=== PATIENT | female | born 1980 | race Caucasian/White ===

== ENCOUNTER → 2018-09-16 09:20 | Outpatient (CLI) | payer OTHER, SELFPAY ==
--- NOTE | 2018-09-16 | DI.US.S_ITS ---
PROCEDURE: US PELVIC COMPLETE INDICATIONS: PAIN TECHNIQUE: Real-time scanning was performed of the pelvic organs, with image documentation. Additional endovaginal scanning was necessary due to incomplete visualization of the adnexal and endometrial structures by transabdominal scanning. COMPARISON: [facility], , PELVIC COMPLETE, 08/16/2014, 8:38. [facility], , PELVIC COMPLETE, 04/22/2012, 13:14. FINDINGS: Transabdominal scanning: Limited scanning through the kidneys shows no hydronephrosis. No pathologic free abdominal or pelvic fluid. Endovaginal scanning: Uterus: Uterus is normal in size at 5.4 x 7.6 x 9.1 cm, anteverted. The endometrium measures 7.9 mm in combined thickness. Ovaries: Normal in size and free of evidence of torsion. A minimally complex 1.7 cm cyst is incidentally noted at the left ovary, likely with proteinaceous or hemorrhagic internal content IMPRESSION: Normal-appearing endometrial lining and myometrium, the uterus is anteverted. No evidence of ovarian torsion or inflammation. Minimally complex left ovarian cyst measuring up to 1.1 x 1.3 x 1.7 cm. Dictated by: Lawrence Cristina M.D. on 09/16/2018 at 11:50 Approved by: Lawrence Cristina M.D. on 09/16/2018 at 11:52
== END ==
PROVIDERS: Family Provider Nurse Practitioner; PCP Nurse Practitioner; Visit Provider Registered Nurse
DX: R10.2 Pelvic and perineal pain (principal); N83.202 Unspecified ovarian cyst, left side; N85.4 Malposition of uterus
CPT/HCPCS: 76830; 76856

== ENCOUNTER → 2019-03-16 18:26 | Outpatient (CLI) | payer OTHER, SELFPAY | PROVIDERS: PCP Nurse Practitioner; Visit Provider Physician Assistant | DX: N30.01 Acute cystitis with hematuria (principal) | CPT/HCPCS: 87077; 87086; 87186 ==

== ENCOUNTER 2019-04-05 13:00 | Outpatient (RCR) | payer OTHER, SELFPAY ==
--- NOTE | 2019-02-01 15:15 | PT.OIE ---
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 Specialty: Family Practice Address: [address] [place] [address], [id number] Email: [email or web address] Attending Provider Specialty: Address: Phone: Fax: Email: Physical Therapy Initial Evaluation PT-OP-A Visit Information Start: 02/01/19 13:13 Freq: Status: Active Protocol: Document 02/01/19 15:15 [facility] (Rec: 02/06/19 14:09 [facility] [email or web address]) Out-Patient Physical Therapy Visit Information Visit Information Visit Type Initial Evaluation Visit Note 38 year old female with abdominal pain, pelvic pain, weakness of her pelvic floor Visit Start Time 15:15 Visit Stop Time 16:00 Total Visit Minutes 45 Visit Number 1 Evaluation Information Evaluation Date 02/01/19 PT-OP-B Current Condition Start: 02/01/19 13:13 Freq: Status: Active Protocol: Document 02/01/19 15:23 [facility] (Rec: 02/01/19 15:36 [facility] [id number]) Current Condition History of Current Condition Onset Date with child births Current Complaints pelvic pressure and abdominal pain, frequency of voiding History of Current Condition history of a retroverted uterus, Will be having a partial hysterectomy and and bladder sling surgery is scheduled April 12. With the pain it is hard to exercise. Notes all over pelvic and abdominal pain pain is worse in the am. She does not like having urine in her bladder. Always had a little problem with the stream of urine. Uses a squatty potty and splints her perineum. Always feels pain when she is ovulating and hard to have a good bowel movement during this time. Can only do light exercise at this time. Would like to be able to do a cardio workout without having pain following. Future Testing and Treatments Planned Pt is undergoing a partial hysterectomy, exploritory surgery, and anterior posterior repair in March Treatment Goals Patient/Caregiver Goals The patients goals include strengthening of her pelvic floor prior to surgery for best surgical outcome PT-OP-I Pelvic Floor Start: 02/01/19 13:13 Freq: Status: Active Protocol: Document 02/01/19 15:15 [facility] (Rec: 02/06/19 14:09 [facility] [email or web address]) Pelvic Floor Assessment Urine Pelvic Floor Surgery No Urinary Symptoms Urge Sensation,Prolapse, Hesitancy,Dribbling After Urination,Incomplete Emptying, Pain Leakage Size Medium Leakage Cause Cough,Exercise,Lifting,Sneeze, Urge Leaks Per Day 2 Nocturia yes Pelvic Clock Pelvic Clock 12-3 Atrophy Pelvic Clock 3-6 Atrophy Pelvic Clock 6-9 Atrophy Pelvic Clock 9-12 Atrophy Prolapse Uterine Prolapse Grade 2 Cystocele Grade 2 Prolapse Comments pt does better with a wedge for pelvic floor contractions SEMG (uV) Baseline 2.0 10 Second Contraction 11.9 Recruitment Pattern Fair Relaxation Fair Holding Fair Stability of Hold Fair SEMG Stability of Rest Fair Contraction Ability Voluntary Contraction Weak Voluntary Relaxation Weak Manual Muscle Testing Left 3 Manual Muscle Testing Right 3 Manual Muscle Testing Anterior 3 Manual Muscle Testing Posterior 3 Muscle Endurance (Seconds) 5 Comments Pelvic Floor Comments max on EMG biofeedback is 20.8 , elevated resting tone PT-OP-M Strength Start: 02/01/19 13:13 Freq: Status: Active Protocol: Document 02/01/19 15:15 [facility] (Rec: 02/06/19 14:09 [facility] [email or web address]) Trunk Strength Trunk Manual Muscle Testing Core Stabilization decreased activation of the transverse abdominal musculature R SI joint pain with TA contractions PT-OP-T Assessment and Plan Start: 02/01/19 13:13 Freq: Status: Active Protocol: Document 02/01/19 15:15 [facility] (Rec: 02/06/19 14:09 [facility] [email or web address]) Physical Therapy Assessment Rehab Potential Rehabilitation Potential Good Evaluation Complexity Number of Personal Factors/Comorbidities 0 Number of Body Systems Impaired 1-2 Clinical Presentation at Evaluation Stable Impairments Impairments Activity Tolerance,Functional Activities,Pain,Strength Goals Three Impairment Decreased endurance of the pelvic floor Nursing Home Goal (LTG) Giovanni is able to sustain a pelvic floor contraction for 10 seconds in supine and 5 seconds in standing LTG Duration 8 weeks Two Impairment Decreased strength of the levator ani musculature Head Of [employer] Goal (LTG) Remedios is able to increase her strength of the pelvic floor to 3+/5 or greater prior to surgery LTG Duration 8 weeks One Impairment Decreased strength of the transverse abdominal muscle Short Term Goal (STG) Remedios is able to sustain a contraction of the TA in quadruped for 10 seconds STG Duration 5 weeks Assessment Summary Assessment Giovanni presents to physical therapy today for pelvic floor strengthening pre hysterectomy, exploritory surgery, and anterior/ posterior pelvic wall repair. She has a past history of 1 vaginal delivery and 2 c- section deliveries. Her youngest child is 3 years old. She is scheduled for surgery in March 2019 and wants to be as strong as possible prior to surgery. She reports both abdominal and pelvic floor pain. She feels very weak in her core and pelvic floor and reports she has no stamina for regular exercise or normal activities. She reports bladder leakage approximatley 2 xms per day with both exercise and strong urge to void. She reports emptying her bladder frequently due to a irritation and urgency when her bladder is filling. She reports feeling as if she always needs to void. Remedios has had previous PT and is educated on avoiding straining, using a squatty potty, and splinting with her fingers to avoid increased strain to her pelvic organs. She has had PT for pelvic floor strengthening in the past. With her examination today Remedios presents with pelvic floor weakness greater in the anterior wall of her pelvic floor, decreased endurance and pelvic organ prolapse. We did start EMG biofeedback today for her pelvic floor facilitation. She does better in a elevated position for her pelvic floor. Treatment will include endurance training for the pelvic floor and overall strengthening of the core prior to surgery. Physical Therapy Plan Frequency and Duration Frequency of Treatment 1x/Week Duration of Treatment 8 Plan of Care Start Date 02/01/19 Plan of Care End Date 03/29/19 Therapeutic Interventions Therapeutic Interventions Home Exercise Program, Neuromuscular Re-education, Patient/Caregiver Education, Self-Care/Home Management, Therapeutic Exercises Modalities Biofeedback Next Visit Focus/Plan Next Note Type Treatment Note Next Visit Plan EMG biofeedback for pelvic floor strengthening and endurance traning. Core stabilization exercises and TA muscle facilitation.
--- NOTE | 2019-03-01 12:18 | PT.OTN ---
Current Diagnoses Female genital prolapse, unspecified (03/01/19) Physical Therapy Treatment Note PT-OP-A Visit Information Start: 02/01/19 13:13 Freq: Status: Active Protocol: Document 03/01/19 12:12 [facility] (Rec: 03/01/19 12:15 [facility] [email or web address]) Out-Patient Physical Therapy Visit Information Visit Information Visit Type Treatment Note Visit Start Time 11:15 Visit Stop Time 12:00 Total Visit Minutes 45 Visit Number 2 PT-OP-B Current Condition Start: 02/01/19 13:13 Freq: Status: Active Protocol: Document 02/01/19 15:23 [facility] (Rec: 02/01/19 15:36 [facility] [id number]) Current Condition History of Current Condition Onset Date with child births Current Complaints pelvic pressure and abdominal pain, frequency of voiding History of Current Condition history of a retroverted uterus, Will be having a partial hysterectomy and and bladder sling surgery is scheduled April 12. With the pain it is hard to exercise. Notes all over pelvic and abdominal pain pain is worse in the am. She does not like having urine in her bladder. Always had a little problem with the stream of urine. Uses a squatty potty and splints her perineum. Always feels pain when she is ovulating and hard to have a good bowel movement during this time. Can only do light exercise at this time. Would like to be able to do a cardio workout without having pain following. Future Testing and Treatments Planned Pt is undergoing a partial hysterectomy, exploritory surgery, and anterior posterior repair in March Treatment Goals Patient/Caregiver Goals The patients goals include strengthening of her pelvic floor prior to surgery for best surgical outcome PT-OP-C Subjective Start: 02/01/19 13:13 Freq: Status: Active Protocol: Document 03/01/19 11:18 [facility] (Rec: 03/01/19 11:20 [facility] [id number]) OP-PT Subjective Patient Comments Patient Comments Somedays are better than others Still scheduled for surgery in March Patient Reported Progress Same PT-OP-I Pelvic Floor Start: 02/01/19 13:13 Freq: Status: Active Protocol: Document 02/01/19 15:15 [facility] (Rec: 02/06/19 14:09 [facility] [email or web address]) Pelvic Floor Assessment Urine Pelvic Floor Surgery No Urinary Symptoms Urge Sensation,Prolapse, Hesitancy,Dribbling After Urination,Incomplete Emptying, Pain Leakage Size Medium Leakage Cause Cough,Exercise,Lifting,Sneeze, Urge Leaks Per Day 2 Nocturia yes Pelvic Clock Pelvic Clock 12-3 Atrophy Pelvic Clock 3-6 Atrophy Pelvic Clock 6-9 Atrophy Pelvic Clock 9-12 Atrophy Prolapse Uterine Prolapse Grade 2 Cystocele Grade 2 Prolapse Comments pt does better with a wedge for pelvic floor contractions SEMG (uV) Baseline 2.0 10 Second Contraction 11.9 Recruitment Pattern Fair Relaxation Fair Holding Fair Stability of Hold Fair SEMG Stability of Rest Fair Contraction Ability Voluntary Contraction Weak Voluntary Relaxation Weak Manual Muscle Testing Left 3 Manual Muscle Testing Right 3 Manual Muscle Testing Anterior 3 Manual Muscle Testing Posterior 3 Muscle Endurance (Seconds) 5 Comments Pelvic Floor Comments max on EMG biofeedback is 20.8 , elevated resting tone PT-OP-M Strength Start: 02/01/19 13:13 Freq: Status: Active Protocol: Document 02/01/19 15:15 [facility] (Rec: 02/06/19 14:09 [facility] [email or web address]) Trunk Strength Trunk Manual Muscle Testing Core Stabilization decreased activation of the transverse abdominal musculature R SI joint pain with TA contractions PT-OP-Q Treatments Start: 03/01/19 12:12 Freq: Status: Active Protocol: Document 03/01/19 12:16 [facility] (Rec: 03/01/19 12:18 [facility] [email or web address]) Therapeutic Exercises Supine Exercises 6 Supine Exercise Name quick flicks x 10 reps 5 Supine Exercise Name Pelvic floor activation with EMG biofeedback Reps/Minutes 10 second hold x 10 reps 4 Supine Exercise Name ball squeeze with pelvic floor squeeze Reps/Minutes x 10 3 Supine Exercise Name Roll outs with theraband Reps/Minutes 3 x 10 reps 2 Supine Exercise Name TA with marches Reps/Minutes x 10 1 Supine Exercise Name TA facilitation in supine Reps/Minutes x 5 PT-OP-T Assessment and Plan Start: 02/01/19 13:13 Freq: Status: Active Protocol: Document 03/01/19 12:12 [facility] (Rec: 03/01/19 12:15 [facility] [email or web address]) Physical Therapy Assessment Assessment Summary Assessment Average contraction today was 16.1 with max of 24.7. Remedios did not require a bolster today for her pelvic floor. Added in quadruped TA and hip stabilization exercises. Good tolerance. Physical Therapy Plan Frequency and Duration Frequency of Treatment 1x/Week Duration of Treatment 8 Plan of Care Start Date 02/01/19 Plan of Care End Date 03/29/19 Next Visit Focus/Plan Next Note Type Treatment Note Next Visit Plan Review all exercises from today and continue to progress stabilization until surgery
--- NOTE | 2019-03-09 09:26 | PT.OTN ---
Current Diagnoses Female genital prolapse, unspecified (03/08/19) Physical Therapy Treatment Note PT-OP-A Visit Information Start: 02/01/19 13:13 Freq: Status: Active Protocol: Document 03/08/19 13:01 [facility] (Rec: 03/08/19 13:45 [facility] [id number]) Out-Patient Physical Therapy Visit Information Visit Information Visit Type Treatment Note Visit Start Time 13:00 Visit Stop Time 13:45 Total Visit Minutes 45 Visit Number 3 PT-OP-B Current Condition Start: 02/01/19 13:13 Freq: Status: Active Protocol: Document 02/01/19 15:23 [facility] (Rec: 02/01/19 15:36 [facility] [id number]) Current Condition History of Current Condition Onset Date with child births Current Complaints pelvic pressure and abdominal pain, frequency of voiding History of Current Condition history of a retroverted uterus, Will be having a partial hysterectomy and and bladder sling surgery is scheduled April 12. With the pain it is hard to exercise. Notes all over pelvic and abdominal pain pain is worse in the am. She does not like having urine in her bladder. Always had a little problem with the stream of urine. Uses a squatty potty and splints her perineum. Always feels pain when she is ovulating and hard to have a good bowel movement during this time. Can only do light exercise at this time. Would like to be able to do a cardio workout without having pain following. Future Testing and Treatments Planned Pt is undergoing a partial hysterectomy, exploritory surgery, and anterior posterior repair in March Treatment Goals Patient/Caregiver Goals The patients goals include strengthening of her pelvic floor prior to surgery for best surgical outcome PT-OP-C Subjective Start: 02/01/19 13:13 Freq: Status: Active Protocol: Document 03/08/19 13:01 [facility] (Rec: 03/08/19 13:45 [facility] [id number]) OP-PT Subjective Patient Comments Patient Comments Pt reports she was really sore after last week. Muscular pain, she was suprised at how much she was sore from using her pelvic floor muscles PT-OP-I Pelvic Floor Start: 02/01/19 13:13 Freq: Status: Active Protocol: Document 02/01/19 15:15 [facility] (Rec: 02/06/19 14:09 [facility] [email or web address]) Pelvic Floor Assessment Urine Pelvic Floor Surgery No Urinary Symptoms Urge Sensation,Prolapse, Hesitancy,Dribbling After Urination,Incomplete Emptying, Pain Leakage Size Medium Leakage Cause Cough,Exercise,Lifting,Sneeze, Urge Leaks Per Day 2 Nocturia yes Pelvic Clock Pelvic Clock 12-3 Atrophy Pelvic Clock 3-6 Atrophy Pelvic Clock 6-9 Atrophy Pelvic Clock 9-12 Atrophy Prolapse Uterine Prolapse Grade 2 Cystocele Grade 2 Prolapse Comments pt does better with a wedge for pelvic floor contractions SEMG (uV) Baseline 2.0 10 Second Contraction 11.9 Recruitment Pattern Fair Relaxation Fair Holding Fair Stability of Hold Fair SEMG Stability of Rest Fair Contraction Ability Voluntary Contraction Weak Voluntary Relaxation Weak Manual Muscle Testing Left 3 Manual Muscle Testing Right 3 Manual Muscle Testing Anterior 3 Manual Muscle Testing Posterior 3 Muscle Endurance (Seconds) 5 Comments Pelvic Floor Comments max on EMG biofeedback is 20.8 , elevated resting tone PT-OP-M Strength Start: 02/01/19 13:13 Freq: Status: Active Protocol: Document 02/01/19 15:15 [facility] (Rec: 02/06/19 14:09 [facility] [email or web address]) Trunk Strength Trunk Manual Muscle Testing Core Stabilization decreased activation of the transverse abdominal musculature R SI joint pain with TA contractions PT-OP-Q Treatments Start: 03/01/19 12:12 Freq: Status: Active Protocol: Document 03/08/19 13:01 [facility] (Rec: 03/08/19 13:45 [facility] [id number]) Therapeutic Exercises Supine Exercises 8 Supine Exercise Name templates for coordination and eccentric control Comments with EMG biofeedback x 5 minutes 7 Supine Exercise Name Pelvic floor with ball squeeze and bridges Reps/Minutes 10 6 Supine Exercise Name quick flicks x 10 reps 5 Supine Exercise Name Pelvic floor activation with EMG biofeedback Reps/Minutes 10 second hold x 10 reps 4 Supine Exercise Name ball squeeze with pelvic floor squeeze Reps/Minutes x 10 3 Supine Exercise Name Roll outs with theraband Reps/Minutes 3 x 10 reps 2 Supine Exercise Name TA with marches Reps/Minutes x 10 1 Supine Exercise Name TA facilitation in supine Reps/Minutes x 5 Other Exercises 2 Other Exercise Name quadruped TA facilitation Reps/Minutes hold x 5 seconds x 5 reps 1 Other Exercise Name quadruped cat cow Reps/Minutes x 10 reps PT-OP-T Assessment and Plan Start: 12/17/19 13:13 Freq: Status: Active Protocol: Document 03/08/19 13:01 [facility] (Rec: 03/09/19 09:26 [facility] [email or web address]) Physical Therapy Assessment Assessment Summary Assessment Good tolerance today for ther ex. Was sore following last visit but sore from using her muscles. Today she was able to complete all of her exercises. Continue working the pelvic floor and core musculature prior to surgery next month. Physical Therapy Plan Frequency and Duration Frequency of Treatment 1x/Week Duration of Treatment 8 Plan of Care Start Date 02/01/19 Plan of Care End Date 03/29/19 Therapeutic Interventions Therapeutic Interventions Home Exercise Program, Neuromuscular Re-education, Patient/Caregiver Education, Self-Care/Home Management, Therapeutic Exercises Modalities Biofeedback Next Visit Focus/Plan Next Note Type Treatment Note Next Visit Plan Continue to work on pelvic floor stabilization 1 xm per week until surgery.
--- NOTE | 2019-03-15 16:49 | PT.OTN ---
Current Diagnoses Female genital prolapse, unspecified (03/15/19) Physical Therapy Treatment Note PT-OP-A Visit Information Start: 02/01/19 13:13 Freq: Status: Active Protocol: Document 03/15/19 16:44 [facility] (Rec: 03/15/19 16:49 [facility] [email or web address]) Out-Patient Physical Therapy Visit Information Visit Information Visit Type Treatment Note Visit Start Time 13:00 Visit Stop Time 13:45 Total Visit Minutes 45 Visit Number 4 PT-OP-B Current Condition Start: 02/01/19 13:13 Freq: Status: Active Protocol: Document 02/01/19 15:23 [facility] (Rec: 02/01/19 15:36 [facility] [id number]) Current Condition History of Current Condition Onset Date with child births Current Complaints pelvic pressure and abdominal pain, frequency of voiding History of Current Condition history of a retroverted uterus, Will be having a partial hysterectomy and and bladder sling surgery is scheduled April 12. With the pain it is hard to exercise. Notes all over pelvic and abdominal pain pain is worse in the am. She does not like having urine in her bladder. Always had a little problem with the stream of urine. Uses a squatty potty and splints her perineum. Always feels pain when she is ovulating and hard to have a good bowel movement during this time. Can only do light exercise at this time. Would like to be able to do a cardio workout without having pain following. Future Testing and Treatments Planned Pt is undergoing a partial hysterectomy, exploritory surgery, and anterior posterior repair in March Treatment Goals Patient/Caregiver Goals The patients goals include strengthening of her pelvic floor prior to surgery for best surgical outcome PT-OP-C Subjective Start: 02/01/19 13:13 Freq: Status: Active Protocol: Document 03/15/19 16:44 [facility] (Rec: 03/15/19 16:49 [facility] [email or web address]) OP-PT Subjective Patient Comments Patient Comments pt reports it is the week before her menstruation and she feels alot more pressure and fatigue PT-OP-I Pelvic Floor Start: 02/01/19 13:13 Freq: Status: Active Protocol: Document 02/01/19 15:15 [facility] (Rec: 02/06/19 14:09 [facility] [email or web address]) Pelvic Floor Assessment Urine Pelvic Floor Surgery No Urinary Symptoms Urge Sensation,Prolapse, Hesitancy,Dribbling After Urination,Incomplete Emptying, Pain Leakage Size Medium Leakage Cause Cough,Exercise,Lifting,Sneeze, Urge Leaks Per Day 2 Nocturia yes Pelvic Clock Pelvic Clock 12-3 Atrophy Pelvic Clock 3-6 Atrophy Pelvic Clock 6-9 Atrophy Pelvic Clock 9-12 Atrophy Prolapse Uterine Prolapse Grade 2 Cystocele Grade 2 Prolapse Comments pt does better with a wedge for pelvic floor contractions SEMG (uV) Baseline 2.0 10 Second Contraction 11.9 Recruitment Pattern Fair Relaxation Fair Holding Fair Stability of Hold Fair SEMG Stability of Rest Fair Contraction Ability Voluntary Contraction Weak Voluntary Relaxation Weak Manual Muscle Testing Left 3 Manual Muscle Testing Right 3 Manual Muscle Testing Anterior 3 Manual Muscle Testing Posterior 3 Muscle Endurance (Seconds) 5 Comments Pelvic Floor Comments max on EMG biofeedback is 20.8 , elevated resting tone PT-OP-M Strength Start: 02/01/19 13:13 Freq: Status: Active Protocol: Document 02/01/19 15:15 [facility] (Rec: 02/06/19 14:09 [facility] [email or web address]) Trunk Strength Trunk Manual Muscle Testing Core Stabilization decreased activation of the transverse abdominal musculature R SI joint pain with TA contractions PT-OP-Q Treatments Start: 03/01/19 12:12 Freq: Status: Active Protocol: Document 03/15/19 16:44 [facility] (Rec: 03/15/19 16:49 [facility] [email or web address]) Therapeutic Exercises Supine Exercises 8 Supine Exercise Name templates for coordination and eccentric control Comments with EMG biofeedback x 5 minutes 7 Supine Exercise Name ball bridges Reps/Minutes 10 6 Supine Exercise Name quick flicks x 10 reps 5 Supine Exercise Name Pelvic floor activation with EMG biofeedback Reps/Minutes 10 second hold x 10 reps 4 Supine Exercise Name ball squeeze with pelvic floor squeeze Reps/Minutes x 10 3 Supine Exercise Name Roll outs with theraband Reps/Minutes 3 x 10 reps 2 Supine Exercise Name TA with marches Reps/Minutes x 10 1 Supine Exercise Name TA facilitation in supine Reps/Minutes x 5 each side Comments with ASLR Other Exercises 3 Other Exercise Name TA with opp arm lifts Reps/Minutes x 10 reps 2 Other Exercise Name quadruped TA facilitation Reps/Minutes hold x 5 seconds x 5 reps 1 Other Exercise Name quadruped cat cow Reps/Minutes x 10 reps PT-OP-T Assessment and Plan Start: 02/01/19 13:13 Freq: Status: Active Protocol: Document 03/15/19 16:44 [facility] (Rec: 03/15/19 16:49 [facility] [email or web address]) Physical Therapy Assessment Assessment Summary Assessment average today on EMG biofeedback is 17.4 uv with max of 28.5 uv. Needed the wedge today to elevate her pelvis due to pressure. Physical Therapy Plan Frequency and Duration Frequency of Treatment 1x/Week Duration of Treatment 8 Plan of Care Start Date 02/01/19 Plan of Care End Date 03/29/19 Therapeutic Interventions Therapeutic Interventions Home Exercise Program, Neuromuscular Re-education, Patient/Caregiver Education, Self-Care/Home Management, Therapeutic Exercises Next Visit Focus/Plan Next Note Type Treatment Note Next Visit Plan Continue to work on pelvic floor stabilization prior to surgery the end of March
--- NOTE | 2019-03-29 12:22 | PT.OTN ---
Current Diagnoses Female genital prolapse, unspecified (03/29/19) Physical Therapy Treatment Note PT-OP-A Visit Information Start: 02/01/19 13:13 Freq: Status: Active Protocol: Document 03/29/19 11:24 [facility] (Rec: 03/29/19 11:25 [facility] [id number]) Out-Patient Physical Therapy Visit Information Visit Information Visit Type Treatment Note Visit Start Time 11:15 Visit Stop Time 12:00 Total Visit Minutes 45 Visit Number 5 PT-OP-B Current Condition Start: 02/01/19 13:13 Freq: Status: Active Protocol: Document 02/01/19 15:23 [facility] (Rec: 02/01/19 15:36 [facility] [id number]) Current Condition History of Current Condition Onset Date with child births Current Complaints pelvic pressure and abdominal pain, frequency of voiding History of Current Condition history of a retroverted uterus, Will be having a partial hysterectomy and and bladder sling surgery is scheduled April 12. With the pain it is hard to exercise. Notes all over pelvic and abdominal pain pain is worse in the am. She does not like having urine in her bladder. Always had a little problem with the stream of urine. Uses a squatty potty and splints her perineum. Always feels pain when she is ovulating and hard to have a good bowel movement during this time. Can only do light exercise at this time. Would like to be able to do a cardio workout without having pain following. Future Testing and Treatments Planned Pt is undergoing a partial hysterectomy, exploritory surgery, and anterior posterior repair in March Treatment Goals Patient/Caregiver Goals The patients goals include strengthening of her pelvic floor prior to surgery for best surgical outcome PT-OP-C Subjective Start: 02/01/19 13:13 Freq: Status: Active Protocol: Document 03/29/19 11:24 [facility] (Rec: 03/29/19 11:25 [facility] [id number]) OP-PT Subjective Patient Comments Patient Comments pt had a UTI following last visit PT-OP-I Pelvic Floor Start: 02/01/19 13:13 Freq: Status: Active Protocol: Document 02/01/19 15:15 [facility] (Rec: 02/06/19 14:09 [facility] [email or web address]) Pelvic Floor Assessment Urine Pelvic Floor Surgery No Urinary Symptoms Urge Sensation,Prolapse, Hesitancy,Dribbling After Urination,Incomplete Emptying, Pain Leakage Size Medium Leakage Cause Cough,Exercise,Lifting,Sneeze, Urge Leaks Per Day 2 Nocturia yes Pelvic Clock Pelvic Clock 12-3 Atrophy Pelvic Clock 3-6 Atrophy Pelvic Clock 6-9 Atrophy Pelvic Clock 9-12 Atrophy Prolapse Uterine Prolapse Grade 2 Cystocele Grade 2 Prolapse Comments pt does better with a wedge for pelvic floor contractions SEMG (uV) Baseline 2.0 10 Second Contraction 11.9 Recruitment Pattern Fair Relaxation Fair Holding Fair Stability of Hold Fair SEMG Stability of Rest Fair Contraction Ability Voluntary Contraction Weak Voluntary Relaxation Weak Manual Muscle Testing Left 3 Manual Muscle Testing Right 3 Manual Muscle Testing Anterior 3 Manual Muscle Testing Posterior 3 Muscle Endurance (Seconds) 5 Comments Pelvic Floor Comments max on EMG biofeedback is 20.8 , elevated resting tone PT-OP-M Strength Start: 02/01/19 13:13 Freq: Status: Active Protocol: Document 02/01/19 15:15 [facility] (Rec: 02/06/19 14:09 [facility] [email or web address]) Trunk Strength Trunk Manual Muscle Testing Core Stabilization decreased activation of the transverse abdominal musculature R SI joint pain with TA contractions PT-OP-Q Treatments Start: 03/01/19 12:12 Freq: Status: Active Protocol: Document 03/29/19 12:10 [facility] (Rec: 03/29/19 12:22 [facility] [email or web address]) Therapeutic Exercises Supine Exercises 8 Supine Exercise Name templates for coordination and eccentric control Comments with EMG biofeedback x 5 minutes 7 Supine Exercise Name ball bridges Reps/Minutes 10 6 Supine Exercise Name quick flicks x 10 reps 5 Supine Exercise Name NO EMG today as Remedios didn't have her electrode with her 4 Supine Exercise Name ball squeeze with pelvic floor squeeze Reps/Minutes x 10 3 Supine Exercise Name Roll outs with theraband Reps/Minutes 3 x 10 reps 2 Supine Exercise Name TA with marches Reps/Minutes x 10 1 Supine Exercise Name TA facilitation in supine Reps/Minutes x 5 each side Comments with ASLR Sidelying Exercises 3 Sidelying Exercise Name sidelying small hip circles Reps/Minutes 2 x 10 each 2 Sidelying Exercise Name sidelying hip lifts Reps/Minutes 2 x 10 1 Sidelying Exercise Name sidelying clam shells Reps/Minutes 2 x 10 reps Other Exercises 2 Other Exercise Name quadruped TA facilitation Reps/Minutes hold x 5 seconds x 5 reps 1 Other Exercise Name quadruped cat cow Reps/Minutes x 10 reps PT-OP-T Assessment and Plan Start: 02/01/19 13:13 Freq: Status: Active Protocol: Document 03/29/19 12:10 [facility] (Rec: 03/29/19 12:22 [facility] [email or web address]) Physical Therapy Assessment Goals Three Impairment Decreased endurance of the pelvic floor Second Language Tutor Goal (LTG) Remedios is able to sustain a pelvic floor contraction for 10 seconds in supine and 5 seconds in standing As of 03/29/19 GOOD progress, able to sustain x 10 seconds in supine LTG Duration 8 weeks Two Impairment Decreased strength of the levator ani musculature Nursing Home Goal (LTG) Remedios is able to increase her strength of the pelvic floor to 3+/5 or greater prior to surgery GOOD Progress LTG Duration 8 weeks One Impairment Decreased strength of the transverse abdominal muscle Short Term Goal (STG) Remedios is able to sustain a contraction of the TA in quadruped for 10 seconds GOAL MET STG Duration 5 weeks Assessment Summary Assessment Remedios has been tolerating PT well and showing good endurance strengthening. She has her surgery in 2 weeks so has one visit left prior to surgery. At that time we will hold off PT until she is cleared to return to therapy. Today we held off on biofeedback as Remedios had left her electrode in the car and she suffered a UTI last week. Physical Therapy Plan Frequency and Duration Frequency of Treatment 1x/Week Duration of Treatment 8 Plan of Care Start Date 03/29/19 Plan of Care End Date 05/31/19 Therapeutic Interventions Therapeutic Interventions Home Exercise Program, Neuromuscular Re-education, Patient/Caregiver Education, Self-Care/Home Management, Therapeutic Exercises Next Visit Focus/Plan Next Note Type Treatment Note Next Visit Plan Continue to work on pelvic floor stabilization prior to surgery the end of march Resume PT once cleared by her MD after surgery.
--- NOTE | 2019-03-29 12:35 | PT.OPPN ---
Current Diagnoses Female genital prolapse, unspecified (03/29/19) Physical Therapy Progress Note PT-OP-A Visit Information Start: 02/01/19 13:13 Freq: Status: Active Protocol: Document 03/29/19 11:24 [facility] (Rec: 03/29/19 11:25 [facility] [id number]) Out-Patient Physical Therapy Visit Information Visit Information Visit Type Treatment Note Visit Start Time 11:15 Visit Stop Time 12:00 Total Visit Minutes 45 Visit Number 5 PT-OP-B Current Condition Start: 02/01/19 13:13 Freq: Status: Active Protocol: Document 02/01/19 15:23 [facility] (Rec: 02/01/19 15:36 [facility] [id number]) Current Condition History of Current Condition Onset Date with child births Current Complaints pelvic pressure and abdominal pain, frequency of voiding History of Current Condition history of a retroverted uterus, Will be having a partial hysterectomy and and bladder sling surgery is scheduled April 12. With the pain it is hard to exercise. Notes all over pelvic and abdominal pain pain is worse in the am. She does not like having urine in her bladder. Always had a little problem with the stream of urine. Uses a squatty potty and splints her perineum. Always feels pain when she is ovulating and hard to have a good bowel movement during this time. Can only do light exercise at this time. Would like to be able to do a cardio workout without having pain following. Future Testing and Treatments Planned Pt is undergoing a partial hysterectomy, exploritory surgery, and anterior posterior repair in March Treatment Goals Patient/Caregiver Goals The patients goals include strengthening of her pelvic floor prior to surgery for best surgical outcome PT-OP-C Subjective Start: 02/01/19 13:13 Freq: Status: Active Protocol: Document 03/29/19 11:24 [facility] (Rec: 03/29/19 11:25 [facility] [id number]) OP-PT Subjective Patient Comments Patient Comments pt had a UTI following last visit PT-OP-I Pelvic Floor Start: 02/01/19 13:13 Freq: Status: Active Protocol: Document 02/01/19 15:15 [facility] (Rec: 02/06/19 14:09 [facility] [id number]) Pelvic Floor Assessment Urine Pelvic Floor Surgery No Urinary Symptoms Urge Sensation,Prolapse, Hesitancy,Dribbling After Urination,Incomplete Emptying, Pain Leakage Size Medium Leakage Cause Cough,Exercise,Lifting,Sneeze, Urge Leaks Per Day 2 Nocturia yes Pelvic Clock Pelvic Clock 12-3 Atrophy Pelvic Clock 3-6 Atrophy Pelvic Clock 6-9 Atrophy Pelvic Clock 9-12 Atrophy Prolapse Uterine Prolapse Grade 2 Cystocele Grade 2 Prolapse Comments pt does better with a wedge for pelvic floor contractions SEMG (uV) Baseline 2.0 10 Second Contraction 11.9 Recruitment Pattern Fair Relaxation Fair Holding Fair Stability of Hold Fair SEMG Stability of Rest Fair Contraction Ability Voluntary Contraction Weak Voluntary Relaxation Weak Manual Muscle Testing Left 3 Manual Muscle Testing Right 3 Manual Muscle Testing Anterior 3 Manual Muscle Testing Posterior 3 Muscle Endurance (Seconds) 5 Comments Pelvic Floor Comments max on EMG biofeedback is 20.8 , elevated resting tone PT-OP-M Strength Start: 02/01/19 13:13 Freq: Status: Active Protocol: Document 02/01/19 15:15 [facility] (Rec: 02/06/19 14:09 [facility] [email or web address]) Trunk Strength Trunk Manual Muscle Testing Core Stabilization decreased activation of the transverse abdominal musculature R SI joint pain with TA contractions PT-OP-T Assessment and Plan Start: 02/01/19 13:13 Freq: Status: Active Protocol: Document 03/29/19 12:10 [facility] (Rec: 03/29/19 12:22 [facility] [email or web address]) Physical Therapy Assessment Goals Three Impairment Decreased endurance of the pelvic floor Power Shovel Operator Helper Goal (LTG) Giovanni is able to sustain a pelvic floor contraction for 10 seconds in supine and 5 seconds in standing As of 03/29/19 GOOD progress, able to sustain x 10 seconds in supine LTG Duration 8 weeks Two Impairment Decreased strength of the levator ani musculature Power Shovel Operator Helper Goal (LTG) Remedios is able to increase her strength of the pelvic floor to 3+/5 or greater prior to surgery GOOD PRogress LTG Duration 8 weeks One Impairment Decreased strength of the transverse abdominal muscle Short Term Goal (STG) Remedios is able to sustain a contraction of the TA in quadruped for 10 seconds GOAL MET STG Duration 5 weeks Assessment Summary Assessment Remedios has been tolerating PT well and showing good endurance strengthening. She has her surgery in 2 weeks so has one visit left prior to surgery. At that time we will hold off PT until she is cleared to return to therapy. Today we held off on biofeedback as Remedios had left her electrode in the car and she suffered a UTI last week. Physical Therapy Plan Frequency and Duration Frequency of Treatment 1x/Week Duration of Treatment 8 Plan of Care Start Date 03/29/19 Plan of Care End Date 05/31/19 Therapeutic Interventions Therapeutic Interventions Home Exercise Program, Neuromuscular Re-education, Patient/Caregiver Education, Self-Care/Home Management, Therapeutic Exercises Next Visit Focus/Plan Next Note Type Treatment Note Next Visit Plan Continue to work on pelvic floor stabilization prior to surgery the end of march. Resume PT once cleared by her MD after surgery.
--- NOTE | 2019-03-29 12:36 | PT.OPPOC ---
Physical, Occupational & Speech Therapy At [facility] Current Diagnoses Female genital prolapse, unspecified (03/29/19) Visit Care Team Role Provider Type KVNG Cooper Primary Care Provider Advanced Liquefied Natural Gas Operator Specialty: Family Practice Address: [address] [place] [address], [id number] Email: [email or web address] Attending Provider Specialty: Address: Phone: Fax: Email: Plan Of Care PT-OP-T Assessment and Plan Start: 02/01/19 13:13 Freq: Status: Active Protocol: Document 03/29/19 12:10 [facility] (Rec: 03/29/19 12:22 [facility] [email or web address]) Physical Therapy Assessment Goals Three Impairment Decreased endurance of the pelvic floor Alf Goal (LTG) Giovanni is able to sustain a pelvic floor contraction for 10 seconds in supine and 5 seconds in standing As of 03/29/19 GOOD progress, able to sustain x 10 seconds in supine LTG Duration 8 weeks Two Impairment Decreased strength of the levator ani musculature Alf Goal (LTG) Remedios is able to increase her strength of the pelvic floor to 3+/5 or greater prior to surgery GOOD PRogress LTG Duration 8 weeks One Impairment Decreased strength of the transverse abdominal muscle Short Term Goal (STG) Remedios is able to sustain a contraction of the TA in quadruped for 10 seconds GOAL MET STG Duration 5 weeks Assessment Summary Assessment Remedios has been tolerating PT well and showing good endurance strengthening. She has her surgery in 2 weeks so has one visit left prior to surgery. At that time we will hold off PT until she is cleared to return to therapy. Today we held off on biofeedback as Remedios had left her electrode in the car and she suffered a UTI last week. Physical Therapy Plan Frequency and Duration Frequency of Treatment 1x/Week Duration of Treatment 8 Plan of Care Start Date 03/29/19 Plan of Care End Date 05/31/19 Therapeutic Interventions Therapeutic Interventions Home Exercise Program, Neuromuscular Re-education, Patient/Caregiver Education, Self-Care/Home Management, Therapeutic Exercises Next Visit Focus/Plan Next Note Type Treatment Note Next Visit Plan Continue to work on pelvic floor stabilization prior to surgery the end of march. Resume PT once cleared by her MD after surgery. Plan of Care Dates Plan of Care Start Date 03/29/19 Plan of Care End Date 05/31/19 Electronically Signed by: Martha Perry PT 03/29/19 [id number] Please Sign and Return: I have reviewed this Plan of Care and certify that the skilled therapy services above are required to meet the patient?s needs. Physician Signature Date Printed Name and Credentials Clinical Instructor Signature Printed Name and Credentials
--- NOTE | 2019-04-05 16:32 | PT.OTN ---
Current Diagnoses Female genital prolapse, unspecified (04/05/19) Physical Therapy Treatment Note PT-OP-A Visit Information Start: 02/01/19 13:13 Freq: Status: Active Protocol: Document 03/29/19 11:24 [facility] (Rec: 03/29/19 11:25 [facility] [id number]) Out-Patient Physical Therapy Visit Information Visit Information Visit Type Treatment Note Visit Start Time 11:15 Visit Stop Time 12:00 Total Visit Minutes 45 Visit Number 5 PT-OP-B Current Condition Start: 02/01/19 13:13 Freq: Status: Active Protocol: Document 02/01/19 15:23 [facility] (Rec: 02/01/19 15:36 [facility] [id number]) Current Condition History of Current Condition Onset Date with child births Current Complaints pelvic pressure and abdominal pain, frequency of voiding History of Current Condition history of a retroverted uterus, Will be having a partial hysterectomy and and bladder sling surgery is scheduled April 12. With the pain it is hard to exercise. Notes all over pelvic and abdominal pain pain is worse in the am. She does not like having urine in her bladder. Always had a little problem with the stream of urine. Uses a squatty potty and splints her perineum. Always feels pain when she is ovulating and hard to have a good bowel movement during this time. Can only do light exercise at this time. Would like to be able to do a cardio workout without having pain following. Future Testing and Treatments Planned Pt is undergoing a partial hysterectomy, exploritory surgery, and anterior posterior repair in March Treatment Goals Patient/Caregiver Goals The patients goals include strengthening of her pelvic floor prior to surgery for best surgical outcome PT-OP-C Subjective Start: 02/01/19 13:13 Freq: Status: Active Protocol: Document 04/05/19 13:02 [facility] (Rec: 04/05/19 16:32 [facility] [id number]) OP-PT Subjective Patient Comments Patient Comments Did a urodynmaics test to determine if she needs to use a sling. Pt is undergoing surgery next thursdayApr 12. PT-OP-I Pelvic Floor Start: 02/01/19 13:13 Freq: Status: Active Protocol: Document 02/01/19 15:15 [facility] (Rec: 02/06/19 14:09 [facility] [email or web address]) Pelvic Floor Assessment Urine Pelvic Floor Surgery No Urinary Symptoms Urge Sensation,Prolapse, Hesitancy,Dribbling After Urination,Incomplete Emptying, Pain Leakage Size Medium Leakage Cause Cough,Exercise,Lifting,Sneeze, Urge Leaks Per Day 2 Nocturia yes Pelvic Clock Pelvic Clock 12-3 Atrophy Pelvic Clock 3-6 Atrophy Pelvic Clock 6-9 Atrophy Pelvic Clock 9-12 Atrophy Prolapse Uterine Prolapse Grade 2 Cystocele Grade 2 Prolapse Comments pt does better with a wedge for pelvic floor contractions SEMG (uV) Baseline 2.0 10 Second Contraction 11.9 Recruitment Pattern Fair Relaxation Fair Holding Fair Stability of Hold Fair SEMG Stability of Rest Fair Contraction Ability Voluntary Contraction Weak Voluntary Relaxation Weak Manual Muscle Testing Left 3 Manual Muscle Testing Right 3 Manual Muscle Testing Anterior 3 Manual Muscle Testing Posterior 3 Muscle Endurance (Seconds) 5 Comments Pelvic Floor Comments max on EMG biofeedback is 20.8 , elevated resting tone PT-OP-M Strength Start: 02/01/19 13:13 Freq: Status: Active Protocol: Document 02/01/19 15:15 [facility] (Rec: 02/06/19 14:09 [facility] [email or web address]) Trunk Strength Trunk Manual Muscle Testing Core Stabilization decreased activation of the transverse abdominal musculature R SI joint pain with TA contractions PT-OP-Q Treatments Start: 03/01/19 12:12 Freq: Status: Active Protocol: Document 04/05/19 13:02 [facility] (Rec: 04/05/19 16:32 [facility] [id number]) Therapeutic Exercises Supine Exercises 8 Supine Exercise Name templates for coordination and eccentric control Comments with EMG biofeedback x 5 minutes 6 Supine Exercise Name quick flicks x 10 reps 5 Supine Exercise Name pelvic floor long holds x 10 second Reps/Minutes 10 second hold, 10 second relax 2 Supine Exercise Name TA with marches Reps/Minutes x 10 Sidelying Exercises 3 Sidelying Exercise Name sidelying small hip circles Reps/Minutes 2 x 10 each 2 Sidelying Exercise Name sidelying hip lifts Reps/Minutes 2 x 10 1 Sidelying Exercise Name sidelying clam shells Reps/Minutes 2 x 10 reps Other Exercises 3 Other Exercise Name TA with opp arm lifts Reps/Minutes x 10 reps 2 Other Exercise Name quadruped TA facilitation Reps/Minutes hold x 5 seconds x 5 reps 1 Other Exercise Name quadruped cat cow Reps/Minutes x 10 reps PT-OP-T Assessment and Plan Start: 02/01/19 13:13 Freq: Status: Active Protocol: Document 04/05/19 13:02 [facility] (Rec: 04/05/19 16:32 [facility] [id number]) Physical Therapy Assessment Assessment Summary Assessment Remedios has done really well with her prehab program prior to her hysterectomy and bladder sling surgery. She will be DC at this time from PT until she is cleared to resume PT following surgery. Physical Therapy Plan Discharge Physical Therapy Discharge Comments PT is undergoing bladder sling and hysterectomy. She will bring in a new referral to resume PT when she is cleared by her doctor following her surgery
--- NOTE | 2019-04-05 16:36 | PT.OPDS ---
Current Diagnoses Female genital prolapse, unspecified (04/05/19) Visit Care Team Role Provider Type KVNG Cooper Primary Care Provider Advanced Forensic Photographer Specialty: Family Practice Address: [address] [place] [address], [facility] Email: [email or web address] Attending Provider Specialty: Address: Phone: Fax: Email: Visit Number Visit Number 5 Discharge Summary PT-OP-B Current Condition Start: 02/01/19 13:13 Freq: Status: Active Protocol: Document 02/01/19 15:23 [facility] (Rec: 02/01/19 15:36 [facility] [id number]) Current Condition History of Current Condition Onset Date with child births Current Complaints pelvic pressure and abdominal pain, frequency of voiding History of Current Condition history of a retroverted uterus, Will be having a partial hysterectomy and and bladder sling surgery is scheduled April 12. With the pain it is hard to exercise. Notes all over pelvic and abdominal pain pain is worse in the am. She does not like having urine in her bladder. Always had a little problem with the stream of urine. Uses a squatty potty and splints her perineum. Always feels pain when she is ovulating and hard to have a good bowel movement during this time. Can only do light exercise at this time. Would like to be able to do a cardio workout without having pain following. Future Testing and Treatments Planned Pt is undergoing a partial hysterectomy, exploritory surgery, and anterior posterior repair in March Treatment Goals Patient/Caregiver Goals The patients goals include strengthening of her pelvic floor prior to surgery for best surgical outcome PT-OP-C Subjective Start: 02/01/19 13:13 Freq: Status: Active Protocol: Document 04/05/19 13:02 [facility] (Rec: 04/05/19 16:32 [facility] [id number]) OP-PT Subjective Patient Comments Patient Comments Did a urodynmaics test to determine if she needs to use a sling. Pt is undergoing surgery next thursdayApr 12. PT-OP-I Pelvic Floor Start: 02/01/19 13:13 Freq: Status: Active Protocol: Document 04/05/19 16:33 [facility] (Rec: 04/05/19 16:35 [facility] [id number]) Pelvic Floor Assessment SEMG (uV) Baseline 1.0 10 Second Contraction 20.1 Recruitment Pattern Good Relaxation Good Holding Good Stability of Hold Good SEMG Stability of Rest Good PT-OP-M Strength Start: 02/01/19 13:13 Freq: Status: Active Protocol: Document 02/01/19 15:15 [facility] (Rec: 02/06/19 14:09 [facility] [email or web address]) Trunk Strength Trunk Manual Muscle Testing Core Stabilization decreased activation of the transverse abdominal musculature R SI joint pain with TA contractions PT-OP-T Assessment and Plan Start: 02/01/19 13:13 Freq: Status: Active Protocol: Document 04/05/19 13:02 [facility] (Rec: 04/05/19 16:32 [facility] [id number]) Physical Therapy Assessment Assessment Summary Assessment Remedios has done really well with her prehab program prior to her hysterectomy and bladder sling surgery. She will be DC at this time from PT until she is cleared to resume PT following surgery. Physical Therapy Plan Discharge Physical Therapy Discharge Comments PT is undergoing bladder sling and hysterectomy. She will bring in a new referral to resume PT when she is cleared by her doctor following her surgery
== END 2019-04-05 17:40 | disposition home or self-care (01) ==
LOC: PHYS 13:00
PROVIDERS: PCP Nurse Practitioner
DX: N81.9 Female genital prolapse, unspecified (principal)
CPT/HCPCS: 97110; 97161

== ENCOUNTER 2019-04-14 19:36 | Emergency (ER) | payer OTHER, SELFPAY ==
[2019-04-14 19:40] VITALS: BP 124/64; PULSE 90; RESP 18; TEMP 36.6; O2SAT 98
--- NOTE | 2019-04-14 19:59 | ED_ITS ---
HPI - General Adult General Chief complaint: Fever Stated complaint: s/p surgery, fever Time Seen by Provider: 04/14/19 19:55 History of Present Illness HPI narrative: 38-year-old woman who is 48 hours postop from pelvic floor reconstruction as well as partial hysterectomy. She currently has a bupivacaine pump in place for pain control. She developed fever to 102.7 in her director content marketing requested that she come to the emergency room for further evaluation. She is not experiencing significant pain, no obvious cellulitis in her postoperative wounds are healing nicely. She is not having any uremic urinary symptoms nor is she having flank pain. Minor nonproductive cough only. No headaches and no other rashes. Related Data Home Medications Medication Instructions Recorded Confirmed albuterol sulfate 90 mcg/actuation 1 puff INHALATION Q6H PRN 09/16/18 10/30/18 aerosol inhaler fluticasone propionate 44 1 inhalation INHALATION BID 09/16/18 10/30/18 mcg/actuation HFA aerosol inhaler ketorolac 15.75 mg/spray nasal 15.75 mg NASAL Q6-8H PRN 09/16/18 10/30/18 spray Previous Rx's Medication Instructions Recorded ibuprofen 600 mg PO Q6HP PRN #20 tab 04/13/16 prednisone 20 mg tablet 20 mg PO DAILY #14 tab 10/30/18 phenazopyridine 100 mg tablet 100 mg PO TID PRN 0 Days #6 tab 03/16/19 cephalexin [Keflex] 500 mg PO Q8H #21 cap 04/14/19 Allergies Allergy/AdvReac Type Severity Reaction Status Date / Time No Known Drug Allergies Allergy Verified 04/14/19 19:43 Review of Systems Review of Systems Narrative: All systems reviewed and are unremarkable except as noted in HPI and below Patient History Medical History UTI (urinary tract infection) (Acute) Surgical History History of third molar tooth extraction Status post delivery (10/15/13) Status post delivery (04/10/16) Social History Smoking Status: Never smoker Smoking Status: Never smoker alcohol intake frequency: 0-2 drinks per day Substance Use Type: marijuana Exam Narrative Exam Narrative: General: Healthy appearing, in no acute distress. Able to give a complete and coherent history. Well-nourished well-developed HEENT: Moist mucous membranes, normal sclera with reactive pupils, Neck: No JVD, supple Respiratory: Lungs are clear to auscultation, no wheezing no rales no rhonchi. Full and symmetrical air movement Cardiac: Regular rate and rhythm no murmurs no bruits Abdomen: Soft nontender good bowel tones, postoperative trocar sites are healing appropriately. There is mild bruising over the mons pubis consistent with postoperative findings no flank pain Skin: Warm and dry, no rashes Neurologic: Grossly neurologically intact with no obvious asymmetries or abnormalities Extremities: No trauma, well perfused Psych: Cooperative, appropriate insight and affect Initial Vital Signs Initial Vital Signs: Vital Signs Temperature 97.8 F 04/14/19 19:40 Pulse Rate 90 04/14/19 19:40 Respiratory Rate 18 04/14/19 19:40 Blood Pressure 124/64 04/14/19 19:40 Pulse Oximetry 98 04/14/19 19:40 Course Orders Ordered: ED Orders 04/14/19 19:51 Urine Culture Stat Urine Microscopic Stat 04/14/19 20:00 Complete Blood Count AUTO DIFF Stat Comprehensive Metabolic Panel Stat 04/14/19 20:18 Influenza A & B (PCR) Stat Vital Signs Vital signs: Vital Signs - 8 hr 04/14/19 19:40 04/14/19 21:00 04/14/19 21:34 Temperature 97.8 F Pulse Rate 90 89 73 Respiratory Rate 18 18 16 Blood Pressure 124/64 Blood Pressure [Right Arm] 112/57 L 105/63 Pulse Oximetry 98 97 98 Medical Decision Making Medical Records Medical records reviewed: Yes I reviewed the patient's medical records. Lab Data Lab results reviewed: Yes I reviewed the patient's lab results. Lab results narrative: recent UTI: Urine Culture Final 03/18/19 Organism 1 Escherichia coli Kimmell Count >100,000 CFU/ml 1. Escherichia coli M.I.C. RX --------- --- * Amoxicillin/Clavulanate S * Ampicillin S * Ampicillin/Sulbactam S * Cefazolin S * Cefepime S * Ceftriaxone S * Ciprofloxacin S * Ertapenem S * Gentamicin S * Imipenem S * Levofloxacin S * Nitrofurantoin S * Tobramycin S * Trimethoprim/Sulfamethoxazole S * Piperacillin/Tazobactam S Result diagrams: 04/14/19 20:00 04/14/19 20:00 Labs: Lab Results 04/14/19 04/14/19 04/14/19 Range/Units 19:51 20:00 20:00 WBC 9.3 (4.5-11.0) X10^3/uL RBC 3.41 L (4.0-5.2) X10^6/uL Hgb 10.6 L (12.0-16.0) g/dL Hct 31.2 L (36-46) % MCV 91.6 (80-100) fL MCH 31.2 (26-34) PG MCHC 34.1 (30-36) % RDW 13.0 (11.6-14.8) % Plt Count 186 (150-400) X10^3/uL Neut % (Auto) 60.3 (50-75) % Lymph % (Auto) 28.4 (25-40) % [place] % (Auto) 8.9 (3-14) % Eos % (Auto) 1.9 L (2-4) % Baso % (Auto) 0.5 (0-2) % Neut # (Auto) 5600 (3365-9111) /uL Lymph # (Auto) 2600 (0227-1614) /uL [place] # (Auto) 800 (0-900) /uL Eos # (Auto) 200 (0-450) /uL Baso # (Auto) 0 (0-100) /uL Sodium 138 (137-145) mmol/L Potassium 3.6 (3.4-5.1) mmol/L Chloride 103 (98-107) mmol/L Carbon Dioxide 26 (22-32) mmol/L BUN 8 (7-17) mg/dL Creatinine 0.90 (0.52-1.04) mg/dL Estimated GFR > 60.0 (>60) mL/min BUN/Creatinine Ratio 8.9 (6-22) Glucose 105 H (70-100) mg/dL Calcium 8.3 L (8.4-10.2) mg/dL Total Bilirubin 0.3 (0.2-1.3) mg/dL AST 25 (14-36) IU/L ALT 11 (<35) IU/L Alkaline Phosphatase 62 (38-126) U/L Total Protein 6.4 (6.3-8.2) g/dL Albumin 3.5 (3.5-5.0) g/dL Globulin 2.9 (1.7-4.1) g/dL Albumin/Globulin Ratio 1.2 (1.0-2.8) Urine RBC 1-5/hpf (0-5/HPF) Urine WBC 1-5/hpf (0-5/HPF) Ur Squamous Epith Cells 1-5 /hpf (0-5/HPF) Urine Bacteria Occasional (0-1) (None) Ur Culture Indicated? Specimen cultured Micro UA Comment Bonnie esterase + Influenza A (RT-PCR) (NEGATIVE) Influenza B (RT-PCR) (NEGATIVE) 04/14/19 Range/Units 20:18 WBC (4.5-11.0) X10^3/uL RBC (4.0-5.2) X10^6/uL Hgb (12.0-16.0) g/dL Hct (36-46) % MCV (80-100) fL MCH (26-34) PG MCHC (30-36) % RDW (11.6-14.8) % Plt Count (150-400) X10^3/uL Neut % (Auto) (50-75) % Lymph % (Auto) (25-40) % [place] % (Auto) (3-14) % Eos % (Auto) (2-4) % Baso % (Auto) (0-2) % Neut # (Auto) (1932-3238) /uL Lymph # (Auto) (6030-4008) /uL [place] # (Auto) (0-900) /uL Eos # (Auto) (0-450) /uL Baso # (Auto) (0-100) /uL Sodium (137-145) mmol/L Potassium (3.4-5.1) mmol/L Chloride (98-107) mmol/L Carbon Dioxide (22-32) mmol/L BUN (7-17) mg/dL Creatinine (0.52-1.04) mg/dL Estimated GFR (>60) mL/min BUN/Creatinine Ratio (6-22) Glucose (70-100) mg/dL Calcium (8.4-10.2) mg/dL Total Bilirubin (0.2-1.3) mg/dL AST (14-36) IU/L ALT (<35) IU/L Alkaline Phosphatase (38-126) U/L Total Protein (6.3-8.2) g/dL Albumin (3.5-5.0) g/dL Globulin (1.7-4.1) g/dL Albumin/Globulin Ratio (1.0-2.8) Urine RBC (0-5/HPF) Urine WBC (0-5/HPF) Ur Squamous Epith Cells (0-5/HPF) Urine Bacteria (None) Ur Culture Indicated? Micro UA Comment Influenza A (RT-PCR) Flu a negative (NEGATIVE) Influenza B (RT-PCR) Flu b negative (NEGATIVE) Point of Care Testing Test Results Negative Urine Dip Bedside Urine Glucose Negative Bedside Urine Bilirubin - Negative Bedside Urine Ketone - Negative Urine Specific Herrick 1.010 Bedside Urine Occult Blood +++ Bedside Urine pH 6.0 Bedside Urine Protein - Negative Bedside Urine Urobilinogen - Negative Bedside Urine Nitrite - Negative Bedside Urine Leukocytes + 70 Esterase Point of care testing: Point of Care Testing Test Results Negative Urine Dip Bedside Urine Glucose Negative Bedside Urine Bilirubin - Negative Bedside Urine Ketone - Negative Urine Specific Herrick 1.010 Bedside Urine Occult Blood +++ Bedside Urine pH 6.0 Bedside Urine Protein - Negative Bedside Urine Urobilinogen - Negative Bedside Urine Nitrite - Negative Bedside Urine Leukocytes + 70 Esterase MDM Narrative Medical decision making narrative: 48 hours postop after significant laparoscopic pelvic floor surgery repair and partial hysterectomy. Currently has a lidocaine pump in place for pain control. Not specifically complaining of urine symptoms. Labs are reassuring. Giving the 48 hours postop timing of her fever this is likely due to atelectasis without evidence of pneumonia or viral pulmonary infection. She did have some mild leukocyte esterase and blood in her urine that likely is more related to her surgical procedures well as catheter. She had a UTI diagnosed at the end of February that was a mendez sensitive E coli and treated with Septra at the time. She is not particularly like this Septra so will opt to send her home with a prescription for Keflex to begin only if her symptoms worsen and fever continues after the next 12-24 hours. She will also follow-up with her surgeon Discharge Plan Departure Patient Disposition: Home Clinical Impression: Fever Qualifiers: Fever type: unspecified Qualified Code(s): R50.9 - Fever, unspecified Instructions: DI for Fever (Symptom) -- Adult Activity Restrictions/Additional Instructions: Thank you for coming in today You do not have influenza. Your blood work was very reassuring with no evidence of overwhelming infection. Looks like her body is healing nicely after your recent surgery. The most likely causes of fevers after surgery in this time frame are usually atelectasis, meaning need to work on deep breathing and normal movement to get her lungs fully inflated and working well. Your urine did show some white blood cells as well as red blood cells however this could easily be related to recent surgery and the catheter that was placed during surgery. At the end of February you did have an E coli urinary tract infection that was sensitive to all the antibiotics that we have. You stated that Septra did not go well with you so I will send you with a prescription for Keflex. If you are feeling better, your fever comes down in not having urinary symptoms you do not need to fill this. Please follow-up with your director content marketing. If you feel that you are getting worse I am happy to re-evaluate and you are welcome to come back to the emergency department. I hope you heal quickly Prescriptions: New cephalexin [Keflex] 500 mg capsule 500 mg PO Q8H Qty: 21 RF: 0 No Action prednisone 20 mg tablet 20 mg PO DAILY Qty: 14 RF: 0 phenazopyridine [Pyridium] 100 mg tablet 100 mg PO TID PRN (Reason: pain) 0 Days Qty: 6 RF: 0 ibuprofen 600 MG tablet 600 mg PO Q6HP PRNQty: 20 RF: 0 fluticasone propionate 44 mcg/actuation HFA aerosol inhaler 1 inhalation INHALATION BID RF: 0 albuterol sulfate [ProAir HFA] 90 mcg/actuation HFA aerosol inhaler 1 puff INHALATION Q6H PRNRF: 0 ketorolac 15.75 mg/spray spray,non-aerosol 15.75 mg NASAL Q6-8H PRNRF: 0 Referrals: Lucero Fortune ARNP [Primary Care Provider] -
[2019-04-14 20:25] LABS: Add Manual Diff / Slide Review NO; Basophils Absolute Auto 0 /uL (0-100); Basophils Percent Auto 0.5 % (0-2); Eosinophils Absolute Auto 200 /uL (0-450); Eosinophils Percent Auto 1.9 % (2-4); Hematocrit 31.2 % (36-46); Hemoglobin 10.6 g/dL (12.0-16.0); Lymphocytes Absolute Auto 2600 /uL (1100-4500); Lymphocytes Percent Auto 28.4 % (25-40); Mean Corpuscular HGB Conc 34.1 % (30-36); Mean Corpuscular Hemoglobin 31.2 PG (26-34); Mean Corpuscular Volume 91.6 fL (80-100); Monocytes Absolute Auto 800 /uL (0-900); Monocytes Percent Auto 8.9 % (3-14); Neutrophils Absolute Auto 5600 /uL (1500-7000); Neutrophils Percent Auto 60.3 % (50-75); Platelet Count 186 X10^3/uL (150-400); Red Blood Cell Count 3.41 X10^6/uL (4.0-5.2); White Blood Cell Count 9.3 X10^3/uL (4.5-11.0)
[2019-04-14 20:32] LABS: Alanine Aminotransferase 11 IU/L (<35); Albumin 3.5 g/dL (3.5-5.0); Albumin Globulin Ratio 1.2 (1.0-2.8); Alkaline Phosphatase 62 U/L (38-126); Aspartate Aminotransferase 25 IU/L (14-36); BUN Creatinine Ratio 8.9 (6-22); Bilirubin Total 0.3 mg/dL (0.2-1.3); Blood Urea Nitrogen 8 mg/dL (7-17); Calcium 8.3 mg/dL (8.4-10.2); Carbon Dioxide 26 mmol/L (22-32); Chloride 103 mmol/L (98-107); Estimated Glomerular Filt Rate > 60.0 mL/min (>60); Globulin 2.9 g/dL (1.7-4.1); Glucose 105 mg/dL (70-100); HEMOLYSIS < 15 (0-50); Potassium 3.6 mmol/L (3.4-5.1); Sodium 138 mmol/L (137-145); Total Protein 6.4 g/dL (6.3-8.2)
[2019-04-14 20:48] LABS: Bacteria Urine Occasional (0-1); Culture Indicated Urine Specimen Cultured; RBC Urine 1-5/HPF (0-5/HPF); Squamous Epithelial Cell Urine 1-5 /HPF (0-5/HPF); Urine Comments LEU ESTERASE +; WBC Urine 1-5/HPF (0-5/HPF)
[2019-04-14 20:55] LABS: Influenza A - CEPHEID Flu A NEGATIVE (NEGATIVE); Influenza B - CEPHEID Flu B NEGATIVE (NEGATIVE)
[2019-04-14 21:00] VITALS: BP 112/57; PULSE 89; RESP 18; O2SAT 97
[2019-04-14 21:34] VITALS: BP 105/63; PULSE 73; RESP 16; O2SAT 98
[2019-04-14 22:37] VITALS: BP 97/56; PULSE 76; RESP 12; O2SAT 95
== END 2019-04-14 22:39 | disposition home or self-care (01) ==
PROVIDERS: Emergency Provider Emergency Medicine; PCP Nurse Practitioner
DX: R50.9 Fever, unspecified (principal); Z98.890 Other specified postprocedural states
CPT/HCPCS: 36415; 80053; 81003; 81015; 81025; 85025; 87086; 87502; 99283; 99284

== ENCOUNTER → 2019-08-03 09:12 | Outpatient (CLI) | payer OTHER, SELFPAY ==
[2019-08-03 10:04] LABS: Add Manual Diff / Slide Review NO; Basophils Absolute Auto 0 /uL (0-100); Basophils Percent Auto 0.6 % (0-2); Eosinophils Absolute Auto 100 /uL (0-450); Eosinophils Percent Auto 1.7 % (2-4); Hematocrit 39.4 % (36-46); Hemoglobin 13.6 g/dL (12.0-16.0); Lymphocytes Absolute Auto 1600 /uL (1100-4500); Lymphocytes Percent Auto 30.4 % (25-40); Mean Corpuscular HGB Conc 34.6 % (30-36); Mean Corpuscular Hemoglobin 31.4 PG (26-34); Mean Corpuscular Volume 90.8 fL (80-100); Monocytes Absolute Auto 400 /uL (0-900); Monocytes Percent Auto 7.9 % (3-14); Neutrophils Absolute Auto 3100 /uL (1500-7000); Neutrophils Percent Auto 59.4 % (50-75); Platelet Count 204 X10^3/uL (150-400); Red Blood Cell Count 4.34 X10^6/uL (4.0-5.2); White Blood Cell Count 5.2 X10^3/uL (4.5-11.0)
[2019-08-03 10:24] LABS: Hemoglobin A1C% w Est Avg Glu 5.5 % (4.0-6.0)
[2019-08-03 10:46] LABS: Alanine Aminotransferase 11 IU/L (<35); Albumin 4.4 g/dL (3.5-5.0); Albumin Globulin Ratio 1.5 (1.0-2.8); Alkaline Phosphatase 71 U/L (38-126); Aspartate Aminotransferase 19 IU/L (14-36); BUN Creatinine Ratio 13.2 (6-22); Bilirubin Total 0.6 mg/dL (0.2-1.3); Blood Urea Nitrogen 12 mg/dL (7-17); Calcium 9.3 mg/dL (8.4-10.2); Carbon Dioxide 27 mmol/L (22-32); Chloride 104 mmol/L (98-107); Cholesterol 169 mg/dL (140-199); Estimated Glomerular Filt Rate > 60.0 mL/min (>60); Globulin 2.9 g/dL (1.7-4.1); Glucose 102 mg/dL (70-100); HDL Cholesterol 53 mg/dL (40-60); HEMOLYSIS < 15 (0-50); LDL Cholesterol Calculated 94 mg/dL (<100); Potassium 4.7 mmol/L (3.4-5.1); Sodium 137 mmol/L (137-145); Total Protein 7.3 g/dL (6.3-8.2); Triglycerides 109 mg/dL (35-150)
[2019-08-03 10:59] LABS: Free T3, Triiodothyronine Free 3.35 pg/mL (2.77-5.27); Free T4, Direct Thyroxine 0.89 ng/dL (0.78-2.19)
[2019-08-03 11:13] LABS: Thyroid Stimulating Hormone 0.87 uIU/mL (0.47-4.68)
[2019-08-03 12:05] LABS: Appearance Urine UA CLEAR; Bilirubin Urine UA NEGATIVE (NEGATIVE); Color Urine UA YELLOW; Glucose Urine UA NEGATIVE (Negative); Ketones Urine UA NEGATIVE (NEGATIVE); Leukocyte Esterase Urine UA 1+ (NEGATIVE); Nitrite Urine UA NEGATIVE (Negative); Occult Blood Urine UA NEGATIVE (Negative); Protein Urine UA NEGATIVE (Negative); Urobilinogen Urine UA 0.2 E.U./dL (0.2)
[2019-08-03 12:16] LABS: Bacteria Urine Many (>30); Culture Indicated Urine Specimen Cultured; RBC Urine 0-1/HPF (0-5/HPF); Squamous Epithelial Cell Urine 1-5 /HPF (0-5/HPF); WBC Urine 5-10/HPF (0-5/HPF); pH Urine UA 6.5 (4.5-8.0)
== END ==
PROVIDERS: PCP Nurse Practitioner; Referring Provider Nurse Practitioner; Visit Provider Nurse Practitioner
DX: Z00.00 Encounter for general adult medical examination without abnormal findings (principal); N30.01 Acute cystitis with hematuria; R63.5 Abnormal weight gain
CPT/HCPCS: 36415; 80053; 80061; 81001; 83036; 84439; 84443; 84481; 85025; 87077; 87086; 87186

== ENCOUNTER → 2019-09-16 17:31 | Outpatient (CLI) | payer OTHER, SELFPAY ==
[2019-09-16 17:44] LABS: RBC Urine None Seen (0-5/HPF)
[2019-09-16 18:20] LABS: Appearance Urine UA SL CLOUDY; Bilirubin Urine UA NEGATIVE (NEGATIVE); Color Urine UA YELLOW; Glucose Urine UA NEGATIVE (Negative); Ketones Urine UA NEGATIVE (NEGATIVE); Leukocyte Esterase Urine UA NEGATIVE (NEGATIVE); Nitrite Urine UA POSITIVE (Negative); Occult Blood Urine UA NEGATIVE (Negative); Protein Urine UA NEGATIVE (Negative); Specific Gravity Urine UA 1.025 (1.000-1.035); Urobilinogen Urine UA 0.2 E.U./dL (0.2)
[2019-09-16 18:28] LABS: Amorphous Sediment Urine 1+; Bacteria Urine Many (>30); Squamous Epithelial Cell Urine 1-5 /HPF (0-5/HPF); WBC Urine 5-10/HPF (0-5/HPF)
[2019-09-16 18:29] LABS: Culture Indicated Urine Specimen Cultured
== END ==
PROVIDERS: PCP Nurse Practitioner; Referring Provider Nurse Practitioner; Visit Provider Nurse Practitioner
DX: R39.9 Unspecified symptoms and signs involving the genitourinary system (principal)
CPT/HCPCS: 81001; 87077; 87086; 87186

== ENCOUNTER 2019-10-26 11:15 | Outpatient (RCR) | payer OTHER, SELFPAY ==
--- NOTE | 2019-07-04 18:43 | PT.OIE ---
Current Diagnoses Constipation, unspecified (07/04/19) Past Medical History (Last Reviewed 04/14/19 @ 22:12 by Enedelia Mix MD) UTI (urinary tract infection) (Acute) Past Surgical History (Last Reviewed 04/14/19 @ 22:12 by Enedelia Mix MD) History of third molar tooth extraction Status post delivery (10/15/13) Status post delivery (04/10/16) Visit Care Team Role Provider Type KVNG Cooper Primary Care Provider Advanced Employee Welfare Manager Specialty: Family Practice Address: [address] [place] [address], [id number] Email: [email or web address] Portillo Attending Provider Non-Staff Referring Provider Specialty: Nursing Address: [address] [place] [address], [id number] Email: Physical Therapy Initial Evaluation PT-OP-A Visit Information Start: 07/04/19 15:24 Freq: Status: Active Protocol: Document 07/04/19 15:25 [facility] (Rec: 07/04/19 15:42 [facility] [id number]) Out-Patient Physical Therapy Visit Information Visit Information Visit Type Initial Evaluation Visit Start Time 15:25 Visit Stop Time 16:10 Total Visit Minutes 45 Visit Number 1 Evaluation Information Evaluation Date 07/04/19 PT-OP-B Current Condition Start: 07/04/19 15:24 Freq: Status: Active Protocol: Document 07/04/19 15:25 [facility] (Rec: 07/04/19 15:42 [facility] [id number]) Current Condition History of Current Condition Onset Date 04/12/19 Current Complaints post op muscle spasm and weakness History of Current Condition Remedios underwent a pelvic reconstruction 04/12/19 and is here in PT today for core strengthening and stabilization. Overall she reports has had a big improvement. She does report she had post op infections and had a area where the stitches were not out yet. Had some discharge and was treated with antibiotics. She reports she was treated for a bacterial vaginosis infection. She also reports she Might have some of the mesh eroding center of the anterior wall. Remedios saw doctor today and her doctor could feel the mesh but couldn't see it. Will be treated with estrogen to see if the skin can thicken. Also has been given a muscle relaxer to help with pain. This has also helped with bowel movements. Immediately after surgery her lower back pain was gone and the pelvic pressure decreased. Her ovaries were left and uterus and cervix were removed. Treatment Goals Patient/Caregiver Goals Strengthening the core and pelvic muscles, as she is becomming more active she is having more back pain. Gets tired very easily now. Able to walk a couple of miles a normal pace. Running a mile would make her tired at this point so she would like to build up strength to be able to be more active Prior Functional Status Baseline Function- ADL's Independent Current Functional Impairments (Reported) Functional Limitations- Recreation/ due to decreased core strength Hobbies and 3 months post op surgical repair of the pelvic floor and hysterectomy Giovanni is limited in recreational activites at this time PT-OP-C Subjective Start: 07/04/19 15:24 Freq: Status: Active Protocol: Document 07/04/19 15:15 [facility] (Rec: 07/11/19 18:43 [facility] [id number]) Patient Questionnaires Pelvic Pain and Urgency/Frequency Patient Symptom Scale Pelvic Pain Score 8 OP-PT Pain Assessment Location Right SI joint Pain Location Details c/o right SI joint twinges Intensity 2 Scale Used Numeric (1 - 10) Description With Movement Variations/Patterns patient reports as she is becoming more active her R SI twinges PT-OP-F Manual Assessment Start: 07/04/19 15:24 Freq: Status: Active Protocol: Document 07/04/19 15:15 [facility] (Rec: 07/11/19 18:43 [facility] [id number]) Manual Assessments Soft Tissue Assessment Soft Tissue Mobility Assessment With internal assessment of the levator ani today there is some post op muscle tightness however Remedios is able to relax following a contraction without increase in muscle spasm. She is on muscle relaxors and notes this has really helped with relaxing her spasms PT-OP-I Pelvic Floor Start: 07/04/19 15:24 Freq: Status: Active Protocol: Document 07/04/19 15:15 [facility] (Rec: 07/11/19 18:43 [facility] [id number]) Pelvic Floor Assessment Urine Pelvic Floor Surgery Yes Urinary Symptoms Falling Out Feeling/Heavy Other Urinary Symptoms Remedios reports overall her symptoms of pelvic pressure are much better since surgery. She reports heaviness at the end of the day and with straining. She still notes she has to strain at times to pass urine. She has had difficulty with bowel movements however this has improved since surgery. Voiding Frequency 5-6 times per day Nocturia 0 Pelvic Clock Pelvic Clock 6-9 Atrophy Pelvic Clock 9-12 Atrophy Pelvic Clock Other some tone initially in the levator ani with palpation, pt was able to relax better following a contraction but will benefit from gentle pelvic floor stretches as well as strengthening SEMG (uV) Baseline 5.0 10 Second Contraction 14.5 Recruitment Pattern Good Relaxation Poor/Slow Holding Fair Stability of Hold Fair SEMG Stability of Rest Fair Contraction Ability Voluntary Contraction Weak Voluntary Relaxation Weak Manual Muscle Testing Left 3 Manual Muscle Testing Right 4 Manual Muscle Testing Anterior 3 Manual Muscle Testing Posterior 4 Muscle Endurance (Seconds) 6 Comments Pelvic Floor Comments pt starts out holding longer and shows more fatigue with further reps PT-OP-J Posture/Palpation/Skin Start: 07/04/19 15:24 Freq: Status: Active Protocol: Document 07/04/19 15:15 [facility] (Rec: 07/11/19 18:43 [facility] [id number]) Palpation Assessment Location Right SI joint Palpation Location Right SI joint Palpation Findings Tenderness PT-OP-Q Treatments Start: 07/04/19 15:24 Freq: Status: Active Protocol: Document 07/04/19 15:15 [facility] (Rec: 07/11/19 18:43 [facility] [id number]) Therapeutic Exercises Supine Exercises 2 Supine Exercise Name Pelvic floor long holds Side bilateral Reps/Minutes 10 reps holding 10 seconds and relaxing 10 seconds Comments 3 times per day Neuro Re-Education Treatment Other Activities NMES Details NMES for the pelvic floor Comments We began NMES today for the pelvic floor to help with improved awareness of pelvic floor contraction. Remedios may benefit from using a NMES unit at home for improving her pelvic floor strength and recruitment PT-OP-T Assessment and Plan Start: 07/04/19 15:24 Freq: Status: Active Protocol: Document 07/04/19 15:15 [facility] (Rec: 07/11/19 18:43 [facility] [id number]) Physical Therapy Assessment Goals Five Impairment Limited walking endurance due to s/p hysterectomy and healing Snf Goal (LTG) Remedios is able to improve her walking endurance to 3 miles without complaints of pelvic heaviness or pressure LTG Duration 8 weeks Four Impairment Elevated resting tone of the levator ani on EMG biofeedback Short Term Goal (STG) Remedios is able to reduce her resting ton to base line improving her ability to void without straining. STG Duration 4 weeks Three Impairment Decreased endurance of the pelvic floor Snf Goal (LTG) Giovanni is able to sustain a pelvic floor contraction for 10 seconds in a standing position and is able to demonstrate pelvic floor contraction with activities such as sit-stand and standing squats LTG Duration 8 weeks Two Impairment Decreased strength of the levator ani musculature s/o surgery [employer] Goal (LTG) Remedios is able to increase her strength of the pelvic floor to 4/5 or greater LTG Duration 8 weeks One Impairment Decreased strength of the transverse abdominal muscle Short Term Goal (STG) Remedios is able to sustain a contraction of the TA in quadruped for 10 seconds STG Duration 5 weeks [employer] Goal (LTG) Remedios is able to sustain a plank with core contraction LTG Duration 8 weeks Assessment Summary Assessment Remedios presents to physical therapy today at 3 months s/o hysterectomy and pelvic floor repair. She is very happy with her surgery and feels overall she is doing much better with significantly reduced c/o pelvic pressure. She feels very weak at this point and did have a issues with pelvic floor muscle spasm after surgery. She reports the muscle relaxers really seem to be helping and her ability to have a bowel movement has improved. She does still find that she is straining to void at times. She also reports that as she is doing more she is experiencing right sided SI joint pain. Her goals in PT are to strengthen her core to increase her activity level. She was very limited for a long duration due to her uterine prolapse. Remedios was seen in our clinic prior to her surgery and worked hard on her pre-op pelvic floor strengthening. With examination today she is able to contract all parts of her levator ani. She does have more weakness on the left side of her pelvic clock. I did note some muscle spasm initially and her resting tone on EMG biofeedback started at 5 uv. This decreased to 4 uv once she started working on contract relax of her pelvic floor. I did start her today with NMES for improved recruitment of her pelvic floor muscles and Remedios may benefit from renting a home unit for a month or two. She responded well to the NMES. Remedios is a good candidate for pelvic floor strengthening to work towards improving her fitness goals and her activity level. Physical Therapy Plan Frequency and Duration Frequency of Treatment 1x/Week Duration of Treatment 8 Plan of Care Start Date 07/04/19 Plan of Care End Date 08/29/19 Therapeutic Interventions Therapeutic Interventions Home Exercise Program,Manual Therapy,Neuromuscular Re- education,Patient/Caregiver Education,Self-Care/Home Management,Soft Tissue Mobilization,Therapeutic Exercises Modalities Biofeedback Other Therapeutic Interventions NMES Next Visit Focus/Plan Next Note Type Treatment Note Next Visit Plan Begin working on gentle stretches for the pelvic floor , progress core stabilization, NMES
--- NOTE | 2019-07-04 18:44 | PT.OPPOC ---
Physical, Occupational & Speech Therapy At [facility] Current Diagnoses Constipation, unspecified (07/04/19) Visit Care Team Role Provider Type KVNG Cooper Primary Care Provider Advanced Account Receivable Clerk Specialty: Family Practice Address: [address] [place] [address], [id number] Email: [email or web address] Portillo Attending Provider Non-Staff Referring Provider Specialty: Nursing Address: [address] [place] [address], [id number] Email: Plan Of Care PT-OP-T Assessment and Plan Start: 07/04/19 15:24 Freq: Status: Active Protocol: Document 07/04/19 15:15 [facility] (Rec: 07/11/19 18:43 [facility] [id number]) Physical Therapy Assessment Goals Five Impairment Limited walking endurance due to s/p hysterectomy and healing Nursing Home Goal (LTG) Remedios is able to improve her walking endurance to 3 miles without complaints of pelvic heaviness or pressure LTG Duration 8 weeks Four Impairment Elevated resting tone of the levator ani on EMG biofeedback Short Term Goal (STG) Remedios is able to reduce her resting ton to base line improving her ability to void without straining. STG Duration 4 weeks Three Impairment Decreased endurance of the pelvic floor Nursing Home Goal (LTG) Remedios is able to sustain a pelvic floor contraction for 10 seconds in a standing position and is able to demonstrate pelvic floor contraction with activities such as sit-stand and standing squats LTG Duration 8 weeks Two Impairment Decreased strength of the levator ani musculature s/o surgery Gas Torch [place]razier Goal (LTG) Remedios is able to increase her strength of the pelvic floor to 4/5 or greater LTG Duration 8 weeks One Impairment Decreased strength of the transverse abdominal muscle Short Term Goal (STG) Remedios is able to sustain a contraction of the TA in quadruped for 10 seconds STG Duration 5 weeks Gas Torch [place] Goal (LTG) Remedios is able to sustain a plank with core contraction LTG Duration 8 weeks Assessment Summary Assessment Remedios presents to physical therapy today at 3 months s/o hysterectomy and pelvic floor repair. She is very happy with her surgery and feels overall she is doing much better with significantly reduced c/o pelvic pressure. She feels very weak at this point and did have a issues with pelvic floor muscle spasm after surgery. She reports the muscle relaxers really seem to be helping and her ability to have a bowel movement has improved. She does still find that she is straining to void at times. She also reports that as she is doing more she is experiencing right sided SI joint pain. Her goals in PT are to strengthen her core to increase her activity level. She was very limited for a long duration due to her uterine prolapse. Remedios was seen in our clinic prior to her surgery and worked hard on her pre-op pelvic floor strengthening. With examination today she is able to contract all parts of her levator ani. She does have more weakness on the left side of her pelvic clock. I did note some muscle spasm initially and her resting tone on EMG biofeedback started at 5 uv. This decreased to 4 uv once she started working on contract relax of her pelvic floor. I did start her today with NMES for improved recruitment of her pelvic floor muscles and Remedios may benefit from renting a home unit for a month or two. She responded well to the NMES. Remedios is a good candidate for pelvic floor strengthening to work towards improving her fitness goals and her activity level. Physical Therapy Plan Frequency and Duration Frequency of Treatment 1x/Week Duration of Treatment 8 Plan of Care Start Date 07/04/19 Plan of Care End Date 08/29/19 Therapeutic Interventions Therapeutic Interventions Home Exercise Program,Manual Therapy,Neuromuscular Re- education,Patient/Caregiver Education,Self-Care/Home Management,Soft Tissue Mobilization,Therapeutic Exercises Modalities Biofeedback Other Therapeutic Interventions NMES Next Visit Focus/Plan Next Note Type Treatment Note Next Visit Plan Begin working on gentle stretches for the pelvic floor , progress core stabilization, NMES Plan of Care Dates Plan of Care Start Date 07/04/19 Plan of Care End Date 08/29/19 Electronically Signed by: Martha Perry, PT 07/11/19 [id number] Please Sign and Return: I have reviewed this Plan of Care and certify that the skilled therapy services above are required to meet the patient?s needs. Physician Signature Date Printed Name and Credentials Clinical Instructor Signature Printed Name and Credentials
--- NOTE | 2019-07-13 13:00 | PT.OTN ---
Current Diagnoses Constipation, unspecified (07/20/19) Physical Therapy Treatment Note PT-OP-A Visit Information Start: 07/04/19 15:24 Freq: Status: Active Protocol: Document 07/13/19 16:31 [facility] (Rec: 07/13/19 16:31 [facility] [id number]) Out-Patient Physical Therapy Visit Information Visit Information Visit Type Treatment Note Visit Start Time 13:00 Visit Stop Time 13:45 Total Visit Minutes 45 Visit Number 2 PT-OP-B Current Condition Start: 07/04/19 15:24 Freq: Status: Active Protocol: Document 07/04/19 15:25 [facility] (Rec: 07/04/19 15:42 [facility] [id number]) Current Condition History of Current Condition Onset Date 04/12/19 Current Complaints post op muscle spasm and weakness History of Current Condition Remedios underwent a pelvic reconstruction 04/12/19 and is here in PT today for core strengthening and stabilization. Overall she reports has had a big improvement. She does report she had post op infections and had a area where the stitches were not out yet. Had some discharge and was treated with antibiotics. She reports she wasd treated for a bacterial vaginosis infection. She also reports she Might have some of the mesh eroding center of the anterior wall. Remedios saw doctor today and her doctor could feel the mesh but couldn 't see it. Will be treated with estrogen to see if the skin can thicken. Also has been given a muscle relaxor to help with pain. This has also helped with bowel movements. Immediately after surgery her lower back pain was gone and the pelvic pressure decreased. Her ovaries were left and uterus and cervix were removed. Treatment Goals Patient/Caregiver Goals Strengthening the core and pelvic muscles, as she is becomming more active she is having more back pain. Gets tired very easily now. Able to walk a couple of miles a normal pace. Running a mile would make her tired at this point so she would like to build up strength to be able to be more active Prior Functional Status Baseline Function- ADL's Independent Current Functional Impairments (Reported) Functional Limitations- Recreation/ due to decreased core strength Hobbies and 3 months post op surgical repair of the pelvic floor and hysterectomy Giovanni is limited in recreational activites at this time PT-OP-C Subjective Start: 07/04/19 15:24 Freq: Status: Active Protocol: Document 07/13/19 13:00 [facility] (Rec: 07/20/19 08:18 [facility] [email or web address]) OP-PT Subjective Patient Comments Patient Comments pt reports she is doing well, she is still having the small spot of mesh protruding, seeing her MD regarding this PT-OP-F Manual Assessment Start: 07/04/19 15:24 Freq: Status: Active Protocol: Document 07/04/19 15:15 [facility] (Rec: 07/11/19 18:43 [facility] [id number]) Manual Assessments Soft Tissue Assessment Soft Tissue Mobility Assessment With internal assessment of the levator ani today there is some post op muscle tightness however Remedios is able to relax following a contraction without increase in muscle spasm. She is on muscle relaxors and notes this has really helped with relaxing her spasms PT-OP-I Pelvic Floor Start: 07/04/19 15:24 Freq: Status: Active Protocol: Document 07/04/19 15:15 [facility] (Rec: 07/11/19 18:43 [facility] [id number]) Pelvic Floor Assessment Urine Pelvic Floor Surgery Yes Urinary Symptoms Falling Out Feeling/Heavy Other Urinary Symptoms Remedios reports overall her symptoms of pelvic pressure are much better since surgery. She reports heaviness at the end of the day and with straining. She still notes she has to strain at times to pass urine. She has had difficulty with bowel movements however this has improved since surgery. Voiding Frequency 5-6 times per day Nocturia 0 Pelvic Clock Pelvic Clock 6-9 Atrophy Pelvic Clock 9-12 Atrophy Pelvic Clock Other some tone initially in the levator ani with palpation, pt was able to relax better following a contraction but will benefit from gentle pelvic floor stretches as well as strengthening SEMG (uV) Baseline 5.0 10 Second Contraction 14.5 Recruitment Pattern Good Relaxation Poor/Slow Holding Fair Stability of Hold Fair SEMG Stability of Rest Fair Contraction Ability Voluntary Contraction Weak Voluntary Relaxation Weak Manual Muscle Testing Left 3 Manual Muscle Testing Right 4 Manual Muscle Testing Anterior 3 Manual Muscle Testing Posterior 4 Muscle Endurance (Seconds) 6 Comments Pelvic Floor Comments pt starts out holding longer and shows more fatigue with further reps PT-OP-J Posture/Palpation/Skin Start: 07/04/19 15:24 Freq: Status: Active Protocol: Document 07/04/19 15:15 [facility] (Rec: 07/11/19 18:43 [facility] [id number]) Palpation Assessment Location Right SI joint Palpation Location Right SI joint Palpation Findings Tenderness PT-OP-Q Treatments Start: 07/04/19 15:24 Freq: Status: Active Protocol: Document 07/13/19 13:00 [facility] (Rec: 07/20/19 08:18 [facility] [id number]) Therapeutic Exercises Supine Exercises 4 Supine Exercise Name quadraped hip extension toe taps Reps/Minutes x 10 3 Supine Exercise Name quadraped hip extension Reps/Minutes x 10 2 Supine Exercise Name Pelvic floor long holds Side bilateral Reps/Minutes 10 reps holding 10 seconds and relaxing 10 seconds Comments 3 times per day Sidelying Exercises 3 Sidelying Exercise Name sidelying small hip circles Reps/Minutes 2 x 10 each 2 Sidelying Exercise Name sidelying hip lifts Reps/Minutes 2 x 10 1 Sidelying Exercise Name sidelying clam shells Reps/Minutes 2 x 10 reps Other Exercises 3 Other Exercise Name TA with opp arm lifts Reps/Minutes x 10 reps 2 Other Exercise Name quadruped TA facilitation Reps/Minutes hold x 5 seconds x 5 reps 1 Other Exercise Name quadruped cat cow Reps/Minutes x 10 reps Neuro Re-Education Treatment Other Activities NMES Details NMES for the pelvic floor Comments Performed NMES today for the pelvic floor to help with improved awarenss of pelvic floor contraction. Remedios may benefit from using a NMES unit at home for improving her pelvic floor strength and recruitment PT-OP-T Assessment and Plan Start: 07/04/19 15:24 Freq: Status: Active Protocol: Document 07/13/19 13:00 [facility] (Rec: 07/20/19 08:18 [facility] [id number]) Physical Therapy Assessment Assessment Summary Assessment good tolerance today for addition of exercises, pt did have a elevated resting tone today following exercises. Worked with NMES following treatment Physical Therapy Plan Frequency and Duration Frequency of Treatment 1x/Week Duration of Treatment 8 Plan of Care Start Date 07/04/19 Plan of Care End Date 08/29/19 Therapeutic Interventions Therapeutic Interventions Home Exercise Program,Manual Therapy,Neuromuscular Re- education,Patient/Caregiver Education,Self-Care/Home Management,Soft Tissue Mobilization,Therapeutic Exercises Modalities Biofeedback Other Therapeutic Interventions NMES Next Visit Focus/Plan Next Note Type Treatment Note Next Visit Plan Continue working on gentle stretches for the pelvic floor , progress core stabilization and NMES
--- NOTE | 2019-07-20 14:02 | PT.OTN ---
Current Diagnoses Constipation, unspecified (07/20/19) Physical Therapy Treatment Note PT-OP-A Visit Information Start: 07/04/19 15:24 Freq: Status: Active Protocol: Document 07/20/19 13:57 [facility] (Rec: 07/20/19 14:02 [facility] [id number]) Out-Patient Physical Therapy Visit Information Visit Information Visit Type Treatment Note Visit Start Time 08:15 Visit Stop Time 09:00 Total Visit Minutes 45 Visit Number 3 PT-OP-B Current Condition Start: 07/04/19 15:24 Freq: Status: Active Protocol: Document 07/04/19 15:25 [facility] (Rec: 07/04/19 15:42 [facility] [id number]) Current Condition History of Current Condition Onset Date 04/12/19 Current Complaints post op muscle spasm and weakness History of Current Condition Remedios underwent a pelvic reconstruction 04/12/19 and is here in PT today for core strengthening and stabilization. Overall she reports has had a big improvement. She does report she had post op infections and had a area where the stitches were not out yet. Had some discharge and was treated with antibiotics. She reports she wasd treated for a bacterial vaginosis infection. She also reports she Might have some of the mesh eroding center of the anterior wall. Remedios saw doctor today and her doctor could feel the mesh but couldn 't see it. Will be treated with estrogen to see if the skin can thicken. Also has been given a muscle relaxor to help with pain. This has also helped with bowel movements. Immediately after surgery her lower back pain was gone and the pelvic pressure decreased. Her ovaries were left and uterus and cervix were removed. Treatment Goals Patient/Caregiver Goals Strengthening the core and pelvic muscles, as she is becomming more active she is having more back pain. Gets tired very easily now. Able to walk a couple of miles a normal pace. Running a mile would make her tired at this point so she would like to build up strength to be able to be more active Prior Functional Status Baseline Function- ADL's Independent Current Functional Impairments (Reported) Functional Limitations- Recreation/ due to decreased core strength Hobbies and 3 months post op surgical repair of the pelvic floor and hysterectomy Giovanni is limited in recreational activites at this time PT-OP-C Subjective Start: 07/04/19 15:24 Freq: Status: Active Protocol: Document 07/20/19 13:57 [facility] (Rec: 07/20/19 14:02 [facility] [email or web address]) OP-PT Subjective Patient Comments Patient Comments pt reports she is still having some difficulty with guarding . Has a muscle relaxor suppository she is currently getting filled PT-OP-F Manual Assessment Start: 07/04/19 15:24 Freq: Status: Active Protocol: Document 07/04/19 15:15 [facility] (Rec: 07/11/19 18:43 [facility] [email or web address]) Manual Assessments Soft Tissue Assessment Soft Tissue Mobility Assessment With internal assessment of the levator ani today there is some post op muscle tightness however Remedios is able to relax following a contraction without increase in muscle spasm. She is on muscle relaxors and notes this has really helped with relaxing her spasms PT-OP-I Pelvic Floor Start: 07/04/19 15:24 Freq: Status: Active Protocol: Document 07/04/19 15:15 [facility] (Rec: 07/11/19 18:43 [facility] [id number]) Pelvic Floor Assessment Urine Pelvic Floor Surgery Yes Urinary Symptoms Falling Out Feeling/Heavy Other Urinary Symptoms Remedios reports overall her symptoms of pelvic pressure are much better since surgery. She reports heaviness at the end of the day and with straining. She still notes she has to strain at times to pass urine. She has had difficulty with bowel movements however this has improved since surgery. Voiding Frequency 5-6 times per day Nocturia 0 Pelvic Clock Pelvic Clock 6-9 Atrophy Pelvic Clock 9-12 Atrophy Pelvic Clock Other some tone initially in the levator ani with palpation, pt was able to relax better following a contraction but will benefit from gentle pelvic floor stretches as well as strengthening SEMG (uV) Baseline 5.0 10 Second Contraction 14.5 Recruitment Pattern Good Relaxation Poor/Slow Holding Fair Stability of Hold Fair SEMG Stability of Rest Fair Contraction Ability Voluntary Contraction Weak Voluntary Relaxation Weak Manual Muscle Testing Left 3 Manual Muscle Testing Right 4 Manual Muscle Testing Anterior 3 Manual Muscle Testing Posterior 4 Muscle Endurance (Seconds) 6 Comments Pelvic Floor Comments pt starts out holding longer and shows more fatigue with further reps PT-OP-J Posture/Palpation/Skin Start: 07/04/19 15:24 Freq: Status: Active Protocol: Document 07/04/19 15:15 [facility] (Rec: 07/11/19 18:43 [facility] [id number]) Palpation Assessment Location Right SI joint Palpation Location Right SI joint Palpation Findings Tenderness PT-OP-Q Treatments Start: 07/04/19 15:24 Freq: Status: Active Protocol: Document 07/20/19 13:57 [facility] (Rec: 07/20/19 14:02 [facility] [id number]) Therapeutic Exercises Supine Exercises 4 Supine Exercise Name quadraped hip extension with toe taps Reps/Minutes x 10 3 Supine Exercise Name quadraped hip extension Reps/Minutes x 10 2 Supine Exercise Name Pelvic floor long holds Side bilateral Reps/Minutes 10 reps holding 10 seconds and relaxing 10 seconds Comments 3 times per day Sidelying Exercises 3 Sidelying Exercise Name sidelying small hip circles Reps/Minutes 2 x 10 each 2 Sidelying Exercise Name sidelying hip lifts Reps/Minutes 2 x 10 1 Sidelying Exercise Name sidelying clam shells Reps/Minutes 2 x 10 reps Other Exercises 3 Other Exercise Name TA with opp arm lifts Reps/Minutes x 10 reps 2 Other Exercise Name quadruped TA facilitation Reps/Minutes hold x 5 seconds x 5 reps 1 Other Exercise Name quadruped cat cow Reps/Minutes x 10 reps Manual Therapy Treatment Soft Tissue Mobilization 1 Body Location manual release of the lower lumbar paraspinals and quadratus lumborum Body Position Prone PT-OP-T Assessment and Plan Start: 07/04/19 15:24 Freq: Status: Active Protocol: Document 07/20/19 13:57 [facility] (Rec: 07/20/19 14:02 [facility] [id number]) Physical Therapy Assessment Assessment Summary Assessment pt notes that regular massage helps her to be able to do her exercises. At this point she is so tight she feels it restricts her ability to exercise. I did work with some MFR today to start relaxing the lower back. Physical Therapy Plan Frequency and Duration Frequency of Treatment 1x/Week Duration of Treatment 8 Plan of Care Start Date 07/04/19 Plan of Care End Date 08/29/19 Next Visit Focus/Plan Next Note Type Treatment Note Next Visit Plan Continue working on gentle stretches for the pelvic floor , progress core stabilization and NMES. Reassess tissue tightness in the lumbar spine next visit
--- NOTE | 2019-07-27 18:10 | PT.OTN ---
Current Diagnoses Constipation, unspecified (07/27/19) Physical Therapy Treatment Note PT-OP-A Visit Information Start: 07/04/19 15:24 Freq: Status: Active Protocol: Document 07/27/19 08:08 [facility] (Rec: 07/27/19 08:18 [facility] [id number]) Out-Patient Physical Therapy Visit Information Visit Information Visit Type Treatment Note Visit Start Time 08:15 Visit Stop Time 09:00 Total Visit Minutes 45 Visit Number 4 PT-OP-B Current Condition Start: 07/04/19 15:24 Freq: Status: Active Protocol: Document 07/04/19 15:25 [facility] (Rec: 07/04/19 15:42 [facility] [id number]) Current Condition History of Current Condition Onset Date 04/12/19 Current Complaints post op muscle spasm and weakness History of Current Condition Remedios underwent a pelvic reconstruction 04/12/19 and is here in PT today for core strengthening and stabilization. Overall she reports has had a big improvement. She does report she had post op infections and had a area where the stitches were not out yet. Had some discharge and was treated with antibiotics. She reports she wasd treated for a bacterial vaginosis infection. She also reports she Might have some of the mesh eroding center of the anterior wall. Remedios saw doctor today and her doctor could feel the mesh but couldn 't see it. Will be treated with estrogen to see if the skin can thicken. Also has been given a muscle relaxor to help with pain. This has also helped with bowel movements. Immediately after surgery her lower back pain was gone and the pelvic pressure decreased. Her ovaries were left and uterus and cervix were removed. Treatment Goals Patient/Caregiver Goals Strengthening the core and pelvic muscles, as she is becomming more active she is having more back pain. Gets tired very easily now. Able to walk a couple of miles a normal pace. Running a mile would make her tired at this point so she would like to build up strength to be able to be more active Prior Functional Status Baseline Function- ADL's Independent Current Functional Impairments (Reported) Functional Limitations- Recreation/ due to decreased core strength Hobbies and 3 months post op surgical repair of the pelvic floor and hysterectomy Giovanni is limited in recreational activites at this time PT-OP-C Subjective Start: 07/04/19 15:24 Freq: Status: Active Protocol: Document 07/27/19 08:08 [facility] (Rec: 07/27/19 08:18 [facility] [id number]) OP-PT Subjective Patient Comments Patient Comments Has been able to ride her bike at home, she wasn't too sore PT-OP-F Manual Assessment Start: 07/04/19 15:24 Freq: Status: Active Protocol: Document 07/04/19 15:15 [facility] (Rec: 07/11/19 18:43 [facility] [id number]) Manual Assessments Soft Tissue Assessment Soft Tissue Mobility Assessment With internal assessment of the levator ani today there is some post op muscle tightness however Remedios is able to relax following a contraction without increase in muscle spasm. She is on muscle relaxors and notes this has really helped with relaxing her spasms PT-OP-I Pelvic Floor Start: 07/04/19 15:24 Freq: Status: Active Protocol: Document 07/04/19 15:15 [facility] (Rec: 07/11/19 18:43 [facility] [id number]) Pelvic Floor Assessment Urine Pelvic Floor Surgery Yes Urinary Symptoms Falling Out Feeling/Heavy Other Urinary Symptoms Remedios reports overall her symptoms of pelvic pressure are much better since surgery. She reports heaviness at the end of the day and with straining. She still notes she has to strain at times to pass urine. She has had difficulty with bowel movements however this has improved since surgery. Voiding Frequency 5-6 times per day Nocturia 0 Pelvic Clock Pelvic Clock 6-9 Atrophy Pelvic Clock 9-12 Atrophy Pelvic Clock Other some tone initially in the levator ani with palpation, pt was able to relax better following a contraction but will benefit from gentle pelvic floor stretches as well as strengthening SEMG (uV) Baseline 5.0 10 Second Contraction 14.5 Recruitment Pattern Good Relaxation Poor/Slow Holding Fair Stability of Hold Fair SEMG Stability of Rest Fair Contraction Ability Voluntary Contraction Weak Voluntary Relaxation Weak Manual Muscle Testing Left 3 Manual Muscle Testing Right 4 Manual Muscle Testing Anterior 3 Manual Muscle Testing Posterior 4 Muscle Endurance (Seconds) 6 Comments Pelvic Floor Comments pt starts out holding longer and shows more fatigue with further reps PT-OP-J Posture/Palpation/Skin Start: 07/04/19 15:24 Freq: Status: Active Protocol: Document 07/04/19 15:15 [facility] (Rec: 07/11/19 18:43 [facility] [id number]) Palpation Assessment Location Right SI joint Palpation Location Right SI joint Palpation Findings Tenderness PT-OP-Q Treatments Start: 07/04/19 15:24 Freq: Status: Active Protocol: Document 07/27/19 18:06 [facility] (Rec: 07/27/19 18:10 [facility] [id number]) Therapeutic Exercises Supine Exercises 5 Supine Exercise Name lower abdominal progression Reps/Minutes level 1 x 10 reps 4 Supine Exercise Name quadraped hip extension with toe taps Reps/Minutes x 10 3 Supine Exercise Name quadraped hip extension Reps/Minutes x 10 2 Supine Exercise Name Pelvic floor long holds Side bilateral Reps/Minutes 10 reps holding 10 seconds and relaxing 10 seconds Comments 3 times per day Other Exercises 3 Other Exercise Name TA with opp arm lifts Reps/Minutes x 10 reps 2 Other Exercise Name quadruped TA facilitation Reps/Minutes hold x 5 seconds x 5 reps 1 Other Exercise Name quadruped cat cow Reps/Minutes x 10 reps Manual Therapy Treatment Soft Tissue Mobilization 1 Body Location manual release of the lower lumbar paraspinals and quadratus lumborum Body Position Prone PT-OP-T Assessment and Plan Start: 07/04/19 15:24 Freq: Status: Active Protocol: Document 07/27/19 18:06 [facility] (Rec: 07/27/19 18:10 [facility] [id number]) Physical Therapy Assessment Assessment Summary Assessment Remedios did not have as much tightness today in her lower back and Quadratus lumborum. She had more success with her stabilization exercises today. She has been able to do cobra pose at home Physical Therapy Plan Frequency and Duration Frequency of Treatment 1x/Week Duration of Treatment 8 Plan of Care Start Date 07/04/19 Plan of Care End Date 08/29/19
--- NOTE | 2019-08-25 19:00 | PT.OTN ---
Current Diagnoses Constipation, unspecified (08/25/19) Physical Therapy Treatment Note PT-OP-A Visit Information Start: 07/04/19 15:24 Freq: Status: Active Protocol: Document 08/25/19 15:17 [facility] (Rec: 08/25/19 15:27 [facility] [id number]) Out-Patient Physical Therapy Visit Information Visit Information Visit Type Treatment Note Visit Start Time 15:15 Visit Stop Time 16:00 Total Visit Minutes 45 Visit Number 5 PT-OP-B Current Condition Start: 07/04/19 15:24 Freq: Status: Active Protocol: Document 07/04/19 15:25 [facility] (Rec: 07/04/19 15:42 [facility] [id number]) Current Condition History of Current Condition Onset Date 04/12/19 Current Complaints post op muscle spasm and weakness History of Current Condition Remedios underwent a pelvic reconstruction 04/12/19 and is here in PT today for core strengthening and stabilization. Overall she reports has had a big improvement. She does report she had post op infections and had a area where the stitches were not out yet. Had some discharge and was treated with antibiotics. She reports she wasd treated for a bacterial vaginosis infection. She also reports she Might have some of the mesh eroding center of the anterior wall. Remedios saw doctor today and her doctor could feel the mesh but couldn 't see it. Will be treated with estrogen to see if the skin can thicken. Also has been given a muscle relaxor to help with pain. This has also helped with bowel movements. Immediately after surgery her lower back pain was gone and the pelvic pressure decreased. Her ovaries were left and uterus and cervix were removed. Treatment Goals Patient/Caregiver Goals Strengthening the core and pelvic muscles, as she is becomming more active she is having more back pain. Gets tired very easily now. Able to walk a couple of miles a normal pace. Running a mile would make her tired at this point so she would like to build up strength to be able to be more active Prior Functional Status Baseline Function- ADL's Independent Current Functional Impairments (Reported) Functional Limitations- Recreation/ due to decreased core strength Hobbies and 3 months post op surgical repair of the pelvic floor and hysterectomy Giovanni is limited in recreational activites at this time PT-OP-C Subjective Start: 07/04/19 15:24 Freq: Status: Active Protocol: Document 08/25/19 15:17 [facility] (Rec: 08/25/19 15:27 [facility] [id number]) OP-PT Subjective Patient Comments Patient Comments Had colonoscopy and it was clean. Had the piece of mesh trimmed. Had another UTI . She thinks it is better. 2 -3 weeks ago. R SI is bothering her. PT-OP-F Manual Assessment Start: 07/04/19 15:24 Freq: Status: Active Protocol: Document 07/04/19 15:15 [facility] (Rec: 07/11/19 18:43 [facility] [id number]) Manual Assessments Soft Tissue Assessment Soft Tissue Mobility Assessment With internal assessment of the levator ani today there is some post op muscle tightness however Remedios is able to relax following a contraction without increase in muscle spasm. She is on muscle relaxors and notes this has really helped with relaxing her spasms PT-OP-I Pelvic Floor Start: 07/04/19 15:24 Freq: Status: Active Protocol: Document 07/04/19 15:15 [facility] (Rec: 07/11/19 18:43 [facility] [id number]) Pelvic Floor Assessment Urine Pelvic Floor Surgery Yes Urinary Symptoms Falling Out Feeling/Heavy Other Urinary Symptoms Remedios reports overall her symptoms of pelvic pressure are much better since surgery. She reports heaviness at the end of the day and with straining. She still notes she has to strain at times to pass urine. She has had difficulty with bowel movements however this has improved since surgery. Voiding Frequency 5-6 times per day Nocturia 0 Pelvic Clock Pelvic Clock 6-9 Atrophy Pelvic Clock 9-12 Atrophy Pelvic Clock Other some tone initially in the levator ani with palpation, pt was able to relax better following a contraction but will benefit from gentle pelvic floor stretches as well as strengthening SEMG (uV) Baseline 5.0 10 Second Contraction 14.5 Recruitment Pattern Good Relaxation Poor/Slow Holding Fair Stability of Hold Fair SEMG Stability of Rest Fair Contraction Ability Voluntary Contraction Weak Voluntary Relaxation Weak Manual Muscle Testing Left 3 Manual Muscle Testing Right 4 Manual Muscle Testing Anterior 3 Manual Muscle Testing Posterior 4 Muscle Endurance (Seconds) 6 Comments Pelvic Floor Comments pt starts out holding longer and shows more fatigue with further reps PT-OP-J Posture/Palpation/Skin Start: 07/04/19 15:24 Freq: Status: Active Protocol: Document 07/04/19 15:15 [facility] (Rec: 07/11/19 18:43 [facility] [id number]) Palpation Assessment Location Right SI joint Palpation Location Right SI joint Palpation Findings Tenderness PT-OP-Q Treatments Start: 07/04/19 15:24 Freq: Status: Active Protocol: Document 07/27/19 18:06 [facility] (Rec: 07/27/19 18:10 [facility] [id number]) Therapeutic Exercises Supine Exercises 5 Supine Exercise Name lower abdominal progression Reps/Minutes level 1 x 10 reps 4 Supine Exercise Name quadraped hip extension with toe taps Reps/Minutes x 10 3 Supine Exercise Name quadraped hip extension Reps/Minutes x 10 2 Supine Exercise Name Pelvic floor long holds Side bilateral Reps/Minutes 10 reps holding 10 seconds and relaxing 10 seconds Comments 3 times per day Other Exercises 3 Other Exercise Name TA with opp arm lifts Reps/Minutes x 10 reps 2 Other Exercise Name quadruped TA facilitation Reps/Minutes hold x 5 seconds x 5 reps 1 Other Exercise Name quadruped cat cow Reps/Minutes x 10 reps Manual Therapy Treatment Soft Tissue Mobilization 1 Body Location manual release of the lower lumbar paraspinals and quadratus lumborum Body Position Prone PT-OP-T Assessment and Plan Start: 07/04/19 15:24 Freq: Status: Active Protocol: Document 08/25/19 16:08 [facility] (Rec: 08/25/19 16:14 [facility] [id number]) Physical Therapy Assessment Assessment Summary Assessment Remedios did well with pelvic floor contractions today and she did relax better following contractions. She feels like she still has a zone in the area of the perineum. Will check next visit for any residual scar tissue in that area that may be contributing to the decreased sensation. It is still a bit difficult with bowel movements as well Physical Therapy Plan Frequency and Duration Frequency of Treatment 1x/Week Duration of Treatment 8 Plan of Care Start Date 07/04/19 Plan of Care End Date 08/29/19 Therapeutic Interventions Therapeutic Interventions Home Exercise Program,Manual Therapy,Neuromuscular Re- education,Patient/Caregiver Education,Self-Care/Home Management,Soft Tissue Mobilization,Therapeutic Exercises Modalities Biofeedback Other Therapeutic Interventions NMES Next Visit Focus/Plan Next Note Type Treatment Note Next Visit Plan check perineum next visit for any residual scar tissue that could be affecting the lift of the perineum
--- NOTE | 2019-09-01 18:00 | PT.OTN ---
Current Diagnoses Constipation, unspecified (09/01/19) Physical Therapy Treatment Note PT-OP-A Visit Information Start: 07/04/19 15:24 Freq: Status: Active Protocol: Document 09/01/19 17:47 [facility] (Rec: 09/01/19 17:53 [facility] [id number]) Out-Patient Physical Therapy Visit Information Visit Information Visit Type Treatment Note Visit Start Time 15:15 Visit Stop Time 16:00 Total Visit Minutes 45 Visit Number 6 PT-OP-B Current Condition Start: 07/04/19 15:24 Freq: Status: Active Protocol: Document 07/04/19 15:25 [facility] (Rec: 07/04/19 15:42 [facility] [id number]) Current Condition History of Current Condition Onset Date 04/12/19 Current Complaints post op muscle spasm and weakness History of Current Condition Remedios underwent a pelvic reconstruction 04/12/19 and is here in PT today for core strengthening and stabilization. Overall she reports has had a big improvement. She does report she had post op infections and had a area where the stitches were not out yet. Had some discharge and was treated with antibiotics. She reports she wasd treated for a bacterial vaginosis infection. She also reports she Might have some of the mesh eroding center of the anterior wall. Remedios saw doctor today and her doctor could feel the mesh but couldn 't see it. Will be treated with estrogen to see if the skin can thicken. Also has been given a muscle relaxor to help with pain. This has also helped with bowel movements. Immediately after surgery her lower back pain was gone and the pelvic pressure decreased. Her ovaries were left and uterus and cervix were removed. Treatment Goals Patient/Caregiver Goals Strengthening the core and pelvic muscles, as she is becomming more active she is having more back pain. Gets tired very easily now. Able to walk a couple of miles a normal pace. Running a mile would make her tired at this point so she would like to build up strength to be able to be more active Prior Functional Status Baseline Function- ADL's Independent Current Functional Impairments (Reported) Functional Limitations- Recreation/ due to decreased core strength Hobbies and 3 months post op surgical repair of the pelvic floor and hysterectomy Giovanni is limited in recreational activites at this time PT-OP-C Subjective Start: 07/04/19 15:24 Freq: Status: Active Protocol: Document 09/01/19 17:47 [facility] (Rec: 09/01/19 17:53 [facility] [id number]) OP-PT Subjective Patient Comments Patient Comments pt is still noting some residual pelvic floor tightness and felt irritation at the urethra this past week. PT-OP-F Manual Assessment Start: 07/04/19 15:24 Freq: Status: Active Protocol: Document 07/04/19 15:15 [facility] (Rec: 07/11/19 18:43 [facility] [email or web address]) Manual Assessments Soft Tissue Assessment Soft Tissue Mobility Assessment With internal assessment of the levator ani today there is some post op muscle tightness however Remedios is able to relax following a contraction without increase in muscle spasm. She is on muscle relaxors and notes this has really helped with relaxing her spasms PT-OP-I Pelvic Floor Start: 07/04/19 15:24 Freq: Status: Active Protocol: Document 07/04/19 15:15 [facility] (Rec: 07/11/19 18:43 [facility] [id number]) Pelvic Floor Assessment Urine Pelvic Floor Surgery Yes Urinary Symptoms Falling Out Feeling/Heavy Other Urinary Symptoms Remedios reports overall her symptoms of pelvic pressure are much better since surgery. She reports heaviness at the end of the day and with straining. She still notes she has to strain at times to pass urine. She has had difficulty with bowel movements however this has improved since surgery. Voiding Frequency 5-6 times per day Nocturia 0 Pelvic Clock Pelvic Clock 6-9 Atrophy Pelvic Clock 9-12 Atrophy Pelvic Clock Other some tone initially in the levator ani with palpation, pt was able to relax better following a contraction but will benefit from gentle pelvic floor stretches as well as strengthening SEMG (uV) Baseline 5.0 10 Second Contraction 14.5 Recruitment Pattern Good Relaxation Poor/Slow Holding Fair Stability of Hold Fair SEMG Stability of Rest Fair Contraction Ability Voluntary Contraction Weak Voluntary Relaxation Weak Manual Muscle Testing Left 3 Manual Muscle Testing Right 4 Manual Muscle Testing Anterior 3 Manual Muscle Testing Posterior 4 Muscle Endurance (Seconds) 6 Comments Pelvic Floor Comments pt starts out holding longer and shows more fatigue with further reps PT-OP-J Posture/Palpation/Skin Start: 07/04/19 15:24 Freq: Status: Active Protocol: Document 07/04/19 15:15 [facility] (Rec: 07/11/19 18:43 [facility] [id number]) Palpation Assessment Location Right SI joint Palpation Location Right SI joint Palpation Findings Tenderness PT-OP-Q Treatments Start: 07/04/19 15:24 Freq: Status: Active Protocol: Document 09/01/19 17:47 [facility] (Rec: 09/01/19 17:53 [facility] [id number]) Therapeutic Exercises Supine Exercises 2 Supine Exercise Name Pelvic floor long holds Side bilateral Reps/Minutes 10 reps holding 10 seconds and relaxing 10 seconds Comments resting tone at 1.0 uv today Manual Therapy Treatment Soft Tissue Mobilization 3 Body Location obturator internus release sidelying Comments manual sidelying obturatur internus release, right >left sided 2 Body Location MFR transverse perinal musculature Comments tightness B noted today PT-OP-T Assessment and Plan Start: 07/04/19 15:24 Freq: Status: Active Protocol: Document 09/01/19 15:25 [facility] (Rec: 09/01/19 15:29 [facility] [id number]) Physical Therapy Assessment Goals Five Impairment Limited walking endurance due to s/p hysterectomy and healing Data Collection Specialist Goal (LTG) Remedios is able to improve her walking endurance to 3 miles without complaints of pelvic heaviness or pressure GOOD PROGRESS LTG Duration 8 weeks Four Impairment Elevated resting tone of the levator ani on EMG biofeedback Short Term Goal (STG) Giovanni is able to reduce her resting ton to base line improving her ablility to void without straining. GOAL MET STG Duration 4 weeks Three Impairment Decreased endurance of the pelvic floor Fdc Goal (LTG) Giovanni is able to sustain a pelvic floor contraction for 10 seconds in a standing position and is able to demonstrate pelvic floor contraction with activities such as sit-stand and standing squats EXCELLENT PROGRESS , able to hold 10 seconds in supine now LTG Duration 8 weeks Two Impairment Decreased strength of the levator ani musculature s/o surgery Data Collection Specialist Goal (LTG) Remedios is able to increase her strength of the pelvic floor to 4/5 or greater Good progress LTG Duration 8 weeks One Impairment Decreased strength of the transverse abdominal muscle Short Term Goal (STG) Remedios is able to sustain a contraction of the TA in quadruped for 10 seconds Excellent progress STG Duration 5 weeks Data Collection Specialist Goal (LTG) Remedios is able to sustain a plank with core contraction GOAL NOT YET MET LTG Duration 8 weeks Assessment Summary Assessment Remedios is making good progress following her surgery. She still c/o some irritation at the urethra as well as residual tightness in the pelvic floor. Tightness noted in the transverse perneal musculatrue and obturator internus R, great baseline of the pelvic floor today. This was the lowest I have seen so far with Remedios at 1.0 uv. Physical Therapy Plan Frequency and Duration Frequency of Treatment 1x/Week Duration of Treatment 8 Plan of Care Start Date 09/01/19 Plan of Care End Date 10/27/19 Next Visit Focus/Plan Next Note Type Treatment Note Next Visit Plan recheck transverse perineal muscualtre next visit and Obturatur internus
--- NOTE | 2019-09-01 18:01 | PT.OPPOC ---
Physical, Occupational & Speech Therapy At [facility] Current Diagnoses Constipation, unspecified (09/01/19) Visit Care Team Role Provider Type KVNG Cooper Primary Care Provider Advanced Loom Winder Tender Specialty: Family Practice Address: [address] [place] [address], [id number] Email: [email or web address] Portillo Attending Provider Non-Staff Referring Provider Specialty: Nursing Address: [address] [place] [address], [id number] Email: Plan Of Care PT-OP-T Assessment and Plan Start: 07/04/19 15:24 Freq: Status: Active Protocol: Document 09/01/19 15:25 [facility] (Rec: 09/01/19 15:29 [facility] [id number]) Physical Therapy Assessment Goals Five Impairment Limited walking endurance due to s/p hysterectomy and healing Senior Care Goal (LTG) Remedios is able to improve her walking endurance to 3 miles without complaints of pelvic heaviness or pressure GOOD PROGRESS LTG Duration 8 weeks Four Impairment Elevated resting tone of the levator ani on EMG biofeedback Short Term Goal (STG) Giovanni is able to reduce her resting ton to base line improving her ablility to void without straining. GOAL MET STG Duration 4 weeks Three Impairment Decreased endurance of the pelvic floor Cane Burner Goal (LTG) Giovanni is able to sustain a pelvic floor contraction for 10 seconds in a standing position and is able to demonstrate pelvic floor contraction with activities such as sit-stand and standing squats EXCELLENT PROGRESS , able to hold 10 seconds in supine now LTG Duration 8 weeks Two Impairment Decreased strength of the levator ani musculature s/o surgery Cane Burner Goal (LTG) Remedios is able to increase her strength of the pelvic floor to 4/5 or greater Good progress LTG Duration 8 weeks One Impairment Decreased strength of the transverse abdominal muscle Short Term Goal (STG) Remedios is able to sustain a contraction of the TA in quadruped for 10 seconds Excellent progress STG Duration 5 weeks Senior Care Goal (LTG) Remedios is able to sustain a plank with core contraction GOAL NOT YET MET LTG Duration 8 weeks Assessment Summary Assessment Remedios is making good progress following her surgery. She still c/o some irritation at the urethra as well as residual tightness in the pelvic floor. Tightness noted in the transverse perineal musculature and obturator internus R, great baseline of the pelvic floor today. This was the lowest I have seen so far with Remedios at 1.0 uv. Physical Therapy Plan Frequency and Duration Frequency of Treatment 1x/Week Duration of Treatment 8 Plan of Care Start Date 09/01/19 Plan of Care End Date 10/27/19 Next Visit Focus/Plan Next Note Type Treatment Note Next Visit Plan recheck transverse perineal musculature next visit and Obturatur internus Plan of Care Dates Plan of Care Start Date 09/01/19 Plan of Care End Date 10/27/19 Electronically Signed by: Martha Perry, PT 09/01/19 [id number] Please Sign and Return: I have reviewed this Plan of Care and certify that the skilled therapy services above are required to meet the patient?s needs. Physician Signature Date Printed Name and Credentials Clinical Instructor Signature Printed Name and Credentials
--- NOTE | 2019-10-06 13:58 | PT.OTN ---
Current Diagnoses Constipation, unspecified (10/05/19) Physical Therapy Treatment Note PT-OP-A Visit Information Start: 07/04/19 15:24 Freq: Status: Active Protocol: Document 10/05/19 11:12 [facility] (Rec: 10/05/19 11:20 [facility] [id number]) Out-Patient Physical Therapy Visit Information Visit Information Visit Type Treatment Note Visit Start Time 11:15 Visit Stop Time 12:00 Total Visit Minutes 45 Visit Number 7 PT-OP-B Current Condition Start: 07/04/19 15:24 Freq: Status: Active Protocol: Document 07/04/19 15:25 [facility] (Rec: 07/04/19 15:42 [facility] [id number]) Current Condition History of Current Condition Onset Date 04/12/19 Current Complaints post op muscle spasm and weakness History of Current Condition Remedios underwent a pelvic reconstruction 04/12/19 and is here in PT today for core strengthening and stabilization. Overall she reports has had a big improvement. She does report she had post op infections and had a area where the stitches were not out yet. Had some discharge and was treated with antibiotics. She reports she was treated for a bacterial vaginosis infection. She also reports she Might have some of the mesh eroding center of the anterior wall. Remedios saw doctor today and her doctor could feel the mesh but couldn't 't see it. Will be treated with estrogen to see if the skin can thicken. Also has been given a muscle relaxor to help with pain. This has also helped with bowel movements. Immediately after surgery her lower back pain was gone and the pelvic pressure decreased. Her ovaries were left and uterus and cervix were removed. Treatment Goals Patient/Caregiver Goals Strengthening the core and pelvic muscles, as she is becomming more active she is having more back pain. Gets tired very easily now. Able to walk a couple of miles a normal pace. Running a mile would make her tired at this point so she would like to build up strength to be able to be more active Prior Functional Status Baseline Function- ADL's Independent Current Functional Impairments (Reported) Functional Limitations- Recreation/ due to decreased core strength Hobbies and 3 months post op surgical repair of the pelvic floor and hysterectomy Remedios is limited in recreational activities at this time PT-OP-C Subjective Start: 07/04/19 15:24 Freq: Status: Active Protocol: Document 10/05/19 11:12 [facility] (Rec: 10/05/19 11:20 [facility] [id number]) OP-PT Subjective Patient Comments Patient Comments has had a recurrent UTI, has been on antibiotics for the past month. Still has some mesh poking her. She is also having kidney pain today. PT-OP-F Manual Assessment Start: 07/04/19 15:24 Freq: Status: Active Protocol: Document 07/04/19 15:15 [facility] (Rec: 07/11/19 18:43 [facility] [id number]) Manual Assessments Soft Tissue Assessment Soft Tissue Mobility Assessment With internal assessment of the levator ani today there is some post op muscle tightness however Remedios is able to relax following a contraction without increase in muscle spasm. She is on muscle relaxors and notes this has really helped with relaxing her spasms PT-OP-I Pelvic Floor Start: 07/04/19 15:24 Freq: Status: Active Protocol: Document 07/04/19 15:15 [facility] (Rec: 07/11/19 18:43 [facility] [id number]) Pelvic Floor Assessment Urine Pelvic Floor Surgery Yes Urinary Symptoms Falling Out Feeling/Heavy Other Urinary Symptoms Remedios reports overall her symptoms of pelvic pressure are much better since surgery. She reports heaviness at the end of the day and with straining. She still notes she has to strain at times to pass urine. She has had difficulty with bowel movements however this has improved since surgery. Voiding Frequency 5-6 times per day Nocturia 0 Pelvic Clock Pelvic Clock 6-9 Atrophy Pelvic Clock 9-12 Atrophy Pelvic Clock Other some tone initially in the levator ani with palpation, pt was able to relax better following a contraction but will benefit from gentle pelvic floor stretches as well as strengthening SEMG (uV) Baseline 5.0 10 Second Contraction 14.5 Recruitment Pattern Good Relaxation Poor/Slow Holding Fair Stability of Hold Fair SEMG Stability of Rest Fair Contraction Ability Voluntary Contraction Weak Voluntary Relaxation Weak Manual Muscle Testing Left 3 Manual Muscle Testing Right 4 Manual Muscle Testing Anterior 3 Manual Muscle Testing Posterior 4 Muscle Endurance (Seconds) 6 Comments Pelvic Floor Comments pt starts out holding longer and shows more fatigue with further reps PT-OP-J Posture/Palpation/Skin Start: 07/04/19 15:24 Freq: Status: Active Protocol: Document 07/04/19 15:15 [facility] (Rec: 07/11/19 18:43 [facility] [id number]) Palpation Assessment Location Right SI joint Palpation Location Right SI joint Palpation Findings Tenderness PT-OP-Q Treatments Start: 07/04/19 15:24 Freq: Status: Active Protocol: Document 10/06/19 13:53 [facility] (Rec: 10/06/19 13:58 [facility] [id number]) Therapeutic Exercises Supine Exercises 2 Supine Exercise Name Pelvic floor long holds Side bilateral Reps/Minutes 10 reps holding 10 seconds and relaxing 10 seconds Comments resting tone at 1.0 uv today Manual Therapy Treatment Soft Tissue Mobilization 4 Body Location external release of the posterior levator ani 2 Body Location MFR transverse perineal musculature Comments tightness B noted today 1 Body Location bladder visceral mobilizations Comments mobilization of the bladder in a superior direction PT-OP-T Assessment and Plan Start: 07/04/19 15:24 Freq: Status: Active Protocol: Document 10/06/19 13:53 [facility] (Rec: 10/06/19 13:58 [facility] [id number]) Physical Therapy Assessment Assessment Summary Assessment pt still dealing with UTI symptoms, having a urod[facility] test [facility] next week. Will review results from this. Pt felt good relief from visceral mobilization of the bladder in a superior direction today. She did have trigger points in the transverse perineal musculature today. Physical Therapy Plan Frequency and Duration Frequency of Treatment 1x/Week Duration of Treatment 8 Plan of Care Start Date 09/01/19 Plan of Care End Date 10/27/19 Therapeutic Interventions Therapeutic Interventions Home Exercise Program,Manual Therapy,Neuromuscular Re- education,Patient/Caregiver Education,Self-Care/Home Management,Soft Tissue Mobilization,Therapeutic Exercises Modalities Biofeedback Other Therapeutic Interventions NMES Next Visit Focus/Plan Next Note Type Treatment Note Next Visit Plan review urodynamics next visit, continue to work on strengthening as patient is able and MFR techniques.
--- NOTE | 2019-10-12 12:11 | PT.OTN ---
Current Diagnoses Constipation, unspecified (10/12/19) Physical Therapy Treatment Note PT-OP-A Visit Information Start: 07/04/19 15:24 Freq: Status: Active Protocol: Document 10/12/19 11:21 [facility] (Rec: 10/12/19 11:23 [facility] [id number]) Out-Patient Physical Therapy Visit Information Visit Information Visit Type Treatment Note Visit Start Time 11:15 Visit Stop Time 12:00 Total Visit Minutes 45 Visit Number 8 PT-OP-B Current Condition Start: 07/04/19 15:24 Freq: Status: Active Protocol: Document 07/04/19 15:25 [facility] (Rec: 07/04/19 15:42 [facility] [id number]) Current Condition History of Current Condition Onset Date 04/12/19 Current Complaints post op muscle spasm and weakness History of Current Condition Remedios underwent a pelvic reconstruction 04/12/19 and is here in PT today for core strengthening and stabilization. Overall she reports has had a big improvement. She does report she had post op infections and had a area where the stitches were not out yet. Had some discharge and was treated with antibiotics. She reports she wasd treated for a bacterial vaginosis infection. She also reports she Might have some of the mesh eroding center of the anterior wall. Remedios saw doctor today and her doctor could feel the mesh but couldn 't see it. Will be treated with estrogen to see if the skin can thicken. Also has been given a muscle relaxor to help with pain. This has also helped with bowel movements. Immediately after surgery her lower back pain was gone and the pelvic pressure decreased. Her ovaries were left and uterus and cervix were removed. Treatment Goals Patient/Caregiver Goals Strengthening the core and pelvic muscles, as she is becomming more active she is having more back pain. Gets tired very easily now. Able to walk a couple of miles a normal pace. Running a mile would make her tired at this point so she would like to build up strength to be able to be more active Prior Functional Status Baseline Function- ADL's Independent Current Functional Impairments (Reported) Functional Limitations- Recreation/ due to decreased core strength Hobbies and 3 months post op surgical repair of the pelvic floor and hysterectomy Giovanni is limited in recreational activites at this time PT-OP-C Subjective Start: 07/04/19 15:24 Freq: Status: Active Protocol: Document 10/12/19 11:21 [facility] (Rec: 10/12/19 11:23 [facility] [id number]) OP-PT Subjective Patient Comments Patient Comments Still having the urgency feeling, super mild. The piece of mesh is till there. She has been using wand to help decrease muscle tightnes and she feels this was helping . Her cystoscopy has not happened it, it will be in the end of October. Patient Reported Progress Improving PT-OP-F Manual Assessment Start: 07/04/19 15:24 Freq: Status: Active Protocol: Document 07/04/19 15:15 [facility] (Rec: 07/11/19 18:43 [facility] [id number]) Manual Assessments Soft Tissue Assessment Soft Tissue Mobility Assessment With internal assessment of the levator ani today there is some post op muscle tightness however Remedios is able to relax following a contraction without increase in muscle spasm. She is on muscle relaxors and notes this has really helped with relaxing her spasms PT-OP-I Pelvic Floor Start: 07/04/19 15:24 Freq: Status: Active Protocol: Document 07/04/19 15:15 [facility] (Rec: 07/11/19 18:43 [facility] [email or web address]) Pelvic Floor Assessment Urine Pelvic Floor Surgery Yes Urinary Symptoms Falling Out Feeling/Heavy Other Urinary Symptoms Remedios reports overall her symptoms of pelvic pressure are much better since surgery. She reports heaviness at the end of the day and with straining. She still notes she has to strain at times to pass urine. She has had difficulty with bowel movements however this has improved since surgery. Voiding Frequency 5-6 times per day Nocturia 0 Pelvic Clock Pelvic Clock 6-9 Atrophy Pelvic Clock 9-12 Atrophy Pelvic Clock Other some tone initially in the levator ani with palpation, pt was able to relax better following a contraction but will benefit from gentle pelvic floor stretches as well as strengthening SEMG (uV) Baseline 5.0 10 Second Contraction 14.5 Recruitment Pattern Good Relaxation Poor/Slow Holding Fair Stability of Hold Fair SEMG Stability of Rest Fair Contraction Ability Voluntary Contraction Weak Voluntary Relaxation Weak Manual Muscle Testing Left 3 Manual Muscle Testing Right 4 Manual Muscle Testing Anterior 3 Manual Muscle Testing Posterior 4 Muscle Endurance (Seconds) 6 Comments Pelvic Floor Comments pt starts out holding longer and shows more fatigue with further reps PT-OP-J Posture/Palpation/Skin Start: 07/04/19 15:24 Freq: Status: Active Protocol: Document 07/04/19 15:15 [facility] (Rec: 07/11/19 18:43 [facility] [id number]) Palpation Assessment Location Right SI joint Palpation Location Right SI joint Palpation Findings Tenderness PT-OP-Q Treatments Start: 07/04/19 15:24 Freq: Status: Active Protocol: Document 10/12/19 12:07 [facility] (Rec: 10/12/19 12:11 [facility] [id number]) Manual Therapy Treatment Soft Tissue Mobilization 5 Body Location coccygeus release Bl Comments Right greater than left tightness, pt to use wand at home for self release as well as miracle balls placed externally over the sacrum 2 Body Location MFR transverse perinal musculature Comments pt notes decreased c/o tightness today on the right side 1 Body Location bladder visceral mobilizations Comments mobilization of the bladder in a superior direction PT-OP-T Assessment and Plan Start: 07/04/19 15:24 Freq: Status: Active Protocol: Document 10/12/19 12:07 [facility] (Rec: 10/12/19 12:11 [facility] [email or web address]) Physical Therapy Assessment Assessment Summary Assessment overall tissue tightness has improved. Still some trigger points in the coccygeus B, tightness in the suprapubic fascia. Remedios is working hard on her own with stretches and self release with wand. She has one visit left in PT and will then be DC to [facility] Physical Therapy Plan Frequency and Duration Frequency of Treatment 1x/Week Duration of Treatment 8 Plan of Care Start Date 09/01/19 Plan of Care End Date 10/27/19 Next Visit Focus/Plan Next Note Type Treatment Note Next Visit Plan this will be Remedios's last schedueld visit. recheck transverse perineal muscle and coccygeus next visit.
--- NOTE | 2019-10-26 14:48 | PT.OTN ---
Current Diagnoses Constipation, unspecified (10/26/19) Physical Therapy Treatment Note PT-OP-A Visit Information Start: 07/04/19 15:24 Freq: Status: Active Protocol: Document 10/26/19 11:25 [facility] (Rec: 10/26/19 11:30 [facility] [id number]) Out-Patient Physical Therapy Visit Information Visit Information Visit Type Treatment Note Visit Start Time 11:15 Visit Stop Time 12:00 Total Visit Minutes 45 Visit Number 9 PT-OP-B Current Condition Start: 07/04/19 15:24 Freq: Status: Active Protocol: Document 07/04/19 15:25 [facility] (Rec: 07/04/19 15:42 [facility] [id number]) Current Condition History of Current Condition Onset Date 04/12/19 Current Complaints post op muscle spasm and weakness History of Current Condition Remedios underwent a pelvic reconstruction 04/12/19 and is here in PT today for core strengthening and stabilization. Overall she reports has had a big improvement. She does report she had post op infections and had a area where the stitches were not out yet. Had some discharge and was treated with antibiotics. She reports she wasd treated for a bacterial vaginosis infection. She also reports she Might have some of the mesh eroding center of the anterior wall. Remedios saw doctor today and her doctor could feel the mesh but couldn 't see it. Will be treated with estrogen to see if the skin can thicken. Also has been given a muscle relaxor to help with pain. This has also helped with bowel movements. Immediately after surgery her lower back pain was gone and the pelvic pressure decreased. Her ovaries were left and uterus and cervix were removed. Treatment Goals Patient/Caregiver Goals Strengthening the core and pelvic muscles, as she is becomming more active she is having more back pain. Gets tired very easily now. Able to walk a couple of miles a normal pace. Running a mile would make her tired at this point so she would like to build up strength to be able to be more active Prior Functional Status Baseline Function- ADL's Independent Current Functional Impairments (Reported) Functional Limitations- Recreation/ due to decreased core strength Hobbies and 3 months post op surgical repair of the pelvic floor and hysterectomy Giovanni is limited in recreational activites at this time PT-OP-C Subjective Start: 07/04/19 15:24 Freq: Status: Active Protocol: Document 10/26/19 11:25 [facility] (Rec: 10/26/19 11:30 [facility] [id number]) OP-PT Subjective Patient Comments Patient Comments Feeling inflammation within her bowels, feels like she is having a cycle. Doing her stretches, exercisses. PT-OP-F Manual Assessment Start: 07/04/19 15:24 Freq: Status: Active Protocol: Document 07/04/19 15:15 [facility] (Rec: 07/11/19 18:43 [facility] [id number]) Manual Assessments Soft Tissue Assessment Soft Tissue Mobility Assessment With internal assessment of the levator ani today there is some post op muscle tightness however Remedios is able to relax following a contraction without increase in muscle spasm. She is on muscle relaxors and notes this has really helped with relaxing her spasms PT-OP-I Pelvic Floor Start: 07/04/19 15:24 Freq: Status: Active Protocol: Document 07/04/19 15:15 [facility] (Rec: 07/11/19 18:43 [facility] [email or web address]) Pelvic Floor Assessment Urine Pelvic Floor Surgery Yes Urinary Symptoms Falling Out Feeling/Heavy Other Urinary Symptoms Remedios reports overall her symptoms of pelvic pressure are much better since surgery. She reports heaviness at the end of the day and with straining. She still notes she has to strain at times to pass urine. She has had difficulty with bowel movements however this has improved since surgery. Voiding Frequency 5-6 times per day Nocturia 0 Pelvic Clock Pelvic Clock 6-9 Atrophy Pelvic Clock 9-12 Atrophy Pelvic Clock Other some tone initially in the levator ani with palpation, pt was able to relax better following a contraction but will benefit from gentle pelvic floor stretches as well as strengthening SEMG (uV) Baseline 5.0 10 Second Contraction 14.5 Recruitment Pattern Good Relaxation Poor/Slow Holding Fair Stability of Hold Fair SEMG Stability of Rest Fair Contraction Ability Voluntary Contraction Weak Voluntary Relaxation Weak Manual Muscle Testing Left 3 Manual Muscle Testing Right 4 Manual Muscle Testing Anterior 3 Manual Muscle Testing Posterior 4 Muscle Endurance (Seconds) 6 Comments Pelvic Floor Comments pt starts out holding longer and shows more fatigue with further reps PT-OP-J Posture/Palpation/Skin Start: 07/04/19 15:24 Freq: Status: Active Protocol: Document 07/04/19 15:15 [facility] (Rec: 07/11/19 18:43 [facility] [email or web address]) Palpation Assessment Location Right SI joint Palpation Location Right SI joint Palpation Findings Tenderness PT-OP-Q Treatments Start: 07/04/19 15:24 Freq: Status: Active Protocol: Document 10/26/19 14:44 [facility] (Rec: 10/26/19 14:48 [facility] [id number]) Manual Therapy Treatment Soft Tissue Mobilization MFR over the colon Comments tightness in the transverse colon and descending colon 5 Body Location iliococcygeus release on the left Comments decreased tension overall, i did do a little release ont he left side today as this is her tighter side 1 Body Location bladder visceral mobilizations Comments mobilization of the bladder in a superior direction PT-OP-T Assessment and Plan Start: 07/04/19 15:24 Freq: Status: Active Protocol: Document 10/26/19 14:44 [facility] (Rec: 10/26/19 14:48 [facility] [id number]) Physical Therapy Assessment Assessment Summary Assessment Today was Remedios's last visit in PT. She is doing overall much better with her pelvic floor tone and strength. She still has some residual issues and today felt swollen in her colon region. She was tight in her transverse colon and left side with the descending colon. At this point she has reached all her PT goals and will be discharged to a [facility] Physical Therapy Plan Discharge Physical Therapy Discharge Reasons Goals Met
--- NOTE | 2019-10-26 14:50 | PT.OPDS ---
Current Diagnoses Constipation, unspecified (10/26/19) Visit Care Team Role Provider Type KVNG Cooper Primary Care Provider Advanced Press Operator Heavy Duty Specialty: Family Practice Address: [address] [place] [address], [id number] Email: [email or web address] Portillo Attending Provider Non-Staff Referring Provider Specialty: Nursing Address: [address] [place] [address], [id number] Email: Visit Number Visit Number 9 Discharge Summary PT-OP-B Current Condition Start: 07/04/19 15:24 Freq: Status: Active Protocol: Document 07/04/19 15:25 [facility] (Rec: 07/04/19 15:42 [facility] [id number]) Current Condition History of Current Condition Onset Date 04/12/19 Current Complaints post op muscle spasm and weakness History of Current Condition Remedios underwent a pelvic reconstruction 04/12/19 and is here in PT today for core strengthening and stabilization. Overall she reports has had a big improvement. She does report she had post op infections and had a area where the stitches were not out yet. Had some discharge and was treated with antibiotics. She reports she wasd treated for a bacterial vaginosis infection. She also reports she Might have some of the mesh eroding center of the anterior wall. Remedios saw doctor today and her doctor could feel the mesh but couldn 't see it. Will be treated with estrogen to see if the skin can thicken. Also has been given a muscle relaxor to help with pain. This has also helped with bowel movements. Immediately after surgery her lower back pain was gone and the pelvic pressure decreased. Her ovaries were left and uterus and cervix were removed. Treatment Goals Patient/Caregiver Goals Strengthening the core and pelvic muscles, as she is becomming more active she is having more back pain. Gets tired very easily now. Able to walk a couple of miles a normal pace. Running a mile would make her tired at this point so she would like to build up strength to be able to be more active Prior Functional Status Baseline Function- ADL's Independent Current Functional Impairments (Reported) Functional Limitations- Recreation/ due to decreased core strength Hobbies and 3 months post op surgical repair of the pelvic floor and hysterectomy Giovanni is limited in recreational activites at this time PT-OP-C Subjective Start: 07/04/19 15:24 Freq: Status: Active Protocol: Document 10/26/19 11:25 [facility] (Rec: 10/26/19 11:30 [facility] [id number]) OP-PT Subjective Patient Comments Patient Comments Feeling inflammation within her bowels, feels like she is having a cycle. Doing her stretches, exercisses. PT-OP-F Manual Assessment Start: 07/04/19 15:24 Freq: Status: Active Protocol: Document 07/04/19 15:15 [facility] (Rec: 07/11/19 18:43 [facility] [email or web address]) Manual Assessments Soft Tissue Assessment Soft Tissue Mobility Assessment With internal assessment of the levator ani today there is some post op muscle tightness however Remedios is able to relax following a contraction without increase in muscle spasm. She is on muscle relaxors and notes this has really helped with relaxing her spasms PT-OP-I Pelvic Floor Start: 07/04/19 15:24 Freq: Status: Active Protocol: Document 10/26/19 14:49 [facility] (Rec: 10/26/19 14:50 [facility] [id number]) Pelvic Floor Assessment Urine Other Urinary Symptoms At this time Remedios reports overall symptoms of heaviness and the feeling that her pelvic organs are falling. She is also doing well keeping up with her HEP Pelvic Clock Pelvic Clock Other Pt doing much better overall with decreased guarding and good tone of her pelvic floor Contraction Ability Voluntary Contraction Moderate Voluntary Relaxation Moderate Manual Muscle Testing Right 4 Manual Muscle Testing Anterior 4 Manual Muscle Testing Posterior 4 Muscle Endurance (Seconds) 4 PT-OP-J Posture/Palpation/Skin Start: 07/04/19 15:24 Freq: Status: Active Protocol: Document 07/04/19 15:15 [facility] (Rec: 07/11/19 18:43 [facility] [email or web address]) Palpation Assessment Location Right SI joint Palpation Location Right SI joint Palpation Findings Tenderness PT-OP-T Assessment and Plan Start: 07/04/19 15:24 Freq: Status: Active Protocol: Document 10/26/19 14:44 [facility] (Rec: 10/26/19 14:48 [facility] [email or web address]) Physical Therapy Assessment Assessment Summary Assessment Today was Remedios's last visit in PT. She is doing overall much better with her pelvic floor tone and strength. She still has some residual issues and today felt swollen in her colon region. She was tight in her transverse colon and left side with the descending colon. At this point she has reached all her PT goals and will be discharged to a [facility] Physical Therapy Plan Discharge Physical Therapy Discharge Reasons Goals Met
== END 2020-03-28 14:59 ==
LOC: PHYS 11:15
PROVIDERS: PCP Nurse Practitioner; Referring Provider Registered Nurse; Visit Provider Registered Nurse
DX: K59.00 Constipation, unspecified (principal)
CPT/HCPCS: 97110; 97112; 97140; 97161

== ENCOUNTER 2019-11-04 17:37 | Emergency (ER) | payer OTHER, SELFPAY ==
[2019-11-04 17:41] VITALS: PULSE 93; RESP 16; TEMP 36.7; O2SAT 99; BMI 32.5
--- NOTE | 2019-11-04 17:47 | DI.RAD.S_ITS ---
PROCEDURE: XR CHEST 2V INDICATIONS: SOB/Dyspnea TECHNIQUE: 2 views of the chest were acquired. COMPARISON: None. FINDINGS: Surgical changes and devices: None. Lungs and pleura: Lungs are clear. No pleural effusions or pneumothorax. Mediastinum: Mediastinal contours are normal. Heart size is normal. Bones and chest wall: No suspicious bony abnormalities. Soft tissues appear unremarkable. IMPRESSION: No evidence acute pulmonary process. Dictated by: Randell Ferraro M.D. on 11/04/2019 at 17:10 Approved by: Randell Ferraro M.D. on 11/04/2019 at 17:10
--- NOTE | 2019-11-04 20:17 | ED_ITS ---
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 Does not not not want any blood work or EKG. She states this dry cough watery eyes itchy eyes runny nose and shortness of breath and chest tightness is exacerbation of her allergy/asthma. Patient states this is typical of her exacerbation for asthma and allergies. She knows chest tightness and shortness of breath today worsening, on going for the past 2 weeks. Short of breath with walking up steps. Patient states she usually gets a DuoNeb treatment and steroids and able to go home. Related Data Home Medications Medication Instructions Recorded Confirmed albuterol sulfate 90 mcg/actuation 1 puff INHALATION Q6H PRN 09/16/18 11/01/19 aerosol inhaler fluticasone propionate 44 1 inhalation INHALATION BID 09/16/18 11/01/19 mcg/actuation HFA aerosol inhaler ketorolac 15.75 mg/spray nasal 15.75 mg NASAL Q6-8H PRN 09/16/18 11/01/19 spray metaxalone 800 mg tablet 800 mg PO TID 08/02/19 11/01/19 Compounded vaginal suppository #1 ea 08/03/19 11/01/19 Previous Rx's Medication Instructions Recorded ibuprofen 600 mg PO Q6HP PRN #20 tab 04/13/16 amitriptyline 10 mg tablet 20 mg PO DAILY #60 tab 08/02/19 phenazopyridine 100 mg tablet 100 mg PO TID PRN #6 tab 09/19/19 methylprednisolone [Medrol (Robert)] See Rx Instructions .ROUTE 11/04/19 .COMPLEX #21 each Allergies Allergy/AdvReac Type Severity Reaction Status Date / Time No Known Drug Allergies Allergy Verified 11/04/19 17:44 Review of Systems Review of Systems Narrative: GENERAL: Denies chills, fatigue, malaise, fever, sweats. HEENT: Denies sinus pain, ear pain, sore throat, difficulty swallowing, dizziness. Complains of runny nose and watery itchy eyes RESPIRATORY: Complains dyspnea, cough, denies wheezing, hemoptysis, sputum. CARDIOVASCULAR: Denies chest pain, palpitations, orthopnea, edema, complains of chest tightness GASTROINTESTINAL: Denies nausea, vomiting, abdominal pain, diarrhea, constipation, melena. : Denies dysuria, frequency, incontinence, hematuria, urinary retention. MUSCULOSKELETAL: denies weakness, joint pain, or bony pain SKIN: Denies rash, skin lesions NEUROLOGIC: Denies weakness, headache, numbness, change in speech, confusion, seizures, incoordination. PSYCHIATRIC: No concerning psychosocial issues. ROS Unobtainable: All systems reviewed & are unremarkable except as noted in HPI and below Patient History Medical History Cervical somatic dysfunction (Acute) Chronic low back pain without sciatica (Acute) Chronic neck pain (Acute) Chronic thoracic back pain (Acute) Cranial somatic dysfunction (Acute) Depression with anxiety (Acute) Lumbar region somatic dysfunction (Acute) Obesity, Class I, BMI 30-34.9 (Acute) Pelvic somatic dysfunction (Acute) Sacral region somatic dysfunction (Acute) Sacroiliac joint stiffness (Acute) Segmental and somatic dysfunction of abdomen and other regions (Acute) Temporomandibular joint disorder (TMJ) (Acute) Thoracic region somatic dysfunction (Acute) 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 Well-nourished, well- developed patient, in no distress, not toxic HEAD: Atraumatic. Normocephalic. EYES: Pupils equal round and reactive. Extraocular motions intact. No scleral icterus. No injection or drainage. ENT: Nose without bleeding, purulent drainage. Throat without erythema, tonsillar hypertrophy or exudate. Airway patent. NECK: Trachea midline. CARDIOVASCULAR: Regular rate and rhythm without murmurs, gallops, or rubs. RESPIRATORY: Clear to auscultation. Breath sounds equal bilaterally. No wheezes, rales, or rhonchi. Slightly diminished lung sounds at the bases. Speaking full sentences BACK: Nontender without deformity or crepitance. No flank tenderness. NEURO: AOx4. SKIN: No rash or erythema of visible areas PSYCH: Not anxious, is cooperative Initial Vital Signs Initial Vital Signs: Vital Signs Temperature 98.1 F 11/04/19 17:41 Pulse Rate 93 H 11/04/19 17:41 Respiratory Rate 16 11/04/19 17:41 Pulse Oximetry 99 11/04/19 17:41 Course Orders Ordered: ED Orders 11/04/19 20:25 COVID19 -ED/INPAT/OR/L&D Stat Discontinued Medications Albuterol (Ventolin Hfa Prepack) 1 box MISC SEEINSTR ONE Stop: 11/04/19 20:20 Last Admin: 11/04/19 20:39 Dose: 1 box Documented by: ROGELIO Albuterol/Ipratropium (Duoneb) 3 ml INH NOW ONE Stop: 11/04/19 20:16 Last Admin: 11/04/19 20:20 Dose: Not Given Documented by: NANCI Albuterol/Ipratropium (Duoneb) 3 ml INH NOW ONE Stop: 11/04/19 20:32 Last Admin: 11/04/19 20:39 Dose: 3 ml Documented by: MARIA DEL CARMENALLAnderson Prednisone (Deltasone) 60 mg PO NOW ONE Stop: 11/04/19 20:16 Last Admin: 11/04/19 20:50 Dose: 60 mg Documented by: THAI Reevaluation(s) Reevaluation #1: Patient states feels much better after DuoNeb treatment. Desires discharge home. Full and equal lung sounds and patient states feels she can not expand her lungs and chest fully now. She desires discharge home. Time: 21:42 Vital Signs Vital signs: Vital Signs - 8 hr 11/04/19 22:02 Pulse Rate 72 Respiratory Rate 18 Blood Pressure 113/58 L Pulse Oximetry 99 MDM - SOB/Dyspnea Lab Data Labs: Lab Results 11/04/19 Range/Units 20:25 COVID-19 PCR Negative (Negative) Imaging Data Chest x-ray: Radiologist's Impression: [address] [address] XRay Report Signed Patient: Remedios Garcia KMR#: [id number] : 1980Acct:[id number] Age/Sex: 39 / FDate of Service: 11/04/19 Loc: ED Accession Number: [id number] Procedure: XR chest 2V Ordering Provider: Kenya Leigh D.O. PROCEDURE: XR CHEST 2V INDICATIONS: SOB/Dyspnea TECHNIQUE: 2 views of the chest were acquired. COMPARISON: None. FINDINGS: Surgical changes and devices: None. Lungs and pleura: Lungs are clear. No pleural effusions or pneumothorax. Mediastinum: Mediastinal contours are normal. Heart size is normal. Bones and chest wall: No suspicious bony abnormalities. Soft tissues appear unremarkable. IMPRESSION: No evidence acute pulmonary process. Dictated by: Randell Ferraro M.D. on 11/04/2019 at 17:10 Approved by: Randell Ferraro M.D. on 11/04/2019 at 17:[address] [facility] Narrative Medical decision making narrative: Appropriate for discharge home. Patient does not want laboratory studies EKG D-dimer. No prior history of blood clots in legs or lungs. No recent calf pain or calf swelling. Discharge Plan Departure Patient Disposition: Home Clinical Impression: Acute dyspnea Discharge Date/Time: 11/04/19 22:03 Instructions: Allergic Rhinitis, DI for Asthma -- Adult Activity Restrictions/Additional Instructions: Continue inhaler 2 puffs every 4-6 hours as needed for asthma/cough/dyspnea. See family doctor next week to change medications for asthma/inhalers/nebulizer. Continue steroid pack tomorrow. Return immediately if worse or if any questions or concerns. Prescriptions: New methylprednisolone [Medrol (Robert)] 4 mg tablets,dose pack See Rx Instructions .ROUTE .COMPLEX Qty: 21 RF: 0 No Action ibuprofen 600 MG tablet 600 mg PO Q6HP PRNQty: 20 RF: 0 (DME) Compounded vaginal suppository See Rx Instructions .Route .MEDSUPPLY Qty: 1 RF: 0 phenazopyridine [Pyridium] 100 mg tablet 100 mg PO TID PRN (Reason: pain) Qty: 6 RF: 1 fluticasone propionate 44 mcg/actuation HFA aerosol inhaler 1 inhalation INHALATION BID RF: 0 albuterol sulfate [ProAir HFA] 90 mcg/actuation HFA aerosol inhaler 1 puff INHALATION Q6H PRNRF: 0 ketorolac 15.75 mg/spray spray,non-aerosol 15.75 mg NASAL Q6-8H PRNRF: 0 metaxalone [Skelaxin] 800 mg tablet 800 mg PO TID RF: 0 amitriptyline 10 mg tablet 20 mg PO DAILY Qty: 60 RF: 11 Referrals: Lucero Fortune ARNP [Primary Care Provider] -
[2019-11-04 20:20] VITALS: PULSE 80; RESP 16; O2SAT 100
[2019-11-04 20:35] VITALS: PULSE 81; RESP 16; O2SAT 100
[2019-11-04] MEDS: ALBUTEROL/IPRATROPIUM 3 ML AMPUL INH (20:39)
[2019-11-04] MEDS: ALBUTEROL HFA PREPACK 1 BOX MISC (20:39)
[2019-11-04] MEDS: predniSONE 20 MG TABLET 60 MG PO (20:50)
[2019-11-04 21:15] LABS: COVID19 -Nasal RAPID Negative (Negative)
[2019-11-04 22:02] VITALS: BP 113/58; PULSE 72; RESP 18; O2SAT 99
== END 2019-11-04 22:03 | disposition home or self-care (01) ==
PROVIDERS: Emergency Provider Emergency Medicine; PCP Nurse Practitioner
DX: R06.00 Dyspnea, unspecified (principal); J45.909 Unspecified asthma, uncomplicated; R07.9 Chest pain, unspecified
CPT/HCPCS: 71046; 87635; 94640; 99284

== ENCOUNTER → 2019-11-14 14:43 | Outpatient (CLI) | payer OTHER, SELFPAY | PROVIDERS: PCP Nurse Practitioner; Visit Provider Obstetrics & Gynecology | DX: N39.0 Urinary tract infection, site not specified (principal) | CPT/HCPCS: 87086 ==

== ENCOUNTER → 2019-11-16 18:13 | Outpatient (CLI) | payer OTHER, SELFPAY | PROVIDERS: PCP Nurse Practitioner; Referring Provider Internal Medicine; Visit Provider Internal Medicine | DX: Z23 Encounter for immunization (principal) | CPT/HCPCS: 90471; 90686 ==

== ENCOUNTER 2019-11-22 00:13 | Emergency (ER) | payer OTHER, SELFPAY ==
[2019-11-22 00:20] VITALS: BP 137/90; PULSE 88; RESP 18; TEMP 36.6; O2SAT 98
--- NOTE | 2019-11-22 00:52 | ED_ITS ---
HPI - Eye Problem General Chief complaint: Eye Problems Stated complaint: left eye scratched by cat Time Seen by Provider: 11/22/19 00:17 Source: patient Mode of arrival: Ambulatory Limitations: no limitations History of Present Illness HPI Narrative: 39-year-old female nonsmoker with noncontributory medical history presents with a chief complaint of a laceration to the left side of her face from her cat which was suffered just prior to arrival. She had gone to sleep while cuddling her cat and was awoken by it scratching her face. She had significant bleeding from a laceration on her left upper eyelid and does not think that her vision is affected. Her tetanus is current, she wears no corrective lenses and is otherwise well and free of complaint MD chief complaint: other Onset (ago): minute(s) Onset description: sudden Location: left eye Mechanism: direct trauma Related Data Home Medications Medication Instructions Recorded Confirmed albuterol sulfate 90 mcg/actuation 1 puff INHALATION Q6H PRN 09/16/18 11/10/19 aerosol inhaler ketorolac 15.75 mg/spray nasal 15.75 mg NASAL Q6-8H PRN 09/16/18 11/10/19 spray metaxalone 800 mg tablet 800 mg PO TID 08/02/19 11/10/19 Compounded vaginal suppository #1 ea 08/03/19 11/10/19 Previous Rx's Medication Instructions Recorded ibuprofen 600 mg PO Q6HP PRN #20 tab 04/13/16 amitriptyline 10 mg tablet 20 mg PO DAILY #60 tab 08/02/19 phenazopyridine 100 mg tablet 100 mg PO TID PRN #6 tab 09/19/19 methylprednisolone [Medrol (Robert)] See Rx Instructions .ROUTE 11/04/19 .COMPLEX #21 each nebulizer that is covered by ins #1 ea 11/08/19 albuterol sulfate 0.63 mg/3 mL 0.63 mg INHALATION QID PRN #75 ml 11/09/19 solution for nebulization fluticasone propionate 44 1 inhalation INHALATION BID #10.6 11/09/19 mcg/actuation HFA aerosol inhaler gram amoxicillin-pot clavulanate 1 tab PO BID #20 tab 11/22/19 [Augmentin] Allergies Allergy/AdvReac Type Severity Reaction Status Date / Time No Known Drug Allergies Allergy Verified 11/10/19 07:52 Review of Systems Constitutional Constitutional: Denies chills, Denies fatigue, Denies fever(s), Denies frequent falls, Denies lethargy and Denies weakness Eyes Eyes: Denies change in vision, Denies eye discharge, Denies irritation and Denies loss of vision ENT Ears, Nose, Mouth, and Throat: Denies change in voice, Denies dizziness, Denies neck pain, Denies sore throat and Denies throat swelling Cardiovascular Cardiovascular: Denies chest pain, Denies irregular heart rhythm, Denies lightheadedness, Denies palpitations, Denies dyspnea, Denies dyspnea on exertion and Denies orthopnea Respiratory Respiratory: Denies cough, Denies dyspnea, Denies dyspnea on exertion and Denies wheezing Gastrointestinal Gastrointestinal: Denies abdominal pain, Denies change in bowel habits, Denies diarrhea, Denies nausea and Denies vomiting Musculoskeletal Musculoskeletal: Denies neck pain and Denies numbness Integumentary/Breasts Skin/Breast: Denies pruritus, Denies erythema, Denies rash and Reports wounds Neurologic Neurologic: Denies behavioral changes, Denies confusion, Denies dizziness, Denies frequent falls, Denies loss of vision, Denies numbness and Denies weakness Psychiatric Psychiatric: Denies anxiety, Denies behavioral changes, Denies confusion, Denies depression, Denies homicidal ideation and Denies suicidal ideation Endocrine Endocrine: Denies fatigue, Denies flushing and Denies palpitations Hematologic/Lymphatic Hematologic/Lymphatic: Denies easy bruising Allergic/Immunologic Allergic/Immunologic: Denies urticaria, Denies throat swelling and Denies wheezing Patient History Medical History Cervical somatic dysfunction (Acute) Chronic low back pain without sciatica (Acute) Chronic neck pain (Acute) Chronic thoracic back pain (Acute) Cranial somatic dysfunction (Acute) Depression with anxiety (Acute) Lumbar region somatic dysfunction (Acute) Obesity, Class I, BMI 30-34.9 (Acute) Pelvic somatic dysfunction (Acute) Sacral region somatic dysfunction (Acute) Sacroiliac joint stiffness (Acute) Segmental and somatic dysfunction of abdomen and other regions (Acute) Segmental and somatic dysfunction of rib cage (Acute) Temporomandibular joint disorder (TMJ) (Acute) Thoracic region somatic dysfunction (Acute) 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 Extraoccular muscles are intact bilaterally. There is no subconjunctival hemorrhage or exudate. No scleral injection. No FB, no dye uptake under UV light CHEST: Lungs are clear to auscultation bilaterally and free of wheezes, rales, or rhonchi. Heart rate is regular rhythm, there are no murmurs, clicks, rubs, or gallops. There is no chest wall tenderness. ABD: Abdomen is soft and nontender. There is no guarding or rebound. Bowel sounds are normal in all 4 quadrants. There is no mass or organomegaly. EXT: Full painless ROM of all extremities with no loss of sensation or strength. SKIN: Laceration of left upper lid with small flap near medial aspect of lid. It is NOT through and through and does not cross the lid margin. Lower lid and face has a vertically oriented superficial laceration that will not warrant repair. Otherwise warm, pink, and dry. No erythema or rash Initial Vital Signs Initial Vital Signs: Vital Signs Temperature 97.9 F 11/22/19 00:20 Pulse Rate 88 11/22/19 00:20 Respiratory Rate 18 11/22/19 00:20 Blood Pressure 137/90 11/22/19 00:20 Pulse Oximetry 98 11/22/19 00:20 Course Orders Ordered: Discontinued Medications Hydrocodone Bitart/Acetaminophen (Vicodin 5/325 Prepack) 1 bottle MISC SEEINSTR ONE Stop: 11/22/19 01:04 Last Admin: 11/22/19 01:10 Dose: 1 bottle Documented by: ALYCE Amoxicillin/Clavulanate Potassium (Augmentin 875-125 Mg) 1 tab PO NOW ONE Stop: 11/22/19 01:04 Last Admin: 11/22/19 01:09 Dose: 1 tab Documented by: ALYCE Fluorescein Sodium (Ful-Aylin) 1 mg EYE-LEFT NOW ONE Stop: 11/22/19 00:18 Last Admin: 11/22/19 01:40 Dose: 1 mg Documented by: ALYCE Proparacaine HCl (Parcaine 0.5% Ophth Lyn) 1 drops EYE-LEFT NOW ONE Stop: 11/22/19 00:18 Last Admin: 11/22/19 01:39 Dose: 2 drop Documented by: ALYCE Consultations Consultation #1: call to Dr. Fortune (ENT) to discuss laceration. We share the opinion that it will benefit from repeair, but is best served at the hands of ENT. He asks for her contact info and suggests that he will relay it to Dr. Ha to see her in the office for definitive management this morning. Vital Signs Vital signs: Vital Signs - 8 hr 11/22/19 00:20 11/22/19 01:42 Temperature 97.9 F Pulse Rate 88 65 Respiratory Rate 18 18 Blood Pressure 137/90 120/75 Pulse Oximetry 98 99 Discharge Plan Departure Patient Disposition: Home Clinical Impression: Complex laceration of face Qualifiers: Encounter type: initial encounter Qualified Code(s): S01.91XA - Laceration without foreign body of unspecified part of head, initial encounter Discharge Date/Time: 11/22/19 01:43 Instructions: DI for Laceration Repair, DI for Cat Scratch Disease/Fever Activity Restrictions/Additional Instructions: *You have been diagnosed with [ superficial, but complex laceration of left upper eye lid ] *What to do: *Take medications as directed *Follow up [facility] tomorrow morning. I spoke with Dr. Tong howard and he took down your info. He expects you to receive a call tomorrow morning with instructions for follow up at the [place] office tomorrow. Please call them if you don't receive a phone call by 0930. *Return to ER if you should have any new, worsening or concerning symptoms Prescriptions: New amoxicillin-pot clavulanate [Augmentin] 875-125 mg tablet 1 tab PO BID Qty: 20 RF: 0 No Action ibuprofen 600 MG tablet 600 mg PO Q6HP PRNQty: 20 RF: 0 (DME) Compounded vaginal suppository See Rx Instructions .Route .MEDSUPPLY Qty: 1 RF: 0 phenazopyridine [Pyridium] 100 mg tablet 100 mg PO TID PRN (Reason: pain) Qty: 6 RF: 1 (DME) nebulizer that is covered by ins Qty: 1 RF: 0 fluticasone propionate 44 mcg/actuation HFA aerosol inhaler 1 inhalation INHALATION BID Qty: 10.6 RF: 0 albuterol sulfate 0.63 mg/3 mL solution for nebulization 0.63 mg INHALATION QID PRN (Reason: shortness of breath or wheezing) Qty: 75 RF: 0 albuterol sulfate [ProAir HFA] 90 mcg/actuation HFA aerosol inhaler 1 puff INHALATION Q6H PRNRF: 0 ketorolac 15.75 mg/spray spray,non-aerosol 15.75 mg NASAL Q6-8H PRNRF: 0 metaxalone [Skelaxin] 800 mg tablet 800 mg PO TID RF: 0 amitriptyline 10 mg tablet 20 mg PO DAILY Qty: 60 RF: 11 methylprednisolone [Medrol (Robert)] 4 mg tablets,dose pack See Rx Instructions .ROUTE .COMPLEX Qty: 21 RF: 0 Referrals: Lucero Fortune ARNP [Primary Care Provider] - Kael Ha MD [Physician] -
[2019-11-22] MEDS: AMOXICILLIN/CLAV 875/125 MG 1 TAB PO (01:09)
[2019-11-22] MEDS: HYDROCODONE/ACET 5/325 PREPACK 1 BOTTLE MISC (01:10)
[2019-11-22] MEDS: PROPARACAINE 0.5% OPHTH SOL 1 DROPS EYE-LEFT (01:39)
[2019-11-22] MEDS: FLUORESCEIN 1 MG STRIP EYE-LEFT (01:40)
[2019-11-22 01:42] VITALS: BP 120/75; PULSE 65; RESP 18; O2SAT 99
== END 2019-11-22 01:43 | disposition home or self-care (01) ==
PROVIDERS: Emergency Provider Emergency Medicine; PCP Nurse Practitioner
DX: S01.112A Laceration without foreign body of left eyelid and periocular area, initial encounter (principal); W55.03XA Scratched by cat, initial encounter

== ENCOUNTER 2019-11-22 10:58 | Day surgery (SDC) | payer OTHER, SELFPAY ==
[2019-11-22 11:20] VITALS: BP 114/74; PULSE 77; RESP 16; TEMP 36.7; O2SAT 97
[2019-11-22 11:30] LABS: COVID19 -Nasal RAPID Negative (Negative)
[2019-11-22] MEDS: LACTATED RINGERS 1,000 ML 42 ML IV (12:08)
--- NOTE | 2019-11-22 12:16 | PM.PREOP ---
Pre-operative Note Interval Note History & Physical reviewed/Exam performed by Physician: Yes Changes to H&P: No
--- NOTE | 2019-11-22 12:16 | PM.OP.1 ---
Operative Date/Time/Diagnoses Date of procedure: 11/22/19 Pre-op diagnosis: Left eyelid laceration Procedure & Clinicians Procedure: Eyelid laceration repair Same procedure as scheduled: Yes Surgeon: Avtar Anglin Click Yes if Unassisted: Yes Anesthesia Type: MAC +/- Operative Notes Findings: The patient was brought to the operating suite. She underwent intravenous sedation. The lacerations were explored. There is a lower lid and face abrasions that are sealed. The left upper lid has a 1cm triangular flap. 0.2ml Lidocaine with epinephrine was injected in the left upper lid. The patient was prepped and draped in sterile fashion. The laceration was explored and cleaned. It was sutured closed with 3 interrupted 6-0 vicryl sutures. Maxitrol ointment was placed on the eyelid. The patient left the operating room in excelent condition. Estimated Blood Loss (mL): 0 Complications: none Post-operative Condition: stable
[2019-11-22] MEDS: LIDOCAINE 1% W/EPI 20 ML INJ (12:36)
[2019-11-22] MEDS: NEOMYCIN/POLY/DEX OPHTH OINT 1 APPLIC EYE-LEFT (12:37)
[2019-11-22 12:44] VITALS: BP 111/80; PULSE 72; RESP 16; TEMP 36.5; O2SAT 97
== END 2019-11-22 13:25 | disposition home or self-care (01) ==
PROVIDERS: PCP Nurse Practitioner; Visit Provider Ophthalmology
PROC: (CPT 12011; principal; 2019-11-22 11:15)
DX: S01.112A Laceration without foreign body of left eyelid and periocular area, initial encounter (principal); W55.03XA Scratched by cat, initial encounter; Z11.59 Encounter for screening for other viral diseases
CPT/HCPCS: 12011; 87635; 99283; J2250

== ENCOUNTER 2020-01-22 12:34 | Emergency (ER) | payer OTHER, SELFPAY ==
--- NOTE | 2020-01-22 12:50 | DI.RAD.S_ITS ---
PROCEDURE: XR ANKLE LT MIN 3V INDICATIONS: tripped TECHNIQUE: 3 views of the ankle were acquired. COMPARISON: None. FINDINGS: Bones: Along the distal fibula, there is a tiny avulsion fracture fragment seen measuring 1-2 mm. Along the anterior aspect of the distal tibia on the lateral view, there is a focal bony irregularity seen, which demonstrates a chronic appearance. Ankle mortise is normally aligned. No suspicious bony lesions. The talar dome demonstrates no enrike abnormality. Soft tissues: Soft tissue swelling is seen laterally. IMPRESSION: There is a tiny avulsion fracture seen involving the distal fibular tip, with associated soft tissue swelling. Apparent chronic fracture seen involving the anterior distal tibia. Dictated by: Atul Song M.D. on 01/22/2020 at 12:06 Approved by: Atul Song M.D. on 01/22/2020 at 12:09
[2020-01-22 12:53] VITALS: BP 127/78; PULSE 84; RESP 18; TEMP 36.2; O2SAT 98; BMI 32.6
--- NOTE | 2020-01-22 13:54 | ED.LOWEXIN ---
HPI - Extremity Injury (Lower) <KVNG John - Last Filed: 01/22/20 16:05> General Chief Complaint: Extremity Injury, Lower Stated Complaint: left ankle injury Time Seen by Provider: 01/22/20 12:49 Source: patient Mode of arrival: Family Vehicle Limitations: no limitations History of Present Illness HPI Narrative: This is a 39-year-old female, nonsmoker, who has past medical history of significant for hypermobility joint syndrome with multiple sprains presents to ED with chief complain of left lateral malleolar pain and swelling after she somehow inverted affected foot 2 hours before coming into ED today. Patient reports intact sensation and is able to move her toes. Reports pain radiating from left lateral malleolar up to lateral mid lower extremity. Patient states she is able to bear weight but this cause some discomfort. During the fall, patient landed on left upper body but denies other injuries. Patient denies knee pain, or foot pain. Related Data Home Medications Medication Instructions Recorded Confirmed metaxalone 800 mg tablet 800 mg PO TID 08/02/19 01/18/20 Previous Rx's Medication Instructions Recorded ibuprofen 600 mg PO Q6HP PRN #20 tab 04/13/16 amitriptyline 10 mg tablet 20 mg PO DAILY #60 tab 08/02/19 nebulizer that is covered by ins #1 ea 11/08/19 albuterol sulfate 0.63 mg/3 mL 0.63 mg INHALATION QID PRN #75 ml 11/09/19 solution for nebulization fluticasone propionate 44 1 inhalation INHALATION BID #10.6 11/09/19 mcg/actuation HFA aerosol inhaler gram fluconazole 150 mg tablet 150 mg PO Q3D #2 tab 01/04/20 Allergies Allergy/AdvReac Type Severity Reaction Status Date / Time No Known Drug Allergies Allergy Verified 01/22/20 12:57 Review of Systems <KVNG John - Last Filed: 01/22/20 16:05> Review of Systems Narrative: General: Denies fever, chills, fatigue, malaise, sweats. Respiratory: Denies dyspnea, cough, wheezing, hemoptysis, sputum. Cardiovascular: Denies chest pain, palpitations, orthopnea, edema. Musculoskeletal: See HPI Skin: Denies rash, skin lesions, or other. Patient History <KVNG John - Last Filed: 01/22/20 16:05> Medical History (Updated 01/22/20 @ 14:07 by KVNG John) Cervical somatic dysfunction Chronic low back pain without sciatica Chronic neck pain Chronic thoracic back pain Cranial somatic dysfunction Depression with anxiety Lumbar region somatic dysfunction Obesity, Class I, BMI 30-34.9 Pelvic somatic dysfunction Sacral region somatic dysfunction Sacroiliac joint stiffness Segmental and somatic dysfunction of abdomen and other regions Segmental and somatic dysfunction of rib cage Temporomandibular joint disorder (TMJ) Thoracic region somatic dysfunction TMJ disorder involving articular disc abnormality UTI (urinary tract infection) Weight gain Wellness examination Surgical History (Updated 01/22/20 @ 13:59 by KVNG John) History of partial hysterectomy History of third molar tooth extraction Status post delivery (10/15/13) Status post delivery (04/10/16) Social History household members: spouse and children Smoking Status: Never smoker alcohol intake: current Smoking Status: Never smoker alcohol intake frequency: holidays/special occasions only Substance Use Type: does not use Exam <KVNG John - Last Filed: 01/22/20 16:05> Narrative Exam Narrative: General appearance: well developed, well nourished, in no acute distress. Head: normocephalic, atraumatic, no scalp lesions, non-tender. ENT: Hearing grossly intact. Airway patent. Neck/Thyroid: neck supple, full range of motion, no visible masses or meningeal signs. No JVD, non-tender without lymphadenopathy. Skin: no suspicious rashes, lesions over visible areas. Warm and dry and appropriate color for ethnicity. Heart: no clubbing, no cyanosis, no edema. S1 and S2 normal. RRR w/o murmurs, clicks, or bruits. Lungs: Breathing even and unlabored. No stridor. No accessory muscles used. Able to speak in full sentences. Chest: normal shape and expansion. Abdomen: non-obese, non-distended. Neurologic: alert and oriented. Cognitive exam, PLASTERER APPRENTICE and PNS grossly intact on informal exam. Psych: good eye contact, normal affect. Initial Vital Signs Initial Vital Signs: Vital Signs Temperature 97.1 F L 01/22/20 12:53 Pulse Rate 84 01/22/20 12:53 Respiratory Rate 18 01/22/20 12:53 Blood Pressure 127/78 01/22/20 12:53 Pulse Oximetry 98 01/22/20 12:53 Extrem Left lower extremity: ankle (lateral malleolar) Details: abnormal to inspection, tenderness, swelling and abnormal ROM; no abrasions, no lacerations and no ecchymosis and foot Details: normal capillary refill, toes with normal ROM, no edema, tendon exam Details: active flexion normal and active extension normal and motor-sensory exam Details: light-touch normal; no tenderness, no unusual warmth and no lacerations <Monie Dwyer DO - Last Filed: 01/23/20 07:17> Initial Vital Signs Initial Vital Signs: Vital Signs Temperature 97.1 F L 01/22/20 12:53 Pulse Rate 84 01/22/20 12:53 Respiratory Rate 18 01/22/20 12:53 Blood Pressure 127/78 01/22/20 12:53 Pulse Oximetry 98 01/22/20 12:53 Procedures <KVNG John - Last Filed: 01/22/20 16:05> Orthopedic Splinting/Casting Injury #1: Side: left Lower Extremity Injury Location: ankle Lower Extremity Immobilizer: stirrup splint (Ortho glass) Other Orthopedic Equipment: crutches Post splinting neuro exam: intact Post splinting vascular exam: intact Placed by: Nursing Scores <KVNG John - Last Filed: 01/22/20 16:05> GCS Chaz coma scale eye opening: Spontaneous Chaz coma scale verbal response: Orientated [place] coma scale motor response: Obey commands [place] coma scale total score: 15 Course <KVNG John - Last Filed: 01/22/20 16:05> Orders Ordered: ED Orders 01/22/20 12:50 XR ankle LT min 3V Stat Vital Signs Vital signs: Vital Signs - 8 hr 01/22/20 12:53 01/22/20 14:10 Temperature 97.1 F L Pulse Rate 84 70 Respiratory Rate 18 18 Blood Pressure 127/78 119/72 Pulse Oximetry 98 100 <Monie Dwyer DO - Last Filed: 01/23/20 07:17> Orders Ordered: ED Orders 01/22/20 12:50 XR ankle LT min 3V Stat Vital Signs Vital signs: Vital Signs - 8 hr 01/22/20 12:53 01/22/20 14:10 Temperature 97.1 F L Pulse Rate 84 70 Respiratory Rate 18 18 Blood Pressure 127/78 119/72 Pulse Oximetry 98 100 MDM - Extremity Injury (Lower) <KVNG John - Last Filed: 01/22/20 16:05> Differential Diagnosis Differential diagnosis: Likely ankle sprain and strain and ankle fracture Medical Records Attestation: I reviewed the patient's medical records. ECG Data Interpretation: [address] [id number] ReportSigned Patient: Remedios Garcia KMR#: [id number]: [id number]:[id number]/Sex: 39 / FDate of Service: 01/22/20Loc: EDAccession Number: [id number] Procedure: XR ankle LT min 3V Ordering Provider: Piyush Rudd PROCEDURE: XR ANKLE LT MIN 3V INDICATIONS: tripped TECHNIQUE: 3 views of the ankle were acquired. COMPARISON: None. FINDINGS: Bones: Along the distal fibula, there is a tiny avulsion fracture fragment seen measuring 1-2 mm. Along the anterior aspect of the distal tibia on the lateral view, there is a focal bony irregularity seen, which demonstrates a chronic appearance. Ankle mortise is normally aligned. No suspicious bony lesions. The talar dome demonstrates no enrike abnormality. Soft tissues: Soft tissue swelling is seen laterally. IMPRESSION: There is a tiny avulsion fracture seen involving the distal fibular tip, with associated soft tissue swelling. Apparent chronic fracture seen involving the anterior distal tibia. Dictated by: Atul Song M.D. on 01/22/2020 at 12:06 Approved by: Atul Song M.D. on 01/22/2020 at 12:09 [facility] Narrative Medical decision making narrative: This is a 39-year-old female who presents to ED with isolated left lateral ankle Injury from inversion and patient has hyper mobility joint syndrome with multiple sprains and fractures in the past. Patient has intact sensation and mobility distally. Cap refill and distal posterior pedal pulses intact. There are moderate swelling in lateral left ankle which is tender to palpate. X-ray test shows a tiny avulsion fracture involving the distal fibula tip measuring 1-2 mm also with the parents chronic fractures involving the anterior distal fibula. Affected ankle was splinted by ortho glass stirrup splint and provided crutches for weight-bearing as needed. Advised to follow-up with orthopedist with return precautions. Advised RICE therapy and to take [id number] Tylenol Motrin as needed. Patient verbalized understanding and agreement with the treatment plan. Discharge Plan Departure Patient Disposition: Home Clinical Impression: Fracture of distal end of fibula Qualifiers: Encounter type: initial encounter Fracture type: closed Fracture morphology: unspecified fracture morphology Laterality: left Qualified Code(s): S82.832A - Other fracture of upper and lower end of left fibula, initial encounter for closed fracture Instructions: DI for Ankle Fracture Activity Restrictions/Additional Instructions: You have been diagnosed with [small distal fibula fracture measuring 1-2 mm on left lateral ankle from inversion. Please use splint and crutches for weight-bearing.]. What to do: *Take your medications as directed. You can take [id number] Tylenol and or Motrin as needed. Please use RICE therapy. *Follow up with your primary care provider/[facility] in 2-3 days, call for an appointment. Let them know you were seen in the ED and that we asked you to be seen in follow up. *Return to ED if you have any new, worsening, or concerning symptoms, such as [worsening pain, swelling, tingling/numbness/weakness on affected leg/foot, chest pain, breathing difficulty, unable to tolerate fluids, or any acute concerns]. Prescriptions: No Action ibuprofen 600 MG tablet 600 mg PO Q6HP PRNQty: 20 RF: 0 (DME) nebulizer that is covered by ins Qty: 1 RF: 0 fluticasone propionate 44 mcg/actuation HFA aerosol inhaler 1 inhalation INHALATION BID Qty: 10.6 RF: 0 albuterol sulfate 0.63 mg/3 mL solution for nebulization 0.63 mg INHALATION QID PRN (Reason: shortness of breath or wheezing) Qty: 75 RF: 0 fluconazole [Diflucan] 150 mg tablet 150 mg PO Q3D Qty: 2 RF: 1 metaxalone [Skelaxin] 800 mg tablet 800 mg PO TID RF: 0 amitriptyline 10 mg tablet 20 mg PO DAILY Qty: 60 RF: 11 Referrals: [facility] [Provider Group] Lucero Fortune ARNP [Primary Care Provider] - <Monie Dwyer DO - Last Filed: 01/23/20 07:17> Cosign ED Attending Cosignature Attestation: I was immediately available in the department for consultation. This documentation has been reviewed and I agree with assessment and plan. Supervised by Monie Dwyer DO
[2020-01-22 14:10] VITALS: BP 119/72; PULSE 70; RESP 18; O2SAT 100
== END 2020-01-22 14:15 | disposition home or self-care (01) ==
PROVIDERS: Emergency Provider Nurse Practitioner Family; PCP Nurse Practitioner
DX: S82.832A Other fracture of upper and lower end of left fibula, initial encounter for closed fracture (principal); W19.XXXA Unspecified fall, initial encounter; M35.7 Hypermobility syndrome
CPT/HCPCS: 29515; 73610; 99283

== ENCOUNTER → 2020-02-22 08:10 | Outpatient (CLI) | payer OTHER, SELFPAY ==
[2020-02-22] MEDS: COVID-19 VACC(MODERNA-1)/PF 100 MCG/0.5 ML VIAL IM (08:16)
== END ==
PROVIDERS: PCP Nurse Practitioner; Visit Provider Internal Medicine
DX: Z23 Encounter for immunization (principal)
CPT/HCPCS: 0011A; 91301

== ENCOUNTER → 2020-03-20 08:09 | Outpatient (CLI) | payer OTHER, SELFPAY ==
[2020-03-20] MEDS: COVID-19 VACC #2, MRNA(MOD) 100 MCG/0.5 ML VIAL IM (08:15)
== END ==
PROVIDERS: PCP Nurse Practitioner; Visit Provider Internal Medicine
DX: Z23 Encounter for immunization (principal)
CPT/HCPCS: 0012A; 91301

== ENCOUNTER 2020-03-23 12:15 | Outpatient (RCR) | payer OTHER, SELFPAY ==
--- NOTE | 2020-02-29 15:35 | PT.OIE ---
Current Diagnoses Sprain of other ligament of left ankle, initial encounter (02/29/20) Past Medical History (Last Updated 02/16/20 @ 14:02 by Roberto Parker DO) Cervical somatic dysfunction Chronic low back pain without sciatica Chronic neck pain Chronic thoracic back pain Cranial somatic dysfunction Depression with anxiety Lumbar region somatic dysfunction Obesity, Class I, BMI 30-34.9 Pelvic somatic dysfunction Sacral region somatic dysfunction Sacroiliac joint stiffness Segmental and somatic dysfunction of abdomen and other regions Segmental and somatic dysfunction of rib cage Temporomandibular joint disorder (TMJ) Tension type headache Thoracic region somatic dysfunction TMJ disorder involving articular disc abnormality UTI (urinary tract infection) Weight gain Wellness examination Past Surgical History (Last Updated 01/22/20 @ 13:59 by KVNG John) History of partial hysterectomy History of third molar tooth extraction Status post delivery (10/15/13) Status post delivery (04/10/16) Visit Care Team Role Provider Type KVNG Cooper Primary Care Provider Advanced Computer Systems Software Engineer Specialty: [facility] Practice Address: [address] [place] [address], [id number] Email: [email or web address] Carol Zamorano DPM Attending Provider Physician Referring Provider Specialty: Podiatry Address: [address] [place] [address], [id number] Email: [email or web address] Initial Evaluation PT-OP-A Visit Information Start: 02/28/20 13:46 Freq: Status: Active Protocol: Document 02/29/20 09:44 MB (Rec: 02/29/20 10:02 MB [id number]) Out-Patient Physical Therapy Visit Information Visit Information Visit Type Initial Evaluation Visit Note [facility] Visit Start Time 09:44 Visit Stop Time 10:29 Total Visit Minutes 45 Visit Number 1 Evaluation Information Evaluation Date 02/29/20 PT-OP-B Current Condition Start: 02/28/20 13:46 Freq: Status: Active Protocol: Document 02/29/20 09:44 MB (Rec: 02/29/20 10:02 MB [id number]) Current Condition History of Current Condition Onset Date 01/22/2020 Current Complaints Left great toe pain and tenderness on top of foot History of Current Condition Pt reports long history of hypermobility and ankle sprains. She has had at least three ankle sprains on the left and one right MCL sprain. She did cheer leading, gymnastics, track and soccer growing up. 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 She was found to have a tiny avulsion fracture on anterior distal tibia. She wore a walking boot for 4-5 weeks. She just got out of it on 02/22/20. She has an ASO and did not wear it today. She wears compression hose and flat shoes for work. PMH includes: cervical and lumbar dysfunction with instability of SI during pregnancies, B TMD, headaches, thoracic and rib dysfunction, recent pelvic floor reconstruction d/t endometriosis, 1997 right ankle fracture and ORIF, left patellar tendon tear. Pt works 4 8 hour shifts. She has three kids and has some Fantasy Buzzer help. Prior Treatments and Tests Many PT courses for knees, pelvic floor Treatment Goals Patient/Caregiver Goals To be able to walk without injury, get back to exercising , including stationary upright bike and get mobility back in the foot. PT-OP-C Subjective Start: 02/28/20 13:46 Freq: Status: Active Protocol: Document 02/29/20 09:44 MB (Rec: 02/29/20 10:02 MB [id number]) OP-PT Subjective Patient Comments Patient Comments Pt reports her biggest complaint is left great toe discomfort. Patient Questionnaires Lower Extremity Functional Scale LEFS Score 54 LEFS Impairment 20 to 39% Impaired (Score 48- 62) PT-OP-G Mobility & Gait Start: 02/28/20 13:46 Freq: Status: Active Protocol: Document 02/29/20 09:44 MB (Rec: 02/29/20 12:58 MB [id number]) OP Gait Assessment Gait Gait Assistance Required: Independent Distance (Feet) 60 Able to Maintain Weight Bearing Status Yes During Gait Assistive Devices Assistive Device None Orthotic/Prosthetic Devices or Brace: No Gait Deviations General Gait Pattern Within Normal Limits Comments Gait Comments Pt reports mild discomfort in her left great toe and she does present with decreased push off through the left great toe with gait, increased soft tissue approximation thighs, soft tissue medial ankles and mild overpronation right foot compared to the left with gait and static standing. PT-OP-J Posture/Palpation/Skin Start: 02/28/20 13:46 Freq: Status: Active Protocol: Document 02/29/20 09:44 MB (Rec: 02/29/20 12:58 MB [id number]) Posture Evaluation Comments Posture Comments Standing posture, pt barefoot: pt presents with Dowager's hump, decreased thoracic kyphosis, increased anterior tilt pelvis, right shoulder higher than the left and pt is left handed, increased soft tissue B medial ankles, right scapula protracted, right iliac crest higher than the left, right tibial position different from the left and mild pronation right foot. PT-OP-K Range of Motion Start: 02/28/20 13:46 Freq: Status: Active Protocol: Document 02/29/20 09:44 MB (Rec: 02/29/20 12:58 MB [id number]) Toe Range of Motion Toes ROM Limitations Comments B ankle ROM is grossly similar with decreased active eversion and left great toe does have minimally decreased flexion compared to the right PT-OP-M Strength Start: 02/28/20 13:46 Freq: Status: Active Protocol: Document 02/29/20 09:44 MB (Rec: 02/29/20 12:58 MB [id number]) Hip Strength Hip Manual Muscle Testing Left Flexion (L2) 5 Normal Abduction 4 Good Right Flexion (L2) 5 Normal Abduction 5 Normal Knee Strength Knee Manual Muscle Testing Left Flexion (S2) 4 Good Extension (L3) 5 Normal Right Flexion (S2) 5 Normal Extension (L3) 5 Normal Ankle/Foot Strength Ankle and Foot Manual Muscle Testing Left Dorsiflexion (L4) 5 Normal Inversion 5 Normal Eversion (S1) 4 Good Comments Decreased active ROM eversion and testing is 4/5 in available range Right Dorsiflexion (L4) 5 Normal Inversion 5 Normal Eversion (S1) 5 Normal Comments Decreased active ROM eversion and testing is 5/5 in available range Toe Strength Toe Manual Muscle Testing Left Great Toe Comments MMT deferred d/t pt with c/o discomfort in her left great toe Right Great Toe Flexion 5 Normal Extension 5 Normal PT-OP-Q Treatments Start: 02/28/20 13:46 Freq: Status: Active Protocol: Document 02/29/20 09:44 MB (Rec: 02/29/20 12:58 MB [id number]) Manual Therapy Treatment Taping 1 Type of Tape Kinesio Tape Comments Left foot: Long I strip from plantar foot up the back of the calf to decrease plantar fascia tension, figure 8 to support the ankle and then I strip from plantar fascia around medial and lateral malleoli to help support the ankle PT-OP-T Assessment and Plan Start: 02/28/20 13:46 Freq: Status: Active Protocol: Document 02/29/20 09:44 MB (Rec: 02/29/20 12:58 [id number]) Physical Therapy Assessment Rehab Potential Rehabilitation Potential Good Evaluation Complexity Number of Personal Factors/Comorbidities 1-2 Number of Body Systems Impaired 1-2 Clinical Presentation at Evaluation Evolving Impairments Impairments Balance,Edema,Gait,Pain, Posture,ROM,Soft Tissue Mobility,Strength Other Impairments Pt presents with B ankle edema and lines from 20-30 mmHg knee high compression hose around the anterior ankles Goals [facility] Goal (LTG) Pt will present with an improved LEF score to reflect no more than 20% impairment to prepare for return to walking for exercise by 04/28/2020. LTG Duration 8 weeks Four Supervisor Steno Pool Goal (LTG) Pt will gait train at least 1500 feet without AD in 6 minutes to prepare for walking for exercise by 04/28/2020. LTG Duration 8 weeks Three Supervisor Steno Pool Goal (LTG) Pt will report an overall 85% improvement in left foot pain to improve quality of life by 04/28/2020. LTG Duration 8 weeks Two Jail Goal (LTG) Pt will perform progressive HEP with I including flexibility, strengthening, balance and gait exercises to decrease pain and improve strength and stability by 04/28. LTG Duration 8 weeks One Supervisor Steno Pool Goal (LTG) Pt will perform WNLs on a standardized balance test to decrease fall risk by 2020. LTG Duration 8 weeks Assessment Summary Assessment Pt is a 39 y/o female presenting with long history of hypermobility (ligamentous laxity), ankle sprains, knee sprain, neck and back pain and recent distal left fibula fracture. She also had a pelvic floor reconstruction surgery in the last year. 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 Given history of ligamentous hypermobility, endometriosis and surgery, increased body mass and multiple areas of pain, pt may have an underlying inflammatory metabolic contributions to her symptoms and this may be a barrier to PT. Pt will benefit from PT for manual PT, flexibility, strengthening and balance exercises. Physical Therapy Plan Frequency and Duration Frequency of Treatment 2x/Week Duration of Treatment 8 weeks Plan of Care Start Date 02/29/20 Plan of Care End Date 04/30/20 Therapeutic Interventions Therapeutic Interventions Balance Training,Canalithic Repositioning,Coordination Training,Gait Training,Home Exercise Program,Joint Mobilizations,Manual Therapy, Neuromuscular Re-education, Patient/Caregiver Education, Self-Care/Home Management,Soft Tissue Mobilization,Taping, Therapeutic Activities, Therapeutic Exercises Modalities Cold Pack/Ice Massage,Electric Stimulation,Hot Packs, Ultrasound Next Visit Focus/Plan Next Note Type Treatment Note Next Visit Plan Initiate exercises and manual work, upright bike soon
--- NOTE | 2020-02-29 15:36 | PT.OPPOC ---
Physical, Occupational & Speech Therapy At [facility] Current Diagnoses Sprain of other ligament of left ankle, initial encounter (02/29/20) Visit Care Team Role Provider Type KVNG Cooper Primary Care Provider Advanced Stockkeeper Specialty: Family Practice Address: [address] [place] [address], [id number] Email: [email or web address] Carol Zamorano DPM Attending Provider Physician Referring Provider Specialty: Podiatry Address: [address] [place] [address], [id number] Email: [email or web address] Plan Of Care PT-OP-T Assessment and Plan Start: 02/28/20 13:46 Freq: Status: Active Protocol: Document 02/29/20 09:44 MB (Rec: 02/29/20 12:58 MB [id number]) Physical Therapy Assessment Rehab Potential Rehabilitation Potential Good Evaluation Complexity Number of Personal Factors/Comorbidities 1-2 Number of Body Systems Impaired 1-2 Clinical Presentation at Evaluation Evolving Impairments Impairments Balance,Edema,Gait,Pain, Posture,ROM,Soft Tissue Mobility,Strength Other Impairments Pt presents with B ankle edema and lines from 20-30 mmHg knee high compression hose around the anterior ankles Goals [facility] Home Goal (LTG) Pt will present with an improved LEF score to reflect no more than 20% impairment to prepare for return to walking for exercise by 04/28/2020. LTG Duration 8 weeks Four Nursing Home Goal (LTG) Pt will gait train at least 1500 feet without AD in 6 minutes to prepare for walking for exercise by 04/28/2020. LTG Duration 8 weeks Three Nursing Home Goal (LTG) Pt will report an overall 85% improvement in left foot pain to improve quality of life by 04/28/2020. LTG Duration 8 weeks Two Clinical Rehab Specialist Goal (LTG) Pt will perform progressive HEP with I including flexibility, strengthening, balance and gait exercises to decrease pain and improve strength and stability by 04/28. LTG Duration 8 weeks One Nursing Home Goal (LTG) Pt will perform WNLs on a standardized balance test to decrease fall risk by 2020. LTG Duration 8 weeks Assessment Summary Assessment Pt is a 39 y/o female presenting with long history of hypermobility (ligamentous laxity), ankle sprains, knee sprain, neck and back pain and recent distal left fibula fracture. She also had a pelvic floor reconstruction surgery in the last year. 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 Given history of ligamentous hypermobility, endometriosis and surgery, increased body mass and multiple areas of pain, pt may have an underlying inflammatory metabolic contributions to her symptoms and this may be a barrier to PT. Pt will benefit from PT for manual PT, flexibility, strengthening and balance exercises. Physical Therapy Plan Frequency and Duration Frequency of Treatment 2x/Week Duration of Treatment 8 weeks Plan of Care Start Date 02/29/20 Plan of Care End Date 04/30/20 Therapeutic Interventions Therapeutic Interventions Balance Training,Canalithic Repositioning,Coordination Training,Gait Training,Home Exercise Program,Joint Mobilizations,Manual Therapy, Neuromuscular Re-education, Patient/Caregiver Education, Self-Care/Home Management,Soft Tissue Mobilization,Taping, Therapeutic Activities, Therapeutic Exercises Modalities Cold Pack/Ice Massage,Electric Stimulation,Hot Packs, Ultrasound Next Visit Focus/Plan Next Note Type Treatment Note Next Visit Plan Initiate exercises and manual work, upright bike soon Plan of Care Dates Plan of Care Start Date 02/29/20 Plan of Care End Date 04/30/20 Electronically Signed by: Nica Mensah PT 02/29/20 [id number] Please Sign and Return: I have reviewed this Plan of Care and certify that the skilled therapy services above are required to meet the patient?s needs. Physician Signature Date Printed Name and Credentials Clinical Instructor Signature Printed Name and Credentials
--- NOTE | 2020-03-02 10:29 | PT.OTN ---
Current Diagnoses Sprain of other ligament of left ankle, initial encounter (03/02/20) Physical Therapy Treatment Note PT-OP-A Visit Information Start: 02/28/20 13:46 Freq: Status: Active Protocol: Document 03/02/20 09:54 MB (Rec: 03/02/20 10:00 MB [id number]) Out-Patient Physical Therapy Visit Information Visit Information Visit Type Treatment Note Visit Start Time 09:54 Visit Stop Time 10:30 Total Visit Minutes 36 Visit Number 2 PT-OP-B Current Condition Start: 02/28/20 13:46 Freq: Status: Active Protocol: Document 02/29/20 09:44 MB (Rec: 02/29/20 10:02 MB [id number]) Current Condition History of Current Condition Onset Date 01/22/2020 Current Complaints Left great toe pain and tenderness on top of foot History of Current Condition Pt reports long history of hypermobility and ankle sprains. She has had at least three ankle sprains on the left and one right MCL sprain. She did cheer leading, gymnastics, track and soccer growing up. 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 She was found to have a tiny avulsion fracture on anterior distal tibia. She wore a walking boot for 4-5 weeks. She just got out of it on 02/22/20. She has an ASO and did not wear it today. She wears compression hose and flat shoes for work. PMH includes: cervical and lumbar dysfunction with instability of SI during pregnancies, B TMD, headaches, thoracic and rib dysfunction, recent pelvic floor reconstruction d/t endometriosis, 1998 right ankle fracture and ORIF, left patellar tendon tear. Pt works 4 8 hour shifts. She has three kids and has some nanny help. Prior Treatments and Tests Many PT courses for knees, pelvic floor Treatment Goals Patient/Caregiver Goals To be able to walk without injury, get back to exercising , including stationary upright bike and get mobility back in the foot. PT-OP-C Subjective Start: 02/28/20 13:46 Freq: Status: Active Protocol: Document 03/02/20 09:54 MB (Rec: 03/02/20 10:00 MB [id number]) OP-PT Subjective Patient Comments Patient Comments Everything's the same. PT-OP-G Mobility & Gait Start: 02/28/20 13:46 Freq: Status: Active Protocol: Document 02/29/20 09:44 MB (Rec: 02/29/20 12:58 MB [id number]) OP Gait Assessment Gait Gait Assistance Required: Independent Distance (Feet) 60 Able to Maintain Weight Bearing Status Yes During Gait Assistive Devices Assistive Device None Orthotic/Prosthetic Devices or Brace: No Gait Deviations General Gait Pattern Within Normal Limits Comments Gait Comments Pt reports mild discomfort in her left great toe and she does present with decreased push off through the left great toe with gait, increased soft tissue approximation thighs, soft tissue medial ankles and mild overpronation right foot compared to the left with gait and static standing. PT-OP-J Posture/Palpation/Skin Start: 02/28/20 13:46 Freq: Status: Active Protocol: Document 02/29/20 09:44 MB (Rec: 02/29/20 12:58 MB [id number]) Posture Evaluation Comments Posture Comments Standing posture, pt barefoot: pt presents with Dowager's hump, decreased thoracic kyphosis, increased anterior tilt pelvis, right shoulder higher than the left and pt is left handed, increased soft tissue B medial ankles, right scapula protracted, right iliac crest higher than the left, right tibial position different from the left and mild pronation right foot. PT-OP-K Range of Motion Start: 02/28/20 13:46 Freq: Status: Active Protocol: Document 02/29/20 09:44 MB (Rec: 02/29/20 12:58 MB [id number]) Toe Range of Motion Toes ROM Limitations Comments B ankle ROM is grossly similar with decreased active eversion and left great toe does have minimally decreased flexion compared to the right PT-OP-M Strength Start: 02/28/20 13:46 Freq: Status: Active Protocol: Document 02/29/20 09:44 MB (Rec: 02/29/20 12:58 MB [id number]) Hip Strength Hip Manual Muscle Testing Left Flexion (L2) 5 Normal Abduction 4 Good Right Flexion (L2) 5 Normal Abduction 5 Normal Knee Strength Knee Manual Muscle Testing Left Flexion (S2) 4 Good Extension (L3) 5 Normal Right Flexion (S2) 5 Normal Extension (L3) 5 Normal Ankle/Foot Strength Ankle and Foot Manual Muscle Testing Left Dorsiflexion (L4) 5 Normal Inversion 5 Normal Eversion (S1) 4 Good Comments Decreased active ROM eversion and testing is 4/5 in available range Right Dorsiflexion (L4) 5 Normal Inversion 5 Normal Eversion (S1) 5 Normal Comments Decreased active ROM eversion and testing is 5/5 in available range Toe Strength Toe Manual Muscle Testing Left Great Toe Comments MMT deferred d/t pt with c/o discomfort in her left great toe Right Great Toe Flexion 5 Normal Extension 5 Normal PT-OP-Q Treatments Start: 02/28/20 13:46 Freq: Status: Active Protocol: Document 03/02/20 09:54 MB (Rec: 03/02/20 10:00 MB [id number]) Manual Therapy Treatment Other Other Manual Treatments LLE phalange mobs, gentle, talocrural mobs, gentle, metatarsal mobs, gentle, STM plantar fascia, fibularis longus and plantar flexors Self-Care/Home Management Treatment Education Other Education Ed in benefits and use of [place] sock PT-OP-T Assessment and Plan Start: 02/28/20 13:46 Freq: Status: Active Protocol: Document 03/02/20 09:54 MB (Rec: 03/02/20 10:00 MB [id number]) Physical Therapy Assessment Rehab Potential Rehabilitation Potential Good Evaluation Complexity Number of Personal Factors/Comorbidities 1-2 Number of Body Systems Impaired 1-2 Clinical Presentation at Evaluation Evolving Impairments Impairments Balance,Edema,Gait,Pain, Posture,ROM,Soft Tissue Mobility,Strength Other Impairments Pt presents with B ankle edema and lines from 20-30 mmHg knee high compression hose around the anterior ankles Goals [facility] Goal (LTG) Pt will present with an improved LEF score to reflect no more than 20% impairment to prepare for return to walking for exercise by 04/28/2020. LTG Duration 8 weeks Four [facility] Goal (LTG) Pt will gait train at least 1500 feet without AD in 6 minutes to prepare for walking for exercise by 04/28/2020. LTG Duration 8 weeks Three [facility] Goal (LTG) Pt will report an overall 85% improvement in left foot pain to improve quality of life by 04/28/2020. LTG Duration 8 weeks Two Hydroelectric Production Manager Goal (LTG) Pt will perform progressive HEP with I including flexibility, strengthening, balance and gait exercises to decrease pain and improve strength and stability by 04/28. LTG Duration 8 weeks One Hydroelectric Production Manager Goal (LTG) Pt will perform WNLs on a standardized balance test to decrease fall risk by 2020. LTG Duration 8 weeks Assessment Summary Assessment Pt late to appointment. Manual work today to further assess the left great toe, ankle and leg and pt responds well to work. Progress manual work and exercises. Physical Therapy Plan Frequency and Duration Frequency of Treatment 2x/Week Duration of Treatment 8 weeks Plan of Care Start Date 02/29/20 Plan of Care End Date 04/30/20 Therapeutic Interventions Therapeutic Interventions Balance Training,Canalithic Repositioning,Coordination Training,Gait Training,Home Exercise Program,Joint Mobilizations,Manual Therapy, Neuromuscular Re-education, Patient/Caregiver Education, Self-Care/Home Management,Soft Tissue Mobilization,Taping, Therapeutic Activities, Therapeutic Exercises Modalities Cold Pack/Ice Massage,Electric Stimulation,Hot Packs, Ultrasound Next Visit Focus/Plan Next Note Type Treatment Note Next Visit Plan Initiate exercises including stretching and manual work, upright bike soon
--- NOTE | 2020-03-06 12:59 | PT.OTN ---
Current Diagnoses Sprain of other ligament of left ankle, initial encounter (03/06/20) Physical Therapy Treatment Note PT-OP-A Visit Information Start: 02/28/20 13:46 Freq: Status: Active Protocol: Document 03/06/20 12:14 MB (Rec: 03/06/20 12:39 MB [id number]) Out-Patient Physical Therapy Visit Information Visit Information Visit Type Treatment Note Visit Start Time 12:14 Visit Stop Time 12:59 Total Visit Minutes 45 Visit Number 3 PT-OP-B Current Condition Start: 02/28/20 13:46 Freq: Status: Active Protocol: Document 02/29/20 09:44 MB (Rec: 02/29/20 10:02 MB [id number]) Current Condition History of Current Condition Onset Date 01/22/2020 Current Complaints Left great toe pain and tenderness on top of foot History of Current Condition Pt reports long history of hypermobility and ankle sprains. She has had at least three ankle sprains on the left and one right MCL sprain. She did cheer leading, gymnastics, track and soccer growing up. 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 She was found to have a tiny avulsion fracture on anterior distal tibia. She wore a walking boot for 4-5 weeks. She just got out of it on 02/22/20. She has an ASO and did not wear it today. She wears compression hose and flat shoes for work. PMH includes: cervical and lumbar dysfunction with instability of SI during pregnancies, B TMD, headaches, thoracic and rib dysfunction, recent pelvic floor reconstruction d/t endometriosis, 1998 right ankle fracture and ORIF, left patellar tendon tear. Pt works 4 8 hour shifts. She has three kids and has some nanny help. Prior Treatments and Tests Many PT courses for knees, pelvic floor Treatment Goals Patient/Caregiver Goals To be able to walk without injury, get back to exercising , including stationary upright bike and get mobility back in the foot. PT-OP-C Subjective Start: 02/28/20 13:46 Freq: Status: Active Protocol: Document 03/06/20 12:14 MB (Rec: 03/06/20 12:39 MB [id number]) OP-PT Subjective Patient Comments Patient Comments My toe is a little better. PT-OP-G Mobility & Gait Start: 02/28/20 13:46 Freq: Status: Active Protocol: Document 02/29/20 09:44 MB (Rec: 02/29/20 12:58 MB [id number]) OP Gait Assessment Gait Gait Assistance Required: Independent Distance (Feet) 60 Able to Maintain Weight Bearing Status Yes During Gait Assistive Devices Assistive Device None Orthotic/Prosthetic Devices or Brace: No Gait Deviations General Gait Pattern Within Normal Limits Comments Gait Comments Pt reports mild discomfort in her left great toe and she does present with decreased push off through the left great toe with gait, increased soft tissue approximation thighs, soft tissue medial ankles and mild overpronation right foot compared to the left with gait and static standing. PT-OP-J Posture/Palpation/Skin Start: 02/28/20 13:46 Freq: Status: Active Protocol: Document 02/29/20 09:44 MB (Rec: 02/29/20 12:58 MB [id number]) Posture Evaluation Comments Posture Comments Standing posture, pt barefoot: pt presents with Dowager's hump, decreased thoracic kyphosis, increased anterior tilt pelvis, right shoulder higher than the left and pt is left handed, increased soft tissue B medial ankles, right scapula protracted, right iliac crest higher than the left, right tibial position different from the left and mild pronation right foot. PT-OP-K Range of Motion Start: 02/28/20 13:46 Freq: Status: Active Protocol: Document 02/29/20 09:44 MB (Rec: 02/29/20 12:58 MB [id number]) Toe Range of Motion Toes ROM Limitations Comments B ankle ROM is grossly similar with decreased active eversion and left great toe does have minimally decreased flexion compared to the right PT-OP-M Strength Start: 02/28/20 13:46 Freq: Status: Active Protocol: Document 02/29/20 09:44 MB (Rec: 02/29/20 12:58 MB [id number]) Hip Strength Hip Manual Muscle Testing Left Flexion (L2) 5 Normal Abduction 4 Good Right Flexion (L2) 5 Normal Abduction 5 Normal Knee Strength Knee Manual Muscle Testing Left Flexion (S2) 4 Good Extension (L3) 5 Normal Right Flexion (S2) 5 Normal Extension (L3) 5 Normal Ankle/Foot Strength Ankle and Foot Manual Muscle Testing Left Dorsiflexion (L4) 5 Normal Inversion 5 Normal Eversion (S1) 4 Good Comments Decreased active ROM eversion and testing is 4/5 in available range Right Dorsiflexion (L4) 5 Normal Inversion 5 Normal Eversion (S1) 5 Normal Comments Decreased active ROM eversion and testing is 5/5 in available range Toe Strength Toe Manual Muscle Testing Left Great Toe Comments MMT deferred d/t pt with c/o discomfort in her left great toe Right Great Toe Flexion 5 Normal Extension 5 Normal PT-OP-Q Treatments Start: 02/28/20 13:46 Freq: Status: Active Protocol: Document 03/06/20 12:14 MB (Rec: 03/06/20 12:39 MB [id number]) Therapeutic Exercises Supine Exercises Hip rotator stretch Side bilateral Comments 20 sec hold each Hamstring stretch with AP Side bilateral Comments 30 sec hold with APs, also leg across Pelvic realigment exercises Side bilateral Comments 5 reps all, 3 sec hold Paulo stretch Side bilateral Comments Abdominal drawing in before, 30 sec hold, difficult on the left Sitting Exercises Foot hammock AP with level 2 band Comments 10 reps slowly, cues to stop if pain Manual Therapy Treatment Other Other Manual Treatments LLE phalange mobs, greatest great toe, STM plantar fascia, fibularis longus and plantar flexors PT-OP-T Assessment and Plan Start: 02/28/20 13:46 Freq: Status: Active Protocol: Document 03/06/20 12:14 MB (Rec: 03/06/20 12:39 MB [id number]) Physical Therapy Assessment Rehab Potential Rehabilitation Potential Good Evaluation Complexity Number of Personal Factors/Comorbidities 1-2 Number of Body Systems Impaired 1-2 Clinical Presentation at Evaluation Evolving Impairments Impairments Balance,Edema,Gait,Pain, Posture,ROM,Soft Tissue Mobility,Strength Other Impairments Pt presents with B ankle edema and lines from 20-30 mmHg knee high compression hose around the anterior ankles Goals [facility] Goal (LTG) Pt will present with an improved LEF score to reflect no more than 20% impairment to prepare for return to walking for exercise by 04/28/2020. LTG Duration 8 weeks Four Park Superintendent Goal (LTG) Pt will gait train at least 1500 feet without AD in 6 minutes to prepare for walking for exercise by 04/28/2020. LTG Duration 8 weeks Three Park Superintendent Goal (LTG) Pt will report an overall 85% improvement in left foot pain to improve quality of life by 04/28/2020. LTG Duration 8 weeks Two Shelter Goal (LTG) Pt will perform progressive HEP with I including flexibility, strengthening, balance and gait exercises to decrease pain and improve strength and stability by 04/28. LTG Duration 8 weeks One Shelter Goal (LTG) Pt will perform WNLs on a standardized balance test to decrease fall risk by 2020. LTG Duration 8 weeks Assessment Summary Assessment Initiated alignment and flexibility exercises and pt tolerates well today. Ongoing manual work assists with myofascial tension. Physical Therapy Plan Frequency and Duration Frequency of Treatment 2x/Week Duration of Treatment 8 weeks Plan of Care Start Date 02/29/20 Plan of Care End Date 04/30/20 Therapeutic Interventions Therapeutic Interventions Balance Training,Canalithic Repositioning,Coordination Training,Gait Training,Home Exercise Program,Joint Mobilizations,Manual Therapy, Neuromuscular Re-education, Patient/Caregiver Education, Self-Care/Home Management,Soft Tissue Mobilization,Taping, Therapeutic Activities, Therapeutic Exercises Modalities Cold Pack/Ice Massage,Electric Stimulation,Hot Packs, Ultrasound Next Visit Focus/Plan Next Note Type Treatment Note Next Visit Plan [place] breathing, try upright bike, progress flexibility, balance and strengthening exercises and manual work
--- NOTE | 2020-03-09 10:55 | PT-OP ANOTE ---
Pt no showed to appointment. When PT calls her, she states that she totally forgot the appointment as she has been drowning in work. Confirmed her next appointment on the at 1215.
--- NOTE | 2020-03-13 13:03 | PT.OTN ---
Current Diagnoses Sprain of other ligament of left ankle, initial encounter (03/13/20) Physical Therapy Treatment Note PT-OP-A Visit Information Start: 02/28/20 13:46 Freq: Status: Active Protocol: Document 03/13/20 12:18 MB (Rec: 03/13/20 12:45 MB [id number]) Out-Patient Physical Therapy Visit Information Visit Information Visit Type Treatment Note Visit Note Prime Select Visit Start Time 12:18 Visit Stop Time 13:00 Total Visit Minutes 42 Visit Number 4 PT-OP-B Current Condition Start: 02/28/20 13:46 Freq: Status: Active Protocol: Document 02/29/20 09:44 MB (Rec: 02/29/20 10:02 MB [id number]) Current Condition History of Current Condition Onset Date 01/22/2020 Current Complaints Left great toe pain and tenderness on top of foot History of Current Condition Pt reports long history of hypermobility and ankle sprains. She has had at least three ankle sprains on the left and one right MCL sprain. She did [employer], gymnastics, track and soccer growing up. 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 She was found to have a tiny avulsion fracture on anterior distal tibia. She wore a walking boot for 4-5 weeks. She just got out of it on 02/22/20. She has an ASO and did not wear it today. She wears compression hose and flat shoes for work. PMH includes: cervical and lumbar dysfunction with instability of SI during pregnancies, B TMD, headaches, thoracic and rib dysfunction, recent pelvic floor reconstruction d/t endometriosis, 1998 right ankle fracture and ORIF, left patellar tendon tear. Pt works 4 8 hour shifts. She has three kids and has some nanny help. Prior Treatments and Tests Many PT courses for knees, pelvic floor Treatment Goals Patient/Caregiver Goals To be able to walk without injury, get back to exercising , including stationary upright bike and get mobility back in the foot. PT-OP-C Subjective Start: 02/28/20 13:46 Freq: Status: Active Protocol: Document 03/13/20 12:18 MB (Rec: 03/13/20 12:45 MB [id number]) OP-PT Subjective Patient Comments Patient Comments I just don't recover like I used to. Pt reports some tightness on the outside of her left leg. PT-OP-G Mobility & Gait Start: 02/28/20 13:46 Freq: Status: Active Protocol: Document 02/29/20 09:44 MB (Rec: 02/29/20 12:58 MB [id number]) OP Gait Assessment Gait Gait Assistance Required: Independent Distance (Feet) 60 Able to Maintain Weight Bearing Status Yes During Gait Assistive Devices Assistive Device None Orthotic/Prosthetic Devices or Brace: No Gait Deviations General Gait Pattern Within Normal Limits Comments Gait Comments Pt reports mild discomfort in her left great toe and she does present with decreased push off through the left great toe with gait, increased soft tissue approximation thighs, soft tissue medial ankles and mild overpronation right foot compared to the left with gait and static standing. PT-OP-J Posture/Palpation/Skin Start: 02/28/20 13:46 Freq: Status: Active Protocol: Document 02/29/20 09:44 MB (Rec: 02/29/20 12:58 MB [id number]) Posture Evaluation Comments Posture Comments Standing posture, pt barefoot: pt presents with Dowager's hump, decreased thoracic kyphosis, increased anterior tilt pelvis, right shoulder higher than the left and pt is left handed, increased soft tissue B medial ankles, right scapula protracted, right iliac crest higher than the left, right tibial position different from the left and mild pronation right foot. PT-OP-K Range of Motion Start: 02/28/20 13:46 Freq: Status: Active Protocol: Document 02/29/20 09:44 MB (Rec: 02/29/20 12:58 MB [id number]) Toe Range of Motion Toes ROM Limitations Comments B ankle ROM is grossly similar with decreased active eversion and left great toe does have minimally decreased flexion compared to the right PT-OP-M Strength Start: 02/28/20 13:46 Freq: Status: Active Protocol: Document 02/29/20 09:44 MB (Rec: 02/29/20 12:58 MB [id number]) Hip Strength Hip Manual Muscle Testing Left Flexion (L2) 5 Normal Abduction 4 Good Right Flexion (L2) 5 Normal Abduction 5 Normal Knee Strength Knee Manual Muscle Testing Left Flexion (S2) 4 Good Extension (L3) 5 Normal Right Flexion (S2) 5 Normal Extension (L3) 5 Normal Ankle/Foot Strength Ankle and Foot Manual Muscle Testing Left Dorsiflexion (L4) 5 Normal Inversion 5 Normal Eversion (S1) 4 Good Comments Decreased active ROM eversion and testing is 4/5 in available range Right Dorsiflexion (L4) 5 Normal Inversion 5 Normal Eversion (S1) 5 Normal Comments Decreased active ROM eversion and testing is 5/5 in available range Toe Strength Toe Manual Muscle Testing Left Great Toe Comments MMT deferred d/t pt with c/o discomfort in her left great toe Right Great Toe Flexion 5 Normal Extension 5 Normal PT-OP-Q Treatments Start: 02/28/20 13:46 Freq: Status: Active Protocol: Document 03/13/20 12:18 MB (Rec: 03/13/20 12:45 MB [id number]) Cardio Equipment Bicycle (Upright) Duration (Minutes) 10 Resistance 8 Seat Position 7 Therapeutic Exercises Sitting Exercises Knee strengthening Side bilateral Comments Alternating, level 1 band LAQ Standing Exercises Crab walking and backwards walking Comments Level 1 band around ankles Calf stretches Comments Turn toes inward on the left, gastroc and soleus stretches x30 sec x2 Manual Therapy Treatment Other Other Manual Treatments Left phalange mobs, greatest great toe, STM plantar fascia, fibularis longus and plantar flexors PT-OP-T Assessment and Plan Start: 02/28/20 13:46 Freq: Status: Active Protocol: Document 03/13/20 12:18 MB (Rec: 03/13/20 12:45 MB [id number]) Physical Therapy Assessment Rehab Potential Rehabilitation Potential Good Evaluation Complexity Number of Personal Factors/Comorbidities 1-2 Number of Body Systems Impaired 1-2 Clinical Presentation at Evaluation Evolving Impairments Impairments Balance,Edema,Gait,Pain, Posture,ROM,Soft Tissue Mobility,Strength Other Impairments Pt presents with B ankle edema and lines from 20-30 mmHg knee high compression hose around the anterior ankles Goals Five Mcc Goal (LTG) Pt will present with an improved LEF score to reflect no more than 20% impairment to prepare for return to walking for exercise by 04/28/2020. LTG Duration 8 weeks Four Mcc Goal (LTG) Pt will gait train at least 1500 feet without AD in 6 minutes to prepare for walking for exercise by 04/28/2020. LTG Duration 8 weeks Three Architectural Examiner Goal (LTG) Pt will report an overall 85% improvement in left foot pain to improve quality of life by 04/28/2020. LTG Duration 8 weeks Two Architectural Examiner Goal (LTG) Pt will perform progressive HEP with I including flexibility, strengthening, balance and gait exercises to decrease pain and improve strength and stability by 04/28. 03/13/20: Foot hammock with level 3 band, hamstring stretch with AP and TFL stretch, Paulo stretch, pelvic realignment exercises, crab and backwards walking, knee extension strengthening in sitting (all level 1 band), calf stretches standing, turning toes inward LTG Duration 8 weeks One Mcc Goal (LTG) Pt will perform WNLs on a standardized balance test to decrease fall risk by 2020. LTG Duration 8 weeks Assessment Summary Assessment Progressed strengthening exercises today. Manual work assists with fascial changes. Consider Counterstrain in the future. Physical Therapy Plan Frequency and Duration Frequency of Treatment 2x/Week Duration of Treatment 8 weeks Plan of Care Start Date 02/29/20 Plan of Care End Date 04/30/20 Therapeutic Interventions Therapeutic Interventions Balance Training,Canalithic Repositioning,Coordination Training,Gait Training,Home Exercise Program,Joint Mobilizations,Manual Therapy, Neuromuscular Re-education, Patient/Caregiver Education, Self-Care/Home Management,Soft Tissue Mobilization,Taping, Therapeutic Activities, Therapeutic Exercises Modalities Cold Pack/Ice Massage,Electric Stimulation,Hot Packs, Ultrasound Next Visit Focus/Plan Next Note Type Treatment Note Next Visit Plan Justin breathing, progress flexibility, balance and strengthening exercises and manual work
--- NOTE | 2020-03-20 12:52 | PT.OTN ---
Current Diagnoses Sprain of other ligament of left ankle, initial encounter (03/20/20) Physical Therapy Treatment Note PT-OP-A Visit Information Start: 02/28/20 13:46 Freq: Status: Active Protocol: Document 03/20/20 12:20 MB (Rec: 03/20/20 12:52 MB [id number]) Out-Patient Physical Therapy Visit Information Visit Information Visit Type Treatment Note Visit Note Prime [facility] Visit Start Time 12:20 Visit Stop Time 12:50 Total Visit Minutes 30 Visit Number 5 PT-OP-B Current Condition Start: 02/28/20 13:46 Freq: Status: Active Protocol: Document 02/29/20 09:44 MB (Rec: 02/29/20 10:02 MB [id number]) Current Condition History of Current Condition Onset Date 01/22/2020 Current Complaints Left great toe pain and tenderness on top of foot History of Current Condition Pt reports long history of hypermobility and ankle sprains. She has had at least three ankle sprains on the left and one right MCL sprain. She did [employer] leading, gymnastics, track and soccer growing up. 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 She was found to have a tiny avulsion fracture on anterior distal tibia. She wore a walking boot for 4-5 weeks. She just got out of it on 02/22/20. She has an ASO and did not wear it today. She wears compression hose and flat shoes for work. PMH includes: cervical and lumbar dysfunction with instability of SI during pregnancies, B TMD, headaches, thoracic and rib dysfunction, recent pelvic floor reconstruction d/t endometriosis, 1998 right ankle fracture and ORIF, left patellar tendon tear. Pt works 4 8 hour shifts. She has three kids and has some nanny help. Prior Treatments and Tests Many PT courses for knees, pelvic floor Treatment Goals Patient/Caregiver Goals To be able to walk without injury, get back to exercising , including stationary upright bike and get mobility back in the foot. PT-OP-C Subjective Start: 02/28/20 13:46 Freq: Status: Active Protocol: Document 03/20/20 12:20 MB (Rec: 03/20/20 12:52 MB [id number]) OP-PT Subjective Patient Comments Patient Comments I had my second shot today and I'm a little achy and fuzzy. PT-OP-G Mobility & Gait Start: 02/28/20 13:46 Freq: Status: Active Protocol: Document 02/29/20 09:44 MB (Rec: 02/29/20 12:58 MB [id number]) OP Gait Assessment Gait Gait Assistance Required: Independent Distance (Feet) 60 Able to Maintain Weight Bearing Status Yes During Gait Assistive Devices Assistive Device None Orthotic/Prosthetic Devices or Brace: No Gait Deviations General Gait Pattern Within Normal Limits Comments Gait Comments Pt reports mild discomfort in her left great toe and she does present with decreased push off through the left great toe with gait, increased soft tissue approximation thighs, soft tissue medial ankles and mild overpronation right foot compared to the left with gait and static standing. PT-OP-J Posture/Palpation/Skin Start: 02/28/20 13:46 Freq: Status: Active Protocol: Document 02/29/20 09:44 MB (Rec: 02/29/20 12:58 MB [id number]) Posture Evaluation Comments Posture Comments Standing posture, pt barefoot: pt presents with Dowager's hump, decreased thoracic kyphosis, increased anterior tilt pelvis, right shoulder higher than the left and pt is left handed, increased soft tissue B medial ankles, right scapula protracted, right iliac crest higher than the left, right tibial position different from the left and mild pronation right foot. PT-OP-K Range of Motion Start: 02/28/20 13:46 Freq: Status: Active Protocol: Document 02/29/20 09:44 MB (Rec: 02/29/20 12:58 MB [id number]) Toe Range of Motion Toes ROM Limitations Comments B ankle ROM is grossly similar with decreased active eversion and left great toe does have minimally decreased flexion compared to the right PT-OP-M Strength Start: 02/28/20 13:46 Freq: Status: Active Protocol: Document 02/29/20 09:44 MB (Rec: 02/29/20 12:58 MB [id number]) Hip Strength Hip Manual Muscle Testing Left Flexion (L2) 5 Normal Abduction 4 Good Right Flexion (L2) 5 Normal Abduction 5 Normal Knee Strength Knee Manual Muscle Testing Left Flexion (S2) 4 Good Extension (L3) 5 Normal Right Flexion (S2) 5 Normal Extension (L3) 5 Normal Ankle/Foot Strength Ankle and Foot Manual Muscle Testing Left Dorsiflexion (L4) 5 Normal Inversion 5 Normal Eversion (S1) 4 Good Comments Decreased active ROM eversion and testing is 4/5 in available range Right Dorsiflexion (L4) 5 Normal Inversion 5 Normal Eversion (S1) 5 Normal Comments Decreased active ROM eversion and testing is 5/5 in available range Toe Strength Toe Manual Muscle Testing Left Great Toe Comments MMT deferred d/t pt with c/o discomfort in her left great toe Right Great Toe Flexion 5 Normal Extension 5 Normal PT-OP-Q Treatments Start: 02/28/20 13:46 Freq: Status: Active Protocol: Document 03/20/20 12:20 MB (Rec: 03/20/20 12:52 MB [id number]) Therapeutic Exercises Supine Exercises Hamstring stretch with AP Comments B performed today Pelvic realigment exercises Comments B performed today 7 Supine Exercise Name Buteyko breathing, relaxation exercise 1 and diaphragm Comments Theory, education, performance under assessment PT-OP-T Assessment and Plan Start: 02/28/20 13:46 Freq: Status: Active Protocol: Document 03/20/20 12:20 MB (Rec: 03/20/20 12:52 MB [id number]) Physical Therapy Assessment Rehab Potential Rehabilitation Potential Good Evaluation Complexity Number of Personal Factors/Comorbidities 1-2 Number of Body Systems Impaired 1-2 Clinical Presentation at Evaluation Evolving Impairments Impairments Balance,Edema,Gait,Pain, Posture,ROM,Soft Tissue Mobility,Strength Other Impairments Pt presents with B ankle edema and lines from 20-30 mmHg knee high compression hose around the anterior ankles Goals Five Custodial Goal (LTG) Pt will present with an improved LEF score to reflect no more than 20% impairment to prepare for return to walking for exercise by 04/28/2020. LTG Duration 8 weeks Four Custodial Goal (LTG) Pt will gait train at least 1500 feet without AD in 6 minutes to prepare for walking for exercise by 04/28/2020. LTG Duration 8 weeks Three Custodial Goal (LTG) Pt will report an overall 85% improvement in left foot pain to improve quality of life by 04/28/2020. LTG Duration 8 weeks Two Custodial Goal (LTG) Pt will perform progressive HEP with I including flexibility, strengthening, balance and gait exercises to decrease pain and improve strength and stability by 04/28. 03/13/20: Foot hammock with level 3 band, hamstring stretch with AP and TFL stretch, Paulo stretch, pelvic realignment exercises, crab and backwards walking, knee extension strengthening in sitting (all level 1 band), calf stretches standing, turning toes inward LTG Duration 8 weeks One Custodial Goal (LTG) Pt will perform WNLs on a standardized balance test to decrease fall risk by 2020. LTG Duration 8 weeks Assessment Summary Assessment Buteyko breathing today in supine. HR and O2 sats on RA right index finger at rest before treatment: 79-84 BPM, 97-99%. 1st rep: 28 sec; 2nd rep: 43 sec, 74 BPM, 99%; HR increases to 86 BPM with talking. 3rd rep: 60 sec: 73- 74 BPM, 99%. Pt's HRV is doing well with exercise. Diaphragm Buteyko: at rest: HR 80-82 BPM and O2 sats 99%; 1st rep: PT cannot count d/t no nostril holding (pt reports 60 sec) 78 BPM. Breathing exercises only today d/t soreness after COVID shot this morning. Physical Therapy Plan Frequency and Duration Frequency of Treatment 2x/Week Duration of Treatment 8 weeks Plan of Care Start Date 02/29/20 Plan of Care End Date 04/30/20 Therapeutic Interventions Therapeutic Interventions Balance Training,Canalithic Repositioning,Coordination Training,Gait Training,Home Exercise Program,Joint Mobilizations,Manual Therapy, Neuromuscular Re-education, Patient/Caregiver Education, Self-Care/Home Management,Soft Tissue Mobilization,Taping, Therapeutic Activities, Therapeutic Exercises Modalities Cold Pack/Ice Massage,Electric Stimulation,Hot Packs, Ultrasound Next Visit Focus/Plan Next Note Type Treatment Note Next Visit Plan Progress flexibility, balance and strengthening exercises and manual work
--- NOTE | 2020-03-23 13:41 | PT.OTN ---
Current Diagnoses Sprain of other ligament of left ankle, initial encounter (03/23/20) Physical Therapy Treatment Note PT-OP-A Visit Information Start: 02/28/20 13:46 Freq: Status: Active Protocol: Document 03/23/20 12:18 MB (Rec: 03/23/20 12:56 MB [id number]) Out-Patient Physical Therapy Visit Information Visit Information Visit Type Treatment Note Visit Note Prime Select Visit Start Time 12:18 Visit Stop Time 12:59 Total Visit Minutes 41 Visit Number 6 PT-OP-B Current Condition Start: 02/28/20 13:46 Freq: Status: Active Protocol: Document 02/29/20 09:44 MB (Rec: 02/29/20 10:02 MB [id number]) Current Condition History of Current Condition Onset Date 01/22/2020 Current Complaints Left great toe pain and tenderness on top of foot History of Current Condition Pt reports long history of hypermobility and ankle sprains. She has had at least three ankle sprains on the left and one right MCL sprain. She did [employer] leading, gymnastics, track and soccer growing up. 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 She was found to have a tiny avulsion fracture on anterior distal tibia. She wore a walking boot for 4-5 weeks. She just got out of it on 02/22/20. She has an ASO and did not wear it today. She wears compression hose and flat shoes for work. PMH includes: cervical and lumbar dysfunction with instability of SI during pregnancies, B TMD, headaches, thoracic and rib dysfunction, recent pelvic floor reconstruction d/t endometriosis, 1998 right ankle fracture and ORIF, left patellar tendon tear. Pt works 4 8 hour shifts. She has three kids and has some nanny help. Prior Treatments and Tests Many PT courses for knees, pelvic floor Treatment Goals Patient/Caregiver Goals To be able to walk without injury, get back to exercising , including stationary upright bike and get mobility back in the foot. PT-OP-C Subjective Start: 02/28/20 13:46 Freq: Status: Active Protocol: Document 03/23/20 12:18 MB (Rec: 03/23/20 12:56 MB [id number]) OP-PT Subjective Patient Comments Patient Comments Pt states that she feels puny after the COVID shot. The toe pain is gone and she is feeling a lot better. PT-OP-G Mobility & Gait Start: 02/28/20 13:46 Freq: Status: Active Protocol: Document 02/29/20 09:44 MB (Rec: 02/29/20 12:58 MB [id number]) OP Gait Assessment Gait Gait Assistance Required: Independent Distance (Feet) 60 Able to Maintain Weight Bearing Status Yes During Gait Assistive Devices Assistive Device None Orthotic/Prosthetic Devices or Brace: No Gait Deviations General Gait Pattern Within Normal Limits Comments Gait Comments Pt reports mild discomfort in her left great toe and she does present with decreased push off through the left great toe with gait, increased soft tissue approximation thighs, soft tissue medial ankles and mild overpronation right foot compared to the left with gait and static standing. PT-OP-J Posture/Palpation/Skin Start: 02/28/20 13:46 Freq: Status: Active Protocol: Document 02/29/20 09:44 MB (Rec: 02/29/20 12:58 MB [id number]) Posture Evaluation Comments Posture Comments Standing posture, pt barefoot: pt presents with Dowager's hump, decreased thoracic kyphosis, increased anterior tilt pelvis, right shoulder higher than the left and pt is left handed, increased soft tissue B medial ankles, right scapula protracted, right iliac crest higher than the left, right tibial position different from the left and mild pronation right foot. PT-OP-K Range of Motion Start: 02/28/20 13:46 Freq: Status: Active Protocol: Document 02/29/20 09:44 MB (Rec: 02/29/20 12:58 MB [id number]) Toe Range of Motion Toes ROM Limitations Comments B ankle ROM is grossly similar with decreased active eversion and left great toe does have minimally decreased flexion compared to the right PT-OP-M Strength Start: 02/28/20 13:46 Freq: Status: Active Protocol: Document 02/29/20 09:44 MB (Rec: 02/29/20 12:58 MB [id number]) Hip Strength Hip Manual Muscle Testing Left Flexion (L2) 5 Normal Abduction 4 Good Right Flexion (L2) 5 Normal Abduction 5 Normal Knee Strength Knee Manual Muscle Testing Left Flexion (S2) 4 Good Extension (L3) 5 Normal Right Flexion (S2) 5 Normal Extension (L3) 5 Normal Ankle/Foot Strength Ankle and Foot Manual Muscle Testing Left Dorsiflexion (L4) 5 Normal Inversion 5 Normal Eversion (S1) 4 Good Comments Decreased active ROM eversion and testing is 4/5 in available range Right Dorsiflexion (L4) 5 Normal Inversion 5 Normal Eversion (S1) 5 Normal Comments Decreased active ROM eversion and testing is 5/5 in available range Toe Strength Toe Manual Muscle Testing Left Great Toe Comments MMT deferred d/t pt with c/o discomfort in her left great toe Right Great Toe Flexion 5 Normal Extension 5 Normal PT-OP-Q Treatments Start: 02/28/20 13:46 Freq: Status: Active Protocol: Document 03/23/20 12:18 MB (Rec: 03/23/20 12:56 MB [id number]) Therapeutic Exercises Sitting Exercises Foot hammock AP with level 2 band Comments Progressed to level 3 and 4 for home Standing Exercises Tandem standing Comments More trouble with left foot behind. Ed in progress to closed eyes Other Exercises Reviewed all HEP at d/c Comments Performed this today in order to prepare for d/c Gait Training Gait Activity 6MWT Comments Performed this today and gait observation throughout treatment in clinic and gait is slow but pt does not present unstable in left ankle . See goals for gait distance for test Neuro Re-Education Treatment Balance Activities Tandem standing Comments Several reps for assessment and then provided exercise for HEP, documented above and reviewed with HEP PT-OP-T Assessment and Plan Start: 02/28/20 13:46 Freq: Status: Active Protocol: Document 03/23/20 12:18 MB (Rec: 03/23/20 12:56 MB [id number]) Physical Therapy Assessment Rehab Potential Rehabilitation Potential Good Evaluation Complexity Number of Personal Factors/Comorbidities 1-2 Number of Body Systems Impaired 1-2 Clinical Presentation at Evaluation Evolving Impairments Impairments Balance,Edema,Gait,Pain, Posture,ROM,Soft Tissue Mobility,Strength Other Impairments Pt presents with B ankle edema and lines from 20-30 mmHg knee high compression hose around the anterior ankles Goals Five Mcfp Goal (LTG) Pt will present with an improved LEF score to reflect no more than 20% impairment to prepare for return to walking for exercise by 04/28/2020. 03/23/20: LEF reflects 13.75% impairment LTG Duration Surpassed goal Four [place] Tanner Goal (LTG) Pt will gait train at least 1500 feet without AD in 6 minutes to prepare for walking for exercise by 04/28/2020. 03/23/20: Pt gait trains 1470 feet in 6 minutes today. She states she feels puny from the COVID shot. LTG Duration Partially met Three [place] Tanner Goal (LTG) Pt will report an overall 85% improvement in left foot pain to improve quality of life by 04/28/2020. 03/23/20: Pt reports at least an overall 85% improvement in left foot pain since starting PT 03/23/20: LTG Duration Met Two Mcfp Goal (LTG) Pt will perform progressive HEP with I including flexibility, strengthening, balance and gait exercises to decrease pain and improve strength and stability by 04/28. 03/23/20: Foot hammock with level 3 or 4 band, hamstring stretch with AP and TFL stretch, Paulo stretch, pelvic realignment exercises, crab and backwards walking, knee extension strengthening in sitting (all level 1 band), calf stretches standing, turning toes inward, Tandem standing LTG Duration Met One Mcfp Goal (LTG) Pt will perform WNLs on a standardized balance test to decrease fall risk by 2020. 03/23/20: Pt performs Tandem B today and has more trouble with left foot behind and so added to HEP LTG Duration Partially met Assessment Summary Assessment Pt has met the following goals since starting PT: HEP, reports of improvement in pain and LEF score. She has progressed towards 6MWT and balance goals. PT provided HEP review and education today, new balance exercise for home and encouragement to get on stationary bike in employee gym for fitness after work. Pt has maximized PT potential. Will d/c PT. Physical Therapy Plan Frequency and Duration Frequency of Treatment 2x/Week Duration of Treatment 8 weeks Plan of Care Start Date 02/29/20 Plan of Care End Date 04/30/20 Therapeutic Interventions Therapeutic Interventions Balance Training,Canalithic Repositioning,Coordination Training,Gait Training,Home Exercise Program,Joint Mobilizations,Manual Therapy, Neuromuscular Re-education, Patient/Caregiver Education, Self-Care/Home Management,Soft Tissue Mobilization,Taping, Therapeutic Activities, Therapeutic Exercises Modalities Cold Pack/Ice Massage,Electric Stimulation,Hot Packs, Ultrasound
== END 2020-03-23 16:18 ==
LOC: PHYS 12:15
PROVIDERS: PCP Nurse Practitioner; Referring Provider Podiatrist; Visit Provider Podiatrist
DX: S93.492A Sprain of other ligament of left ankle, initial encounter (principal)
CPT/HCPCS: 97110; 97116; 97140; 97161

== ENCOUNTER → 2020-04-30 09:22 | Outpatient (CLI) | payer OTHER, SELFPAY ==
[2020-04-30 11:06] LABS: COVID19 -Nasal RAPID Negative (Negative)
== END ==
PROVIDERS: PCP Nurse Practitioner; Visit Provider Physician Assistant
DX: Z20.822 Contact with and (suspected) exposure to COVID-19 (principal)
CPT/HCPCS: 87635

== ENCOUNTER → 2020-05-09 10:14 | Outpatient (CLI) | payer OTHER, SELFPAY ==
--- NOTE | 2020-05-09 | DI.RAD.S_ITS ---
PROCEDURE: XR ABDOMEN 1V INDICATIONS: Sitzmark Study 1 view abdomen TECHNIQUE: The patient was given a Sitzmark capsule by the radiology manager on the date of May 04, 2020 and was instructed to swallow the capsule on the day it was given. Patient returned 5 days later for followup imaging. Supine 1 view abdomen radiograph acquired. COMPARISON: None. FINDINGS: Surgical changes and devices: None. Bowel: There are 16 out of 24 Sitzmark rings remaining within the colon. Bowel gas pattern is normal. Soft tissues: No suspicious abdominal calcifications. Visualized solid organ contours appear normal in size. Bones: No suspicious bony lesions. IMPRESSION: Delayed colon transit with 16 residual Sitzmark rings at day 5. Dictated by: Dorys Maurer MD, PhD on 05/09/2020 at 13:19 Approved by: Dorys Maurer MD, PhD on 05/09/2020 at 13:22
--- NOTE | 2020-05-09 10:14 | DI.RAD.S_ITS ---
PROCEDURE: FL SMALL BOWEL FOLLOW THROUGH INDICATIONS: Other constipation COMPARISON: None. FINDINGS: KUB: Preprocedural biophysics professor film demonstrates a normal bowel gas pattern. Sitz nunez noted in the colon. No suspicious abdominal calcifications. Visualized solid organ contours appear normal. No suspicious bony abnormalities. Small bowel: There is rapid transit time of barium through the small bowel of less than 15 minutes. Small bowel loops are of normal caliber throughout. Mucosal folds are smooth and of normal thickness. No strictures, intraluminal masses, or extrinsic mass effects are noted. The terminal ileum is identified, and is normal in morphology. IMPRESSION: Rapid small bowel transit time. Contrast material passed through small bowel in less than 15 minutes. Dictated by: Dorys Maurer MD, PhD on 05/09/2020 at 13:34 Approved by: Dorys Maurer MD, PhD on 05/09/2020 at 13:51
== END ==
PROVIDERS: PCP Nurse Practitioner; Referring Provider Colon & Rectal Surgery; Visit Provider Colon & Rectal Surgery
DX: K59.09 Other constipation (principal)
CPT/HCPCS: 74018; 74250

== ENCOUNTER → 2020-06-18 08:55 | Outpatient (CLI) | payer OTHER, SELFPAY ==
[2020-06-18 10:14] LABS: Add Manual Diff / Slide Review NO; Basophils Absolute Auto 0 /uL (0-100); Basophils Percent Auto 0.7 % (0-2); Eosinophils Absolute Auto 100 /uL (0-450); Eosinophils Percent Auto 1.9 % (2-4); Hematocrit 41.8 % (36-46); Hemoglobin 14.1 g/dL (12.0-16.0); Lymphocytes Absolute Auto 1800 /uL (1100-4500); Lymphocytes Percent Auto 29.6 % (25-40); Mean Corpuscular HGB Conc 33.7 % (30-36); Mean Corpuscular Hemoglobin 30.9 PG (26-34); Mean Corpuscular Volume 91.5 fL (80-100); Monocytes Absolute Auto 400 /uL (0-900); Monocytes Percent Auto 7.1 % (3-14); Neutrophils Absolute Auto 3800 /uL (1500-7000); Neutrophils Percent Auto 60.7 % (50-75); Platelet Count 252 X10^3/uL (150-400); Red Blood Cell Count 4.57 X10^6/uL (4.0-5.2); Red Cell Distribution Width 13.1 % (11.6-14.8); White Blood Cell Count 6.2 X10^3/uL (4.5-11.0)
[2020-06-18 10:36] LABS: Erythrocyte Sedimentation Rate 8 MM/HR (0-20)
[2020-06-18 11:14] LABS: HEMOLYSIS < 15 (0-50); Iron 107 ug/dL (37-170)
[2020-06-18 11:18] LABS: Alanine Aminotransferase 13 IU/L (<35); Albumin 4.2 g/dL (3.5-5.0); Albumin Globulin Ratio 1.6 (1.0-2.8); Alkaline Phosphatase 90 U/L (38-126); Aspartate Aminotransferase 18 IU/L (14-36); Bilirubin Total 0.4 mg/dL (0.2-1.3); Blood Urea Nitrogen 12 mg/dL (7-17); C-Reactive Protein Quant < 0.5 mg/dL (<1.0); Calcium 9.4 mg/dL (8.4-10.2); Carbon Dioxide 26 mmol/L (22-32); Chloride 104 mmol/L (98-107); Cholesterol 183 mg/dL (140-199); Estimated Glomerular Filt Rate > 60.0 mL/min (>60); Globulin 2.7 g/dL (1.7-4.1); Glucose 100 mg/dL (70-100); HDL Cholesterol 67 mg/dL (40-60); HEMOLYSIS < 15 (0-50); LDL Cholesterol Calculated 105 mg/dL (<100); Magnesium 2.1 mg/dL (1.6-2.3); Phosphorous 3.8 mg/dL (2.5-4.5); Sodium 138 mmol/L (137-145); Total Protein 6.9 g/dL (6.3-8.2); Triglycerides 54 mg/dL (35-150)
[2020-06-18 11:24] LABS: Rheumatoid Factor < 8.6 IU/mL (<12.0)
[2020-06-18 11:25] LABS: Percent Iron Saturation 37 % (15-50); Total Iron Binding Capacity 287 ug/dL (265-497); Transferrin 222 mg/dL (206-381)
[2020-06-18 11:34] LABS: Free T3, Triiodothyronine Free 4.02 pg/mL (2.77-5.27); Free T4, Direct Thyroxine 0.96 ng/dL (0.78-2.19)
[2020-06-18 11:44] LABS: Vitamin D 25 Hydroxy (D3) 27.3 ng/mL (30.0-100.0)
[2020-06-18 11:48] LABS: Thyroid Stimulating Hormone 2.13 uIU/mL (0.47-4.68)
[2020-06-18 12:21] LABS: Folate 7.5 ng/mL (2.76-20.0); Vitamin B12 276 pg/mL (239-931)
[2020-06-19 11:21] LABS: Parathyroid Hormone, Intact 35 pg/mL (15-65)
[2020-06-20 02:37] LABS: Vitamin B6 9.9 ug/L (2.0-32.8); Zinc 76 ug/dL (44-115)
[2020-06-20 08:41] LABS: Alpha-Tocopherol 9.9 mg/L (5.9-19.4); Gamma-Tocopherol 2.9 mg/L (0.7-4.9)
[2020-06-21 09:36] LABS: Vitamin B1 111.1 nmol/L (66.5-200.0)
[2020-06-22 00:36] LABS: Vitamin A 42.5 ug/dL (18.9-57.3)
== END ==
PROVIDERS: PCP Nurse Practitioner; Referring Provider Nurse Practitioner; Visit Provider Nurse Practitioner
DX: Z00.00 Encounter for general adult medical examination without abnormal findings (principal); E27.49 Other adrenocortical insufficiency; K59.9 Functional intestinal disorder, unspecified; K90.49 Malabsorption due to intolerance, not elsewhere classified
CPT/HCPCS: 36415; 80053; 80061; 82306; 82310; 82525; 82607; 82746; 83540; 83550; 83735; 83970; 84100; 84207; 84425; 84439; 84443; 84446; 84481; 84590; 84630; 85025; 85651; 86140; 86430

== ENCOUNTER → 2020-07-26 09:37 | Outpatient (CLI) | payer OTHER, SELFPAY ==
[2020-07-26 10:04] LABS: COVID19 -Nasal RAPID Negative (Negative)
== END ==
PROVIDERS: PCP Nurse Practitioner; Visit Provider Physician Assistant
DX: J02.9 Acute pharyngitis, unspecified (principal); R09.81 Nasal congestion; R51.9 Headache, unspecified; Z20.822 Contact with and (suspected) exposure to COVID-19
CPT/HCPCS: 87635

== ENCOUNTER → 2020-09-04 14:45 | Outpatient (CLI) | payer OTHER, SELFPAY ==
--- NOTE | 2020-09-04 14:47 | DI.US.S_ITS ---
PROCEDURE: US PELVIC COMPLETE INDICATIONS: PELVIC PAIN AND PRESSURE TECHNIQUE: Real-time scanning was performed of the pelvic organs, with image documentation. Additional endovaginal scanning was necessary due to incomplete visualization of the adnexal and endometrial structures by transabdominal scanning. COMPARISON: [facility], , PELVIC COMPLETE, 09/16/2018, 9:41. FINDINGS: Uterus: Status post hysterectomy. Ovaries: Right ovary is not visualized. Left ovary measures 3.5 x 2.7 x 2.6 cm. Multiple left ovarian cysts are noted with the largest measuring 2.5 cm in size. Other: No pathologic free abdominal or pelvic fluid. IMPRESSION: Status post hysterectomy. No abnormal pelvic free fluid. Unremarkable appearance of the left ovary. Right ovary was not visualized on this exam. Dictated by: Adrine Jacobs M.D. on 09/04/2020 at 16:10 Approved by: Adrien Jacobs M.D. on 09/04/2020 at 16:12
--- NOTE | 2020-09-04 14:47 | DI.US.S_ITS ---
PROCEDURE: US ABDOMEN COMPLETE INDICATIONS: PELVIC PAIN AND ABD PRESSURE TECHNIQUE: Real-time scanning was performed of the abdominal and retroperitoneal organs, with image documentation. COMPARISON: [facility], US, ABDOMEN COMPLETE, 06/30/2014, 23:04. FINDINGS: Liver: Liver is normal in size and homogeneous in echotexture. There is a nonspecific 0.5 x 0.9 x 0.6 cm echogenic focus within the right hepatic lobe. No internal vascularity. No posterior shadowing. No increased posterior enhancement. Gallbladder: Gallbladder is normal in sonographic appearance without gallstones, gallbladder wall thickening, pericholecystic fluid, or abnormal sonographic Graham's. Biliary ducts: Intrahepatic bile ducts are non-dilated. Extrahepatic bile duct caliber measures 4 mm. Normal is 6-7 mm or less in diameter, or 10 mm or less post-cholecystectomy. Pancreas: Visualized portions of the pancreas are sonographically normal. Spleen: Spleen is normal in size and homogeneous in echotexture. Kidneys: Kidneys are normal in size and echotexture. Right kidney measures 11.6 cm long; left kidney measures 12.8 cm long. No hydronephrosis or nephrolithiasis. No solid masses. Aorta: Visualized aorta is normal in caliber at less than 3 cm. Iliacs: Proximal common iliac arteries are normal in caliber at less than 2.5 cm. IVC: Intrahepatic inferior vena cava is patent. Miscellaneous: No free abdominal fluid. IMPRESSION: 1. Abdomen without acute sonographic abnormalities. 2. Nonspecific 0.9 cm echogenic lesion within the right hepatic lobe which may represent a hepatic hemangioma. Recommend follow-up ultrasound in 6-12 months to document continued stability. Dictated by: Adrien Jacobs M.D. on 09/04/2020 at 16:05 Approved by: Adrien Jacobs M.D. on 09/04/2020 at 16:10
== END ==
PROVIDERS: PCP Nurse Practitioner; Referring Provider Nurse Practitioner; Visit Provider Nurse Practitioner
DX: R10.2 Pelvic and perineal pain (principal); R10.9 Unspecified abdominal pain; K76.9 Liver disease, unspecified; N83.202 Unspecified ovarian cyst, left side; Z90.710 Acquired absence of both cervix and uterus
CPT/HCPCS: 76700; 76830; 76856

== ENCOUNTER 2020-10-09 15:44 | Emergency (ER) | payer OTHER, SELFPAY ==
[2020-10-09 16:02] VITALS: BMI 32.6
--- NOTE | 2020-10-09 16:04 | DI.RAD.S_ITS ---
PROCEDURE: XR CHEST 2V INDICATIONS: cough TECHNIQUE: 2 views of the chest were acquired. COMPARISON: [facility], CR, XR CHEST 2V, 11/04/2019, 17:37. FINDINGS: Surgical changes and devices: None. Lungs and pleura: Right upper lobe and right lower lobe infiltrates consistent with pneumonia. No pleural effusions or pneumothorax. Mediastinum: Mediastinal contours are normal. Heart size is normal. Bones and chest wall: No suspicious bony abnormalities. Soft tissues appear unremarkable. IMPRESSION: Bilateral pneumonia. Please correlate clinically for COVID-19 pneumonia. Dictated by: Sukhwinder Vaughan M.D. on 10/09/2020 at 16:37 Approved by: Sukhwinder Vaughan M.D. on 10/09/2020 at 16:38
[2020-10-09 17:33] LABS: COVID19 -Nasal RAPID Negative (Negative)
--- NOTE | 2020-10-09 17:55 | ED_ITS ---
HPI - General Adult General Chief complaint: Upper Respiratory Symptoms Stated complaint: think i have bronchitis or pneumonia, neck pain Time Seen by Provider: 10/09/20 17:21 Source: patient Mode of arrival: Ambulatory Limitations: no limitations History of Present Illness HPI narrative: Patient is a 40-year-old female. History of reactive airway disease/asthma who for the past several days/week has been having subjective fevers, productive cough, having to use her nebulizer at home more often in problems breathing. She reports she is immunized against COVID-19. No known COVID-19 exposures. Related Data Home Medications Medication Instructions Recorded Confirmed metaxalone 800 mg tablet (Skelaxin) 800 mg PO TID 08/02/19 06/13/20 Previous Rx's Medication Instructions Recorded ibuprofen 600 mg tablet 600 mg PO Q6HP PRN #20 tab 04/13/16 nebulizer that is covered by ins #1 ea 11/08/19 fluticasone propionate 44 1 inhalation INHALATION BID #10.6 11/09/19 mcg/actuation HFA aerosol inhaler gram amitriptyline 50 mg tablet 50 mg PO BEDTIME #90 tab 03/02/20 clobetasol 0.05 % topical ointment 1 applic TOPICAL BID 14 Days #30 g 06/13/20 albuterol sulfate 0.63 mg/3 mL 0.63 mg INHALATION QID PRN #75 ml 07/26/20 solution for nebulization benzonatate 100 mg capsule 100 mg PO BID-TID PRN #30 cap 07/26/20 (Bela Sharma) montelukast 10 mg tablet 10 mg PO BEDTIME #90 tab 07/30/20 azithromycin 250 mg tablet See Rx Instructions .ROUTE 10/09/20 .COMPLEX #6 tab prednisone 20 mg tablet 20 mg PO DAILY 7 Days #7 tab 10/09/20 Allergies Allergy/AdvReac Type Severity Reaction Status Date / Time No Known Drug Allergies Allergy Verified 06/13/20 14:35 Review of Systems Constitutional Constitutional: Reports as per HPI Cardiovascular Cardiovascular: Reports system reviewed and no additional complaints, except as documented Respiratory Respiratory: Reports as per HPI Hematologic/Lymphatic On Anticoagulants: No Patient History Medical History Cervical somatic dysfunction Chronic low back pain without sciatica Chronic neck pain Chronic thoracic back pain Cranial somatic dysfunction Depression with anxiety Lumbar region somatic dysfunction 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 Obesity, Class I, BMI 30-34.9 Pelvic somatic dysfunction Sacral region somatic dysfunction Sacroiliac joint stiffness Segmental and somatic dysfunction of abdomen and other regions Segmental and somatic dysfunction of rib cage Temporomandibular joint disorder (TMJ) Tension type headache Thoracic region somatic dysfunction TMJ disorder involving articular disc abnormality UTI (urinary tract infection) Weight gain Wellness examination Surgical History History of partial hysterectomy History of third molar tooth extraction Status post delivery (10/15/13) Status post delivery (04/10/16) Social History household members: spouse and children Smoking Status: Never smoker alcohol intake: current Smoking Status: Never smoker alcohol intake frequency: holidays/special occasions only Substance Use Type: does not use Exam Const General: cooperative and comfortable HENMT Head: normal to inspection Eyes General: appearance normal, both eyes and all related structures Resp Effort & Inspection: normal respiratory effort Auscultation: clear to auscultation bilaterally Cardio Rate: regular rate Rhythm: regular rhythm GI Inspection: normal to inspection Skin General: no rashes or lesions noted Neuro General: patient alert, patient awake and moves all extremities Extrem General: normal to inspection Psych Appearance: grossly normal and well kempt Course Orders Ordered: ED Orders 10/09/20 16:04 XR chest 2V Stat 10/09/20 17:15 COVID19 -Nasal swab/Pre-Proc Stat Medical Decision Making Lab Data Labs: Lab Results 10/09/20 Range/Units 17:15 SARS-CoV-2 (PCR) Negative (Negative) Imaging Data Chest x-ray: Radiologist's Impression: [address] [id number] ReportSigned Patient: Remedios Garcia KMR#: [id number]: [id number]:[id number]/Sex: 40 / FDate of Service: 10/09/20Loc: EDAccession Number: [id number] Procedure: XR chest 2V Ordering Provider: Curt Monet D.O. PROCEDURE: XR CHEST 2V INDICATIONS: cough TECHNIQUE: 2 views of the chest were acquired. COMPARISON: [facility], CR, XR CHEST 2V, 11/04/2019, 17:37. FINDINGS: Surgical changes and devices: None. Lungs and pleura: Right upper lobe and right lower lobe infiltrates consistent with pneumonia. No pleural effusions or pneumothorax. Mediastinum: Mediastinal contours are normal. Heart size is normal. Bones and chest wall: No suspicious bony abnormalities. Soft tissues appear unremarkable. IMPRESSION: Bilateral pneumonia. Please correlate clinically for COVID-19 pneumonia. Dictated by: Sukhwinder Vaughan M.D. on 10/09/2020 at 16:37 Approved by: Sukhwinder Vaughan M.D. on 10/09/2020 at 16:38 MDM Narrative Medical decision making narrative: COVID test is negative. Chest x-ray is concerning for pneumonia. She is a clear lung exam. Will start on antibiotics and also put on a short course of steroids. Patient was given return precautions and follow-up instructions. She expressed understanding and agreement. Discharge Plan Departure Patient Disposition: Home Clinical Impression: Pneumonia Instructions: DI for Pneumonia -- Adult Activity Restrictions/Additional Instructions: Recommend you take the antibiotics and the steroids as directed. Continue to take the rest of your medications as directed. Return to the emergency department for any new or worsening symptoms Prescriptions: New prednisone 20 mg tablet 20 mg PO DAILY 7 Days Qty: 7 RF: 0 azithromycin 250 mg tablet See Rx Instructions .ROUTE .COMPLEX Qty: 6 RF: 0 No Action ibuprofen 600 MG tablet 600 mg PO Q6HP PRNQty: 20 RF: 0 (DME) nebulizer that is covered by ins Qty: 1 RF: 0 fluticasone propionate 44 mcg/actuation HFA aerosol inhaler 1 inhalation INHALATION BID Qty: 10.6 RF: 0 amitriptyline 50 mg tablet 50 mg PO BEDTIME Qty: 90 RF: 3 albuterol sulfate 0.63 mg/3 mL solution for nebulization 0.63 mg INHALATION QID PRN (Reason: shortness of breath or wheezing) Qty: 75 RF: 0 benzonatate [Tessalon Perles] 100 mg capsule 100 mg PO BID-TID PRN (Reason: cough) Qty: 30 RF: 1 montelukast 10 mg tablet 10 mg PO BEDTIME Qty: 90 RF: 3 metaxalone [Skelaxin] 800 mg tablet 800 mg PO TID RF: 0 clobetasol 0.05 % ointment 1 applic topical BID 14 Days Qty: 30 RF: 2 Referrals: Lucero Fortune ARNP [Primary Care Provider] -
[2020-10-09 18:20] VITALS: BP 114/71; PULSE 77; O2SAT 98
== END 2020-10-09 18:21 | disposition home or self-care (01) ==
PROVIDERS: Emergency Provider Emergency Medicine; PCP Nurse Practitioner
DX: J18.9 Pneumonia, unspecified organism (principal); R50.9 Fever, unspecified; Z20.822 Contact with and (suspected) exposure to COVID-19
CPT/HCPCS: 71046; 87635; 99281; 99283; C9803

== ENCOUNTER → 2020-11-29 10:01 | Outpatient (CLI) | payer OTHER, SELFPAY | PROVIDERS: PCP Nurse Practitioner; Referring Provider Internal Medicine; Visit Provider Internal Medicine | DX: Z23 Encounter for immunization (principal) | CPT/HCPCS: 90471; 90686 ==

== ENCOUNTER → 2020-12-27 16:57 | Outpatient (CLI) | payer OTHER, SELFPAY ==
--- NOTE | 2020-12-27 | DI.MG.S_ITS ---
BILATERAL DIGITAL SCREENING MAMMOGRAM 3D/2D WITH CAD: 12/27/2020 CLINICAL: Routine screening. Baseline exam. Family history of breast cancer. No prior exams were available for comparison. The tissue of both breasts is predominantly fatty. Current study was also evaluated with a Computer Aided Detection (CAD) system. No significant masses, calcifications, or other findings are seen in either breast. IMPRESSION: NEGATIVE There is no mammographic evidence of malignancy. A 1 year screening mammogram is recommended. This exam was interpreted at Station ID: [id number]. NOTE: For mammograms, a report in lay terms will be sent to the patient. Approximately 15% of breast malignancies will not be visualized mammographically. In the management of a palpable breast mass, a negative mammogram must not discourage biopsy of a clinically suspicious lesion. Electronically Signed By: Isela greenwood/leonie:12/28/2020 09:54:45 letter sent: Normal Exam ACR BI-RADS Category 1: Negative [id number]
== END ==
PROVIDERS: PCP Nurse Practitioner; Referring Provider Nurse Practitioner; Visit Provider Nurse Practitioner
DX: Z12.31 Encounter for screening mammogram for malignant neoplasm of breast (principal); Z80.3 Family history of malignant neoplasm of breast
CPT/HCPCS: 77063; 77067

== ENCOUNTER → 2020-12-28 15:19 | Outpatient (CLI) | payer OTHER, SELFPAY ==
[2020-12-28] MEDS: COVID-19 VACC #3, MRNA(MOD) 50 MCG/0.25 ML VIAL IM (15:21)
== END ==
PROVIDERS: PCP Nurse Practitioner; Visit Provider Internal Medicine
DX: Z23 Encounter for immunization (principal)
CPT/HCPCS: 0013A; 91301

== ENCOUNTER → 2021-03-18 12:50 | Outpatient (CLI) | payer OTHER, SELFPAY ==
--- NOTE | 2021-03-18 12:53 | DI.RAD.S_ITS ---
PROCEDURE: XR CHEST 2V INDICATIONS: SOB, fever TECHNIQUE: 2 views of the chest were acquired. COMPARISON: [facility], CR, XR CHEST 2V, 10/09/2020, 16:05. FINDINGS: Surgical changes and devices: None. Lungs and pleura: Lungs are clear. No pleural effusions or pneumothorax. Mediastinum: Mediastinal contours are normal. Heart size is normal. Bones and chest wall: No suspicious bony abnormalities. Soft tissues appear unremarkable. IMPRESSION: No acute cardiopulmonary process demonstrated radiographically. Dictated by: Antelmo Finney M.D. on 03/18/2021 at 13:29 Approved by: Antelmo Finney M.D. on 03/18/2021 at 13:29
== END ==
PROVIDERS: PCP Nurse Practitioner; Referring Provider Nurse Practitioner; Visit Provider Nurse Practitioner
DX: R06.02 Shortness of breath (principal); R50.9 Fever, unspecified; Z87.01 Personal history of pneumonia (recurrent)
CPT/HCPCS: 71046

== ENCOUNTER → 2021-03-19 09:41 | Outpatient (CLI) | payer OTHER, SELFPAY ==
--- NOTE | 2021-03-19 09:42 | DI.US.S_ITS ---
PROCEDURE: US ABDOMEN LIMITED INDICATIONS: FOLLOW UP LIVER LESION TECHNIQUE: Real-time focused scanning was performed of the abdomen, with image documentation. COMPARISON: [facility], US, ABDOMEN COMPLETE, 06/30/2014, 23:04. [facility], US, US ABDOMEN COMPLETE, 09/04/2020, 14:01. FINDINGS: Within the right liver, there are 2 nonshadowing hyperechoic mass is seen that each measure up to 8 mm. The liver demonstrates normal overall size and echotexture. No findings of gallstones or sludge are seen. The gallbladder wall is not thickened, measuring 3 mm or less. No specific pericholecystic fluid is seen. The sonographic Graham sign is negative. There is no biliary dilatation, the common bile duct measures 4 mm. No significant pancreatic abnormality is seen on these images. IMPRESSION: 2 8 mm liver hemangiomas can be seen, which have a benign appearance. Dictated by: Atul Song M.D. on 03/19/2021 at 9:13 Approved by: Atul Song M.D. on 03/19/2021 at 9:15
== END ==
PROVIDERS: PCP Nurse Practitioner; Referring Provider Nurse Practitioner; Visit Provider Nurse Practitioner
DX: R93.5 Abnormal findings on diagnostic imaging of other abdominal regions, including retroperitoneum (principal); D18.03 Hemangioma of intra-abdominal structures
CPT/HCPCS: 76705

== ENCOUNTER → 2021-03-29 13:40 | Outpatient (CLI) | payer OTHER, SELFPAY ==
[2021-03-29 14:10] LABS: Appearance Urine UA SL CLOUDY; Bilirubin Urine UA NEGATIVE (NEGATIVE); Color Urine UA YELLOW; Glucose Urine UA NEGATIVE (Negative); Ketones Urine UA NEGATIVE (NEGATIVE); Leukocyte Esterase Urine UA TRACE (NEGATIVE); Nitrite Urine UA POSITIVE (Negative); Occult Blood Urine UA TRACE-LYSED (Negative); Protein Urine UA NEGATIVE (Negative); Urobilinogen Urine UA 0.2 E.U./dL (0.2)
[2021-03-29 14:14] LABS: pH Urine UA 5.5 (4.5-8.0)
[2021-03-29 14:16] LABS: Bacteria Urine Many (>30); Culture Indicated Urine Specimen Cultured; RBC Urine 0-1/HPF (0-5/HPF); Squamous Epithelial Cell Urine 0-1 /HPF (0-5/HPF); WBC Urine 10-30/HPF (0-5/HPF)
== END ==
PROVIDERS: PCP Nurse Practitioner; Visit Provider Nurse Practitioner
DX: R30.0 Dysuria (principal)
CPT/HCPCS: 81001; 87077; 87086; 87186

== ENCOUNTER → 2021-04-16 10:02 | Outpatient (CLI) | payer OTHER, SELFPAY ==
--- NOTE | 2021-04-16 10:03 | DI.RAD.S_ITS ---
PROCEDURE: XR KNEE RT 3V INDICATIONS: popliteal pain, nodule, right TECHNIQUE: 3 views of the knee were acquired. COMPARISON: None. FINDINGS: Bones: No fractures or dislocations. No suspicious bony lesions. Mild osteoarthritic degenerative changes noted in the medial and patellofemoral compartments. Soft tissues: No joint effusion. No suspicious soft tissue calcifications. IMPRESSION: Mild right knee osteoarthritis. Dictated by: Dorys Maurer MD, PhD on 04/16/2021 at 15:20 Approved by: Dorys Maurer MD, PhD on 04/16/2021 at 15:20
== END ==
PROVIDERS: PCP Nurse Practitioner; Referring Provider Nurse Practitioner; Visit Provider Nurse Practitioner
DX: M17.11 Unilateral primary osteoarthritis, right knee (principal)
CPT/HCPCS: 73562

== ENCOUNTER → 2021-06-18 10:15 | Outpatient (CLI) | payer OTHER, SELFPAY ==
[2021-06-18 11:04] LABS: Hematocrit 40.4 % (36-46); Hemoglobin 13.7 g/dL (12.0-16.0); Mean Corpuscular HGB Conc 33.9 % (30-36); Mean Corpuscular Hemoglobin 30.6 PG (26-34); Mean Corpuscular Volume 90.2 fL (80-100); Platelet Count 233 X10^3/uL (150-400); Red Blood Cell Count 4.47 X10^6/uL (4.0-5.2); Red Cell Distribution Width 13.3 % (11.6-14.8); White Blood Cell Count 5.1 X10^3/uL (4.5-11.0)
[2021-06-18 11:22] LABS: Erythrocyte Sedimentation Rate 9 MM/HR (0-20)
[2021-06-18 11:52] LABS: Alanine Aminotransferase 12 IU/L (<35); Albumin 4.4 g/dL (3.5-5.0); Albumin Globulin Ratio 1.6 (1.0-2.8); Alkaline Phosphatase 84 U/L (38-126); Aspartate Aminotransferase 17 IU/L (14-36); BUN Creatinine Ratio 11.4 (6-22); Bilirubin Total 0.5 mg/dL (0.2-1.3); Blood Urea Nitrogen 12 mg/dL (7-17); C-Reactive Protein Quant 0.7 mg/dL (<1.0); Calcium 9.1 mg/dL (8.4-10.2); Carbon Dioxide 28 mmol/L (22-32); Chloride 105 mmol/L (98-107); Estimated Glomerular Filt Rate > 60 mL/min (>60); Globulin 2.8 g/dL (1.7-4.1); Glucose 102 mg/dL (70-100); HEMOLYSIS < 15 (0-50); Potassium 4.9 mmol/L (3.4-5.1); Sodium 140 mmol/L (137-145); Total Protein 7.2 g/dL (6.3-8.2)
[2021-06-18 12:00] LABS: Free T3, Triiodothyronine Free 3.99 pg/mL (2.77-5.27); Free T4, Direct Thyroxine 1.11 ng/dL (0.78-2.19)
[2021-06-18 12:02] LABS: Appearance Urine UA CLEAR; Bilirubin Urine UA NEGATIVE (NEGATIVE); Color Urine UA YELLOW; Glucose Urine UA TRACE g/dL (Negative); Ketones Urine UA TRACE (NEGATIVE); Leukocyte Esterase Urine UA TRACE (NEGATIVE); Nitrite Urine UA NEGATIVE (Negative); Occult Blood Urine UA NEGATIVE (Negative); Protein Urine UA TRACE (Negative); Urobilinogen Urine UA 0.2 E.U./dL (0.2)
[2021-06-18 12:14] LABS: Thyroid Stimulating Hormone 0.448 uIU/mL (0.47-4.68)
[2021-06-18 12:21] LABS: Ferritin 37 ng/mL (6-137)
[2021-06-18 12:36] LABS: Vitamin B12 312 pg/mL (239-931)
[2021-06-18 12:58] LABS: RBC Urine 1-5/HPF (0-5/HPF); Squamous Epithelial Cell Urine 1-5 /HPF (0-5/HPF); WBC Urine 1-5/HPF (0-5/HPF)
[2021-06-18 12:59] LABS: Bacteria Urine None Seen; Culture Indicated Urine Cult Not Indicated
== END ==
PROVIDERS: PCP Nurse Practitioner; Referring Provider Nurse Practitioner; Visit Provider Nurse Practitioner
DX: R53.83 Other fatigue (principal)
CPT/HCPCS: 36415; 80053; 81001; 82607; 82728; 84439; 84443; 84481; 85027; 85651; 86140; 86617

== ENCOUNTER → 2021-12-06 08:21 | Outpatient (CLI) | payer OTHER, SELFPAY ==
[2021-12-06 09:55] LABS: Progesterone, Total 6.75 ng/mL
[2021-12-06 10:11] LABS: Estradiol, Total 100.2 pg/mL
[2021-12-06 10:20] LABS: Cortisol AM (Before 10AM) 14.7 ug/dL (4.46-22.7)
[2021-12-16 09:10] LABS: Percent Free Testosterone 2.76 % (0.50-2.80); Testosterone Free 1.11 ng/dL (0.10-0.85); Testosterone Total 40.3 ng/dL (.)
== END ==
PROVIDERS: PCP Nurse Practitioner; Referring Provider Student in an Organized Health Care Education/Training Program; Visit Provider Student in an Organized Health Care Education/Training Program
DX: F90.9 Attention-deficit hyperactivity disorder, unspecified type (principal); F84.5 Asperger's syndrome; G47.00 Insomnia, unspecified; E28.2 Polycystic ovarian syndrome; Z87.820 Personal history of traumatic brain injury; K31.84 Gastroparesis; E27.40 Unspecified adrenocortical insufficiency; R53.83 Other fatigue
CPT/HCPCS: 36415; 82533; 82670; 83520; 84144; 84402; 84403

== ENCOUNTER → 2021-12-07 10:09 | Outpatient (CLI) | payer OTHER, SELFPAY ==
[2021-12-12 06:17] LABS: Cortisol Fr ug/24hr urine 13 ug/24 hr (6-42); Cortisol, Free, Urine 17 ug/L (Undefined)
== END ==
PROVIDERS: PCP Nurse Practitioner; Referring Provider Nurse Practitioner; Visit Provider Nurse Practitioner
DX: E27.40 Unspecified adrenocortical insufficiency (principal); R53.83 Other fatigue
CPT/HCPCS: 82530

== ENCOUNTER 2022-03-13 21:41 | Emergency (ER) | payer OTHER, SELFPAY ==
[2022-03-13 21:58] VITALS: BP 133/84; PULSE 80; RESP 12; TEMP 36.6; O2SAT 98; BMI 32.6
--- NOTE | 2022-03-13 22:50 | ED.GENADULT ---
HPI - General Adult General Chief complaint: Eye Problems Stated complaint: RT EYE PAIN Time Seen by Provider: 03/13/22 22:24 Source: patient Mode of arrival: Ambulatory Limitations: no limitations History of Present Illness HPI narrative: Patient is a 41-year-old female who is here for evaluation of right eye pain. She noticed this afternoon that her eyes seem to be getting very dry. She tried to use some lubricating drops. She said that she did have an increase in pain and then redness and some drainage for MRI. She does not wear contacts or other corrective lenses. No prior surgeries. She has had 2 prior subconjunctival hemorrhages in the past. She reports no trauma to her eye. Some irritation but no foreign body sensation. Related Data Previous Rx's Medication Instructions Recorded ibuprofen 600 mg tablet 600 mg PO Q6HP PRN #20 tabs 04/13/16 nebulizer that is covered by ins #1 ea 11/08/19 clobetasol 0.05 % topical ointment 1 applic topical BID 2 weeks #30 06/13/20 grams montelukast 10 mg tablet 10 mg PO BEDTIME #90 tabs 07/30/20 fluticasone propionate 44 1 inh inhalation BID #10.6 grams 10/10/20 mcg/actuation HFA aerosol inhaler omeprazole 40 mg capsule,delayed 40 mg PO BID #180 caps 10/10/20 release amitriptyline 50 mg tablet 75 mg PO BEDTIME #135 tabs 02/18/21 ciprofloxacin HCl 500 mg tablet 500 mg PO Q12H #14 tabs 03/29/21 (Cipro) atomoxetine 40 mg capsule 40 mg PO DAILY #90 caps 04/18/21 (Strattera) metformin 500 mg tablet 500 mg PO DAILY #90 tabs 06/19/21 ciprofloxacin HCl 500 mg tablet 500 mg PO BID #14 tabs 07/02/21 (Cipro) fluconazole 150 mg tablet 150 mg PO Q3D 2 doses #2 tabs 07/02/21 (Diflucan) phenazopyridine 100 mg tablet 100 mg PO TID PRN pain 6 doses #6 07/02/21 (Pyridium) tabs nebulizer accessories #1 ea 08/27/21 nebulizers #1 ea 08/27/21 albuterol sulfate 2.5 mg/3 mL 2.5 mg (3 mL) inhalation Q4-6H PRN 11/26/21 (0.083 %) solution for nebulization shortness of breath or wheezing #180 mL cyclobenzaprine 5 mg tablet 5 mg PO TID PRN muscle spasm #60 11/26/21 tabs Allergies Allergy/AdvReac Type Severity Reaction Status Date / Time guanfacine AdvReac Intermediate symptomatic Verified 03/13/22 22:01 hypotension Review of Systems Constitutional Constitutional: Reports system reviewed and no additional complaints, except as documented Eyes Eyes: Reports system reviewed and no additional complaints, except as documented ENT Ears, Nose, Mouth, and Throat: Reports system reviewed and no additional complaints, except as documented Integumentary/Breasts Skin/Breast: Reports system reviewed and no additional complaints, except as documented Neurologic Neurologic: Reports system reviewed and no additional complaints, except as documented Hematologic/Lymphatic On Anticoagulants: No Patient History Medical History ADHD Cervical somatic dysfunction Chronic low back pain without sciatica Chronic neck pain Chronic thoracic back pain Cranial somatic dysfunction Depression with anxiety Elevated fasting glucose Elevated serum creatinine GERD (gastroesophageal reflux disease) Lumbar region somatic dysfunction 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 Obesity, Class I, BMI 30-34.9 PCOS (polycystic ovarian syndrome) Pelvic somatic dysfunction Sacral region somatic dysfunction Sacroiliac joint stiffness Segmental and somatic dysfunction of abdomen and other regions Segmental and somatic dysfunction of rib cage Temporomandibular joint disorder (TMJ) Tension type headache Thoracic region somatic dysfunction TMJ disorder involving articular disc abnormality UTI (urinary tract infection) Weight gain Wellness examination Surgical History History of partial hysterectomy History of third molar tooth extraction Status post delivery (10/15/13) Status post delivery (04/10/16) Social History household members: spouse and children Smoking Status: Never smoker alcohol intake: current Smoking Status: Never smoker alcohol intake frequency: holidays/special occasions only Substance Use Type: does not use Exam Initial Vital Signs Initial Vital Signs: Vital Signs Temperature 98 F 03/13/22 21:58 Pulse Rate 80 03/13/22 21:58 Respiratory Rate 12 03/13/22 21:58 Blood Pressure 133/84 01/26/23 21:58 Pulse Oximetry 98 03/13/22 21:58 Oxygen Delivery Method 03/13/22 21:58 [facility] Head: normal to inspection and normocephalic Eyes Pupils: PERRL EOM: EOM intact bilaterally Other: Patient does have a subconjunctival hemorrhage of the right eye temporal aspect. There is also some chemosis of the area. No foreign body noted. No uptake with fluorescein staining. Skin General: no rashes or lesions noted Course Orders Ordered: ED Orders 03/13/22 22:55 Complete Blood Count AUTO DIFF Stat Discontinued Medications Fluorescein Sodium (Fluorescein 1 Mg Strip) 1 mg EYE-BOTH NOW ONE Stop: 03/13/22 22:26 Last Admin: 03/13/22 23:21 Dose: 1 mg Documented By: SAM Proparacaine HCl (Proparacaine 0.5% Ophth Lyn) 1 drops EYE-RIGHT NOW ONE Stop: 03/13/22 22:26 Last Admin: 03/13/22 23:20 Dose: 1 drop Documented By: SAM Vital Signs Vital signs: Vital Signs - 8 hr 03/13/22 21:58 Temperature 98 F Pulse Rate 80 Respiratory Rate 12 Blood Pressure 133/84 Pulse Oximetry 98 Oxygen Delivery Method Room Air Medical Decision Making Differential Diagnosis Differential Diagnosis: Foreign body, ulceration, hemorrhage, glaucoma, conjunctivitis and others Condition is:: Well Controlled Lab Data Lab results reviewed: Yes I reviewed the patient's lab results. 03/13/22 22:55 Labs: Lab Results 03/13/22 Range/Units 22:55 WBC 8.0 (4.5-11.0) X10^3/uL RBC 4.16 (4.0-5.2) X10^6/uL Hgb 12.7 (12.0-16.0) g/dL Hct 37.7 (36-46) % MCV 90.7 (80-100) fL MCH 30.5 (26-34) PG MCHC 33.6 (30-36) % RDW 13.1 (11.6-14.8) % Plt Count 227 (150-400) X10^3/uL Neut % (Auto) 63.2 (50-75) % Lymph % (Auto) 25.8 (25-40) % [place] % (Auto) 7.6 (3-14) % Eos % (Auto) 1.9 L (2-4) % Baso % (Auto) 1.5 (0-2) % Neut # (Auto) 5100 (1309-2441) /uL Lymph # (Auto) 2100 (5192-4603) /uL [place] # (Auto) 600 (0-900) /uL Eos # (Auto) 200 (0-450) /uL Baso # (Auto) 100 (0-100) /uL MDM Narrative Medical decision making narrative: Patient does have a subconjunctival hemorrhage with some chemosis to the temporal aspect of her right eye. She is had 2 prior spontaneous subconjunctival hemorrhages in her lifetime. She has been seen by Hematology because of this. No specific diagnosis given. Her blood counts here in the ER unremarkable. No ulceration or foreign body noted. Will do conservative measures for now. She was given return precautions and follow-up instructions. She expressed understanding and agreement. Discharge Plan Departure Patient Disposition: Home Clinical Impression: Subconjunctival hemorrhage of right eye Instructions: DI for Subconjunctival Hemorrhage Activity Restrictions/Additional Instructions: You can use cool compresses and ibuprofen. Contact your primary doctor for a follow-up. Return to the emergency department for any new or worsening symptoms. Prescriptions: No Action ibuprofen 600 MG tablet 600 mg PO Q6HP PRNQty: 20 0RF (DME) nebulizer that is covered by ins Qty: 1 0RF Rx Instructions: As directed montelukast 10 mg tablet 10 mg PO BEDTIME Qty: 90 3RF Rx Instructions: Take 1 tab each afternoon/evening for asthma like symptoms fluticasone propionate 44 mcg/actuation HFA aerosol inhaler 1 inh INHALATION BID Qty: 10.6 0RF omeprazole 40 mg capsule,delayed release(DR/EC) 40 mg PO BID Qty: 180 3RF amitriptyline 50 mg tablet 75 mg PO BEDTIME Qty: 135 3RF Rx Instructions: Take 1.5 tab by mouth at bedtime for depresion/anxiety ciprofloxacin HCl [Cipro] 500 mg tablet 500 mg PO Q12H Qty: 14 0RF Rx Instructions: Take 1 tab every 12 hours for 7 days atomoxetine [Strattera] 40 mg capsule 40 mg PO DAILY Qty: 90 3RF Rx Instructions: Take 1 tab daily for ADHD symptoms metformin 500 mg tablet 500 mg PO DAILY Qty: 90 3RF Rx Instructions: Take 1 tab at dinnertime daily ciprofloxacin HCl [Cipro] 500 mg tablet 500 mg PO BID Qty: 14 0RF fluconazole [Diflucan] 150 mg tablet 150 mg PO Q3D Qty: 2 1RF phenazopyridine [Pyridium] 100 mg tablet 100 mg PO TID PRN (Reason: pain) Qty: 6 2RF (DME) nebulizers Misc See Rx Instructions .Route Qty: 1 0RF Rx Instructions: Use as directed Q4-6 hours, Dispense neb covered by insurance plan with mask and tubing (DME) nebulizer accessories Misc See Rx Instructions .Route Qty: 1 0RF Rx Instructions: As directed, mask, tubing and assessory kit cyclobenzaprine 5 mg tablet 5 mg PO TID PRN (Reason: muscle spasm) Qty: 60 1RF Rx Instructions: d/c metaxalone albuterol sulfate 2.5 mg /3 mL (0.083 %) solution for nebulization 2.5 mg inhalation Q4-6H PRN (Reason: shortness of breath or wheezing) Qty: 180 3RF clobetasol 0.05 % ointment 1 applic topical BID 14 Days Qty: 30 2RF Rx Instructions: Apply to affected area twice daily a needed Referrals: Lucero Fortune ARNP [Primary Care Provider] - Stand Alone Forms: Patient Portal/API
[2022-03-13 23:10] LABS: Add Manual Diff / Slide Review NO; Basophils Absolute Auto 100 /uL (0-100); Basophils Percent Auto 1.5 % (0-2); Eosinophils Absolute Auto 200 /uL (0-450); Eosinophils Percent Auto 1.9 % (2-4); Hematocrit 37.7 % (36-46); Hemoglobin 12.7 g/dL (12.0-16.0); Lymphocytes Absolute Auto 2100 /uL (1100-4500); Lymphocytes Percent Auto 25.8 % (25-40); Mean Corpuscular HGB Conc 33.6 % (30-36); Mean Corpuscular Hemoglobin 30.5 PG (26-34); Mean Corpuscular Volume 90.7 fL (80-100); Monocytes Absolute Auto 600 /uL (0-900); Monocytes Percent Auto 7.6 % (3-14); Neutrophils Absolute Auto 5100 /uL (1500-7000); Neutrophils Percent Auto 63.2 % (50-75); Platelet Count 227 X10^3/uL (150-400); Red Blood Cell Count 4.16 X10^6/uL (4.0-5.2); Red Cell Distribution Width 13.1 % (11.6-14.8)
[2022-03-13] MEDS: PROPARACAINE 0.5% OPHTH SOL 1 DROPS EYE-RIGHT (23:20)
[2022-03-13] MEDS: FLUORESCEIN 1 MG STRIP EYE-BOTH (23:21)
== END 2022-03-13 23:24 | disposition home or self-care (01) ==
PROVIDERS: Emergency Provider Emergency Medicine; Family Provider Nurse Practitioner; PCP Nurse Practitioner
DX: H11.31 Conjunctival hemorrhage, right eye (principal)
CPT/HCPCS: 36415; 85025; 99283

== ENCOUNTER → 2022-04-18 15:12 | Outpatient (CLI) | payer OTHER, SELFPAY ==
--- NOTE | 2022-04-18 15:13 | DI.MG.S_ITS ---
BILATERAL DIGITAL SCREENING MAMMOGRAM 3D/2D WITH CAD: 04/18/2022 CLINICAL: Routine screening. Family history of breast cancer. Comparison is made to exam dated: 12/27/2020 mammogram - [facility]. Both breasts are almost entirely fatty (category a/<25% glandular tissue). Current study was also evaluated with a Computer Aided Detection (CAD) system. No significant masses, calcifications, or other findings are seen in either breast. There has been no significant interval change. IMPRESSION: NEGATIVE There is no mammographic evidence of malignancy. A 1 year screening mammogram is recommended. Based on the Tyrer Cuzick model (a risk assessment model) the patient's lifetime risk is 4.8% and her 10 year risk is 0.6%. According to the ACR, ACS, and NCCN guidelines, an annual breast MRI exam along with mammogram is recommended if the patient's lifetime risk is 20% or greater. This exam was interpreted at Station ID: [id number]. NOTE: For mammograms, a report in lay terms will be sent to the patient. Approximately 15% of breast malignancies will not be visualized mammographically. In the management of a palpable breast mass, a negative mammogram must not discourage biopsy of a clinically suspicious lesion. Electronically Signed By: Km bravo/leonie:04/21/2022 07:34:16 letter sent: Normal Exam ACR BI-RADS Category 1: Negative [id number]
== END ==
PROVIDERS: Family Provider Nurse Practitioner; PCP Nurse Practitioner; Referring Provider Nurse Practitioner; Visit Provider Nurse Practitioner
DX: Z12.31 Encounter for screening mammogram for malignant neoplasm of breast (principal); Z80.3 Family history of malignant neoplasm of breast
CPT/HCPCS: 77063; 77067

== ENCOUNTER 2022-05-05 10:30 | Outpatient (RCR) | payer OTHER, SELFPAY ==
--- NOTE | 2022-02-04 16:20 | PT.OIE ---
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 Obesity, Class I, BMI 30-34.9 PCOS (polycystic ovarian syndrome) Pelvic somatic dysfunction Sacral region somatic dysfunction Sacroiliac joint stiffness Segmental and somatic dysfunction of abdomen and other regions Segmental and somatic dysfunction of rib cage Temporomandibular joint disorder (TMJ) Tension type headache Thoracic region somatic dysfunction TMJ disorder involving articular disc abnormality UTI (urinary tract infection) Weight gain Wellness examination Past Surgical History (Last Reviewed 12/13/20 @ 11:11 by KVNG Cooper) History of partial hysterectomy History of third molar tooth extraction Status post delivery (10/15/13) Status post delivery (04/10/16) Visit Care Team Role Provider Type KVNG Cooper Family Provider Advanced Swine Nutritionist Primary Care Provider Specialty: Family Practice Address: [address] [place] [address], [id number] Email: [email or web address] Hooker Attending Provider Non-Staff Referring Provider Specialty: Nursing [address]: [address] [place], [place] [address]nisha Oliveira [address], [address] Email: Physical Therapy Initial Evaluation PT-OP-A Visit Information Start: 01/24/22 18:11 Freq: Status: Active Protocol: Document 02/04/22 11:19 LRN (Rec: 02/04/22 12:45 LRN [id number]) Out-Patient Physical Therapy Visit Information Visit Information Visit Type Initial Evaluation Visit Start Time 11:19 Visit Stop Time 12:18 Total Visit Minutes 59 Visit Number 1 Evaluation Information Evaluation Date 02/04/22 Precautions Precautions Pt reported: Rectocele repair 10/2021, previous PF surgery 2 yrs ago for hyste, endo removal cystocele repair with mesh placed, & rectocele repair. Ehler Danlos Syndrome, R ankle ORIF, R knee meiscus repair, one vaginal with 3rd degree tearing and 2 C-sections. PT-OP-B Current Condition Start: 01/24/22 18:11 Freq: Status: Active Protocol: Document 02/04/22 11:19 LRN (Rec: 02/04/22 12:45 LRN [id number]) Current Condition History of Current Condition Onset Date Oct 2021 Current Complaints Rehab following 2nd rectocele repair surgery 10/2021 History of Current Condition Pt reports with 2nd rectocele repair things have changed in vagina like landscape has changed. She is having same kind of tightness the same as previously. Feels tightness causing her PF pain. she has relaxed some since surgery now that she has had intercourse again. Pt has used a suppository of ms relaxor and pain medication issued to her. She can still feel tightness . 2 yrs ago vagina felt different and now she is slight different, a little more tight. Posterior side feels like muscle is tight. Doing all core ex's and hip stretches and using therawand sometimes. Been busy lately so has not used the therawand as much as she has in the past . Use of therawand has been helpful. Prior Treatments and Tests Pt reports PF surgery Oct 2021 was a second rectocele repair to fix rectocele of vaginal wall (tightened up wall). At same time pt reports have had closing of hole in vagina that a mesh from a previous cystocele repair had poked a hole through. Thinks the mesh was trimmed and the area was patched. 2 yrs ago a PF reconstruction of hyste, endo removal, cystocele repair with bladder mesh placed, and rectocele repair. 2 PT rehab programs here at before the surgeries (PF PT before and after PF sugery 2 yrs ago) - [facility]. First repair was of cystocele and rectocyele, in 2019. Developmental History Developmental History Since healing she has been able to have BM easier than before without having to manually empty. Pt understands she must be more cautious to not get constipated. Constipation coincides with menstrual cycle . Treatment Goals Patient/Caregiver Goals Pt goal is to make sure she doesn't have a problem with the cut into vagina and she wants rehab due to rectocele repair. Personal Factors Other Personal Factors That May Effect Chronic and back pain. [facility]/Recovery danlos syndrome. Autism, R ankle orif, R knee meniscus. 6 G, 3 P, first was vaginal delivery 3rd degree tear with episotomy (8 5, 9 5, 8 13). PT-OP-C Subjective Start: 01/24/22 18:11 Freq: Status: Active Protocol: Document 02/04/22 11:19 LRN (Rec: 02/04/22 12:45 LRN [id number]) OP-PT Subjective Patient Comments Patient Comments Thinks her PF R vaginal pain now is directly associated to her surgery. Patient Questionnaires Pelvic Pain and Urgency/Frequency Patient Symptom Scale Pelvic Pain Score 7 OP-PT Pain Assessment Pain Assessment Grid Paper Pain Assessment Grid Completed Yes Location Low back sacral region Pain Location Details LB sacral level Intensity 3 Scale Used Numeric (0 - 10) Upper thoracic Pain Location Details Upper thoracic Intensity 2 Scale Used Numeric (0 - 10) PT-OP-I Pelvic Floor Start: 01/24/22 18:11 Freq: Status: Active Protocol: Document 02/04/22 11:19 LRN (Rec: 02/04/22 15:10 LRN [id number]) Pelvic Floor Assessment Urine Pelvic Floor Surgery Yes Other Urinary Symptoms NO LEAKAGE Bowel Bowel Surgery Yes Bowel Symptoms Constipation Other Bowel Symptoms Slow transit time Pelvic Clock Pelvic Clock 12-3 Tightness Pelvic Clock 3-6 Tightness Pelvic Clock 6-9 Tenderness Perineal Descent Resting Absent Bearing Absent Contraction Ability Voluntary Contraction Moderate Voluntary Relaxation Moderate Manual Muscle Testing Left 3 Manual Muscle Testing Right 2 Manual Muscle Testing Anterior 3 Manual Muscle Testing Posterior 3 PT-OP-J Posture/Palpation/Skin Start: 01/24/22 18:11 Freq: Status: Active Protocol: Document 02/04/22 11:19 LRN (Rec: 02/04/22 12:45 LRN [id number]) Posture Evaluation Position Standing Head/C-Spine Posture Forward Head T-Spine Posture Flattened L-Spine Posture Increased Lordosis Shoulder Posture (R) Rounded,(R) Forward,(L) Elevated Scapula Posture (L) Elevated Knee Posture (L) Genu Valgus,(R) Genu Valgus Foot Arch (L) No Arch,(R) No Arch Comments Posture Comments Knees beyond ankle joint. R SIJ problem, painful side. Palpation Assessment Location Sacrum Palpation Location Sacral sulcus, HANNAH Palpation Details Sacrum is in R rot. Decreased mobility of inferior glide L side Abdomen Palpation Location Abdominal DR Palpation Details 1 below Umbilicus is 2 finger widths 2 below Umbilicus is 2 finger widths 3 below Umbilicus is very shallow L hip Palpation Location L Greater Trochanter Palpation Findings Tenderness PT-OP-K Range of Motion Start: 01/24/22 18:11 Freq: Status: Active Protocol: Document 02/04/22 11:19 LRN (Rec: 02/04/22 12:45 LRN [id number]) Lumbar Spine Range of Motion Lumbar Spine Active Degrees Testing Position Standing Flexion 125 Extension 30 Rotation Left 50 Rotation Right 45 Lateral Flexion Left 20 Lateral Flexion Right 15 Comments Trunk Flexion is 125 deg?s with 80 deg?s hip flexion, Trunk extension is 30 deg?s with 10 deg?s hip extension. Hip Goniometric Range of Motion Hip Right Passive Testing Position Supine Internal Rotation 20 External Rotation 70 Left Passive Testing Position Supine Internal Rotation 35 External Rotation 60 PT-OP-M Strength Start: 01/24/22 18:11 Freq: Status: Active Protocol: Document 02/04/22 11:19 LRN (Rec: 02/04/22 12:45 LRN [id number]) Trunk Strength Trunk Manual Muscle Testing Core Stabilization Good stab except with rotation Hip Strength Hip Manual Muscle Testing Right Flexion (L2) 5 Normal Extension (S1) 5 Normal Abduction 5 Normal Adduction 5 Normal External Rotation 5 Normal Internal Rotation 5 Normal Left Flexion (L2) 5 Normal Extension (S1) 5 Normal Abduction 3 Fair Adduction 3 Fair External Rotation 3+ Fair+ Internal Rotation 5 Normal PT-OP-Q Treatments Start: 01/24/22 18:11 Freq: Status: Active Protocol: Document 02/04/22 11:19 LRN (Rec: 02/04/22 12:45 LRN [id number]) Self-Care/Home Management Treatment Education Other Education Discussed results of evaluation, goals, and plan of care (POC). Pt agreeable to goals and POC. Activities Self-Care/Home Management Activities Briefly reviewed proper log roll transfer technique for pt to use with transfers. PT-OP-T Assessment and Plan Start: 01/24/22 18:11 Freq: Status: Active Protocol: Document 02/04/22 11:19 LRN (Rec: 02/04/22 12:45 LRN [id number]) Physical Therapy Assessment Rehab Potential Rehabilitation Potential Good Evaluation Complexity Number of Personal Factors/Comorbidities 1-2 Number of Body Systems Impaired 4 or More Clinical Presentation at Evaluation Evolving Impairments Impairments Pain,Posture,ROM,Soft Tissue Mobility,Strength,Transfers Goals Four Impairment Sacrum in R rotation Mcc Goal (LTG) Normalize sacral positioning to improve core/pelvic stability. LTG Duration 04/04/22 Three Impairment Decreased hip rotational mobility and L greater trochanter pain w/palpation Impairment Hip ER: 60 left, 70 right. Hip IR: 35 left, 20 right. Pain L hip greater trochanter on palpation. Short Term Goal (STG) Pt educated in rotational hip and lateral mobility home ex's . STG Duration 03/07/22 Job Captain Goal (LTG) Improve hip mobility to improve symmetry of motion and eliminate L hip pain. LTG Duration 04/04/22 Two Impairment PF Pain on R side with PF contraction Short Term Goal (STG) R PF pain minimal with palpation. STG Duration 03/07/22 Job Captain Goal (LTG) Pt will have the intercourse without pelvic floor pain. LTG Duration 04/04/22 One Impairment Lacks appropriate self care HEP to address s/p surgical condition. Impairment Pt sometimes uses her dilator to stretch her PF. Pt is unsure what to stretch and how much to stretch. Short Term Goal (STG) Pt will be educated in proper posture and body mechanics for ADLs. STG Duration 03/07/22 Mcc Goal (LTG) Pt will be independent and consistent with an HEP for PF & hip stretches, and core/ pelvic stabilization. LTG Duration 05/02/22 Assessment Summary Assessment Pt presents with soft tissue dysfunction of her R PF with tightness and pain primarily at Pelvic Clock 6-9. 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 She has been treated for this and is working on improving her bowel function. She shows decreased hip mobility, decreased L hip strength, sacral R rotation and decreased core stability with DR present in the lower abdominal region. She will benefit from skilled physical therapy for education in abdominal pressure management, bowel managment review, transfer training, posture training, core stabilization once her sacral region is balanced and for ex's to improve and equalize her hip mobility. Physical Therapy Plan Frequency and Duration Frequency of Treatment 1x/Week Plan of Care Start Date 12/20/22 Plan of Care End Date 05/02/22 Therapeutic Interventions Therapeutic Interventions Home Exercise Program,Joint Mobilizations,Manual Therapy, Neuromuscular Re-education, Patient/Caregiver Education, Self-Care/Home Management,Soft Tissue Mobilization, Therapeutic Activities, Therapeutic Exercises Modalities Ultrasound Next Visit Focus/Plan Next Note Type Treatment Note Next Visit Plan CAUTION: Anterior PF Mesh in place. Assess PF-current bowels, PF endurance and Quick flicks, PSLR. Assess pt ability to place rib cage over hips. Manual PF gentle stretch to 6- 9 O'Clock and Superfical PF ms and OI. STM L IT Band, US to L greater trochanter Self care for: Hip stretches ( rotation (ER L, IR R)). Breathing training to minimize core pressure, f/b transfer training w/breathwork & TA. Core TA strengthening for lower region to minimize DR. Strengthening: L hip AB, AD, ER. Manual for Sacral balancing. BM management education.
--- NOTE | 2022-02-04 16:21 | PT.OPPOC ---
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 Wilkes [address] [place] [address], [id number] Email: Plan Of Care PT-OP-T Assessment and Plan Start: 01/24/22 18:11 Freq: Status: Active Protocol: Document 02/04/22 11:19 LRN (Rec: 02/04/22 12:45 LRN [id number]) Physical Therapy Assessment Rehab Potential Rehabilitation Potential Good Evaluation Complexity Number of Personal Factors/Comorbidities 1-2 Number of Body Systems Impaired 4 or More Clinical Presentation at Evaluation Evolving Impairments Impairments Pain,Posture,ROM,Soft Tissue Mobility,Strength,Transfers Goals Four Impairment Sacrum in R rotation Senior Care Goal (LTG) Normalize sacral positioning to improve core/pelvic stability. LTG Duration 04/04/22 Three Impairment Decreased hip rotational mobility and L greater trochanter pain w/palpation Impairment Hip ER: 60 left, 70 right. Hip IR: 35 left, 20 right. Pain L hip greater trochanter on palpation. Short Term Goal (STG) Pt educated in rotational hip and lateral mobility home ex's . STG Duration 03/07/22 Checking Department Supervisor Goal (LTG) Improve hip mobility to improve symmetry of motion and eliminate L hip pain. LTG Duration 04/04/22 Two Impairment PF Pain on R side with PF contraction Short Term Goal (STG) R PF pain minimal with palpation. STG Duration 03/07/22 Checking Department Supervisor Goal (LTG) Pt will have the intercourse without pelvic floor pain. LTG Duration 04/04/22 One Impairment Lacks appropriate self care HEP to address s/p surgical condition. Impairment Pt sometimes uses her dilator to stretch her PF. Pt is unsure what to stretch and how much to stretch. Short Term Goal (STG) Pt will be educated in proper posture and body mechanics for ADLs. STG Duration 03/07/22 Senior Care Goal (LTG) Pt will be independent and consistent with an HEP for PF & hip stretches, and core/ pelvic stabilization. LTG Duration 05/02/22 Assessment Summary Assessment Pt presents with soft tissue dysfunction of her R PF with tightness and pain primarily at Pelvic Clock 6-9. 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 She has been treated for this and is working on improving her bowel function. She shows decreased hip mobility, decreased L hip strength, sacral R rotation and decreased core stability with DR present in the lower abdominal region. She will benefit from skilled physical therapy for education in abdominal pressure management, bowel managment review, transfer training, posture training, core stabilization once her sacral region is balanced and for ex's to improve and equalize her hip mobility. Physical Therapy Plan Frequency and Duration Frequency of Treatment 1x/Week Plan of Care Start Date 02/04/22 Plan of Care End Date 05/02/22 Therapeutic Interventions Therapeutic Interventions Home Exercise Program,Joint Mobilizations,Manual Therapy, Neuromuscular Re-education, Patient/Caregiver Education, Self-Care/Home Management,Soft Tissue Mobilization, Therapeutic Activities, Therapeutic Exercises Modalities Ultrasound Next Visit Focus/Plan Next Note Type Treatment Note Next Visit Plan CAUTION: Anterior PF Mesh in place. Assess PF-current bowels, PF endurance and Quick flicks, PSLR. Assess pt ability to place rib cage over hips. Manual PF gentle stretch to 6- 9 O'Clock and Superfical PF ms and OI. STM L IT Band, US to L greater trochanter Self care for: Hip stretches ( rotation (ER L, IR R)). Breathing training to minimize core pressure, f/b transfer training w/breathwork & TA. Core TA strengthening for lower region to minimize DR. Strengthening: L hip AB, AD, ER. Manual for Sacral balancing. BM management education. Plan of Care Dates Plan of Care Start Date 02/04/22 Plan of Care End Date 05/02/22 Electronically Signed by: Judy Price, PT 02/04/22 [id number] If you are in agreement with this Plan of Care, please return a signed and dated copy. I have reviewed this Plan of Care and certify that the skilled therapy services above are required to meet the patient?s needs. Physician Signature Date Printed Name and Credentials Clinical Instructor Signature Printed Name and Credentials
--- NOTE | 2022-02-21 16:54 | PT.OTN ---
Current Diagnoses Slow transit constipation (02/21/22) Pain in left hip (02/21/22) Muscle weakness (generalized) (02/21/22) Abnormal posture (02/21/22) Other symptoms and signs involving the musculoskeletal system (02/21/22) Physical Therapy Treatment Note PT-OP-A Visit Information Start: 01/24/22 18:11 Freq: Status: Active Protocol: Document 02/21/22 15:26 LRN (Rec: 02/21/22 16:54 LRN [id number]) Out-Patient Physical Therapy Visit Information Visit Information Visit Type Treatment Note Visit Start Time 15:26 Visit Stop Time 15:59 Total Visit Minutes 33 Visit Number 2 Evaluation Information Evaluation Date 02/04/22 Precautions Precautions Pt reported: Rectocele repair 10/2021, previous PF surgery 2 yrs ago for hyste, endo removal cystocele repair with mesh placed, & rectocele repair. Ehler Danlos Syndrome, R ankle ORIF, R knee meiscus repair, one vaginal with 3rd degree tearing and 2 C-sections. PT-OP-B Current Condition Start: 01/24/22 18:11 Freq: Status: Active Protocol: Document 02/04/22 11:19 LRN (Rec: 02/04/22 12:45 LRN [id number]) Current Condition History of Current Condition Onset Date Oct 2021 Current Complaints Rehab following 2nd rectocele repair surgery 10/2021 History of Current Condition Pt reports with 2nd rectocele repair things have changed in vagina like landscape has changed. She is having same kind of tightness the same as previously. Feels tightness causing her PF pain. she has relaxed some since surgery now that she has had intercourse again. Pt has used a suppository of ms relaxor and pain medication issued to her. She can still feel tightness . 2 yrs ago vagina felt different and now she is slight different, a little more tight. Posterior side feels like muscle is tight. Doing all core ex's and hip stretches and using therawand sometimes. Been busy lately so has not used the therawand as much as she has in the past . Use of therawand has been helpful. Prior Treatments and Tests Pt reports PF surgery Oct 2021 was a second rectocele repair to fix rectocele of vaginal wall (tightened up wall). At same time pt reports have had closing of hole in vagina that a mesh from a previous cystocele repair had poked a hole through. Thinks the mesh was trimmed and the area was patched. 2 yrs ago a PF reconstruction of hyste, endo removal, cystocele repair with bladder mesh placed, and rectocele repair. 2 PT rehab programs here at before the surgeries (PF PT before and after PF sugery 2 yrs ago) - [facility]. First repair was of cystocele and rectocyele, in 2019. Developmental History Developmental History Since healing she has been able to have BM easier than before without having to manually empty. Pt understands she must be more cautious to not get constipated. Constipation coincides with menstrual cycle . Treatment Goals Patient/Caregiver Goals Pt goal is to make sure she doesn't have a problem with the cut into vagina and she wants rehab due to rectocele repair. Personal Factors Other Personal Factors That May Effect Chronic and back pain. [facility]/Recovery danlos syndrome. Autism, R ankle orif, R knee meniscus. 6 G, 3 P, first was vaginal delivery 3rd degree tear with episotomy (8 5, 9 5, 8 13). PT-OP-C Subjective Start: 01/24/22 18:11 Freq: Status: Active Protocol: Document 02/21/22 15:26 LRN (Rec: 02/21/22 16:54 LRN [id number]) OP-PT Subjective Patient Comments Patient Reported Progress Same PT-OP-I Pelvic Floor Start: 01/24/22 18:11 Freq: Status: Active Protocol: Document 02/21/22 15:26 LRN (Rec: 02/21/22 16:54 LRN [id number]) Pelvic Floor Assessment Pelvic Clock Pelvic Clock 12-3 Tightness Pelvic Clock 3-6 Tightness Pelvic Clock Other Tight on L side. Inter-Rectal Assessment Strength is generally 3/5, except Left side is 1-2/5 and 0/5 posteriorly. Endurance: Decrease strength after 3 secs. No drawing in was felt. PT-OP-J Posture/Palpation/Skin Start: 01/24/22 18:11 Freq: Status: Active Protocol: Document 02/04/22 11:19 LRN (Rec: 02/04/22 12:45 LRN [id number]) Posture Evaluation Position Standing Head/C-Spine Posture Forward Head T-Spine Posture Flattened L-Spine Posture Increased Lordosis Shoulder Posture (R) Rounded,(R) Forward,(L) Elevated Scapula Posture (L) Elevated Knee Posture (L) Genu Valgus,(R) Genu Valgus Foot Arch (L) No Arch,(R) No Arch Comments Posture Comments Knees beyond ankle joint. R SIJ problem, painful side. Palpation Assessment Location Sacrum Palpation Location Sacral sulcus, HANNAH Palpation Details Sacrum is in R rot. Decreased mobility of inferior glide L side Abdomen Palpation Location Abdominal DR Palpation Details 1 below Umbilicus is 2 finger widths 2 below Umbilicus is 2 finger widths 3 below Umbilicus is very shallow L hip Palpation Location L Greater Trochanter Palpation Findings Tenderness PT-OP-K Range of Motion Start: 01/24/22 18:11 Freq: Status: Active Protocol: Document 02/04/22 11:19 LRN (Rec: 02/04/22 12:45 LRN [id number]) Lumbar Spine Range of Motion Lumbar Spine Active Degrees Testing Position Standing Flexion 125 Extension 30 Rotation Left 50 Rotation Right 45 Lateral Flexion Left 20 Lateral Flexion Right 15 Comments Trunk Flexion is 125 deg?s with 80 deg?s hip flexion, Trunk extension is 30 deg?s with 10 deg?s hip extension. Hip Goniometric Range of Motion Hip Right Passive Testing Position Supine Internal Rotation 20 External Rotation 70 Left Passive Testing Position Supine Internal Rotation 35 External Rotation 60 PT-OP-M Strength Start: 01/24/22 18:11 Freq: Status: Active Protocol: Document 02/04/22 11:19 LRN (Rec: 02/04/22 12:45 LRN [id number]) Trunk Strength Trunk Manual Muscle Testing Core Stabilization Good stab except with rotation Hip Strength Hip Manual Muscle Testing Right Flexion (L2) 5 Normal Extension (S1) 5 Normal Abduction 5 Normal Adduction 5 Normal External Rotation 5 Normal Internal Rotation 5 Normal Left Flexion (L2) 5 Normal Extension (S1) 5 Normal Abduction 3 Fair Adduction 3 Fair External Rotation 3+ Fair+ Internal Rotation 5 Normal PT-OP-Q Treatments Start: 01/24/22 18:11 Freq: Status: Active Protocol: Document 02/21/22 15:26 LRN (Rec: 02/21/22 16:54 LRN [id number]) Therapeutic Exercises Supine Exercises Bridge/PF Supine Exercise Name Bridge w/PF contraction/Hips on Pillow Equipment Used Pillow, bolster under lower legs for slight knee flex Reps/Minutes 10' Sidelying Exercises PF contraction Sidelying Exercise Name Environmental Protection Officer PF contraction (anus) Side bilateral Reps/Minutes 20' PT-OP-T Assessment and Plan Start: 01/24/22 18:11 Freq: Status: Active Protocol: Document 02/21/22 15:26 LRN (Rec: 02/21/22 16:54 LRN [id number]) Physical Therapy Assessment Goals Four Impairment Sacrum in R rotation Camera Operator Goal (LTG) Normalize sacral positioning to improve core/pelvic stability. LTG Duration 04/04/22 Three Impairment Decreased hip rotational mobility and L greater trochanter pain w/palpation Impairment Hip ER: 60 left, 70 right. Hip IR: 35 left, 20 right. Pain L hip greater trochanter on palpation. Short Term Goal (STG) Pt educated in rotational hip and lateral mobility home ex's . STG Duration 03/07/22 Detention Goal (LTG) Improve hip mobility to improve symmetry of motion and eliminate L hip pain. LTG Duration 04/04/22 Two Impairment PF Pain on R side with PF contraction Short Term Goal (STG) R PF pain minimal with palpation. STG Duration 03/07/22 Detention Goal (LTG) Pt will have the intercourse without pelvic floor pain. LTG Duration 04/04/22 One Impairment Lacks appropriate self care HEP to address s/p surgical condition. Impairment Pt sometimes uses her dilator to stretch her PF. Pt is unsure what to stretch and how much to stretch. Short Term Goal (STG) Pt will be educated in proper posture and body mechanics for ADLs. 02/21/22: Educated pt in log roll transfer with coordinated breathing. STG Duration 03/07/22 progressed 02/21/22 Detention Goal (LTG) Pt will be independent and consistent with an HEP for PF & hip stretches, and core/ pelvic stabilization. LTG Duration 05/02/22 Assessment Summary Assessment Pt being seen for rehab following 2nd rectocele repair surgery 10/2021. Today she demonstrates L PF tightness and weakness (1-2) at PF clock 3. Last visit (eval) R PF tightness/pain primarily at Pelvic Clock 6-9 and noted hx of constipation due to slow colonic transfer. Today she did not have palpable stool in the rectum, but vaginal tissues felt rough. Not able to address today, decreased hip mobility, decreased L hip strength, sacral R rotation and decreased core stability with DR present in the lower abdominal region. Pt had ex limitation due to ms cramping of R gluteal muscles and tightness in anterior R hip with bridging exercise. Physical Therapy Plan Frequency and Duration Frequency of Treatment 1x/Week Plan of Care Start Date 02/04/22 Plan of Care End Date 05/02/22 Next Visit Focus/Plan Next Note Type Treatment Note Next Visit Plan CAUTION: Anterior PF Mesh in place. Assess: Bladder Diary and educate as needed, PSLR, & sacral balance with correction as needed. Assess pt ability to place rib cage over hips. Manual PF gentle stretch to 6- 9 O'Clock and Superfical PF ms and OI. STM L IT Band, US to L greater trochanter. Self care for: Hip stretches ( rotation (ER L, IR R)). Education Breathing training to minimize core pressure, f/b proper breath with ADL's and proper body mechanics. Review: transfer training w/ breathwork & TA. Core TA strengthening for lower region to minimize DR. Strengthening: L hip AB, AD, ER. BM management education.
--- NOTE | 2022-02-27 17:12 | PT.OTN ---
Current Diagnoses Slow transit constipation (02/27/22) Pain in left hip (02/27/22) Muscle weakness (generalized) (02/27/22) Abnormal posture (02/27/22) Other symptoms and signs involving the musculoskeletal system (02/27/22) Physical Therapy Treatment Note PT-OP-A Visit Information Start: 01/24/22 18:11 Freq: Status: Active Protocol: Document 02/27/22 15:19 LRN (Rec: 02/27/22 17:11 LRN [id number]) Out-Patient Physical Therapy Visit Information Visit Information Visit Type Treatment Note Visit Start Time 15:19 Visit Stop Time 16:15 Total Visit Minutes 56 Visit Number 3 Evaluation Information Evaluation Date 02/04/22 Precautions Precautions Pt reported: Rectocele repair 10/2021, previous PF surgery 2 yrs ago for hyste, endo removal cystocele repair with mesh placed, & rectocele repair. Ehler Danlos Syndrome, R ankle ORIF, R knee meiscus repair, one vaginal with 3rd degree tearing and 2 C-sections. PT-OP-B Current Condition Start: 01/24/22 18:11 Freq: Status: Active Protocol: Document 02/04/22 11:19 LRN (Rec: 02/04/22 12:45 LRN [id number]) Current Condition History of Current Condition Onset Date Oct 2021 Current Complaints Rehab following 2nd rectocele repair surgery 10/2021 History of Current Condition Pt reports with 2nd rectocele repair things have changed in vagina like landscape has changed. She is having same kind of tightness the same as previously. Feels tightness causing her PF pain. she has relaxed some since surgery now that she has had intercourse again. Pt has used a suppository of ms relaxor and pain medication issued to her. She can still feel tightness . 2 yrs ago vagina felt different and now she is slight different, a little more tight. Posterior side feels like muscle is tight. Doing all core ex's and hip stretches and using therawand sometimes. Been busy lately so has not used the therawand as much as she has in the past . Use of therawand has been helpful. Prior Treatments and Tests Pt reports PF surgery Oct 2021 was a second rectocele repair to fix rectocele of vaginal wall (tightened up wall). At same time pt reports have had closing of hole in vagina that a mesh from a previous cystocele repair had poked a hole through. Thinks the mesh was trimmed and the area was patched. 2 yrs ago a PF reconstruction of hyste, endo removal, cystocele repair with bladder mesh placed, and rectocele repair. 2 PT rehab programs here at before the surgeries (PF PT before and after PF sugery 2 yrs ago) - [facility]. First repair was of cystocele and rectocyele, in 2019. Developmental History Developmental History Since healing she has been able to have BM easier than before without having to manually empty. Pt understands she must be more cautious to not get constipated. Constipation coincides with menstrual cycle . Treatment Goals Patient/Caregiver Goals Pt goal is to make sure she doesn't have a problem with the cut into vagina and she wants rehab due to rectocele repair. Personal Factors Other Personal Factors That May Effect Chronic and back pain. [facility]/Recovery danlos syndrome. Autism, R ankle orif, R knee meniscus. 6 G, 3 P, first was vaginal delivery 3rd degree tear with episotomy (8 5, 9 5, 8 13). PT-OP-C Subjective Start: 01/24/22 18:11 Freq: Status: Active Protocol: Document 02/27/22 15:19 LRN (Rec: 02/27/22 17:11 LRN [id number]) OP-PT Subjective Patient Comments Patient Comments States she uses a squatty potty to void, sometimes uses fingers to splint to void, especially when she has anal spasms. States typically with spasms she voids (while pushing) type 1 stools. PT-OP-I Pelvic Floor Start: 01/24/22 18:11 Freq: Status: Active Protocol: Document 02/27/22 15:19 LRN (Rec: 02/27/22 17:11 LRN [id number]) Pelvic Floor Assessment Pelvic Clock Pelvic Clock 12-3 Tightness Pelvic Clock 3-6 Tightness Pelvic Clock 6-9 Tenderness Inter-Rectal Assessment Previous assessment: Rectal Strength: generally 3/5 , except L is 1-2/5 and 0/5 posteriorly. Endurance: Decrease strength after 3 secs. No drawing in was felt. SEMG (uV) Baseline 0.9 Quick Contraction 9.9 10 Second Contraction 11.2 Recruitment Pattern Good Relaxation Fair Holding Good Stability of Hold Good SEMG Stability of Rest Good Comments Pelvic Floor Comments Resting tone: 0.9 uv's, max 3. 3uV. Long Hold: avg rest 1.3 uV PT-OP-J Posture/Palpation/Skin Start: 01/24/22 18:11 Freq: Status: Active Protocol: Document 02/04/22 11:19 LRN (Rec: 02/04/22 12:45 LRN [id number]) Posture Evaluation Position Standing Head/C-Spine Posture Forward Head T-Spine Posture Flattened L-Spine Posture Increased Lordosis Shoulder Posture (R) Rounded,(R) Forward,(L) Elevated Scapula Posture (L) Elevated Knee Posture (L) Genu Valgus,(R) Genu Valgus Foot Arch (L) No Arch,(R) No Arch Comments Posture Comments Knees beyond ankle joint. R SIJ problem, painful side. Palpation Assessment Location Sacrum Palpation Location Sacral sulcus, HANNAH Palpation Details Sacrum is in R rot. Decreased mobility of inferior glide L side Abdomen Palpation Location Abdominal DR Palpation Details 1 below Umbilicus is 2 finger widths 2 below Umbilicus is 2 finger widths 3 below Umbilicus is very shallow L hip Palpation Location L Greater Trochanter Palpation Findings Tenderness PT-OP-K Range of Motion Start: 01/24/22 18:11 Freq: Status: Active Protocol: Document 02/04/22 11:19 LRN (Rec: 02/04/22 12:45 LRN [id number]) Lumbar Spine Range of Motion Lumbar Spine Active Degrees Testing Position Standing Flexion 125 Extension 30 Rotation Left 50 Rotation Right 45 Lateral Flexion Left 20 Lateral Flexion Right 15 Comments Trunk Flexion is 125 deg?s with 80 deg?s hip flexion, Trunk extension is 30 deg?s with 10 deg?s hip extension. Hip Goniometric Range of Motion Hip Right Passive Testing Position Supine Internal Rotation 20 External Rotation 70 Left Passive Testing Position Supine Internal Rotation 35 External Rotation 60 PT-OP-M Strength Start: 01/24/22 18:11 Freq: Status: Active Protocol: Document 02/04/22 11:19 LRN (Rec: 02/04/22 12:45 LRN [id number]) Trunk Strength Trunk Manual Muscle Testing Core Stabilization Good stab except with rotation Hip Strength Hip Manual Muscle Testing Right Flexion (L2) 5 Normal Extension (S1) 5 Normal Abduction 5 Normal Adduction 5 Normal External Rotation 5 Normal Internal Rotation 5 Normal Left Flexion (L2) 5 Normal Extension (S1) 5 Normal Abduction 3 Fair Adduction 3 Fair External Rotation 3+ Fair+ Internal Rotation 5 Normal PT-OP-Q Treatments Start: 01/24/22 18:11 Freq: Status: Active Protocol: Document 02/27/22 15:19 LRN (Rec: 02/27/22 17:11 LRN [id number]) Neuro Re-Education Treatment Other Activities EMG Biofeedback Details Resting tone, 1 sec & 10 sec contractions w/rest periods ( double contract) Self-Care/Home Management Treatment Education Other Education Pt education/review of Bowel Program, with discussion of fluid intake best practice, drink types-recommended non- caffeinated drinks during her period, fiber in diet, magnesium use, and Bowel massage. Encouraged drinking 2 C of warm water before voiding. Discussed at length voiding behavior of deep breathing and use of squatty potty vs splinting to void. Recommended if no able to immediately have BM to get off and move around before voiding. Activities Self-Care/Home Management Activities I/S pt in Deep breathing with BM's, or getting up to move to stimulate bowels. I/S pt to drink warm water first in AM. PT-OP-T Assessment and Plan Start: 01/24/22 18:11 Freq: Status: Active Protocol: Document 02/27/22 15:19 LRN (Rec: 02/27/22 17:11 LRN [id number]) Physical Therapy Assessment Goals Four Impairment Sacrum in R rotation Custodial Goal (LTG) Normalize sacral positioning to improve core/pelvic stability. LTG Duration 04/04/22 Three Impairment Decreased hip rotational mobility and L greater trochanter pain w/palpation Impairment Hip ER: 60 left, 70 right. Hip IR: 35 left, 20 right. Pain L hip greater trochanter on palpation. Short Term Goal (STG) Pt educated in rotational hip and lateral mobility home ex's . STG Duration 03/07/22 Documentum Consultant Goal (LTG) Improve hip mobility to improve symmetry of motion and eliminate L hip pain. LTG Duration 04/04/22 Two Impairment PF Pain on R side with PF contraction Short Term Goal (STG) R PF pain minimal with palpation. STG Duration 03/07/22 Documentum Consultant Goal (LTG) Pt will have the intercourse without pelvic floor pain. LTG Duration 04/04/22 One Impairment Lacks appropriate self care HEP to address s/p surgical condition. Impairment Pt sometimes uses her dilator to stretch her PF. Pt is unsure what to stretch and how much to stretch. Short Term Goal (STG) Pt will be educated in proper posture and body mechanics for ADLs. 02/21/22: Educated pt in log roll transfer with coordinated breathing. STG Duration 03/07/22 progressed 02/21/22 Documentum Consultant Goal (LTG) Pt will be independent and consistent with an HEP for PF & hip stretches, and core/ pelvic stabilization. LTG Duration 05/02/22 Assessment Summary Assessment Pt did not have bladder diary, but brought vaginal electrode for EMG biofeedback. Pt demonstrates good PF contraction and low resting tone to start. Noticed pt constipation probably due to hormones (menstral cycle). She appears to have good dietary habits. She has in prior PF rehab, learned of bowel massage. She does drink 1-2 caffeinated drinks a day, that should be eliminated during her menstration cycle to decrease onset of constipation. 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 Physical Therapy Plan Frequency and Duration Frequency of Treatment 1x/Week Plan of Care Start Date 02/04/22 Plan of Care End Date 05/02/22 Next Visit Focus/Plan Next Note Type Treatment Note Next Visit Plan CAUTION: Anterior PF Mesh in place. Assess: Bladder Diary and educate as needed, Assess PSLR, & sacral balance (correction as needed). Assess pt ability to place rib cage over hips. Manual PF gentle stretch to 6- 9 O'Clock and Superfical PF ms and OI. STM: L IT Band, US to L greater trochanter. HEP: Hip stretches (rotation ( ER L, IR R)). Education: Breathing training to minimize core pressure, f/b proper breath with ADL's and proper body mechanics. Review: transfer training w/ breathwork & TA. Core TA strengthening for lower region to minimize DR. Strengthening: L hip AB, AD, ER.
--- NOTE | 2022-03-14 14:15 | PT.OTN ---
Current Diagnoses Slow transit constipation (03/14/22) Pain in left hip (03/14/22) Muscle weakness (generalized) (03/14/22) Abnormal posture (03/14/22) Other symptoms and signs involving the musculoskeletal system (03/14/22) Physical Therapy Treatment Note PT-OP-A Visit Information Start: 01/24/22 18:11 Freq: Status: Active Protocol: Document 03/14/22 13:03 LRN (Rec: 03/14/22 14:14 LRN [id number]) Out-Patient Physical Therapy Visit Information Visit Information Visit Type Treatment Note Visit Start Time 13:03 Visit Stop Time 13:53 Total Visit Minutes 50 Visit Number 4 Evaluation Information Evaluation Date 02/04/22 Precautions Precautions Pt reported: Rectocele repair 10/2021, previous PF surgery 2 yrs ago for hyste, endo removal cystocele repair with mesh placed, & rectocele repair. Ehler Danlos Syndrome, R ankle ORIF, R knee meiscus repair, one vaginal with 3rd degree tearing and 2 C-sections. Defecography done at [facility] in 08/2020 anal rectal manometry in 04/2020. Small bowel follow through at 05/09/20. 6 , 3 parity. PT-OP-B Current Condition Start: 01/24/22 18:11 Freq: Status: Active Protocol: Document 02/04/22 11:19 LRN (Rec: 02/04/22 12:45 LRN [id number]) Current Condition History of Current Condition Onset Date Oct 2021 Current Complaints Rehab following 2nd rectocele repair surgery 10/2021 History of Current Condition Pt reports with 2nd rectocele repair things have changed in vagina like landscape has changed. She is having same kind of tightness the same as previously. Feels tightness causing her PF pain. she has relaxed some since surgery now that she has had intercourse again. Pt has used a suppository of ms relaxor and pain medication issued to her. She can still feel tightness . 2 yrs ago vagina felt different and now she is slight different, a little more tight. Posterior side feels like muscle is tight. Doing all core ex's and hip stretches and using therawand sometimes. Been busy lately so has not used the therawand as much as she has in the past . Use of therawand has been helpful. Prior Treatments and Tests Pt reports PF surgery Oct 2021 was a second rectocele repair to fix rectocele of vaginal wall (tightened up wall). At same time pt reports have had closing of hole in vagina that a mesh from a previous cystocele repair had poked a hole through. Thinks the mesh was trimmed and the area was patched. 2 yrs ago a PF reconstruction of hyste, endo removal, cystocele repair with bladder mesh placed, and rectocele repair. 2 PT rehab programs here at before the surgeries (PF PT before and after PF sugery 2 yrs ago) - [facility]. First repair was of cystocele and rectocyele, in 2019. Developmental History Developmental History Since healing she has been able to have BM easier than before without having to manually empty. Pt understands she must be more cautious to not get constipated. Constipation coincides with menstrual cycle . Treatment Goals Patient/Caregiver Goals Pt goal is to make sure she doesn't have a problem with the cut into vagina and she wants rehab due to rectocele repair. Personal Factors Other Personal Factors That May Effect Chronic and back pain. [facility]/Recovery danlos syndrome. Autism, R ankle orif, R knee meniscus. 6 G, 3 P, first was vaginal delivery 3rd degree tear with episotomy (8 5, 9 5, 8 13). PT-OP-C Subjective Start: 01/24/22 18:11 Freq: Status: Active Protocol: Document 03/14/22 13:03 LRN (Rec: 03/14/22 14:14 LRN [id number]) OP-PT Subjective Patient Comments Patient Comments Defecography done at [facility] in 08/2020 and anal rectal manometry in 04/2020. Small bowel follow through at (15' pass). 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 Pt reports no pain with intercourse. PT-OP-I Pelvic Floor Start: 01/24/22 18:11 Freq: Status: Active Protocol: Document 02/27/22 15:19 LRN (Rec: 02/27/22 17:11 LRN [id number]) Pelvic Floor Assessment Pelvic Clock Pelvic Clock 12-3 Tightness Pelvic Clock 3-6 Tightness Pelvic Clock 6-9 Tenderness Inter-Rectal Assessment Previous assessment: Rectal Strength: generally 3/5 , except L is 1-2/5 and 0/5 posteriorly. Endurance: Decrease strength after 3 secs. No drawing in was felt. SEMG (uV) Baseline 0.9 Quick Contraction 9.9 10 Second Contraction 11.2 Recruitment Pattern Good Relaxation Fair Holding Good Stability of Hold Good SEMG Stability of Rest Good Comments Pelvic Floor Comments Resting tone: 0.9 uv's, max 3. 3uV. Long Hold: avg rest 1.3 uV PT-OP-J Posture/Palpation/Skin Start: 01/24/22 18:11 Freq: Status: Active Protocol: Document 02/04/22 11:19 LRN (Rec: 02/04/22 12:45 LRN [id number]) Posture Evaluation Position Standing Head/C-Spine Posture Forward Head T-Spine Posture Flattened L-Spine Posture Increased Lordosis Shoulder Posture (R) Rounded,(R) Forward,(L) Elevated Scapula Posture (L) Elevated Knee Posture (L) Genu Valgus,(R) Genu Valgus Foot Arch (L) No Arch,(R) No Arch Comments Posture Comments Knees beyond ankle joint. R SIJ problem, painful side. Palpation Assessment Location Sacrum Palpation Location Sacral sulcus, HANNAH Palpation Details Sacrum is in R rot. Decreased mobility of inferior glide L side Abdomen Palpation Location Abdominal DR Palpation Details 1 below Umbilicus is 2 finger widths 2 below Umbilicus is 2 finger widths 3 below Umbilicus is very shallow L hip Palpation Location L Greater Trochanter Palpation Findings Tenderness PT-OP-K Range of Motion Start: 01/24/22 18:11 Freq: Status: Active Protocol: Document 03/14/22 13:03 LRN (Rec: 03/14/22 14:14 LRN [id number]) Hip Goniometric Range of Motion Hip Right Passive Testing Position Supine Straight Leg Raise 110 Internal Rotation 20 External Rotation 70 Left Passive Testing Position Supine Straight Leg Raise 105 Internal Rotation 35 External Rotation 60 PT-OP-M Strength Start: 01/24/22 18:11 Freq: Status: Active Protocol: Document 02/04/22 11:19 LRN (Rec: 02/04/22 12:45 LRN [id number]) Trunk Strength Trunk Manual Muscle Testing Core Stabilization Good stab except with rotation Hip Strength Hip Manual Muscle Testing Right Flexion (L2) 5 Normal Extension (S1) 5 Normal Abduction 5 Normal Adduction 5 Normal External Rotation 5 Normal Internal Rotation 5 Normal Left Flexion (L2) 5 Normal Extension (S1) 5 Normal Abduction 3 Fair Adduction 3 Fair External Rotation 3+ Fair+ Internal Rotation 5 Normal PT-OP-Q Treatments Start: 01/24/22 18:11 Freq: Status: Active Protocol: Document 03/14/22 13:03 LRN (Rec: 03/14/22 14:14 LRN [id number]) Manual Therapy Treatment Soft Tissue Mobilization Sacral balancing Body Location Sacrum, stacey Innominates, Ischial Tubs. Mobilization Type Sustained Pressure Intensity/Depth Moderate Body Position Prone Comments Treatment: L infer glide and minimally Right PA of sacral sulcus, L shear, PA of Left HANNAH and ischium. Self-Care/Home Management Treatment Education Other Education Reviewed pt's history reports of tests done on pt's phone. Discussed result of small bowel study at 05/09/20, showing 15' transit time through small intestines. PT-OP-T Assessment and Plan Start: 01/24/22 18:11 Freq: Status: Active Protocol: Document 03/14/22 13:03 LRN (Rec: 03/14/22 14:14 LRN [id number]) Physical Therapy Assessment Goals Four Impairment Sacrum in R rotation Shelter Goal (LTG) Normalize sacral positioning to improve core/pelvic stability. LTG Duration 04/04/22 Three Impairment Decreased hip rotational mobility and L greater trochanter pain w/palpation Impairment Hip ER: 60 left, 70 right. Hip IR: 35 left, 20 right. Pain L hip greater trochanter on palpation. Short Term Goal (STG) Pt educated in rotational hip and lateral mobility home ex's . STG Duration 03/07/22 Operator Technician Goal (LTG) Improve hip mobility to improve symmetry of motion and eliminate L hip pain. LTG Duration 04/04/22 Two Impairment PF Pain on R side with PF contraction Short Term Goal (STG) R PF pain minimal with palpation. STG Duration 03/07/22 Operator Technician Goal (LTG) Pt will have the intercourse without pelvic floor pain. 03/14/22: Pt reports no pain with intercourse. LTG Duration 04/04/22 (03/14/22: MET GOAL) One Impairment Lacks appropriate self care HEP to address s/p surgical condition. Impairment Pt sometimes uses her dilator to stretch her PF. Pt is unsure what to stretch and how much to stretch. Short Term Goal (STG) Pt will be educated in proper posture and body mechanics for ADLs. 02/21/22: Educated pt in log roll transfer with coordinated breathing. STG Duration 03/07/22 progressed 02/21/22 Shelter Goal (LTG) Pt will be independent and consistent with an HEP for PF & hip stretches, and core/ pelvic stabilization. LTG Duration 05/02/22 Assessment Summary Assessment Good hamstring mobility with PSLR testing. Stiffness with Sacral sulcus L infer glide and minimally decreased with Right PA, decreased shear to L , decreased PA of Left HANNAH and ischium. No significant anxiety felt by pt, but her body was very resistive to MFR and sacral balancing. V. cuing needed for pt to relax and allow body to mobilize. Pt has excessive core cephalad and caudal movement with breathing and very minimal rib expansion/contraction. Physical Therapy Plan Frequency and Duration Frequency of Treatment 1x/Week Plan of Care Start Date 02/04/22 Plan of Care End Date 05/02/22 Next Visit Focus/Plan Next Note Type Treatment Note Next Visit Plan CAUTION: Anterior PF Mesh in place. Assess: Bladder Diary and educate as needed, Assess pt ability to place rib cage over hips. Assess response to sacral balance, and recheck ( correction as needed). Education: proper body mechanics for ADLs. Manual: PF gentle stretch to 6-9 O'Clock and Superfical PF ms and OI, and normalize rib mob for expansion on breath. STM: L IT Band, US to L greater trochanter. HEP: Hip stretches (rotation ( ER L, IR R)). Education: Breathing training to minimize core pressure, f/b proper breath with ADL's and proper body mechanics. Review: transfer training w/ breathwork & TA. Core TA strengthening for lower region to minimize DR. Strengthening: L hip AB, AD, ER.
--- NOTE | 2022-03-24 10:05 | PT-OP ANOTE ---
No Show. Called pt and left message regarding her missed appt and reminded pt of her next scheduled appt on 03/31/22, 10:30 am.
--- NOTE | 2022-03-31 14:29 | PT.OTN ---
Current Diagnoses Slow transit constipation (03/31/22) Pain in left hip (03/31/22) Muscle weakness (generalized) (03/31/22) Abnormal posture (03/31/22) Other symptoms and signs involving the musculoskeletal system (03/31/22) Physical Therapy Treatment Note PT-OP-A Visit Information Start: 01/24/22 18:11 Freq: Status: Active Protocol: Document 03/31/22 10:33 LRN (Rec: 03/31/22 11:16 LRN [id number]) Out-Patient Physical Therapy Visit Information Visit Information Visit Type Treatment Note Visit Start Time 10:33 Visit Stop Time 11:14 Total Visit Minutes 41 Visit Number 5 Evaluation Information Evaluation Date 02/04/22 Precautions Precautions Pt reported: Rectocele repair 10/2021, previous PF surgery 2 yrs ago for hyste, endo removal cystocele repair with mesh placed, & rectocele repair. Ehler Danlos Syndrome, R ankle ORIF, R knee meiscus repair, one vaginal with 3rd degree tearing and 2 C-sections. Defecography done at [facility] in 08/2020 anal rectal manometry in 04/2020. Small bowel follow through at 05/09/20. 6 , 3 parity. PT-OP-B Current Condition Start: 01/24/22 18:11 Freq: Status: Active Protocol: Document 02/04/22 11:19 LRN (Rec: 02/04/22 12:45 LRN [id number]) Current Condition History of Current Condition Onset Date Oct 2021 Current Complaints Rehab following 2nd rectocele repair surgery 10/2021 History of Current Condition Pt reports with 2nd rectocele repair things have changed in vagina like landscape has changed. She is having same kind of tightness the same as previously. Feels tightness causing her PF pain. she has relaxed some since surgery now that she has had intercourse again. Pt has used a suppository of ms relaxor and pain medication issued to her. She can still feel tightness . 2 yrs ago vagina felt different and now she is slight different, a little more tight. Posterior side feels like muscle is tight. Doing all core ex's and hip stretches and using therawand sometimes. Been busy lately so has not used the therawand as much as she has in the past . Use of therawand has been helpful. Prior Treatments and Tests Pt reports PF surgery Oct 2021 was a second rectocele repair to fix rectocele of vaginal wall (tightened up wall). At same time pt reports have had closing of hole in vagina that a mesh from a previous cystocele repair had poked a hole through. Thinks the mesh was trimmed and the area was patched. 2 yrs ago a PF reconstruction of hyste, endo removal, cystocele repair with bladder mesh placed, and rectocele repair. 2 PT rehab programs here at before the surgeries (PF PT before and after PF sugery 2 yrs ago) - [facility]. First repair was of cystocele and rectocyele, in 2019. Developmental History Developmental History Since healing she has been able to have BM easier than before without having to manually empty. Pt understands she must be more cautious to not get constipated. Constipation coincides with menstrual cycle . Treatment Goals Patient/Caregiver Goals Pt goal is to make sure she doesn't have a problem with the cut into vagina and she wants rehab due to rectocele repair. Personal Factors Other Personal Factors That May Effect Chronic and back pain. Eylers Therapy/Recovery danlos syndrome. Autism, R ankle orif, R knee meniscus. 6 G, 3 P, first was vaginal delivery 3rd degree tear with episotomy (8 5, 9 5, 8 13). PT-OP-C Subjective Start: 01/24/22 18:11 Freq: Status: Active Protocol: Document 03/31/22 10:33 LRN (Rec: 03/31/22 11:16 LRN [id number]) OP-PT Subjective Patient Comments Patient Comments Was sick last week. Nothing to report. Did not bring electrode. Has had 2 deep tissue massages and had diaphragm worked on, and found helpful. PT-OP-I Pelvic Floor Start: 01/24/22 18:11 Freq: Status: Active Protocol: Document 02/27/22 15:19 LRN (Rec: 02/27/22 17:11 LRN [id number]) Pelvic Floor Assessment Pelvic Clock Pelvic Clock 12-3 Tightness Pelvic Clock 3-6 Tightness Pelvic Clock 6-9 Tenderness Inter-Rectal Assessment Previous assessment: Rectal Strength: generally 3/5 , except L is 1-2/5 and 0/5 posteriorly. Endurance: Decrease strength after 3 secs. No drawing in was felt. SEMG (uV) Baseline 0.9 Quick Contraction 9.9 10 Second Contraction 11.2 Recruitment Pattern Good Relaxation Fair Holding Good Stability of Hold Good SEMG Stability of Rest Good Comments Pelvic Floor Comments Resting tone: 0.9 uv's, max 3. 3uV. Long Hold: avg rest 1.3 uV PT-OP-J Posture/Palpation/Skin Start: 01/24/22 18:11 Freq: Status: Active Protocol: Document 02/04/22 11:19 LRN (Rec: 02/04/22 12:45 LRN [id number]) Posture Evaluation Position Standing Head/C-Spine Posture Forward Head T-Spine Posture Flattened L-Spine Posture Increased Lordosis Shoulder Posture (R) Rounded,(R) Forward,(L) Elevated Scapula Posture (L) Elevated Knee Posture (L) Genu Valgus,(R) Genu Valgus Foot Arch (L) No Arch,(R) No Arch Comments Posture Comments Knees beyond ankle joint. R SIJ problem, painful side. Palpation Assessment Location Sacrum Palpation Location Sacral sulcus, HANNAH Palpation Details Sacrum is in R rot. Decreased mobility of inferior glide L side Abdomen Palpation Location Abdominal DR Palpation Details 1 below Umbilicus is 2 finger widths 2 below Umbilicus is 2 finger widths 3 below Umbilicus is very shallow L hip Palpation Location L Greater Trochanter Palpation Findings Tenderness PT-OP-K Range of Motion Start: 01/24/22 18:11 Freq: Status: Active Protocol: Document 03/14/22 13:03 LRN (Rec: 03/14/22 14:14 LRN [id number]) Hip Goniometric Range of Motion Hip Right Passive Testing Position Supine Straight Leg Raise 110 Internal Rotation 20 External Rotation 70 Left Passive Testing Position Supine Straight Leg Raise 105 Internal Rotation 35 External Rotation 60 PT-OP-M Strength Start: 01/24/22 18:11 Freq: Status: Active Protocol: Document 02/04/22 11:19 LRN (Rec: 02/04/22 12:45 LRN [id number]) Trunk Strength Trunk Manual Muscle Testing Core Stabilization Good stab except with rotation Hip Strength Hip Manual Muscle Testing Right Flexion (L2) 5 Normal Extension (S1) 5 Normal Abduction 5 Normal Adduction 5 Normal External Rotation 5 Normal Internal Rotation 5 Normal Left Flexion (L2) 5 Normal Extension (S1) 5 Normal Abduction 3 Fair Adduction 3 Fair External Rotation 3+ Fair+ Internal Rotation 5 Normal PT-OP-Q Treatments Start: 01/24/22 18:11 Freq: Status: Active Protocol: Document 03/31/22 10:33 LRN (Rec: 03/31/22 11:16 LRN [id number]) Therapeutic Exercises Standing Exercises Postural training Standing Exercise Name Postural training and awareness Reps/Minutes 10' Comments Phy & v cuing for ribs over pelvis (xyphoid to pub), PPT. Manual Therapy Treatment Soft Tissue Mobilization Piriformis Body Location Piriformis Mobilization Type Myofascial Release,Strumming Body Position Sidelying Gluteal Body Location Gluteus Medius Mobilization Type Strumming,Sustained Pressure Intensity/Depth Moderate Body Position Sidelying Coccygeus Body Location Coccygeus Mobilization Type Strumming Intensity/Depth Moderate Body Position Prone L IT BAnd Body Location L IT-Band Mobilization Type Myofascial Release,Strumming, Sustained Pressure,Trigger Point Release Intensity/Depth Moderate Body Position Sidelying Sacral balancing Body Location Sacrum, stacey Innominates, Ischial Tubs. Mobilization Type Sustained Pressure Intensity/Depth Moderate Body Position Prone Comments Treatment: L infer glide and minimally Right PA of sacral sulcus, L shear, PA of Left HANNAH and ischium. PT-OP-T Assessment and Plan Start: 01/24/22 18:11 Freq: Status: Active Protocol: Document 03/31/22 10:33 LRN (Rec: 03/31/22 11:16 N [id number]) Physical Therapy Assessment Goals Four Impairment Sacrum in R rotation Jail Goal (LTG) Normalize sacral positioning to improve core/pelvic stability. 03/31/22: Min>mod STM needed for sacral positioning. LTG Duration 04/04/22 progressing Three Impairment Decreased hip rotational mobility and L greater trochanter pain w/palpation Impairment Hip ER: 60 left, 70 right. Hip IR: 35 left, 20 right. Pain L hip greater trochanter on palpation. Short Term Goal (STG) Pt educated in rotational hip and lateral mobility home ex's . STG Duration 03/07/22 Jail Goal (LTG) Improve hip mobility to improve symmetry of motion and eliminate L hip pain. LTG Duration 04/04/22 Two Impairment PF Pain on R side with PF contraction Short Term Goal (STG) R PF pain minimal with palpation. STG Duration 03/07/22 Jail Goal (LTG) Pt will have the intercourse without pelvic floor pain. 03/14/22: Pt reports no pain with intercourse. LTG Duration 04/04/22 (03/14/22: MET GOAL) One Impairment Lacks appropriate self care HEP to address s/p surgical condition. Impairment Pt sometimes uses her dilator to stretch her PF. Pt is unsure what to stretch and how much to stretch. Short Term Goal (STG) Pt will be educated in proper posture and body mechanics for ADLs. 02/21/22: Educated pt in log roll transfer with coordinated breathing. 03/31/22: Pt educated in proper standing posture. STG Duration 03/07/22 progressed 03/31/22 Fast Food Crew Member Goal (LTG) Pt will be independent and consistent with an HEP for PF & hip stretches, and core/ pelvic stabilization. LTG Duration 05/02/22 Assessment Summary Assessment Pt not able to adjust her posture on her own, but needed phys & v cuing. Adjustment of pt posture in standing via DF of feet resulted in adjustments in lumbar ext; therefore postural corrections need to be focused and region of the core. Pt tight in L Lateral hip and IT band with decrease in tightness per pt report after STM. Pt sacrum mostly normalized. At sacrum: tight with Sacral sulcus R infer glide, sacral glide to L , PA L Ischium. Physical Therapy Plan Frequency and Duration Frequency of Treatment 1x/Week Plan of Care Start Date 02/04/22 Plan of Care End Date 05/02/22 Next Visit Focus/Plan Next Note Type Treatment Note Next Visit Plan CAUTION: Anterior PF Mesh in place. Assess: Bladder Diary and educate as needed, assess response to manual stretch to L TFL. Education: proper body mechanics for ADLs. Manual: PF gentle stretch to 6-9 O'Clock and Superfical PF ms and OI, and normalize rib mob for expansion on breath. STM: US to L greater trochanter. HEP: Hip stretches (rotation ( ER L, IR R)). Education: Breathing training to minimize core pressure, f/b proper breath with ADL's and proper body mechanics. Review: transfer training w/ breathwork & TA. Core TA strengthening for lower region to minimize DR. Strengthening: L hip AB, AD, ER. Monitor pt ability to place rib cage over hips. Monitor sacral balance, and correct as needed).
--- NOTE | 2022-04-14 11:15 | PT.OTN ---
Current Diagnoses Slow transit constipation (04/14/22) Pain in left hip (04/14/22) Muscle weakness (generalized) (04/14/22) Abnormal posture (04/14/22) Other symptoms and signs involving the musculoskeletal system (04/14/22) Physical Therapy Treatment Note PT-OP-A Visit Information Start: 01/24/22 18:11 Freq: Status: Active Protocol: Document 04/14/22 09:55 LRN (Rec: 04/14/22 10:36 LRN [id number]) Out-Patient Physical Therapy Visit Information Visit Information Visit Type Treatment Note Visit Start Time 09:54 Visit Stop Time 10:33 Total Visit Minutes 39 Visit Number 6 Evaluation Information Evaluation Date 02/04/22 Precautions Precautions Pt reported: Rectocele repair 10/2021, previous PF surgery 2 yrs ago for hyste, endo removal cystocele repair with mesh placed, & rectocele repair. Ehler Danlos Syndrome, R ankle ORIF, R knee meiscus repair, one vaginal with 3rd degree tearing and 2 C-sections. Defecography done at [facility] in 08/2020 anal rectal manometry in 04/2020. Small bowel follow through at 05/09/20. 6 , 3 parity. PT-OP-B Current Condition Start: 01/24/22 18:11 Freq: Status: Active Protocol: Document 02/04/22 11:19 LRN (Rec: 02/04/22 12:45 LRN [id number]) Current Condition History of Current Condition Onset Date Oct 2021 Current Complaints Rehab following 2nd rectocele repair surgery 10/2021 History of Current Condition Pt reports with 2nd rectocele repair things have changed in vagina like landscape has changed. She is having same kind of tightness the same as previously. Feels tightness causing her PF pain. she has relaxed some since surgery now that she has had intercourse again. Pt has used a suppository of ms relaxor and pain medication issued to her. She can still feel tightness . 2 yrs ago vagina felt different and now she is slight different, a little more tight. Posterior side feels like muscle is tight. Doing all core ex's and hip stretches and using therawand sometimes. Been busy lately so has not used the therawand as much as she has in the past . Use of therawand has been helpful. Prior Treatments and Tests Pt reports PF surgery Oct 2021 was a second rectocele repair to fix rectocele of vaginal wall (tightened up wall). At same time pt reports have had closing of hole in vagina that a mesh from a previous cystocele repair had poked a hole through. Thinks the mesh was trimmed and the area was patched. 2 yrs ago a PF reconstruction of hyste, endo removal, cystocele repair with bladder mesh placed, and rectocele repair. 2 PT rehab programs here at before the surgeries (PF PT before and after PF sugery 2 yrs ago) - [facility]. First repair was of cystocele and rectocyele, in 2019. Developmental History Developmental History Since healing she has been able to have BM easier than before without having to manually empty. Pt understands she must be more cautious to not get constipated. Constipation coincides with menstrual cycle . Treatment Goals Patient/Caregiver Goals Pt goal is to make sure she doesn't have a problem with the cut into vagina and she wants rehab due to rectocele repair. Personal Factors Other Personal Factors That May Effect Chronic and back pain. Eylers Therapy/Recovery danlos syndrome. Autism, R ankle orif, R knee meniscus. 6 G, 3 P, first was vaginal delivery 3rd degree tear with episotomy (8 5, 9 5, 8 13). PT-OP-C Subjective Start: 01/24/22 18:11 Freq: Status: Active Protocol: Document 04/14/22 09:55 LRN (Rec: 04/14/22 10:36 LRN [id number]) OP-PT Subjective Patient Comments Patient Comments Sore (lower back and buttocks) from trying to correct posture. Sore from step throat. Did bladder diary but forgot to bring. PT-OP-I Pelvic Floor Start: 01/24/22 18:11 Freq: Status: Active Protocol: Document 02/27/22 15:19 LRN (Rec: 02/27/22 17:11 LRN [id number]) Pelvic Floor Assessment Pelvic Clock Pelvic Clock 12-3 Tightness Pelvic Clock 3-6 Tightness Pelvic Clock 6-9 Tenderness Inter-Rectal Assessment Previous assessment: Rectal Strength: generally 3/5 , except L is 1-2/5 and 0/5 posteriorly. Endurance: Decrease strength after 3 secs. No drawing in was felt. SEMG (uV) Baseline 0.9 Quick Contraction 9.9 10 Second Contraction 11.2 Recruitment Pattern Good Relaxation Fair Holding Good Stability of Hold Good SEMG Stability of Rest Good Comments Pelvic Floor Comments Resting tone: 0.9 uv's, max 3. 3uV. Long Hold: avg rest 1.3 uV PT-OP-J Posture/Palpation/Skin Start: 01/24/22 18:11 Freq: Status: Active Protocol: Document 02/04/22 11:19 LRN (Rec: 02/04/22 12:45 LRN [id number]) Posture Evaluation Position Standing Head/C-Spine Posture Forward Head T-Spine Posture Flattened L-Spine Posture Increased Lordosis Shoulder Posture (R) Rounded,(R) Forward,(L) Elevated Scapula Posture (L) Elevated Knee Posture (L) Genu Valgus,(R) Genu Valgus Foot Arch (L) No Arch,(R) No Arch Comments Posture Comments Knees beyond ankle joint. R SIJ problem, painful side. Palpation Assessment Location Sacrum Palpation Location Sacral sulcus, HANNAH Palpation Details Sacrum is in R rot. Decreased mobility of inferior glide L side Abdomen Palpation Location Abdominal DR Palpation Details 1 below Umbilicus is 2 finger widths 2 below Umbilicus is 2 finger widths 3 below Umbilicus is very shallow L hip Palpation Location L Greater Trochanter Palpation Findings Tenderness PT-OP-K Range of Motion Start: 01/24/22 18:11 Freq: Status: Active Protocol: Document 03/14/22 13:03 LRN (Rec: 03/14/22 14:14 LRN [id number]) Hip Goniometric Range of Motion Hip Right Passive Testing Position Supine Straight Leg Raise 110 Internal Rotation 20 External Rotation 70 Left Passive Testing Position Supine Straight Leg Raise 105 Internal Rotation 35 External Rotation 60 PT-OP-M Strength Start: 01/24/22 18:11 Freq: Status: Active Protocol: Document 02/04/22 11:19 LRN (Rec: 02/04/22 12:45 LRN [id number]) Trunk Strength Trunk Manual Muscle Testing Core Stabilization Good stab except with rotation Hip Strength Hip Manual Muscle Testing Right Flexion (L2) 5 Normal Extension (S1) 5 Normal Abduction 5 Normal Adduction 5 Normal External Rotation 5 Normal Internal Rotation 5 Normal Left Flexion (L2) 5 Normal Extension (S1) 5 Normal Abduction 3 Fair Adduction 3 Fair External Rotation 3+ Fair+ Internal Rotation 5 Normal PT-OP-Q Treatments Start: 01/24/22 18:11 Freq: Status: Active Protocol: Document 04/14/22 09:55 LRN (Rec: 04/14/22 10:36 LRN [id number]) Therapeutic Exercises Supine Exercises Happy Baby Pose Supine Exercise Name Happy Baby Pose Reps/Minutes 1x Fig 4 stretch Supine Exercise Name Fig 4 stretch Side left Reps/Minutes 60 SH x 1 Comments Extra time taken for positioning and holding during HEP printing. R Piriformis stretch Supine Exercise Name Piriformis stretch and stretch w/nerve glide Side right Reps/Minutes 30 SH x 2 & w/LE n glides, 10 SH x 6 Comments Pt cautioned/monitored w/ stretch due to Eyler's Danlos Syndrome Manual Therapy Treatment Soft Tissue Mobilization Superficial PF Body Location 6-9 O'Clock Mobilization Type Sustained Pressure Intensity/Depth Superficial Body Position Hooklying Comments + response with good relief, needed stretch on 3-6 O'Clock to even out ms tone. Tissue nodules felt that softened with sustained pressure, but remained present . OI Body Location R OI internally Mobilization Type Sustained Pressure,Trigger Point Release Intensity/Depth Moderate Body Position Hooklying Comments Minimal treatment needed. Self-Care/Home Management Treatment Education Patient Education Home Exercise Program Activities Self-Care/Home Management Activities Issued & reviewed HEP: Hip stretches: R Piriformis & L Fig 4 stretch. PT-OP-R Modalities Start: 01/24/22 18:11 Freq: Status: Active Protocol: Document 04/14/22 09:55 LRN (Rec: 04/14/22 10:56 LRN [id number]) Ultrasound Therapy Treatment R Gtr Trochanter Treatment Duration (minutes) 8 Patient Position Sidelying Coupling Medium Ultrasound Gel Applicator Size (cm2) 10 Mode Setting Pulsed Duty Cycle 50% Intensity Setting (w/cm2) 1.0 PT-OP-T Assessment and Plan Start: 01/24/22 18:11 Freq: Status: Active Protocol: Document 04/14/22 09:55 LRN (Rec: 04/14/22 10:36 N [id number]) Physical Therapy Assessment Goals Four Impairment Sacrum in R rotation Rate Clerk Goal (LTG) Normalize sacral positioning to improve core/pelvic stability. 03/31/22: Min>mod STM needed for sacral positioning. LTG Duration 04/04/22 progressing Three Impairment Decreased hip rotational mobility and L greater trochanter pain w/palpation Impairment Hip ER: 60 left, 70 right. Hip IR: 35 left, 20 right. Pain L hip greater trochanter on palpation. Short Term Goal (STG) Pt educated in rotational hip and lateral mobility home ex's . 04/14/22: HEP added for R hip IR, L hip ER. STG Duration 03/07/22 progressed 04/14/22 Rate Clerk Goal (LTG) Improve hip mobility to improve symmetry of motion and eliminate L hip pain. LTG Duration 04/04/22 Two Impairment PF Pain on R side with PF contraction Short Term Goal (STG) R PF pain minimal with palpation. STG Duration 03/07/22 progressed 04/14/22 Detention Goal (LTG) Pt will have the intercourse without pelvic floor pain. 03/14/22: Pt reports no pain with intercourse. LTG Duration 04/04/22 (03/14/22: MET GOAL) One Impairment Lacks appropriate self care HEP to address s/p surgical condition. Impairment Pt sometimes uses her dilator to stretch her PF. Pt is unsure what to stretch and how much to stretch. Short Term Goal (STG) Pt will be educated in proper posture and body mechanics for ADLs. 02/21/22: Educated pt in log roll transfer with coordinated breathing. 03/31/22: Pt educated in proper standing posture. STG Duration 03/07/22 progressed 03/31/22 Rate Clerk Goal (LTG) Pt will be independent and consistent with an HEP for PF & hip stretches, and core/ pelvic stabilization. 04/14/22: HEP: Hip streteches in areas of tightness (R hip IR, L hip ER). LTG Duration 05/02/22 progressed 04/14/22 - hip stretches. Assessment Summary Assessment Pt found helpful getting the manual R TFL stretch last session for pain. Good understanding of Hip stretches for HEP: rotation (ER L, IR R ). R hip pain may be L/S related, but due to Eyler Danlos Syndrome, Lower limb Neural Tests are inconsistent. Pt Appears to have less R PF pain and had even ms tone in PF after STM, needing equal stretch on L side after R side TrP's released. Needs reassess of decreased hip mobility, decreased L hip strength, sacral R rotation and decreased core stability with DR present in the lower abdominal region. Physical Therapy Plan Frequency and Duration Frequency of Treatment 1x/Week Plan of Care Start Date 02/04/22 Plan of Care End Date 05/02/22 Next Visit Focus/Plan Next Note Type Treatment Note Next Visit Plan CAUTION: Anterior PF Mesh in place. Assess: Bladder Diary and educate as needed, assess response to Hip rotation stretches (ER L, IR R). Assess response to PF gentle stretch to 6-9 O'Clock and Superfical PF ms. Education: proper body mechanics for ADLs. Manual: External OI stretch, and normalize rib mob for expansion on breath. R LE neural glides. Education: Breathing training to minimize core pressure, f/b proper breath with ADL's and proper body mechanics. Review: transfer training w/ breathwork & TA. Strengthening: L hip AB, AD, ER. Core TA strengthening for lower region to minimize DR. Monitor pt ability to place rib cage over hips. Monitor sacral balance, and correct as needed). Modalities: if needed, US to L greater trochanter.
--- NOTE | 2022-04-21 18:58 | PT.OTN ---
Current Diagnoses Slow transit constipation (04/21/22) Pain in left hip (04/21/22) Muscle weakness (generalized) (04/21/22) Abnormal posture (04/21/22) Other symptoms and signs involving the musculoskeletal system (04/21/22) Physical Therapy Treatment Note PT-OP-A Visit Information Start: 01/24/22 18:11 Freq: Status: Active Protocol: Document 04/21/22 09:50 LRN (Rec: 04/21/22 10:34 LRN [id number]) Out-Patient Physical Therapy Visit Information Visit Information Visit Type Treatment Note Visit Start Time 09:50 Visit Stop Time 10:30 Total Visit Minutes 40 Visit Number 7 Evaluation Information Evaluation Date 02/04/22 Precautions Precautions Pt reported: Rectocele repair 10/2021, previous PF surgery 2 yrs ago for hyste, endo removal cystocele repair with mesh placed, & rectocele repair. Ehler Danlos Syndrome, R ankle ORIF, R knee meiscus repair, one vaginal with 3rd degree tearing and 2 C-sections. Defecography done at [facility] in 08/2020 anal rectal manometry in 04/2020. Small bowel follow through at 05/09/20. 6 , 3 parity. PT-OP-B Current Condition Start: 01/24/22 18:11 Freq: Status: Active Protocol: Document 02/04/22 11:19 LRN (Rec: 02/04/22 12:45 LRN [id number]) Current Condition History of Current Condition Onset Date Oct 2021 Current Complaints Rehab following 2nd rectocele repair surgery 10/2021 History of Current Condition Pt reports with 2nd rectocele repair things have changed in vagina like landscape has changed. She is having same kind of tightness the same as previously. Feels tightness causing her PF pain. she has relaxed some since surgery now that she has had intercourse again. Pt has used a suppository of ms relaxor and pain medication issued to her. She can still feel tightness . 2 yrs ago vagina felt different and now she is slight different, a little more tight. Posterior side feels like muscle is tight. Doing all core ex's and hip stretches and using therawand sometimes. Been busy lately so has not used the therawand as much as she has in the past . Use of therawand has been helpful. Prior Treatments and Tests Pt reports PF surgery Oct 2021 was a second rectocele repair to fix rectocele of vaginal wall (tightened up wall). At same time pt reports have had closing of hole in vagina that a mesh from a previous cystocele repair had poked a hole through. Thinks the mesh was trimmed and the area was patched. 2 yrs ago a PF reconstruction of hyste, endo removal, cystocele repair with bladder mesh placed, and rectocele repair. 2 PT rehab programs here at before the surgeries (PF PT before and after PF sugery 2 yrs ago) - [facility]. First repair was of cystocele and rectocyele, in 2019. Developmental History Developmental History Since healing she has been able to have BM easier than before without having to manually empty. Pt understands she must be more cautious to not get constipated. Constipation coincides with menstrual cycle . Treatment Goals Patient/Caregiver Goals Pt goal is to make sure she doesn't have a problem with the cut into vagina and she wants rehab due to rectocele repair. Personal Factors Other Personal Factors That May Effect Chronic and back pain. Eylers Therapy/Recovery danlos syndrome. Autism, R ankle orif, R knee meniscus. 6 G, 3 P, first was vaginal delivery 3rd degree tear with episotomy (8 5, 9 5, 8 13). PT-OP-C Subjective Start: 01/24/22 18:11 Freq: Status: Active Protocol: Document 04/21/22 09:50 LRN (Rec: 04/21/22 10:34 LRN [id number]) OP-PT Subjective Patient Comments Patient Comments States she is sore all over, slept wrong. After last session she felt better for awile until a couple days ago. STarted to build in more exerces (walking) and vibration board that she does core ex's on. Walking 15-20' PT-OP-I Pelvic Floor Start: 01/24/22 18:11 Freq: Status: Active Protocol: Document 02/27/22 15:19 LRN (Rec: 02/27/22 17:11 LRN [id number]) Pelvic Floor Assessment Pelvic Clock Pelvic Clock 12-3 Tightness Pelvic Clock 3-6 Tightness Pelvic Clock 6-9 Tenderness Inter-Rectal Assessment Previous assessment: Rectal Strength: generally 3/5 , except L is 1-2/5 and 0/5 posteriorly. Endurance: Decrease strength after 3 secs. No drawing in was felt. SEMG (uV) Baseline 0.9 Quick Contraction 9.9 10 Second Contraction 11.2 Recruitment Pattern Good Relaxation Fair Holding Good Stability of Hold Good SEMG Stability of Rest Good Comments Pelvic Floor Comments Resting tone: 0.9 uv's, max 3. 3uV. Long Hold: avg rest 1.3 uV PT-OP-J Posture/Palpation/Skin Start: 01/24/22 18:11 Freq: Status: Active Protocol: Document 02/04/22 11:19 LRN (Rec: 02/04/22 12:45 LRN [id number]) Posture Evaluation Position Standing Head/C-Spine Posture Forward Head T-Spine Posture Flattened L-Spine Posture Increased Lordosis Shoulder Posture (R) Rounded,(R) Forward,(L) Elevated Scapula Posture (L) Elevated Knee Posture (L) Genu Valgus,(R) Genu Valgus Foot Arch (L) No Arch,(R) No Arch Comments Posture Comments Knees beyond ankle joint. R SIJ problem, painful side. Palpation Assessment Location Sacrum Palpation Location Sacral sulcus, HANNAH Palpation Details Sacrum is in R rot. Decreased mobility of inferior glide L side Abdomen Palpation Location Abdominal DR Palpation Details 1 below Umbilicus is 2 finger widths 2 below Umbilicus is 2 finger widths 3 below Umbilicus is very shallow L hip Palpation Location L Greater Trochanter Palpation Findings Tenderness PT-OP-K Range of Motion Start: 01/24/22 18:11 Freq: Status: Active Protocol: Document 03/14/22 13:03 LRN (Rec: 03/14/22 14:14 LRN [id number]) Hip Goniometric Range of Motion Hip Right Passive Testing Position Supine Straight Leg Raise 110 Internal Rotation 20 External Rotation 70 Left Passive Testing Position Supine Straight Leg Raise 105 Internal Rotation 35 External Rotation 60 PT-OP-M Strength Start: 01/24/22 18:11 Freq: Status: Active Protocol: Document 02/04/22 11:19 LRN (Rec: 02/04/22 12:45 LRN [id number]) Trunk Strength Trunk Manual Muscle Testing Core Stabilization Good stab except with rotation Hip Strength Hip Manual Muscle Testing Right Flexion (L2) 5 Normal Extension (S1) 5 Normal Abduction 5 Normal Adduction 5 Normal External Rotation 5 Normal Internal Rotation 5 Normal Left Flexion (L2) 5 Normal Extension (S1) 5 Normal Abduction 3 Fair Adduction 3 Fair External Rotation 3+ Fair+ Internal Rotation 5 Normal PT-OP-Q Treatments Start: 01/24/22 18:11 Freq: Status: Active Protocol: Document 04/21/22 09:50 LRN (Rec: 04/21/22 10:34 LRN [id number]) Cardio Equipment Recumbent Bicycle Duration (Minutes) 8 Resistance 3 Seat Position 6 Therapeutic Exercises Supine Exercises L Piriformis stretch Supine Exercise Name L Piriformis stretch Side left Reps/Minutes 30 SH x 2 & w/LE n glides, 10 SH x 6 Comments Pt cautioned/monitored w/ stretch due to Eyler's Danlos Syndrome R Piriformis stretch Supine Exercise Name Piriformis stretch and stretch w/nerve glide Side right Reps/Minutes 30 SH x 2 & w/LE n glides, 10 SH x 6 Comments Pt cautioned/monitored w/ stretch due to Eyler's Danlos Syndrome Manual Therapy Treatment Soft Tissue Mobilization OI Body Location Shane Externally Mobilization Type Sustained Pressure,Trigger Point Release Intensity/Depth Moderate Body Position Hooklying Piriformis Body Location Piriformis Mobilization Type Myofascial Release,Strumming Body Position Supine Self-Care/Home Management Treatment Education Patient Education Body Mechanics,Posture Other Education I/S in use of CP to Perineum. Educated and discussed Proper body mechanics for ADLs. Educated and discussed proper sitting and standing posture with focus on pt reducing lumbar lordosis. Activities Self-Care/Home Management Activities Issued hanout for proper body mechanics for ADLs & for proper posture sitting and standing. PT-OP-R Modalities Start: 01/24/22 18:11 Freq: Status: Active Protocol: Document 04/14/22 09:55 LRN (Rec: 04/14/22 10:56 LRN [id number]) Ultrasound Therapy Treatment R Gtr Trochanter Treatment Duration (minutes) 8 Patient Position Sidelying Coupling Medium Ultrasound Gel Applicator Size (cm2) 10 Mode Setting Pulsed Duty Cycle 50% Intensity Setting (w/cm2) 1.0 PT-OP-T Assessment and Plan Start: 01/24/22 18:11 Freq: Status: Active Protocol: Document 04/21/22 09:50 LRN (Rec: 04/21/22 10:34 LRN [id number]) Physical Therapy Assessment Goals Four Impairment Sacrum in R rotation Commission Auditor Goal (LTG) Normalize sacral positioning to improve core/pelvic stability. 03/31/22: Min>mod STM needed for sacral positioning. LTG Duration 04/04/22 progressing Three Impairment Decreased hip rotational mobility and L greater trochanter pain w/palpation Impairment Hip ER: 60 left, 70 right. Hip IR: 35 left, 20 right. Pain L hip greater trochanter on palpation. Short Term Goal (STG) Pt educated in rotational hip and lateral mobility home ex's . 04/14/22: HEP added for R hip IR, L hip ER. STG Duration 03/07/22 progressed 04/14/22 Usp Goal (LTG) Improve hip mobility to improve symmetry of motion and eliminate L hip pain. LTG Duration 04/04/22 Two Impairment PF Pain on R side with PF contraction Short Term Goal (STG) R PF pain minimal with palpation. STG Duration 03/07/22 progressed 04/14/22 Commission Auditor Goal (LTG) Pt will have the intercourse without pelvic floor pain. 03/14/22: Pt reports no pain with intercourse. LTG Duration 04/04/22 (03/14/22: MET GOAL) One Impairment Lacks appropriate self care HEP to address s/p surgical condition. Impairment Pt sometimes uses her dilator to stretch her PF. Pt is unsure what to stretch and how much to stretch. Short Term Goal (STG) Pt will be educated in proper posture and body mechanics for ADLs. 02/21/22: Educated pt in log roll transfer with coordinated breathing. 03/31/22: Pt educated in proper standing posture. 04/21/22: Pt educated in proper sitting/standing posture and body mechanics for ADLs. STG Duration 03/07/22 (04/21/22: MET GOAL ) Usp Goal (LTG) Pt will be independent and consistent with an HEP for PF & hip stretches, and core/ pelvic stabilization. 04/14/22: HEP: Hip streteches in areas of tightness (R hip IR, L hip ER). LTG Duration 05/02/22 progressed 04/14/22 - hip stretches. Assessment Summary Assessment Pt did appear to have + response to PF stretching last session, but she chose to stretch PF/OI externally today instead of having internal PF stretches. Pt very receptive to review of proper body mechanics and shows improved awareness of the need to minimize her lumbar lordosis. Physical Therapy Plan Frequency and Duration Frequency of Treatment 1x/Week Plan of Care Start Date 02/04/22 Plan of Care End Date 05/02/22 Next Visit Focus/Plan Next Note Type Treatment Note Next Visit Plan CAUTION: Anterior PF Mesh in place. Assess: Bladder Diary and educate as needed, assess response to Hip rotation stretches (ER L, IR R). Manual: External OI or internal stretch, and normalize rib mob for expansion on breath. R LE neural glides. Education: Breathing training to minimize core pressure, f/b proper breath with ADL's and proper body mechanics. Review: transfer training w/ breathwork & TA. Strengthening: L hip AB, AD, ER. Core TA strengthening for lower region to minimize DR. Monitor pt ability to place rib cage over hips. Monitor sacral balance, and correct as needed. Modalities: if needed, US to L greater trochanter.
--- NOTE | 2022-04-28 10:01 | PT-OP ANOTE ---
Per phone conversation, Pt said she cancelled per televox when she was called due to sickness.
--- NOTE | 2022-05-05 12:08 | PT.OPPN ---
Current Diagnoses Slow transit constipation (05/05/22) Pain in left hip (05/05/22) Muscle weakness (generalized) (05/05/22) Abnormal posture (05/05/22) Other symptoms and signs involving the musculoskeletal system (05/05/22) Physical Therapy Progress Note PT-OP-A Visit Information Start: 01/24/22 18:11 Freq: Status: Active Protocol: Document 05/05/22 10:35 LRN (Rec: 05/05/22 11:54 LRN [id number]) Out-Patient Physical Therapy Visit Information Visit Information Visit Type Progress Note Visit Note 7th visit after initial eval Visit Start Time 10:35 Visit Stop Time 11:15 Total Visit Minutes 40 Visit Number 8 Evaluation Information Evaluation Date 02/04/22 Precautions Precautions Pt reported: Rectocele repair 10/2021, previous PF surgery 2 yrs ago for hyste, endo removal cystocele repair with mesh placed, & rectocele repair. Ehler Danlos Syndrome, R ankle ORIF, R knee meiscus repair, one vaginal with 3rd degree tearing and 2 C-sections. Defecography done at [facility] in 08/2020 anal rectal manometry in 04/2020. Small bowel follow through at 05/09/20. 6 , 3 parity. PT-OP-B Current Condition Start: 01/24/22 18:11 Freq: Status: Active Protocol: Document 02/04/22 11:19 LRN (Rec: 02/04/22 12:45 LRN [id number]) Current Condition History of Current Condition Onset Date Oct 2021 Current Complaints Rehab following 2nd rectocele repair surgery 10/2021 History of Current Condition Pt reports with 2nd rectocele repair things have changed in vagina like landscape has changed. She is having same kind of tightness the same as previously. Feels tightness causing her PF pain. she has relaxed some since surgery now that she has had intercourse again. Pt has used a suppository of ms relaxor and pain medication issued to her. She can still feel tightness . 2 yrs ago vagina felt different and now she is slight different, a little more tight. Posterior side feels like muscle is tight. Doing all core ex's and hip stretches and using therawand sometimes. Been busy lately so has not used the therawand as much as she has in the past . Use of therawand has been helpful. Prior Treatments and Tests Pt reports PF surgery Oct 2021 was a second rectocele repair to fix rectocele of vaginal wall (tightened up wall). At same time pt reports have had closing of hole in vagina that a mesh from a previous cystocele repair had poked a hole through. Thinks the mesh was trimmed and the area was patched. 2 yrs ago a PF reconstruction of hyste, endo removal, cystocele repair with bladder mesh placed, and rectocele repair. 2 PT rehab programs here at before the surgeries (PF PT before and after PF sugery 2 yrs ago) - [facility]. First repair was of cystocele and rectocyele, in 2019. Developmental History Developmental History Since healing she has been able to have BM easier than before without having to manually empty. Pt understands she must be more cautious to not get constipated. Constipation coincides with menstrual cycle . Treatment Goals Patient/Caregiver Goals Pt goal is to make sure she doesn't have a problem with the cut into vagina and she wants rehab due to rectocele repair. Personal Factors Other Personal Factors That May Effect Chronic and back pain. Eylers Therapy/Recovery danlos syndrome. Autism, R ankle orif, R knee meniscus. 6 G, 3 P, first was vaginal delivery 3rd degree tear with episotomy (8 5, 9 5, 8 13). PT-OP-C Subjective Start: 01/24/22 18:11 Freq: Status: Active Protocol: Document 05/05/22 10:35 LRN (Rec: 05/05/22 11:54 LRN [id number]) OP-PT Subjective Patient Comments Patient Comments Sore everywhere, right now the low back and center. Has been more intentional about doing proper body mechanics for ADLs. Feels PF is livable and some things are never going to go away. Patient Questionnaires Pelvic Pain and Urgency/Frequency Patient Symptom Scale Pelvic Pain Score 6 PT-OP-I Pelvic Floor Start: 01/24/22 18:11 Freq: Status: Active Protocol: Document 02/27/22 15:19 LRN (Rec: 02/27/22 17:11 LRN [id number]) Pelvic Floor Assessment Pelvic Clock Pelvic Clock 12-3 Tightness Pelvic Clock 3-6 Tightness Pelvic Clock 6-9 Tenderness Inter-Rectal Assessment Previous assessment: Rectal Strength: generally 3/5 , except L is 1-2/5 and 0/5 posteriorly. Endurance: Decrease strength after 3 secs. No drawing in was felt. SEMG (uV) Baseline 0.9 Quick Contraction 9.9 10 Second Contraction 11.2 Recruitment Pattern Good Relaxation Fair Holding Good Stability of Hold Good SEMG Stability of Rest Good Comments Pelvic Floor Comments Resting tone: 0.9 uv's, max 3. 3uV. Long Hold: avg rest 1.3 uV PT-OP-J Posture/Palpation/Skin Start: 01/24/22 18:11 Freq: Status: Active Protocol: Document 02/04/22 11:19 LRN (Rec: 02/04/22 12:45 LRN [id number]) Posture Evaluation Position Standing Head/C-Spine Posture Forward Head T-Spine Posture Flattened L-Spine Posture Increased Lordosis Shoulder Posture (R) Rounded,(R) Forward,(L) Elevated Scapula Posture (L) Elevated Knee Posture (L) Genu Valgus,(R) Genu Valgus Foot Arch (L) No Arch,(R) No Arch Comments Posture Comments Knees beyond ankle joint. R SIJ problem, painful side. Palpation Assessment Location Sacrum Palpation Location Sacral sulcus, HANNAH Palpation Details Sacrum is in R rot. Decreased mobility of inferior glide L side Abdomen Palpation Location Abdominal DR Palpation Details 1 below Umbilicus is 2 finger widths 2 below Umbilicus is 2 finger widths 3 below Umbilicus is very shallow L hip Palpation Location L Greater Trochanter Palpation Findings Tenderness PT-OP-K Range of Motion Start: 01/24/22 18:11 Freq: Status: Active Protocol: Document 05/05/22 10:35 LRN (Rec: 05/05/22 11:54 LRN [id number]) Hip Goniometric Range of Motion Hip Measured in Degrees Right Passive Testing Position Supine Internal Rotation 30 External Rotation 75 Left Passive Testing Position Supine Internal Rotation 35 External Rotation 65 PT-OP-M Strength Start: 01/24/22 18:11 Freq: Status: Active Protocol: Document 02/04/22 11:19 LRN (Rec: 02/04/22 12:45 LRN [id number]) Trunk Strength Trunk Manual Muscle Testing Core Stabilization Good stab except with rotation Hip Strength Hip Manual Muscle Testing Right Flexion (L2) 5 Normal Extension (S1) 5 Normal Abduction 5 Normal Adduction 5 Normal External Rotation 5 Normal Internal Rotation 5 Normal Left Flexion (L2) 5 Normal Extension (S1) 5 Normal Abduction 3 Fair Adduction 3 Fair External Rotation 3+ Fair+ Internal Rotation 5 Normal PT-OP-T Assessment and Plan Start: 01/24/22 18:11 Freq: Status: Active Protocol: Document 05/05/22 10:35 LRN (Rec: 05/05/22 11:54 LRN [id number]) Physical Therapy Assessment Rehab Potential Rehabilitation Potential Good Evaluation Complexity Number of Personal Factors/Comorbidities 1-2 Number of Body Systems Impaired 4 or More Clinical Presentation at Evaluation Evolving Impairments Impairments Pain,Posture,ROM,Strength, Transfers Goals Four Impairment Sacrum in R rotation Build Technician Goal (LTG) Normalize sacral positioning to improve core/pelvic stability. 03/31/22: Min>mod STM needed for sacral positioning. 05/05/22: Able to normalize sacral positioning, not apparently stabilized. LTG Duration 04/04/22 (05/05/22: Partially Met Goal) Three Impairment Decreased hip rotational mobility and L greater trochanter pain w/palpation Impairment Hip ER: 60 left, 70 right. Hip IR: 35 left, 20 right. Pain L hip greater trochanter on palpation. Short Term Goal (STG) Pt educated in rotational hip and lateral mobility home ex's . 04/14/22: HEP added for R hip IR, L hip ER. 05/05/22: HEP: Lateral Hip stretch. STG Duration 03/07/22 (05/05/22: MET GOAL) Build Technician Goal (LTG) Improve hip mobility to improve symmetry of motion and eliminate L hip pain. 05/05/22: L hip pain at baseline, no pain today. Baseline pain is that she doesn't consciously notice, but on bad days is aware of tightness. She is better at doing counter stretching which has helped. LTG Duration 04/04/22 (05/05/22: MET GOAL- Baseline pain). Two Impairment PF Pain on R side with PF contraction Short Term Goal (STG) R PF pain minimal with palpation. 05/05/22: No pain with palpation, only reported tightness. STG Duration 03/07/22 (05/05/22: MET GOAL) Shelter Goal (LTG) Pt will have the intercourse without pelvic floor pain. 03/14/22: Pt reports no pain with intercourse. LTG Duration 04/04/22 (03/14/22: MET GOAL) One Impairment Lacks appropriate self care HEP to address s/p surgical condition. Impairment Pt sometimes uses her dilator to stretch her PF. Pt is unsure what to stretch and how much to stretch. Short Term Goal (STG) Pt will be educated in proper posture and body mechanics for ADLs. 02/21/22: Educated pt in log roll transfer with coordinated breathing. 03/31/22: Pt educated in proper standing posture. 04/21/22: Pt educated in proper sitting/standing posture and body mechanics for ADLs. STG Duration 03/07/22 (04/21/22: MET GOAL ) Shelter Goal (LTG) Pt will be independent and consistent with an HEP for PF & hip stretches, and core/ pelvic stabilization. 04/14/22: HEP: Hip stretches in areas of tightness (R hip IR, L hip ER). 05/05/22: HEP issued Lateral hip stretch. Discussed progression onto previous PF rehab issued core ex program. LTG Duration 05/02/22 (05/05/22: Partially Met Goal - HEP: hip stretches ). Progress Towards Goals Progress Comments Goal #4 Partially met. Goal #3 & #2 MET. Goal #1: STG MET, LTG: Partially Met. PUF improved from score 7 to 6 . Assessment Summary Assessment Pt returns after ~2 weeks, today to assess her progress and review of self alf program. Pt was not able to attend last week for assessment due to needs of her son. Pt reports doing well and feels ready to be placed on self care program. She has improved in the symmetry of hip mobility with hip IR 30 deg's right, 35 deg' s left; ER 76 deg's right 65 deg's left. Pt sacrum was normalized in position with treatment, and we discussed areas of focus for her HEP ( symmetry of hip mobility & posture-ability to place rib cage over hips and decreased lordosis, core/pelvic stab) and discussed progression onto her previous strengthening program in order to gain greater core stability and therefore greater pelvic stability. The pt has improved the symmetry of her hip mobility but is still limited in R>L hip IR, L>R hip ER. The pt appears to have a good understanding of the focus of her home program. Due to her Ehler Danlos Syndrome, progression to core stabilization was slow. Physical therapy in the future would be appropriate for her back pain and LE neural glides as well as core/PF strengthening and stabilization. Physical Therapy Plan Frequency and Duration Frequency of Treatment Today Duration of treatment (weeks) 1 Plan of Care Start Date 05/02/22 Plan of Care End Date 05/05/22 Therapeutic Interventions Therapeutic Interventions Home Exercise Program,Manual Therapy,Self-Care/Home Management,Soft Tissue Mobilization,Therapeutic Activities,Therapeutic Exercises Discharge Physical Therapy Discharge Reasons Patient Request Discharge Comments Discharge after this visit. Most goals met. Pt would benefit from skilled physical therapy in the future if she is not able to progress onto a core strengthening program for core /pelvic stabilization in order to minimize her back pain, L hip pain, and improve her posture, proper breath with ADL's and proper body mechanics.
--- NOTE | 2022-05-05 12:16 | PT.OTN ---
Current Diagnoses Slow transit constipation (05/05/22) Pain in left hip (05/05/22) Muscle weakness (generalized) (05/05/22) Abnormal posture (05/05/22) Other symptoms and signs involving the musculoskeletal system (05/05/22) Physical Therapy Treatment Note PT-OP-A Visit Information Start: 01/24/22 18:11 Freq: Status: Active Protocol: Document 05/05/22 10:35 LRN (Rec: 05/05/22 11:54 LRN [id number]) Out-Patient Physical Therapy Visit Information Visit Information Visit Type Progress Note Visit Note 7th visit after initial eval Visit Start Time 10:35 Visit Stop Time 11:15 Total Visit Minutes 40 Visit Number 8 Evaluation Information Evaluation Date 02/04/22 Precautions Precautions Pt reported: Rectocele repair 10/2021, previous PF surgery 2 yrs ago for hyste, endo removal cystocele repair with mesh placed, & rectocele repair. Ehler Danlos Syndrome, R ankle ORIF, R knee meiscus repair, one vaginal with 3rd degree tearing and 2 C-sections. Defecography done at [facility] in 08/2020 anal rectal manometry in 04/2020. Small bowel follow through at 05/09/20. 6 , 3 parity. PT-OP-B Current Condition Start: 01/24/22 18:11 Freq: Status: Active Protocol: Document 02/04/22 11:19 LRN (Rec: 02/04/22 12:45 LRN [id number]) Current Condition History of Current Condition Onset Date Oct 2021 Current Complaints Rehab following 2nd rectocele repair surgery 10/2021 History of Current Condition Pt reports with 2nd rectocele repair things have changed in vagina like landscape has changed. She is having same kind of tightness the same as previously. Feels tightness causing her PF pain. she has relaxed some since surgery now that she has had intercourse again. Pt has used a suppository of ms relaxor and pain medication issued to her. She can still feel tightness . 2 yrs ago vagina felt different and now she is slight different, a little more tight. Posterior side feels like muscle is tight. Doing all core ex's and hip stretches and using therawand sometimes. Been busy lately so has not used the therawand as much as she has in the past . Use of therawand has been helpful. Prior Treatments and Tests Pt reports PF surgery Oct 2021 was a second rectocele repair to fix rectocele of vaginal wall (tightened up wall). At same time pt reports have had closing of hole in vagina that a mesh from a previous cystocele repair had poked a hole through. Thinks the mesh was trimmed and the area was patched. 2 yrs ago a PF reconstruction of hyste, endo removal, cystocele repair with bladder mesh placed, and rectocele repair. 2 PT rehab programs here at before the surgeries (PF PT before and after PF sugery 2 yrs ago) - [facility]. First repair was of cystocele and rectocyele, in 2019. Developmental History Developmental History Since healing she has been able to have BM easier than before without having to manually empty. Pt understands she must be more cautious to not get constipated. Constipation coincides with menstrual cycle . Treatment Goals Patient/Caregiver Goals Pt goal is to make sure she doesn't have a problem with the cut into vagina and she wants rehab due to rectocele repair. Personal Factors Other Personal Factors That May Effect Chronic and back pain. [facility]/Recovery danlos syndrome. Autism, R ankle orif, R knee meniscus. 6 G, 3 P, first was vaginal delivery 3rd degree tear with episotomy (8 5, 9 5, 8 13). PT-OP-C Subjective Start: 01/24/22 18:11 Freq: Status: Active Protocol: Document 05/05/22 10:35 LRN (Rec: 05/05/22 11:54 LRN [id number]) OP-PT Subjective Patient Comments Patient Comments Sore everywhere, right now the low back and center. Has been more intentional about doing proper body mechanics for ADLs. Feels PF is livable and some things are never going to go away. Patient Questionnaires Pelvic Pain and Urgency/Frequency Patient Symptom Scale Pelvic Pain Score 6 PT-OP-I Pelvic Floor Start: 01/24/22 18:11 Freq: Status: Active Protocol: Document 02/27/22 15:19 LRN (Rec: 02/27/22 17:11 LRN [id number]) Pelvic Floor Assessment Pelvic Clock Pelvic Clock 12-3 Tightness Pelvic Clock 3-6 Tightness Pelvic Clock 6-9 Tenderness Inter-Rectal Assessment Previous assessment: Rectal Strength: generally 3/5 , except L is 1-2/5 and 0/5 posteriorly. Endurance: Decrease strength after 3 secs. No drawing in was felt. SEMG (uV) Baseline 0.9 Quick Contraction 9.9 10 Second Contraction 11.2 Recruitment Pattern Good Relaxation Fair Holding Good Stability of Hold Good SEMG Stability of Rest Good Comments Pelvic Floor Comments Resting tone: 0.9 uv's, max 3. 3uV. Long Hold: avg rest 1.3 uV PT-OP-J Posture/Palpation/Skin Start: 01/24/22 18:11 Freq: Status: Active Protocol: Document 02/04/22 11:19 LRN (Rec: 02/04/22 12:45 LRN [id number]) Posture Evaluation Position Standing Head/C-Spine Posture Forward Head T-Spine Posture Flattened L-Spine Posture Increased Lordosis Shoulder Posture (R) Rounded,(R) Forward,(L) Elevated Scapula Posture (L) Elevated Knee Posture (L) Genu Valgus,(R) Genu Valgus Foot Arch (L) No Arch,(R) No Arch Comments Posture Comments Knees beyond ankle joint. R SIJ problem, painful side. Palpation Assessment Location Sacrum Palpation Location Sacral sulcus, HANNAH Palpation Details Sacrum is in R rot. Decreased mobility of inferior glide L side Abdomen Palpation Location Abdominal DR Palpation Details 1 below Umbilicus is 2 finger widths 2 below Umbilicus is 2 finger widths 3 below Umbilicus is very shallow L hip Palpation Location L Greater Trochanter Palpation Findings Tenderness PT-OP-K Range of Motion Start: 01/24/22 18:11 Freq: Status: Active Protocol: Document 05/05/22 10:35 LRN (Rec: 05/05/22 11:54 LRN [id number]) Hip Goniometric Range of Motion Hip Right Passive Testing Position Supine Internal Rotation 30 External Rotation 75 Left Passive Testing Position Supine Internal Rotation 35 External Rotation 65 PT-OP-M Strength Start: 01/24/22 18:11 Freq: Status: Active Protocol: Document 02/04/22 11:19 LRN (Rec: 02/04/22 12:45 LRN [id number]) Trunk Strength Trunk Manual Muscle Testing Core Stabilization Good stab except with rotation Hip Strength Hip Manual Muscle Testing Right Flexion (L2) 5 Normal Extension (S1) 5 Normal Abduction 5 Normal Adduction 5 Normal External Rotation 5 Normal Internal Rotation 5 Normal Left Flexion (L2) 5 Normal Extension (S1) 5 Normal Abduction 3 Fair Adduction 3 Fair External Rotation 3+ Fair+ Internal Rotation 5 Normal PT-OP-Q Treatments Start: 01/24/22 18:11 Freq: Status: Active Protocol: Document 05/05/22 10:35 LRN (Rec: 05/05/22 11:54 LRN [id number]) Therapeutic Exercises Supine Exercises L Piriformis stretch Supine Exercise Name L Piriformis stretch Side right Reps/Minutes 30 SH x 2 & w/LE n glides, 10 SH x 6 Comments Pt cautioned/monitored w/ stretch due to Eyler's Danlos Syndrome Fig 4 stretch Supine Exercise Name Fig 4 stretch (L>R) Side bilateral Reps/Minutes 60 SH x 1 Comments Extra time taken for positioning and holding during HEP printing. R Piriformis stretch Supine Exercise Name Piriformis stretch and stretch w/nerve glide (R>L) Side right Reps/Minutes 30 SH x 2 & w/LE n glides, 10 SH x 6 Comments Pt cautioned/monitored w/ stretch due to Eyler's Danlos Syndrome Manual Therapy Treatment Soft Tissue Mobilization Sacral balancing Body Location Sacrum, stacey Innominates, Ischial Tubs. Mobilization Type Sustained Pressure Intensity/Depth Moderate Body Position Prone Comments Treatment: R sacral shear, PA of R HANNAH and ischium. 6 pt balancing. PT-OP-R Modalities Start: 01/24/22 18:11 Freq: Status: Active Protocol: Document 04/14/22 09:55 LRN (Rec: 04/14/22 10:56 LRN [id number]) Ultrasound Therapy Treatment R Gtr Trochanter Treatment Duration (minutes) 8 Patient Position Sidelying Coupling Medium Ultrasound Gel Applicator Size (cm2) 10 Mode Setting Pulsed Duty Cycle 50% Intensity Setting (w/cm2) 1.0 PT-OP-T Assessment and Plan Start: 01/24/22 18:11 Freq: Status: Active Protocol: Document 05/05/22 10:35 LRN (Rec: 05/05/22 11:54 LRN [id number]) Physical Therapy Assessment Rehab Potential Rehabilitation Potential Good Evaluation Complexity Number of Personal Factors/Comorbidities 1-2 Number of Body Systems Impaired 4 or More Clinical Presentation at Evaluation Evolving Impairments Impairments Pain,Posture,ROM,Strength, Transfers Goals Four Impairment Sacrum in R rotation Unload Associate Goal (LTG) Normalize sacral positioning to improve core/pelvic stability. 03/31/22: Min>mod STM needed for sacral positioning. 05/05/22: Able to normalize sacral positioning, not apparently stabilized. LTG Duration 04/04/22 (05/05/22: Partially Met Goal) Three Impairment Decreased hip rotational mobility and L greater trochanter pain w/palpation Impairment Hip ER: 60 left, 70 right. Hip IR: 35 left, 20 right. Pain L hip greater trochanter on palpation. Short Term Goal (STG) Pt educated in rotational hip and lateral mobility home ex's . 04/14/22: HEP added for R hip IR, L hip ER. 05/05/22: HEP: Lateral Hip stretch. STG Duration 03/07/22 (05/05/22: MET GOAL) Snf Goal (LTG) Improve hip mobility to improve symmetry of motion and eliminate L hip pain. 05/05/22: L hip pain at baseline, no pain today. Baseline pain is that she doesn't consciously notice, but on bad days is aware of tightness. She is better at doing counter stretching which has helped. LTG Duration 04/04/22 (05/05/22: MET GOAL- Baseline pain). Two Impairment PF Pain on R side with PF contraction Short Term Goal (STG) R PF pain minimal with palpation. 05/05/22: No pain with palpation, only reported tightness. STG Duration 03/07/22 (05/05/22: MET GOAL) Snf Goal (LTG) Pt will have the intercourse without pelvic floor pain. 03/14/22: Pt reports no pain with intercourse. LTG Duration 04/04/22 (03/14/22: MET GOAL) One Impairment Lacks appropriate self care HEP to address s/p surgical condition. Impairment Pt sometimes uses her dilator to stretch her PF. Pt is unsure what to stretch and how much to stretch. Short Term Goal (STG) Pt will be educated in proper posture and body mechanics for ADLs. 02/21/22: Educated pt in log roll transfer with coordinated breathing. 03/31/22: Pt educated in proper standing posture. 04/21/22: Pt educated in proper sitting/standing posture and body mechanics for ADLs. STG Duration 03/07/22 (04/21/22: MET GOAL ) Snf Goal (LTG) Pt will be independent and consistent with an HEP for PF & hip stretches, and core/ pelvic stabilization. 04/14/22: HEP: Hip stretches in areas of tightness (R hip IR, L hip ER). 05/05/22: HEP issued Lateral hip stretch. Discussed progression onto previous PF rehab issued core ex program. LTG Duration 05/02/22 (05/05/22: Partially Met Goal - HEP: hip stretches ). Progress Towards Goals Progress Comments Goal #4 Partially met. Goal #3 & #2 MET. Goal #1: STG MET, LTG: Partially Met. PUF improved from score 7 to 6 . Assessment Summary Assessment Pt returns after ~2 weeks, today to assess her progress and review of self shelter program. Pt was not able to attend last week for assessment due to needs of her son. Pt reports doing well and feels ready to be placed on self care program. She has improved in the symmetry of hip mobility with hip IR 30 deg's right, 35 deg' s left; ER 76 deg's right 65 deg's left. Pt sacrum was normalized in position with treatment, and we discussed areas of focus for her HEP ( symmetry of hip mobility & posture-ability to place rib cage over hips and decreased lordosis, core/pelvic stab) and discussed progression onto her previous strengthening program in order to gain greater core stability and therefore greater pelvic stability. The pt has improved the symmetry of her hip mobility but is still limited in R>L hip IR, L>R hip ER. The pt appears to have a good understanding of the focus of her home program. Due to her Ehler Danlos Syndrome, progression to core stabilization was slow. Physical therapy in the future would be appropriate for her back pain and LE neural glides as well as core/PF strengthening and stabilization. Physical Therapy Plan Frequency and Duration Frequency of Treatment Today Duration of treatment (weeks) 1 Plan of Care Start Date 05/02/22 Plan of Care End Date 05/05/22 Therapeutic Interventions Therapeutic Interventions Home Exercise Program,Manual Therapy,Self-Care/Home Management,Soft Tissue Mobilization,Therapeutic Activities,Therapeutic Exercises Discharge Physical Therapy Discharge Reasons Patient Request Discharge Comments Discharge after this visit. Most goals met. Pt would benefit from skilled physical therapy in the future if she is not able to progress onto a core strengthening program for core /pelvic stabilization in order to minimize her back pain, L hip pain, and improve her posture, proper breath with ADL's and proper body mechanics.
== END 2022-05-06 12:15 | disposition home or self-care (01) ==
LOC: PHYS 10:30
PROVIDERS: Family Provider Nurse Practitioner; PCP Nurse Practitioner; Referring Provider Nurse Practitioner Family; Visit Provider Nurse Practitioner Family
DX: R29.898 Other symptoms and signs involving the musculoskeletal system (principal); R29.3 Abnormal posture; M62.81 Muscle weakness (generalized); K59.01 Slow transit constipation; M25.552 Pain in left hip
CPT/HCPCS: 97035; 97110; 97112; 97140; 97162; 97535

== ENCOUNTER → 2022-11-28 11:14 | Outpatient (CLI) | payer OTHER, SELFPAY ==
[2022-12-03 13:08] LABS: Alder IgE <0.10 kU/L (Class 0); Alternaria alternata IgE <0.10 kU/L (Class 0); Aspergillus fumigatus IgE <0.10 kU/L (Class 0); Box Elder IgE <0.10 kU/L (Class 0); Cat Dander IgE <0.10 kU/L (Class 0); Cladosporium herbarum IgE <0.10 kU/L (Class 0); Cockroach IgE <0.10 kU/L (Class 0); Cottonwood IgE <0.10 kU/L (Class 0); D farinae IgE <0.10 kU/L (Class 0); D pteronyssinus IgE <0.10 kU/L (Class 0); Dog Dander IgE <0.10 kU/L (Class 0); Elm Tree IgE <0.10 kU/L (Class 0); Immunoglobulin E <2 IU/mL (6-495); Mountain Cedar IgE <0.10 kU/L (Class 0); Mouse Urine Proteins IgE <0.10 kU/L (Class 0); Nettle IgE <0.10 kU/L (Class 0); Oak Tree IgE <0.10 kU/L (Class 0); Penicillium chrysogen IgE <0.10 kU/L (Class 0); Pigweed, Common IgE <0.10 kU/L (Class 0); Ragweed, Short <0.10 kU/L (Class 0); Sheep Sorrel IgE <0.10 kU/L (Class 0); Silver Birch IgE <0.10 kU/L (Class 0); Timothy Grass IgE <0.10 kU/L (Class 0); Walnut Allery IgE < 0.10 kU/L (Class 0); White ash IgE <0.10 kU/L (Class 0)
== END ==
PROVIDERS: Family Provider Nurse Practitioner; PCP Nurse Practitioner; Referring Provider Internal Medicine Critical Care Medicine; Visit Provider Internal Medicine Critical Care Medicine
DX: J45.909 Unspecified asthma, uncomplicated (principal)
CPT/HCPCS: 36415; 82785; 86003; 94060; 94726; 94729

== ENCOUNTER 2022-12-20 16:26 | Emergency (ER) | payer OTHER, SELFPAY ==
[2022-12-20] VITALS (9 sets, daily range): BP systolic 116–166; BP diastolic 77–90; PULSE 69–95; RESP 20; TEMP 36.7; O2SAT 93–99; BMI 31.6
--- NOTE | 2022-12-20 16:55 | ED.ABDPAIN ---
HPI - Abdominal Pain <Andrés Contreras PA-C - Last Filed: 12/20/22 18:37> General Chief Complaint: Abdominal Pain Stated Complaint: abd/flank pain/rectal bleeding x5 days Time Seen by Provider: 12/20/22 16:50 Source: patient Mode of arrival: Ambulatory History of Present Illness HPI narrative: This is a 42-year-old female presents emergency department due right lower quadrant pain that radiates to the right flank. Pain has been affecting her for 4 days. She denies any trauma to the area. Denies any dysuria or urinary frequency. She denies any fevers, vomiting, chest pain, shortness of breath, vaginal bleeding, vaginal discharge, or any other signs or symptoms. History of partial hysterectomy,. She states that she routinely has blood in her stool due to internal hemorrhoids. History of x2. Related Data Home Medications Medication Instructions Recorded Confirmed magnesium glycinate 100 mg tablet 200 mg PO DAILY 11/21/22 11/21/22 magnesium malate, chelate 500 mg PO DAILY 11/21/22 11/21/22 Previous Rx's Medication Instructions Recorded ibuprofen 600 mg tablet 600 mg PO Q6HP PRN #20 tabs 04/13/16 nebulizer that is covered by ins #1 ea 11/08/19 clobetasol 0.05 % topical ointment 1 applic topical BID 2 weeks #30 06/13/20 grams omeprazole 40 mg capsule,delayed 40 mg PO BID #180 caps 10/10/20 release atomoxetine 40 mg capsule 40 mg PO DAILY #90 caps 04/18/21 (Strattera) nebulizer accessories #1 ea 08/27/21 nebulizers #1 ea 08/27/21 cyclobenzaprine 5 mg tablet 5 mg PO TID PRN muscle spasm #60 11/26/21 tabs albuterol sulfate 2.5 mg/3 mL 2.5 mg (3 mL) inhalation Q4-6H PRN 11/07/22 (0.083 %) solution for nebulization shortness of breath or wheezing #180 mL fluticasone propionate 44 1 inh inhalation BID #10.6 grams 11/11/22 mcg/actuation HFA aerosol inhaler fluticasone propionate 115 2 puff inhalation BID #12 grams 11/21/22 mcg-salmeterol 21 mcg/actuation HFA inhaler (Advair HFA) montelukast 10 mg tablet 10 mg PO BEDTIME #30 tabs 11/21/22 (Singulair) Allergies Allergy/AdvReac Type Severity Reaction Status Date / Time guanfacine AdvReac Intermediate symptomatic Verified 03/13/22 22:01 hypotension Review of Systems <Andrés Contreras PA-C - Last Filed: 12/20/22 18:37> Review of Systems Narrative: GENERAL: Denies chills, fatigue, malaise, fever, sweats. HEENT: Denies sinus pain, ear pain, sore throat, difficulty swallowing, dizziness. RESPIRATORY: Denies dyspnea, cough, wheezing, hemoptysis, sputum. CARDIOVASCULAR: Denies chest pain, palpitations, orthopnea, edema, GASTROINTESTINAL: Reports right lower quadrant abdominal pain, Denies nausea, vomiting, , diarrhea, constipation, melena. : Denies dysuria, frequency, incontinence, hematuria, urinary retention. MUSCULOSKELETAL: denies weakness, joint pain, or bony pain SKIN: Denies rash, skin lesions, or other NEUROLOGIC: Denies weakness, headache, numbness, change in speech, confusion, seizures, incoordination. PSYCHIATRIC: No concerning psychosocial issues. 12 point review of systems is negative except for those stated above Patient History <CRISS Husain Last Filed: 12/20/22 18:37> Medical History PCOS (polycystic ovarian syndrome) Elevated fasting glucose ADHD Depression with anxiety UTI (urinary tract infection) Surgical History History of partial hysterectomy Status post delivery (04/10/16) History of third molar tooth extraction Status post delivery (10/15/13) Social History household members: spouse and children Smoking Status: Never smoker alcohol intake: current Smoking Status: Never smoker alcohol intake frequency: holidays/special occasions only Substance Use Type: does not use Exam <Andrés Contreras PA-C - Last Filed: 12/20/22 18:37> Narrative Exam Narrative: GENERAL: Well-developed patient, in mild distress. HEAD: Atraumatic. Normocephalic. EYES: Pupils equal round and reactive. Extraocular motions intact. No scleral icterus. No injection or drainage. ENT: Nose without bleeding, purulent drainage. Throat without erythema, tonsillar hypertrophy or exudate. Airway patent. NECK: Trachea midline. Non tender CARDIOVASCULAR: Regular rate and rhythm without murmurs, gallops, or rubs. RESPIRATORY: Clear to auscultation. Breath sounds equal bilaterally. No wheezes, rales, or rhonchi. GASTROINTESTINAL: Mild generalized abdominal tenderness to palpation EXTREMITIES: No edema or joint tenderness. BACK: Nontender without deformity or crepitance. Right-sided CVA tenderness to palpation NEURO: AOx3. SKIN: No rash or erythema of visible areas Initial Vital Signs Initial Vital Signs: Vital Signs Pulse Rate 95 H 12/20/22 16:36 Pulse Oximetry 99 12/20/22 16:36 <Kenya Leigh DO - Last Filed: 12/21/22 21:06> Initial Vital Signs Initial Vital Signs: Vital Signs Pulse Rate 95 H 12/20/22 16:36 Pulse Oximetry 99 12/20/22 16:36 Course <Andrés Contreras PA-C - Last Filed: 12/20/22 18:37> Orders Ordered: Discontinued Medications Ketorolac Tromethamine (Ketorolac 30 Mg/Ml Vial) 15 mg IV NOW ONE Stop: 12/20/22 17:23 Last Admin: 12/20/22 17:29 Dose: 15 mg Documented By: CRYSTAL Ondansetron HCl (Ondansetron 4 Mg Odt) 4 mg PO NOW PRN PRN Reason: Nausea And Vomiting Ondansetron HCl (Ondansetron 4 Mg/2 Ml Inj) 4 mg IV NOW PRN PRN Reason: Nausea And Vomiting Last Admin: 12/20/22 17:29 Dose: 4 mg Documented By: CRYSTAL Vital Signs Vital signs: Vital Signs - 8 hr 12/20/22 16:36 12/20/22 16:37 12/20/22 16:37 Temperature Pulse Rate 95 H 93 H Respiratory Rate Blood Pressure 166/85 H Pulse Oximetry 99 99 Oxygen Delivery Method 12/20/22 16:42 12/20/22 16:53 12/20/22 16:53 Temperature 98.0 F Pulse Rate 94 H 87 Respiratory Rate 20 Blood Pressure 166/85 H 129/90 Pulse Oximetry 99 97 Oxygen Delivery Method Room Air 12/20/22 17:00 12/20/22 17:35 12/20/22 17:54 Temperature Pulse Rate 80 79 69 Respiratory Rate Blood Pressure Pulse Oximetry 96 96 97 Oxygen Delivery Method 12/20/22 17:54 12/20/22 18:00 12/20/22 18:00 Temperature Pulse Rate 76 Respiratory Rate Blood Pressure 116/84 121/78 Pulse Oximetry 93 Oxygen Delivery Method Room Air <Kenya Leigh DO - Last Filed: 12/21/22 21:06> Orders Ordered: Discontinued Medications Ketorolac Tromethamine (Ketorolac 30 Mg/Ml Vial) 15 mg IV NOW ONE Stop: 12/20/22 17:23 Last Admin: 12/20/22 17:29 Dose: 15 mg Documented By: CRYSTAL Ondansetron HCl (Ondansetron 4 Mg Odt) 4 mg PO NOW PRN PRN Reason: Nausea And Vomiting Ondansetron HCl (Ondansetron 4 Mg/2 Ml Inj) 4 mg IV NOW PRN PRN Reason: Nausea And Vomiting Last Admin: 12/20/22 17:29 Dose: 4 mg Documented By: CRYSTAL Vital Signs Vital signs: Vital Signs - 8 hr 12/20/22 16:36 12/20/22 16:37 12/20/22 16:37 Temperature Pulse Rate 95 H 93 H Respiratory Rate Blood Pressure 166/85 H Pulse Oximetry 99 99 Oxygen Delivery Method 12/20/22 16:42 12/20/22 16:53 12/20/22 16:53 Temperature 98.0 F Pulse Rate 94 H 87 Respiratory Rate 20 Blood Pressure 166/85 H 129/90 Pulse Oximetry 99 97 Oxygen Delivery Method Room Air 12/20/22 17:00 12/20/22 17:35 12/20/22 17:54 Temperature Pulse Rate 80 79 69 Respiratory Rate Blood Pressure Pulse Oximetry 96 96 97 Oxygen Delivery Method 12/20/22 17:54 12/20/22 18:00 12/20/22 18:00 Temperature Pulse Rate 76 Respiratory Rate Blood Pressure 116/84 121/78 Pulse Oximetry 93 Oxygen Delivery Method Room Air MDM - Abdominal Pain <Andrés Contreras PA-C - Last Filed: 12/20/22 18:37> Lab Data 12/20/22 16:54 12/20/22 16:54 Labs: Lab Results 12/20/22 Range/Units 16:54 WBC 7.6 (4.5-11.0) X10^3/uL RBC 4.46 (4.0-5.2) X10^6/uL Hgb 13.9 (12.0-16.0) g/dL Hct 40.0 (36-46) % MCV 89.7 (80-100) fL MCH 31.2 (26-34) PG MCHC 34.8 (30-36) % RDW 12.9 (11.6-14.8) % Plt Count 232 (150-400) X10^3/uL Neut % (Auto) 62.9 (50-75) % Lymph % (Auto) 25.7 (25-40) % [place] % (Auto) 8.5 (3-14) % Eos % (Auto) 1.9 L (2-4) % Baso % (Auto) 1.0 (0-2) % Neut # (Auto) 4800 (0039-4104) /uL Lymph # (Auto) 2000 (7295-9397) /uL [place] # (Auto) 600 (0-900) /uL Eos # (Auto) 100 (0-450) /uL Baso # (Auto) 100 (0-100) /uL RBC Morphology Normal morphology Sodium 138 (137-145) mmol/L Potassium 3.9 (3.4-5.1) mmol/L Chloride 106 (98-107) mmol/L Carbon Dioxide 21 L (22-32) mmol/L BUN 12 (7-17) mg/dL Creatinine 0.95 (0.52-1.04) mg/dL Estimated GFR > 60 (>60) mL/min BUN/Creatinine Ratio 12.6 (6-22) Glucose 107 H (70-100) mg/dL Calcium 8.9 (8.4-10.2) mg/dL Total Bilirubin 0.6 (0.2-1.3) mg/dL AST 17 (14-36) IU/L ALT 15 (<35) IU/L Alkaline Phosphatase 83 (38-126) U/L Total Protein 7.4 (6.3-8.2) g/dL Albumin 4.2 (3.5-5.0) g/dL Globulin 3.2 (1.7-4.1) g/dL Albumin/Globulin Ratio 1.3 (1.0-2.8) Lipase 63 (23-300) U/L Point of care testing: Urine Dip Bedside Urine Glucose Negative Bedside Urine Bilirubin - Negative Bedside Urine Ketone - Negative Urine Specific [place] 1.000 Bedside Urine Occult Blood - Negative Bedside Urine pH 6.5 Bedside Urine Protein - Negative Bedside Urine Urobilinogen - Negative Bedside Urine Nitrite - Negative Bedside Urine Leukocytes - Negative Esterase Imaging Data CT scan - abdomen/pelvis: Radiologist's Impression: [address] [address] [address] Scan Report Signed Patient: Remedios Garcia MR#: [id number] : 1980 Acct:[id number] Age/Sex: 42 / F Date of Service: 12/20/22 Loc: ED Accession Number: [id number] Procedure: CT abdomen pelvis w con Ordering Provider: Andrés Contreras P.A-C PROCEDURE: CT ABDOMEN PELVIS W CON INDICATIONS: RLQ and R flank pain TECHNIQUE: After the administration of IV contrast, axial sections were acquired from the lung bases to the pubic symphysis. Coronal and sagittal reformats were performed. For radiation dose reduction, the following was used: automated exposure control, adjustment of mA and/or kV according to patient size. COMPARISON: [facility], , US PELVIC COMPLETE, 09/04/2020, 14:20. [facility], ABDOMEN LIMITED, 03/19/2021, 9:48. [facility], [place] ABDOMEN COMPLETE, 09/04/2020, 14:01. FINDINGS: Image quality: Excellent. Lung bases: Unremarkable. Heart: No significant findings. ABDOMEN: Liver: The liver is enlarged and demonstrates normal density. No focal liver lesions are seen. Gallbladder: Unremarkable. Biliary ducts: Unremarkable. Pancreas: Unremarkable. Spleen: Unremarkable. Adrenal Glands: Unremarkable. Kidneys and Ureters: Unremarkable. Negative for hydronephrosis. Stomach and Bowel: In this patient with this given history, scrutiny is given to the rectum. No significant rectal abnormality is seen. Generalized moderate rectal wall thickening can be seen distally. The more proximal colon is within normal limits. No dilated loops of small bowel are seen. A normal appendix is noted. The stomach demonstrates no significant abnormality. Peritoneum: No abnormal intraperitoneal fluid. No free air. Ventral Wall: No hernia. Abdominal Nodes: No retroperitoneal or mesenteric adenopathy by size criteria. Vessels: Aorta and inferior vena cava are normal in size. PELVIS: Pelvic Organs: This patient is status post hysterectomy. No adnexal masses are seen. Bladder: Unremarkable. Pelvic Nodes: No enlarged lymph nodes. Miscellaneous: No inguinal hernias are seen. Bones: Unremarkable. IMPRESSION: Moderate wall thickening can be seen involving the distal rectum, without a suspicious mass identified. - Please consider follow-up lower endoscopy for further evaluation. Normal appendix. No hydronephrosis can be seen on either side. Additional findings: Hepatomegaly Hysterectomy Dictated by: Atul Song M.D. on 12/20/2022 at 17:24 Approved by: Atul Song M.D. on 12/20/2022 at 17:28 MDM Narrative Medical decision making narrative: MDM * differential diagnosis includes but not limited to gastroenteritis, appendicitis, cholecystitis, peptic ulcer disease * Prior records reviewed: Patient was seen here 2 months ago due to some conjunctival hemorrhage to the right eye. History of GERD. History of polycystic ovarian syndrome. * My lab interpretation: Lab work completely unremarkable. No leukocytosis, no electrolyte abnormalities, UA showed evidence of UTI. * My imgaing interpretation: CT showed no acute abnormalities * Clinical Decision Rules/Scores evaluated: None * Independent discussions with: None ED Course: This is a 52-year-old female with a extensive GI history per patient presents to the emergency department complaining of 4 days of right lower quadrant and right flank pain. Her lab work was completely unremarkable. UA showed no evidence of UTI. Shared decision-making was utilized in CT abdomen and pelvis was ordered which showed no explanation of the patient's right-sided pain. Discussed with the patient who is comfortable falling up with her established business librarian for further evaluation. Shared Decision Making: Discussed plan with the patient who is comfortable with the plan. Social Considerations: None Disposition: Discharged home <Kenya Leigh DO - Last Filed: 12/21/22 21:06> Lab Data Labs: Lab Results 12/20/22 Range/Units 16:54 WBC 7.6 (4.5-11.0) X10^3/uL RBC 4.46 (4.0-5.2) X10^6/uL Hgb 13.9 (12.0-16.0) g/dL Hct 40.0 (36-46) % MCV 89.7 (80-100) fL MCH 31.2 (26-34) PG MCHC 34.8 (30-36) % RDW 12.9 (11.6-14.8) % Plt Count 232 (150-400) X10^3/uL Neut % (Auto) 62.9 (50-75) % Lymph % (Auto) 25.7 (25-40) % [place] % (Auto) 8.5 (3-14) % Eos % (Auto) 1.9 L (2-4) % Baso % (Auto) 1.0 (0-2) % Neut # (Auto) 4800 (3735-6733) /uL Lymph # (Auto) 2000 (8274-2766) /uL [place] # (Auto) 600 (0-900) /uL Eos # (Auto) 100 (0-450) /uL Baso # (Auto) 100 (0-100) /uL RBC Morphology Normal morphology Sodium 138 (137-145) mmol/L Potassium 3.9 (3.4-5.1) mmol/L Chloride 106 (98-107) mmol/L Carbon Dioxide 21 L (22-32) mmol/L BUN 12 (7-17) mg/dL Creatinine 0.95 (0.52-1.04) mg/dL Estimated GFR > 60 (>60) mL/min BUN/Creatinine Ratio 12.6 (6-22) Glucose 107 H (70-100) mg/dL Calcium 8.9 (8.4-10.2) mg/dL Total Bilirubin 0.6 (0.2-1.3) mg/dL AST 17 (14-36) IU/L ALT 15 (<35) IU/L Alkaline Phosphatase 83 (38-126) U/L Total Protein 7.4 (6.3-8.2) g/dL Albumin 4.2 (3.5-5.0) g/dL Globulin 3.2 (1.7-4.1) g/dL Albumin/Globulin Ratio 1.3 (1.0-2.8) Lipase 63 (23-300) U/L Point of care testing: Urine Dip Bedside Urine Glucose Negative Bedside Urine Bilirubin - Negative Bedside Urine Ketone - Negative Urine Specific [place] 1.000 Bedside Urine Occult Blood - Negative Bedside Urine pH 6.5 Bedside Urine Protein - Negative Bedside Urine Urobilinogen - Negative Bedside Urine Nitrite - Negative Bedside Urine Leukocytes - Negative Esterase Discharge Plan Departure Patient Disposition: Home Clinical Impression: Abdominal pain Activity Restrictions/Additional Instructions: Thank you for coming to the [facility] Emergency Department today. Your lab work was unremarkable. There was no evidence of infection or electrolyte abnormalities. The urinalysis showed no evidence of a UTI. The CT scan was also essentially unremarkable and did not show any acute concerning findings that would explain your right-sided abdominal and flank pain. I recommend you follow up with a business librarian for further management and care. I hope you feel better soon. Please follow up with your primary care provider within a week if your symptoms continue. If you do not have a primary care provider please contact the [facility] Resource line at [phone]. They will ask some questions about your medical history and help you get set up with a provider in the community. Prescriptions: No Action ibuprofen 600 MG tablet 600 mg PO Q6HP PRNQty: 20 0RF (DME) nebulizer that is covered by ins Qty: 1 0RF Rx Instructions: As directed omeprazole 40 mg capsule,delayed release(DR/EC) 40 mg PO BID Qty: 180 3RF atomoxetine [Strattera] 40 mg capsule 40 mg PO DAILY Qty: 90 3RF Rx Instructions: Take 1 tab daily for ADHD symptoms (DME) nebulizers Mis See Rx Instructions .Route Qty: 1 0RF Rx Instructions: Use as directed Q4-6 hours, Dispense neb covered by insurance plan with mask and tubing (DME) nebulizer accessories Misc See Rx Instructions .Route Qty: 1 0RF Rx Instructions: As directed, mask, tubing and assessory kit cyclobenzaprine 5 mg tablet 5 mg PO TID PRN (Reason: muscle spasm) Qty: 60 1RF Rx Instructions: d/c metaxalone albuterol sulfate 2.5 mg /3 mL (0.083 %) solution for nebulization 2.5 mg inhalation Q4-6H PRN (Reason: shortness of breath or wheezing) Qty: 180 3RF fluticasone propionate 44 mcg/actuation HFA aerosol inhaler 1 inh INHALATION BID Qty: 10.6 1RF clobetasol 0.05 % ointment 1 applic topical BID 14 Days Qty: 30 2RF Rx Instructions: Apply to affected area twice daily a needed magnesium glycinate 100 mg tablet 200 mg PO DAILY magnesium malate, chelate 125 mg magnesium capsule 500 mg PO DAILY fluticasone propion-salmeterol [Advair HFA] 115-21 mcg/actuation HFA aerosol inhaler 2 puff inhalation BID Qty: 12 3RF Rx Instructions: administer with spacer montelukast [Singulair] 10 mg tablet 10 mg PO BEDTIME Qty: 30 3RF Referrals: Lucero Fortune ARNP [Primary Care Provider] - Stand Alone Forms: Patient Portal/API ED Sign-out <Kenya Leigh DO - Last Filed: 12/21/22 21:06> Cosign ED Attending Apolinar Attestation: I was immediately available in the department for consultation. Documentation has been reviewed.
[2022-12-20 17:09] LABS: Basophils Absolute Auto 100 /uL (0-100); Eosinophils Absolute Auto 100 /uL (0-450); Eosinophils Percent Auto 1.9 % (2-4); Hemoglobin 13.9 g/dL (12.0-16.0); Lymphocytes Absolute Auto 2000 /uL (1100-4500); Lymphocytes Percent Auto 25.7 % (25-40); Mean Corpuscular HGB Conc 34.8 % (30-36); Mean Corpuscular Hemoglobin 31.2 PG (26-34); Mean Corpuscular Volume 89.7 fL (80-100); Monocytes Absolute Auto 600 /uL (0-900); Monocytes Percent Auto 8.5 % (3-14); Neutrophils Absolute Auto 4800 /uL (1500-7000); Neutrophils Percent Auto 62.9 % (50-75); Platelet Count 232 X10^3/uL (150-400); Red Blood Cell Count 4.46 X10^6/uL (4.0-5.2); Red Cell Distribution Width 12.9 % (11.6-14.8); White Blood Cell Count 7.6 X10^3/uL (4.5-11.0)
[2022-12-20 17:11] LABS: Add Manual Diff / Slide Review SLIDE REVIEW
[2022-12-20 17:12] LABS: Alanine Aminotransferase 15 IU/L (<35); Albumin 4.2 g/dL (3.5-5.0); Albumin Globulin Ratio 1.3 (1.0-2.8); Alkaline Phosphatase 83 U/L (38-126); Aspartate Aminotransferase 17 IU/L (14-36); BUN Creatinine Ratio 12.6 (6-22); Bilirubin Total 0.6 mg/dL (0.2-1.3); Blood Urea Nitrogen 12 mg/dL (7-17); Calcium 8.9 mg/dL (8.4-10.2); Carbon Dioxide 21 mmol/L (22-32); Chloride 106 mmol/L (98-107); Estimated Glomerular Filt Rate > 60 mL/min (>60); Globulin 3.2 g/dL (1.7-4.1); Glucose 107 mg/dL (70-100); HEMOLYSIS 28 (0-50); Lipase 63 U/L (23-300); Potassium 3.9 mmol/L (3.4-5.1); Sodium 138 mmol/L (137-145); Total Protein 7.4 g/dL (6.3-8.2)
--- NOTE | 2022-12-20 17:20 | DI.CT.S_ITS ---
PROCEDURE: CT ABDOMEN PELVIS W CON INDICATIONS: RLQ and R flank pain TECHNIQUE: After the administration of IV contrast, axial sections were acquired from the lung bases to the pubic symphysis. Coronal and sagittal reformats were performed. For radiation dose reduction, the following was used: automated exposure control, adjustment of mA and/or kV according to patient size. COMPARISON: [facility], , US PELVIC COMPLETE, 09/04/2020, 14:20. [facility], , US ABDOMEN LIMITED, 03/19/2021, 9:48. [facility], , US ABDOMEN COMPLETE, 09/04/2020, 14:01. FINDINGS: Image quality: Excellent. Lung bases: Unremarkable. Heart: No significant findings. ABDOMEN: Liver: The liver is enlarged and demonstrates normal density. No focal liver lesions are seen. Gallbladder: Unremarkable. Biliary ducts: Unremarkable. Pancreas: Unremarkable. Spleen: Unremarkable. Adrenal Glands: Unremarkable. Kidneys and Ureters: Unremarkable. Negative for hydronephrosis. Stomach and Bowel: In this patient with this given history, scrutiny is given to the rectum. No significant rectal abnormality is seen. Generalized moderate rectal wall thickening can be seen distally. The more proximal colon is within normal limits. No dilated loops of small bowel are seen. A normal appendix is noted. The stomach demonstrates no significant abnormality. Peritoneum: No abnormal intraperitoneal fluid. No free air. Ventral Wall: No hernia. Abdominal Nodes: No retroperitoneal or mesenteric adenopathy by size criteria. Vessels: Aorta and inferior vena cava are normal in size. PELVIS: Pelvic Organs: This patient is status post hysterectomy. No adnexal masses are seen. Bladder: Unremarkable. Pelvic Nodes: No enlarged lymph nodes. Miscellaneous: No inguinal hernias are seen. Bones: Unremarkable. IMPRESSION: Moderate wall thickening can be seen involving the distal rectum, without a suspicious mass identified. - Please consider follow-up lower endoscopy for further evaluation. Normal appendix. No hydronephrosis can be seen on either side. Additional findings: Hepatomegaly Hysterectomy Dictated by: Atul Song M.D. on 12/20/2022 at 17:24 Approved by: Atul Song M.D. on 12/20/2022 at 17:28
[2022-12-20] MEDS: KETOROLAC 30 MG/ML VIAL 15 MG IV (17:29)
[2022-12-20] MEDS: ONDANSETRON 4 MG/2 ML INJ IV (17:29)
[2022-12-20 17:45] LABS: RBC Morphology Normal Morphology
== END 2022-12-20 18:47 | disposition home or self-care (01) ==
PROVIDERS: Emergency Medicine; Emergency Provider Physician Assistant Medical; Family Provider Nurse Practitioner; PCP Nurse Practitioner
DX: R10.31 Right lower quadrant pain (principal)
CPT/HCPCS: 36415; 74177; 80053; 81003; 83690; 85025; 96374; 96375; 99284; J1885; J2405; Q9967

== ENCOUNTER → 2022-12-26 14:18 | Outpatient (CLI) | payer OTHER, SELFPAY ==
[2022-12-30 12:08] LABS: Calprotectin, Stool < 5 ug/g (0-120)
[2022-12-30 17:01] LABS: C difficie Toxins A and B, EIA Negative (Negative)
== END ==
PROVIDERS: Family Provider Nurse Practitioner; PCP Nurse Practitioner; Referring Provider Nurse Practitioner Family; Visit Provider Nurse Practitioner Family
DX: R10.84 Generalized abdominal pain (principal)
CPT/HCPCS: 83993; 87324